=== PATIENT | male | born 1955 | race Caucasian/White ===

== ENCOUNTER 2016-09-12 09:00 | Day surgery (SDC) | payer MEDICARE, OTHER ==
[2016-09-07 15:26] VITALS: BMI 50.2
[2016-09-12] MEDS: SODIUM CHLORIDE 0.9% 1,000 ML IV SCH ×2 (09:35→17:06)
[2016-09-12 09:48] LABS: Basophils # (A) 0.1 k/uL (0-0.2); Basophils % (A) 0 %; CH 33.2; CHCM 34.6; Eosinophils # (A) 0.1 k/uL (0-0.7); Eosinophils % (A) 1 %; HDW 2.79; HGB 15.5 gm/dL (13.0-17.5); Luc # (Auto) 0.16; Luc % (Auto) 1; Lymphocytes # (A) 1.1 k/uL (1.0-4.8); Lymphocytes % (A) 9 %; MCH 33.3 pg (25.0-35.0); MCHC 34.5 g/dL (31.0-37.0); MCV 96.5 fL (80.0-100.0); Monocytes # (A) 0.6 k/uL (0-1.0); Monocytes % (A) 5 %; Neutrophils % (A) 84 %; RBC 4.66 m/uL (4.30-5.90); RDW 14.4 % (11.5-15.5); WBC (Perox) 11.89
[2016-09-12 09:59] LABS: Anion Gap 14 mmol/L; Calcium 9.5 mg/dL (8.4-10.2); Carbon Dioxide 26 mmol/L (22-30); Chloride 101 mmol/L (98-107); Glucose 165 mg/dL (74-99); Non-African American GFR(MDRD) >60 (>60 ml/min/1.73 sqM); Sodium 141 mmol/L (137-145)
[2016-09-12 10:02] LABS: INR 1.5 (<1.1); Prothrombin Time 14.9 sec (9.0-12.0)
[2016-09-12 10:03] LABS: Blood Urea Nitrogen 17 mg/dL (9-20); Potassium 4.7 mmol/L (3.5-5.1)
[2016-09-12] MEDS ORDERED: ceFAZolin 2 GM in SODIUM CHLORIDE 0.9% 100 ML IVPB STA (13:42)
[2016-09-12] MEDS ORDERED: MIDAZOLAM 2 MG/2 ML VIAL ONE (13:45)
[2016-09-12] MEDS ORDERED: fentaNYL (PF) 50 MCG/ML 2 ML AMP ONE (13:45)
[2016-09-12] MEDS ORDERED: ATROPINE SULFATE 0.1 MG/ML 10ML SYRINGE ONE (13:45)
[2016-09-12] MEDS ORDERED: PROPOFOL 10 MG/ML 20 ML VIAL IV ONE (13:45)
[2016-09-12] MEDS ORDERED: ALBUTEROL NEBULIZED 2.5 MG/3 ML INHALATION PRN (14:43)
[2016-09-12] MEDS ORDERED: ACETAMINOPHEN TAB 325 MG TAB PO PRN (14:43)
--- NOTE | 2016-09-12 14:49 | P.PCN ---
Preoperative Diagnosis: Procedure: AV node modification Indication for the procedure: A. fib with RVR despite digoxin and high dose metoprolol, history of cardio myopathy status post biventricular ICD implant Patient was brought to the EP lab in a fasting state. Written informed consent was obtained prior to the procedure. IV antibiotics were administered. Venous access was obtained in the right femoral vein and a long sheath was placed along with a 4 mm tip RF ablation catheter. Mapping of the His bundle was performed. The catheter was pulled back more proximally and inferiorly RF ablation 2 were delivered, 50 W for 60 seconds each. Junctional rhythm at a cycle length of about 1400 ms Following that a single extra RF lesion was delivered Patient tolerated the procedure well without any acute complications Preprocedure biventricular ICD interrogation and reprogramming Prior to the procedure the Bi V ICD was interrogated and reprogrammed to VVI 40 bpm Stable impedances Postprocedure biventricular ICD interrogation with reprogramming Stable impedances Rate reprogrammed to VVIR at 90 beats a minute for 1-2 weeks and then gradually reduced to 60 beats a minute Condition: stable Disposition: observation
[2016-09-12 16:57] LABS: Glucose,Whole Blood 177 mg/dL (75-99)
[2016-09-12] MEDS: LACTATED RINGERS 1,000 ML IV SCH (17:06)
[2016-09-12] MEDS: HYDROcodone/APAP 5-325MG 1 EACH TAB PO PRN ×2 (17:09→20:56)
[2016-09-12] MEDS ORDERED: FUROSEMIDE 20 MG TAB PO SCH (18:00)
[2016-09-12 20:34] LABS: Glucose,Whole Blood 177 mg/dL (75-99)
[2016-09-12] MEDS ORDERED: TEMAZEPAM 15 MG CAP PO PRN (20:57)
[2016-09-12] MEDS ORDERED: WARFARIN 7.5 MG TAB PO SCH (21:00)
[2016-09-12] MEDS ORDERED: ATORVASTATIN 20 MG TAB PO SCH (21:00)
[2016-09-12] MEDS: ALBUTEROL NEBULIZED 2.5 MG/3 ML INHALATION SCH (21:05)
[2016-09-13] MEDS: LACTATED RINGERS 1,000 ML IV SCH (06:14)
--- NOTE | 2016-09-13 07:49 | P.DS ---
Providers Attending physician: Rafa Collazo Primary care physician: James Waylon [facility] [place] Course: Patient is doing well. His groin is healed well. His ablating in the hallways. No chest discomfort no undue shortness of breath Vitals are stable Heart rate 91 beats a minute respirations normal afebrile blood pressure 137/64 mmHg Heart sounds are normal normal S1 normal S2 Breath sounds are normal no rhonchi no crackles Abdomen is soft nontender Extremities are warm no edema Impression Severe nonischemic cardio myopathy Heart failure Systolic heart failure, chronic Status post biventricular ICD Permanent atrial fibrillation with RVR, despite high-dose AV jemal blocking drugs In appropriate ICD shock from A. fib with RVR Status post AV junction modification Plan Pacemaker programmed to VVIR at 90 beats a minute for the next 2 weeks Stop digoxin Both these aspects were discussed with the patient and the nurse Discharge home after pacemaker interrogation today Follow up in 2 weeks in the device clinic and follow-up with me in about 4-5 months Patient Condition at Discharge: Stable Plan - Discharge Summary Discharge Medication List RX: Albuterol Sulfate [Proair Hfa] 2 puff INHALATION Q6HR PRN 02/18/14 [History] RX: Albuterol Nebulized [Ventolin Nebulized] 2.5 mg INHALATION BID 05/20/15 [ History] RX: Aspirin 81 mg PO QAM 05/20/15 [History] RX: Furosemide [Lasix] 20 mg PO 1800 09/11/15 [History] RX: Lisinopril [Zestril] 2.5 mg PO DAILY 09/11/15 [History] RX: Warfarin [Coumadin] 7.5 mg PO HS 09/11/15 [History] RX: diphenhydrAMINE [Benadryl] 25 mg PO QID PRN #30 capsule 09/11/15 [Rx] RX: Atorvastatin [Lipitor] 20 mg PO HS #90 tablet 10/13/15 [Rx] RX: Digoxin [Digitek] 125 mcg PO DAILY #90 tab 10/13/15 [Rx] Metoprolol Succinate [Toprol XL] 200 mg PO QAM 03/01/16 [History] RX: Metoprolol Succinate [Toprol XL] 100 mg PO W/SUPPER 03/01/16 [History]
[2016-09-13] MEDS: ALBUTEROL NEBULIZED 2.5 MG/3 ML INHALATION SCH (07:51)
[2016-09-13 07:55] VITALS: BP 141/75; RESP 18; TEMP 97.6
[2016-09-13 08:29] VITALS: PULSE 73
[2016-09-13] MEDS ORDERED: DIGOXIN 125 MCG TAB PO SCH (09:00)
[2016-09-13] MEDS ORDERED: ASPIRIN 81 MG CHEW PO SCH (09:00)
[2016-09-13] MEDS ORDERED: METOPROLOL SUCCINATE (ER) 100 MG TAB.ER.24H PO SCH (09:00)
== END 2016-09-13 09:56 | disposition home or self-care (01) ==
LOC: CATHEP 09:00 → 3OBS 14:42 → CATHEP 09-13 09:56
PROVIDERS: ATTEND Internal Medicine Clinical Cardiac Electrophysiology
DX: Z45.02 Encounter for adjustment and management of automatic implantable cardiac defibrillator (principal); I48.2 Chronic atrial fibrillation; I11.0 Hypertensive heart disease with heart failure; I50.22 Chronic systolic (congestive) heart failure; I42.8 Other cardiomyopathies; G47.33 Obstructive sleep apnea (adult) (pediatric); R00.1 Bradycardia, unspecified; Z79.01 Long term (current) use of anticoagulants; Z79.82 Long term (current) use of aspirin; Z79.899 Other long term (current) drug therapy
CPT/HCPCS: 94640 ×2; 93650; 93642; 80048; 85025; 85610; C1894; C1769 ×2; C1893; C1733; J2250; J0690; J0461; J3010; J2704; 93284

== ENCOUNTER → 2017-02-09 | Outpatient (CLI) | payer MEDICARE, OTHER ==
[2017-02-09 13:13] LABS: Basophils # (A) 0.1 k/uL (0-0.2); Basophils % (A) 1 %; CH 31.7; CHCM 33.4; Eosinophils # (A) 0.2 k/uL (0-0.7); Eosinophils % (A) 2 %; HCT 45.2 % (39.0-53.0); HGB 15.3 gm/dL (13.0-17.5); Luc # (Auto) 0.22; Luc % (Auto) 2; Lymphocytes # (A) 0.8 k/uL (1.0-4.8); Lymphocytes % (A) 8 %; MCH 32.3 pg (25.0-35.0); MCHC 33.9 g/dL (31.0-37.0); MCV 95.3 fL (80.0-100.0); Mean Platelet Volume 7.5; Monocytes # (A) 0.6 k/uL (0-1.0); Monocytes % (A) 7 %; Neutrophils # (A) 7.3 k/uL (1.3-7.7); Neutrophils % (A) 80 %; RBC 4.75 m/uL (4.30-5.90); RDW 15.2 % (11.5-15.5); WBC 9.1 k/uL (3.8-10.6); WBC (Perox) 9.51
[2017-02-09 13:30] LABS: ALT 30 U/L (21-72); AST 28 U/L (17-59); Alkaline Phosphatase 105 U/L (38-126); Anion Gap 9 mmol/L; Blood Urea Nitrogen 13 mg/dL (9-20); Calcium 8.9 mg/dL (8.4-10.2); Carbon Dioxide 27 mmol/L (22-30); Chloride 102 mmol/L (98-107); Cholesterol 136 mg/dL (<200); Glucose 128 mg/dL (74-99); HDL Cholesterol 43 mg/dL (40-60); Non-African American GFR(MDRD) >60 (>60 ml/min/1.73 sqM); Potassium 3.8 mmol/L (3.5-5.1); Sodium 138 mmol/L (137-145); Total Bilirubin 0.7 mg/dL (0.2-1.3); Total Protein 6.6 g/dL (6.3-8.2); Uric Acid 10.6 mg/dL (3.5-8.5)
== END | disposition home or self-care (01) ==
LOC: LABWHC1 12:21
PROVIDERS: ATTEND Physician Assistant Medical
DX: K92.1 Melena (principal); N18.9 Chronic kidney disease, unspecified; M10.00 Idiopathic gout, unspecified site
CPT/HCPCS: 36415; 80053; 80061; 84550; 85025

== ENCOUNTER 2017-02-26 11:20 | Day surgery (SDC) | payer MEDICARE, OTHER ==
[2017-02-22 16:00] VITALS: BMI 49.4
[~2017-02-26 11:20] MED LIST: LACTATED RINGERS 1,000 ML IV SCH; LIDOCAINE 1% 20 ML VIAL (10MG/ML) FOR IV START INTRADERMA PRN
[2017-02-26 12:20] VITALS: RESP 16
[2017-02-26 12:50] LABS: Glucose,Whole Blood 129 mg/dL (75-99)
[2017-02-26] MEDS ORDERED: LIDOCAINE 1% INJ 10MG/ML (20 ML MDV) ONE (12:57)
[2017-02-26] MEDS ORDERED: PROPOFOL 10 MG/ML 20 ML VIAL IV ONE (12:57)
[2017-02-26 13:39] VITALS: PULSE 60
--- NOTE | 2017-02-26 13:43 | P.PCN ---
Date of Procedure: 02/26/17 Preoperative Diagnosis: Postoperative Diagnosis: Procedure(s) Performed: Procedure: Colonoscopy and biopsy. Preoperative diagnosis: Positive occult blood in the stools. Postoperative diagnosis: 1. Sigmoid diverticulosis with nonspecific proctosigmoiditis with no spontaneous bleeding. 2. Multiple biopsies obtained. 3. No polyps or cancer. Operation: HalfLytely prep. Sedation: Was provided by anesthesia. Brief clinical history: The patient is a 61-year-old male who is scheduled for this evaluation because of occult positive stools. There is no significant abdominal symptoms at this time or overt bleeding. This would be his first colonoscopy. Procedure: With the patient on his left lateral decubitus position and after informed consent and adequate sedation, the perianal area was inspected and it did not show any fissures or fistulas. There were no masses felt on digital rectal examination. The Olympus CFQ 160L video colonoscope was then inserted in the rectum in the usual fashion and advanced to the cecum. There were multiple diverticular orifices seen scattered in the sigmoid. The distal 30 cm of the colon, which includes the distal sigmoid and rectum, showed nonspecific inflammation that was patchy in the distal sigmoid and more diffuse in the rectum with edema, erythema and granularity of the mucosa but no obvious ulcers or spontaneous bleeding. In the sigmoid there was areas of submucosal hemorrhage in the vicinity of diverticular orifices that could represent a prior bout of diverticulitis. I obtained multiple biopsies from the sigmoid and rectum then I retroflexed the endoscope in the rectum before the endoscope was withdrawn. The patient tolerated the procedure well. Plan: I summarized the findings to the patient. Will await biopsy results and make additional recommendations based on his course and biopsy results. I will keep you updated on his progress. Implants: Indications for Procedure: Operative Findings: Description of Procedure:
[2017-02-26 13:51] VITALS: BP 108/66
== END 2017-02-26 14:36 | disposition home or self-care (01) ==
LOC: ORWHC2ENDO 11:20
DX: K52.9 Noninfective gastroenteritis and colitis, unspecified (principal); K57.30 Diverticulosis of large intestine without perforation or abscess without bleeding; R19.5 Other fecal abnormalities; J44.9 Chronic obstructive pulmonary disease, unspecified; M19.90 Unspecified osteoarthritis, unspecified site; G47.33 Obstructive sleep apnea (adult) (pediatric); I48.92 Unspecified atrial flutter; M10.9 Gout, unspecified; E66.9 Obesity, unspecified; K21.9 Gastro-esophageal reflux disease without esophagitis; Z95.810 Presence of automatic (implantable) cardiac defibrillator; Z79.01 Long term (current) use of anticoagulants; Z79.82 Long term (current) use of aspirin; Z79.899 Other long term (current) drug therapy
CPT/HCPCS: 88305; 45380; J2001; J2704

== ENCOUNTER → 2017-06-26 | Outpatient (CLI) | payer MEDICARE, OTHER ==
[2017-06-26 16:05] LABS: ALT 50 U/L (21-72); AST 30 U/L (17-59); Alkaline Phosphatase 119 U/L (38-126); Anion Gap 9 mmol/L; Blood Urea Nitrogen 27 mg/dL (9-20); Calcium 9.5 mg/dL (8.4-10.2); Carbon Dioxide 30 mmol/L (22-30); Chloride 99 mmol/L (98-107); Glucose 125 mg/dL (74-99); Non-African American GFR(MDRD) >60 (>60 ml/min/1.73 sqM); Potassium 4.1 mmol/L (3.5-5.1); Sodium 138 mmol/L (137-145); Total Bilirubin 1.5 mg/dL (0.2-1.3); Total Protein 7.1 g/dL (6.3-8.2); Uric Acid 7.7 mg/dL (3.5-8.5)
[2017-06-26 16:11] LABS: Basophils % (A) 0 %; CH 31.6; CHCM 33.5; Eosinophils # (A) 0.1 k/uL (0-0.7); Eosinophils % (A) 1 %; HCT 53.9 % (39.0-53.0); HDW 2.43; HGB 17.7 gm/dL (13.0-17.5); Luc % (Auto) 2; Lymphocytes # (A) 1.1 k/uL (1.0-4.8); Lymphocytes % (A) 11 %; MCH 31.1 pg (25.0-35.0); MCHC 32.9 g/dL (31.0-37.0); MCV 94.6 fL (80.0-100.0); Mean Platelet Volume 6.9; Monocytes # (A) 0.9 k/uL (0-1.0); Monocytes % (A) 9 %; Neutrophils # (A) 8.2 k/uL (1.3-7.7); Neutrophils % (A) 78 %; RBC 5.69 m/uL (4.30-5.90); WBC 10.6 k/uL (3.8-10.6); WBC (Perox) 10.34
== END | disposition home or self-care (01) ==
LOC: LABWHC1 15:31
PROVIDERS: ATTEND Physician Assistant Medical
DX: J20.9 Acute bronchitis, unspecified (principal); M10.9 Gout, unspecified; N18.9 Chronic kidney disease, unspecified
CPT/HCPCS: 36415; 80053; 84550; 85025

== ENCOUNTER → 2017-07-10 | Outpatient (CLI) | payer MEDICARE, OTHER ==
[2017-07-10 12:22] LABS: Anion Gap 10 mmol/L; Blood Urea Nitrogen 21 mg/dL (9-20); Calcium 9.1 mg/dL (8.4-10.2); Carbon Dioxide 27 mmol/L (22-30); Chloride 99 mmol/L (98-107); Glucose 146 mg/dL (74-99); Potassium 4.1 mmol/L (3.5-5.1); Sodium 136 mmol/L (137-145)
== END | disposition home or self-care (01) ==
LOC: LABWHC1 11:34
PROVIDERS: ATTEND Nurse Practitioner Adult Health
DX: I42.8 Other cardiomyopathies (principal)
CPT/HCPCS: 36415; 80048

== ENCOUNTER → 2017-10-26 | Outpatient (CLI) | payer MEDICARE, OTHER ==
--- NOTE | 2017-10-26 11:50 | CT ---
EXAMINATION TYPE: CT soft tissue neck w con DATE OF EXAM: 10/26/2017 COMPARISON: NONE HISTORY: Patient complains of sore throat. CT DLP: 1043 mGycm CONTRAST: CT scan of the neck is performed with IV Contrast, patient injected with 100 mL of Isovue 300. Contrast enhanced CT of the neck was performed from the skull base through the lung apices. AIRWAY: There is mild prominence of the tonsillar pillars. The supraglottic, glottic, and subglotti c portions of the airway appear patent and free of mass. SALIVARY GLANDS: The submandibular and parotid glands are free of mass or inflammatory process. THYROID GLAND: No nodules or masses seen. LYMPH NODES: No adenopathy seen greater than 1cm. LUNG APICES: No nodule or mass is seen. OTHER: Vascular structures are patent. Mild degenerative change of the cervical spine. No abscess s een. IMPRESSION: There is mild prominence of the tonsillar pillars. Otherwise unremarkable study.
== END ==
LOC: RADCTMAIN 11:04
PROVIDERS: ATTEND Otolaryngology
DX: J02.9 Acute pharyngitis, unspecified (principal); H92.01 Otalgia, right ear
CPT/HCPCS: 70491; Q9967

== ENCOUNTER 2017-10-30 01:55 | Emergency (ER) | payer MEDICARE, OTHER ==
[2017-10-30] MEDS ORDERED: LIDOCAINE/EPINEPHR/TETRACAINE 5 ML BOTTLE TOPICAL ONE (02:24)
[2017-10-30] MEDS ORDERED: OXYMETAZOLINE 0.05% NASL SPRAY 1 SPRAY BOTTLE NASAL STA (02:24)
[2017-10-30] MEDS ORDERED: SILVER NITRATE APPLICATOR 1 EACH STICK..EA. TOPICAL STA (02:26)
[2017-10-30 02:46] LABS: INR 2.9 (<1.2); Partial Thromboplastin Time 33.7 sec (22.0-30.0); Prothrombin Time 25.7 sec (9.0-12.0)
[2017-10-30] MEDS ORDERED: ALBUTEROL NEBULIZED 2.5 MG/3 ML INHALATION STA (03:39)
--- NOTE | 2017-10-30 03:41 | ED ---
ENT HPI - General Chief complaint: ENT Stated complaint: nose bleed Time Seen by Provider: 10/30/17 02:16 Source: patient, RN notes reviewed, old records reviewed Mode of arrival: wheelchair Limitations: physical limitation - History of Present Illness Initial comments: This patient is a 62-year-old male chief complaint of a nosebleed since Sunday evening. He reports that he is on Coumadin. He reports that he followed up with an clinical research nurse and they were going to cauterize his nose next week. Patient has been getting more frequent nosebleeds. He denies any lightheadedness or dizziness. Denies any chest pain shortness of breath palpitations. - Related Data Home Medications Medication Instructions Recorded Confirmed Albuterol Sulfate [Proair Hfa] 2 puff INHALATION RT-Q6H PRN 02/18/14 07/01/17 Albuterol Nebulized [Ventolin 2.5 mg INHALATION RT-Q6H PRN 05/20/15 07/01/17 Nebulized] Aspirin 81 mg PO DAILY 05/20/15 07/01/17 Lisinopril [Zestril] 2.5 mg PO DAILY 09/11/15 07/01/17 Warfarin [Coumadin] 7.5 mg PO TUTH 09/11/15 07/01/17 Metoprolol Succinate [Toprol XL] 200 mg PO DAILY 03/01/16 07/01/17 Febuxostat [Uloric] 40 mg PO DAILY 02/22/17 07/01/17 Azithromycin [Zithromax Z-pack] See Taper PO DIRECTED 07/01/17 07/01/17 Furosemide [Lasix] 20 mg PO HS 07/01/17 07/01/17 Furosemide [Lasix] 40 mg PO DAILY 07/01/17 07/01/17 Ranitidine HCl [Zantac] 300 mg PO HS 07/01/17 07/01/17 Warfarin [Coumadin] 5 mg PO SUMOWEFRSA 07/01/17 07/01/17 traZODone HCL 50 mg PO HS PRN 07/01/17 07/01/17 Previous Rx's Medication Instructions Recorded Atorvastatin [Lipitor] 20 mg PO HS #90 tablet 10/13/15 Furosemide [Lasix] 20 mg PO HS #30 tab 07/03/17 Furosemide [Lasix] 40 mg PO DAILY #30 tab 07/03/17 Amoxic-Pot Clav 875-125Mg 1 tab PO Q12HR #20 tablet 10/30/17 [Augmentin 875-125] Allergies Allergy/AdvReac Type Severity Reaction Status Date / Time No Known Allergies Allergy Verified 10/30/17 02:04 Review of Systems ROS Statement: Those systems with pertinent positive or pertinent negative responses have been documented in the HPI. ROS Other: All systems not noted in ROS Statement are negative. Past Medical History Past Medical History: Atrial Flutter, COPD, GERD/Reflux, Osteoarthritis (OA), Pneumonia, Renal Disease, Skin Disorder, Sleep Apnea/CPAP/BIPAP Additional Past Medical History / Comment(s): BLOOD IN STOOL, cellulitis bilateral lower extremities-healing, gout, USES A CANE TO AMBULATE, History of Any Multi-Drug Resistant Organisms: None Reported Past Surgical History: AICD, Cardiac Ablation, Orthopedic Surgery Additional Past Surgical History / Comment(s): rectal fistula repair X2. RUEL KNEE ARTHROSCOPY, surgery to remove part of lower left lung for abestosis, Past Anesthesia/Blood Transfusion Reactions: No Reported Reaction Type of Cardiac Device: AICD Device Placement Date:: [facility] 10/13/15 Past Psychological History: No Psychological Hx Reported Smoking Status: Never smoker Past Alcohol Use History: Occasional Past Drug Use History: None Reported - Past Family History Father Family Medical History: Diabetes Mellitus Additional Family Medical History / Comment(s): Father is almost 90 yrs old. Mother Family Medical History: Cancer Additional Family Medical History / Comment(s): STOMACH CA. General Exam - General Exam Comments Initial Comments: This is a 62 year old male, no distress. Limitations: physical limitation General appearance: alert, in no apparent distress Head exam: Present: atraumatic, normocephalic, normal inspection Eye exam: Present: normal appearance, PERRL, EOMI. Absent: scleral icterus, conjunctival injection, periorbital swelling ENT exam: Present: normal exam, mucous membranes moist, other (Right sided anterior nose bleed. ) Neck exam: Present: normal inspection. Absent: tenderness, meningismus, lymphadenopathy Respiratory exam: Present: normal lung sounds bilaterally. Absent: respiratory distress, wheezes, rales, rhonchi, stridor Cardiovascular Exam: Present: regular rate, normal rhythm, normal heart sounds. Absent: systolic murmur, diastolic murmur, rubs, gallop, clicks GI/Abdominal exam: Present: soft, normal bowel sounds. Absent: distended, tenderness, guarding, rebound, rigid Extremities exam: Present: normal inspection, full ROM, normal capillary refill , other (Patient has dusky lower extremity, and ambulate in wheel chair. Appears to have chronic venous stasis. ). Absent: tenderness, pedal edema, joint swelling, calf tenderness Back exam: Present: normal inspection Neurological exam: Present: alert, oriented X3, CN II-XII intact Course Vital Signs 10/30/17 10/30/17 10/30/17 01:59 03:30 03:43 Temperature 98.6 F Pulse Rate 59 L 60 62 Respiratory 18 19 Rate Blood Pressure 155/80 148/76 O2 Sat by Pulse 97 97 Oximetry 10/30/17 10/30/17 03:50 04:41 Temperature 97.8 F Pulse Rate 62 83 Respiratory 17 Rate Blood Pressure 154/87 O2 Sat by Pulse 96 Oximetry Medical Decision Making - Medical Decision Making [id number] male presents with a right sided nosebleed. It appears to be an anterior bleed. I initially use Afrin and a topical lidocaine with epinephrine to the nostril. You continue to have some bleeding. I attempted to cauterize with silver nitrate Initially the nosebleed was stable. However if then we started to rebleed. Discuss with Dr. Mendiola. Patient had an anterior nasal packing with Merocell. Patient INR is within therapeutic range with Afib of 2.9. Patient will be started on augmentin with anterior packing. Discussed antibiotics can change his INR as well. Discussed he needs to follow up with ENT on Sunday fore removal, he already has an appt. Patient will have to have his INR rechecked as well. All question answered. REturn parameters discussed. - Lab Data Lab Results 10/30/17 Range/Units 02:16 PT 25.7 H (9.0-12.0) sec INR 2.9 H (<1.2) APTT 33.7 H (22.0-30.0) sec Disposition Clinical Impression: Nosebleed Disposition: HOME SELF-CARE Condition: Good Instructions: Nosebleed (ED) Additional Instructions: Patient advised to follow-up with primary care provider. Patient is a follow- up with clinical research nurse proximally 2 days. Patient is a keep the packing within the nose until ENT follow-up. Return to the emergency department if any alarming signs or symptoms occur. Prescriptions: Amoxic-Pot Clav 875-125Mg [Augmentin 875-125] 1 tab PO Q12HR #20 tablet Is patient prescribed a controlled substance at d/c from ED?: No If prescribed controlled substance>3 days was MAPS reviewed?: No When asked, does pt state using other controlled substances?: No Referrals: James Sam III, MD [Primary Care Provider] - 1-2 days Avel Scott MD [STAFF PHYSICIAN] - 1-2 days Time of Disposition: 04:29
[2017-10-30 04:43] VITALS: BP 154/87; PULSE 83; RESP 17; TEMP 97.8
== END 2017-10-30 05:07 | disposition home or self-care (01) ==
LOC: EC 01:55
DX: R04.0 Epistaxis (principal); I48.92 Unspecified atrial flutter; K21.9 Gastro-esophageal reflux disease without esophagitis; M19.90 Unspecified osteoarthritis, unspecified site; G47.30 Sleep apnea, unspecified; M10.9 Gout, unspecified; Z99.89 Dependence on other enabling machines and devices; Z95.810 Presence of automatic (implantable) cardiac defibrillator; Z98.890 Other specified postprocedural states; Z79.01 Long term (current) use of anticoagulants; Z79.82 Long term (current) use of aspirin; Z79.899 Other long term (current) drug therapy
CPT/HCPCS: 30901; 36415; 85610; 85730; 94640; 99284

== ENCOUNTER → 2017-11-02 | Outpatient (CLI) | payer OTHER ==
[2017-11-05 11:46] LABS: Alt. alternata IgE Class CLASS 0; Alternaria alternata IgE <0.35 kU/L (<0.35); Asperg. fumagatus IgE <0.35 kU/L (<0.35); Asperg. fumagatus IgE Class CLASS 0; Aureo. pullulans IgE <0.35 kU/L (<0.35); Birch(Com.Silvr) IgE 0.85 kU/L (<0.35); Birch(Com.Silvr) IgE Class CLASS II; Candida albicans IgE Class CLASS 0; Cat Epith & Dander IgE 2.92 kU/L (<0.35); Cat Epith & Dander IgE Class CLASS II; Clad herbarum IgE <0.35 kU/L (<0.35); Cockroach IgE 1.36 kU/L (<0.35); Com. Pigweed IgE 1.37 kU/L (<0.35); Com. Pigweed IgE Class CLASS II; Cottonwood IgE 1.24 kU/L (<0.35); Dermato. Pteronyssinus IgE <0.35 kU/L (<0.35); Dermato. farinae IgE <0.35 kU/L (<0.35); Dermato. farinae IgE Class CLASS 0; Dog Dander IgE 5.13 kU/L (<0.35); English Plantain IgE Class CLASS II; Epicoccum purpurascens Class CLASS 0; Epicoccum purpurascens IgE <0.35 kU/L (<0.35); Johnson Grass IgE Class CLASS III; Lamb's Quarter IgE 1.44 kU/L (<0.35); Lamb's Quarter IgE Class CLASS II; Maple (Box Elder) IgE 1.31 kU/L (<0.35); Maple (Box Elder) IgE Class CLASS II; Mucor racemosus IgE 0.44 kU/L (<0.35); Mucor racemosus IgE Class CLASS I; Oak IgE 1.38 kU/L (<0.35); Rhizopus nigricans IgE 0.44 kU/L (<0.35); S.rostrata/Helminth Class CLASS 0; S.rostrata/Helminth IgE <0.35 kU/L (<0.35); Sycamore(Mpl.Lf) IgE 1.58 kU/L (<0.35); Walnut Tree IgE 0.79 kU/L (<0.35); Walnut Tree IgE Class CLASS II; White Ash IgE Class CLASS II
== END | disposition home or self-care (01) ==
LOC: LABWHC1 10:49
PROVIDERS: ATTEND Otolaryngology
DX: J30.89 Other allergic rhinitis (principal)
CPT/HCPCS: 36415; 86003

== ENCOUNTER 2017-11-03 20:04 | Emergency (ER) | payer MEDICARE, OTHER ==
[2017-11-03 20:09] VITALS: RESP 18
[2017-11-03] MEDS ORDERED: COCAINE HCL 4 ML SOLUTION TOPICAL ONE (20:34)
--- NOTE | 2017-11-03 20:38 | ED ---
ENT HPI - General Chief complaint: ENT Stated complaint: Nose Bleed Time Seen by Provider: 11/03/17 20:19 Source: patient Mode of arrival: wheelchair Limitations: no limitations - History of Present Illness Initial comments: 62-year-old male presenting with nosebleed. Patient states that he was seen on 10/30 for similar issue. He was discharged with nasal packing and followed up with ENT. States the nasal packing was removed, and he had no issues until 7 PM tonight. Patient states he been off of his warfarin for the past 3 day and took 5 mg today at 5:30 PM. Patient states he tried pressure and tissues without any relief. Denies any trauma. - Related Data Home Medications Medication Instructions Recorded Confirmed Albuterol Sulfate [Proair Hfa] 2 puff INHALATION RT-Q6H PRN 02/18/14 11/03/17 Albuterol Nebulized [Ventolin 2.5 mg INHALATION RT-Q6H PRN 05/20/15 11/03/17 Nebulized] Aspirin 81 mg PO DAILY 05/20/15 11/03/17 Lisinopril [Zestril] 2.5 mg PO DAILY 09/11/15 11/03/17 Warfarin [Coumadin] 7.5 mg PO TUTH 09/11/15 11/03/17 Metoprolol Succinate [Toprol XL] 200 mg PO DAILY 03/01/16 11/03/17 Febuxostat [Uloric] 40 mg PO DAILY 02/22/17 11/03/17 Azithromycin [Zithromax Z-pack] See Taper PO DIRECTED 07/01/17 11/03/17 Furosemide [Lasix] 20 mg PO HS 07/01/17 11/03/17 Furosemide [Lasix] 40 mg PO DAILY 07/01/17 11/03/17 Ranitidine HCl [Zantac] 300 mg PO HS 07/01/17 11/03/17 Warfarin [Coumadin] 5 mg PO SUMOWEFRSA 07/01/17 11/03/17 traZODone HCL 50 mg PO HS PRN 07/01/17 11/03/17 Previous Rx's Medication Instructions Recorded Atorvastatin [Lipitor] 20 mg PO HS #90 tablet 10/13/15 Furosemide [Lasix] 20 mg PO HS #30 tab 07/03/17 Furosemide [Lasix] 40 mg PO DAILY #30 tab 07/03/17 Amoxic-Pot Clav 875-125Mg 1 tab PO Q12HR #20 tablet 10/30/17 [Augmentin 875-125] Allergies Allergy/AdvReac Type Severity Reaction Status Date / Time No Known Allergies Allergy Verified 11/03/17 20:09 Review of Systems ROS Statement: Those systems with pertinent positive or pertinent negative responses have been documented in the HPI. Review of Systems Constitutional: Denies fever, chills Eyes: Denies change in vision, Denies pain Ears, nose, mouth, throat: Denies headaches, Denies sore throat. Positive nose bleed Cardiovascular: Denies chest pain. Denies palpitations Respiratory: Denies shortness of breath, Denies cough Gastrointestinal: Denies abdominal pain. Denies nausea, vomiting, diarrhea. Genitourinary: Denies hematuria, Denies infections Musculoskeletal: Denies pain, Denies swelling Integumentary: Denies rash Neurological: Denies headache, focal weakness, focal numbness Psychiatric: Denies anxiety, Denies depression Hematologic/Lymphatic: Denies easy bleeding or bruising ROS Other: All systems not noted in ROS Statement are negative. Past Medical History Past Medical History: Atrial Flutter, COPD, GERD/Reflux, Osteoarthritis (OA), Pneumonia, Renal Disease, Skin Disorder, Sleep Apnea/CPAP/BIPAP Additional Past Medical History / Comment(s): BLOOD IN STOOL, cellulitis bilateral lower extremities-healing, gout, USES A CANE TO AMBULATE, History of Any Multi-Drug Resistant Organisms: None Reported Past Surgical History: AICD, Cardiac Ablation, Orthopedic Surgery Additional Past Surgical History / Comment(s): rectal fistula repair X2. RUEL KNEE ARTHROSCOPY, surgery to remove part of lower left lung for abestosis, Past Anesthesia/Blood Transfusion Reactions: No Reported Reaction Type of Cardiac Device: AICD Device Placement Date:: [facility] 10/13/15 Past Psychological History: No Psychological Hx Reported Smoking Status: Never smoker Past Alcohol Use History: Occasional Past Drug Use History: None Reported - Past Family History Father Family Medical History: Diabetes Mellitus Additional Family Medical History / Comment(s): Father is almost 90 yrs old. Mother Family Medical History: Cancer Additional Family Medical History / Comment(s): STOMACH CA. General Exam - General Exam Comments Initial Comments: General: Awake, alert, No acute Distress HENT: Normocephalic. Atraumatic. Bleeding from Kesselbach's plexus on right. No oropharyngeal bleeding Eyes: PERRL. EOMI. No scleral icterus. No injected conjunctiva Neck: Full ROM Chest/Lungs: Clear to auscultation bilaterally. No wheezing, rhonchi, or rales Cardiac: Regular rate, rhythm. No murmurs or rubs Abdomen/GI: [Soft, nontender, nondistended. No rebound, guarding, or rigidity. Musculoskeletal: Full ROM Skin: Warm, dry, intact Neurologic: A/Ox3, no weakness, no sensory deficit, no abdnormal gait, no coordination deficit Limitations: no limitations Course Vital Signs 11/03/17 20:07 Temperature 98 F Pulse Rate 60 Respiratory 18 Rate Blood Pressure 150/73 O2 Sat by Pulse 98 Oximetry Medical Decision Making - Medical Decision Making 62 year old male presenting with nosebleed. Initial exam the patient is awake, alert, no acute distress. VSS. Anterior nasal pressure was applied with tongue blades for 20 minutes. Patient's breathing improved a small amount was still coming from Kesselbach's plexus. Liquid cocaine was applied to the area. The bleeding was controlled. His coumadin level was supratherapeutic however patient just resumed his coumadin today. He was instructed to continue to follow up with ENT. He was given nasal precautions and [place] nasal wash. No further emergent workup is indicated. Stable for discharge home and is clear and return to ER instructions. - Lab Data Result diagrams: 11/03/17 20:50 Lab Results 11/03/17 11/03/17 Range/Units 20:50 20:50 WBC 10.2 (3.8-10.6) k/uL RBC 5.37 (4.30-5.90) m/uL Hgb 17.5 (13.0-17.5) gm/dL Hct 50.8 (39.0-53.0) % MCV 94.7 (80.0-100.0) fL MCH 32.7 (25.0-35.0) pg MCHC 34.5 (31.0-37.0) g/dL RDW 13.5 (11.5-15.5) % Plt Count 249 (150-450) k/uL PT 15.3 H (9.0-12.0) sec INR 1.7 H (<1.2) Disposition Clinical Impression: Bleeding from the nose Disposition: HOME SELF-CARE Condition: Good Instructions: Nosebleed (ED) Is patient prescribed a controlled substance at d/c from ED?: No If prescribed controlled substance>3 days was MAPS reviewed?: No Referrals: James Sam III, MD [Primary Care Provider] - 1-2 days
[2017-11-03 21:06] LABS: HCT 50.8 % (39.0-53.0); HGB 17.5 gm/dL (13.0-17.5); MCH 32.7 pg (25.0-35.0); MCHC 34.5 g/dL (31.0-37.0); MCV 94.7 fL (80.0-100.0); Mean Platelet Volume 7.2; Platelet Count 249 k/uL (150-450); RBC 5.37 m/uL (4.30-5.90); RDW 13.5 % (11.5-15.5); WBC 10.2 k/uL (3.8-10.6)
[2017-11-03 21:25] LABS: INR 1.7 (<1.2); Prothrombin Time 15.3 sec (9.0-12.0)
[2017-11-03] MEDS ORDERED: SODIUM CHLORIDE 0.65% NASAL SPRAY 44 ML BTL NASAL STA (22:56)
[2017-11-03 23:23] VITALS: BP 130/74; PULSE 78; TEMP 98.1
== END 2017-11-03 23:23 | disposition home or self-care (01) ==
LOC: EC 20:04
DX: R04.0 Epistaxis (principal); I48.92 Unspecified atrial flutter; J44.9 Chronic obstructive pulmonary disease, unspecified; K21.9 Gastro-esophageal reflux disease without esophagitis; M19.90 Unspecified osteoarthritis, unspecified site; G47.30 Sleep apnea, unspecified; Z99.89 Dependence on other enabling machines and devices; Z79.82 Long term (current) use of aspirin; Z79.01 Long term (current) use of anticoagulants; Z79.899 Other long term (current) drug therapy; Z95.810 Presence of automatic (implantable) cardiac defibrillator
CPT/HCPCS: 36415; 85027; 85610; 99283

== ENCOUNTER 2017-11-05 00:57 | Emergency (ER) | payer MEDICARE, OTHER ==
[2017-11-05 01:05] VITALS: BP 137/71; PULSE 62; RESP 18; TEMP 98.1
[2017-11-05] MEDS ORDERED: LIDOCAINE URO-JET JELLY 2% 5 ML KIT URETHRAL ONE (01:13)
--- NOTE | 2017-11-05 01:28 | ED ---
ENT HPI - General Chief complaint: ENT Stated complaint: nose bleed Time Seen by Provider: 11/05/17 01:10 Source: patient, RN notes reviewed Mode of arrival: ambulatory Limitations: no limitations - History of Present Illness Initial comments: This is a 8-year-old male who presents to the emergency department with chief complaint nosebleed. Patient states that he was seen here on October 30 and had nasal packing. He followed up with ENT on Sunday and had the packing removed. He developed a second nosebleed and presented here on November 03. Liquid cocaine was applied at that time. Patient states that tonight a little after midnight he developed a third nosebleed. Patient states that he is currently on Coumadin but has not taken his dose today. Denies any drainage of blood in the back of his throat. Denies fever, chills, chest pain, shortness of breath, abdominal pain, nausea or vomiting, constipation or diarrhea, dysuria or hematuria, numbness or tingling, headache or vision changes. - Related Data Home Medications Medication Instructions Recorded Confirmed Albuterol Sulfate [Proair Hfa] 2 puff INHALATION RT-Q6H PRN 02/18/14 11/05/17 Albuterol Nebulized [Ventolin 2.5 mg INHALATION RT-Q6H PRN 05/20/15 11/05/17 Nebulized] Aspirin 81 mg PO DAILY 05/20/15 11/05/17 Lisinopril [Zestril] 2.5 mg PO DAILY 09/11/15 11/05/17 Warfarin [Coumadin] 7.5 mg PO [facility] 09/11/15 11/05/17 Metoprolol Succinate [Toprol XL] 200 mg PO DAILY 03/01/16 11/05/17 Febuxostat [Uloric] 40 mg PO DAILY 02/22/17 11/05/17 Azithromycin [Zithromax Z-pack] See Taper PO DIRECTED 07/01/17 11/05/17 Furosemide [Lasix] 20 mg PO HS 07/01/17 11/05/17 Furosemide [Lasix] 40 mg PO DAILY 07/01/17 11/05/17 Ranitidine HCl [Zantac] 300 mg PO HS 07/01/17 11/05/17 Warfarin [Coumadin] 5 mg PO SUMOWEFRSA 07/01/17 11/05/17 traZODone HCL 50 mg PO HS PRN 07/01/17 11/05/17 Previous Rx's Medication Instructions Recorded Atorvastatin [Lipitor] 20 mg PO HS #90 tablet 10/13/15 Furosemide [Lasix] 20 mg PO HS #30 tab 07/03/17 Furosemide [Lasix] 40 mg PO DAILY #30 tab 07/03/17 Amoxic-Pot Clav 875-125Mg 1 tab PO Q12HR #20 tablet 10/30/17 [Augmentin 875-125] Allergies Allergy/AdvReac Type Severity Reaction Status Date / Time No Known Allergies Allergy Verified 11/05/17 01:05 Review of Systems ROS Statement: Those systems with pertinent positive or pertinent negative responses have been documented in the HPI. ROS Other: All systems not noted in ROS Statement are negative. Past Medical History Past Medical History: Atrial Flutter, COPD, GERD/Reflux, Osteoarthritis (OA), Pneumonia, Renal Disease, Skin Disorder, Sleep Apnea/CPAP/BIPAP Additional Past Medical History / Comment(s): BLOOD IN STOOL, cellulitis bilateral lower extremities-healing, gout, USES A CANE TO AMBULATE, History of Any Multi-Drug Resistant Organisms: None Reported Past Surgical History: AICD, Cardiac Ablation, Orthopedic Surgery Additional Past Surgical History / Comment(s): rectal fistula repair X2. RUEL KNEE ARTHROSCOPY, surgery to remove part of lower left lung for abestosis, Past Anesthesia/Blood Transfusion Reactions: No Reported Reaction Type of Cardiac Device: AICD Device Placement Date:: [facility] 10/13/15 Past Psychological History: No Psychological Hx Reported Smoking Status: Never smoker Past Alcohol Use History: Occasional Past Drug Use History: None Reported - Past Family History Father Family Medical History: Diabetes Mellitus Additional Family Medical History / Comment(s): Father is almost 90 yrs old. Mother Family Medical History: Cancer Additional Family Medical History / Comment(s): STOMACH CA. General Exam - General Exam Comments Initial Comments: General: Awake and alert, well-developed; in no apparent distress. Sitting comfortably in his wheelchair. HEENT: Head atraumatic, normocephalic. Pupils are equal, round and reactive to light. Extraocular movements intact. Oropharynx moist without erythema or exudate. Active epistaxis in the right nare. Appears to be anterior bleed. Neck: Supple. Normal ROM. Cardiovascular: Regular rate and rhythm. No murmurs, rubs or gallops. Chest symmetrical. Respiratory: Lungs clear to auscultation bilaterally. No wheezes, rales or rhonchi. Normal respiratory effort with no use of accessory muscles. Musculoskeletal: Normal ROM, no tenderness bilateral upper and lower extremities. Ambulating normally. Skin: [place], warm and dry. Chronic venous hyperpigmentation noted to bilateral lower extremities. Neurological: Alert and oriented x3. CN II-XII grossly intact. Speech is fluent and answers are appropriate. No focal neuro deficits. Psychiatric: Normal mood and affect. No overt signs of depression or anxiety noted. Limitations: no limitations Course Vital Signs 11/05/17 01:02 Temperature 98.1 F Pulse Rate 62 Respiratory 18 Rate Blood Pressure 137/71 O2 Sat by Pulse 97 Oximetry Medical Decision Making - Medical Decision Making This is a 62-year-old male who presented to the emergency department for evaluation of epistaxis. On physical examination there is active bleeding in the anterior right nare. No septal hematoma. No drainage of blood in oropharynx. Nasal packing was placed and patient tolerated well without complication. He will be discharged home with recommendation to follow-up with ENT tomorrow morning. Patient's vital signs are stable and he is in no acute distress. He is in agreement and voices understanding. All questions were answered. Disposition Clinical Impression: Epistaxis Disposition: HOME SELF-CARE Condition: Good Instructions: Nosebleed (ED) Additional Instructions: Please follow-up with Dr. Toure, ENT tomorrow morning. Please follow up with primary care provider within 1-2 days. Return to emergency department if symptoms should worsen or any concerns arise. Is patient prescribed a controlled substance at d/c from ED?: No Referrals: James Sam III, MD [Primary Care Provider] - 1-2 days Saad Toure DO [Doctor of Osteopathic Medicine] - 1-2 days Time of Disposition: 01:27
--- NOTE | 2017-11-07 01:46 | CDI ---
Documentation Clarification OP Dear Shena ROCA, PAC Please do addendum to ED report for missing procedure done related to lidocaine HCL administration Thank you, Leidy Prather Brim Pouncer If you have any questions, please contact [facility] at [phone] [facility]
== END 2017-11-05 01:43 | disposition home or self-care (01) ==
LOC: EC 00:57
DX: R04.0 Epistaxis (principal); I48.92 Unspecified atrial flutter; K21.9 Gastro-esophageal reflux disease without esophagitis; M10.9 Gout, unspecified; G47.30 Sleep apnea, unspecified; Z99.89 Dependence on other enabling machines and devices; Z95.810 Presence of automatic (implantable) cardiac defibrillator; Z79.82 Long term (current) use of aspirin; Z79.01 Long term (current) use of anticoagulants; Z79.899 Other long term (current) drug therapy; Z98.890 Other specified postprocedural states
CPT/HCPCS: 30901; 99283

== ENCOUNTER → 2017-11-09 | Outpatient (CLI) | payer MEDICARE, OTHER ==
--- NOTE | 2017-11-09 14:07 | CT ---
EXAMINATION TYPE: CT sinus wo con DATE OF EXAM: 11/09/2017 COMPARISON: NONE HISTORY: Sinusitis, frequent bloody noses CT DLP: 599.[address] of the paranasal sinuses was performed in the axial and coronal planes. Bone and soft tissue settings are submitted. The paranasal sinuses demonstrate normal aeration and development. Mucosal thickening right maxillary sinus and to a lesser extent left maxillary sinus. Minimal superio r ethmoid air cell thickening. Frontal sinuses and sphenoid sinus are well aerated. The osteal meatal units are patent bilaterally. The nasal septum is midline. No bony destructive changes are seen within the field of view. IMPRESSION: Mild chronic maxillary and ethmoidal sinusitis.
== END | disposition home or self-care (01) ==
LOC: RADCTMAIN 13:04
PROVIDERS: ATTEND Otolaryngology
DX: J32.2 Chronic ethmoidal sinusitis (principal); J32.0 Chronic maxillary sinusitis; R04.0 Epistaxis
CPT/HCPCS: 70486

== ENCOUNTER → 2018-05-10 | Outpatient (CLI) | payer MEDICARE ==
[2018-05-10 13:33] LABS: HCT 52.3 % (39.0-53.0); HGB 17.5 gm/dL (13.0-17.5); MCH 32.2 pg (25.0-35.0); MCHC 33.5 g/dL (31.0-37.0); MCV 96.1 fL (80.0-100.0); Mean Platelet Volume 7.8; Platelet Count 192 k/uL (150-450); RBC 5.44 m/uL (4.30-5.90); RDW 14.3 % (11.5-15.5); WBC 7.6 k/uL (3.8-10.6)
[2018-05-10 18:37] LABS: Albumin/Globulin Ratio 1.9 (1.20-2.10); Anion Gap 7.7 mmol/L (4.00-12.00); Calcium 8.8 mg/dL (8.7-10.3); Carbon Dioxide 29.3 mmol/L (21.6-31.8); Globulin 2.1 g/dL (2.1-3.7); Potassium 4.2 mmol/L (3.5-5.5); Total Bilirubin 0.5 mg/dL (0.2-1.2); Total Protein 6.1 g/dL (6.2-8.2)
== END ==
LOC: LABWHC1 12:18
PROVIDERS: ATTEND Nurse Practitioner Adult Health
DX: I42.0 Dilated cardiomyopathy (principal); R06.02 Shortness of breath
CPT/HCPCS: 36415; 80053; 85027

== ENCOUNTER → 2018-12-16 | Outpatient (CLI) | payer MEDICARE ==
[2018-12-16 19:50] LABS: African American GFR (CKD) 83.5 (60.0-200.0); Albumin 4.4 g/dL (3.80-4.90); Albumin/Globulin Ratio 1.83 (1.60-3.17); Anion Gap 11.1 mmol/L (4.00-12.00); BUN/Creat Ratio 20.91 Ratio (12.00-20.00); Calcium 9.2 mg/dL (8.7-10.3); Carbon Dioxide 30.9 mmol/L (21.6-31.8); Globulin 2.4 g/dL (1.6-3.3); Potassium 5.5 mmol/L (3.5-5.5); Total Bilirubin 0.7 mg/dL (0.2-1.2); Total Protein 6.8 g/dL (6.2-8.2)
== END | disposition home or self-care (01) ==
LOC: LABWHC1 13:06
PROVIDERS: ATTEND Internal Medicine Clinical Cardiac Electrophysiology
DX: I50.9 Heart failure, unspecified (principal)
CPT/HCPCS: 36415; 80053; 80061; 84443

== ENCOUNTER → 2019-05-22 | Outpatient (CLI) | payer MEDICARE | END | disposition home or self-care (01) | LOC: LABPAT 15:27 | PROVIDERS: ATTEND Family Medicine | DX: Z53.9 Procedure and treatment not carried out, unspecified reason (principal) ==

== ENCOUNTER → 2019-07-14 | Outpatient (CLI) | payer MEDICARE ==
--- NOTE | 2019-07-14 13:06 | XR ---
EXAMINATION TYPE: XR chest 2V DATE OF EXAM: 07/14/2019 COMPARISON: 07/01/2017 HISTORY: Cough TECHNIQUE: Frontal and lateral views of the chest are obtained. FINDINGS: There is a new right basilar consolidation and persistent trace right pleural effusion. Tr carmen left pleural effusion also blunts the costophrenic angle. Cardiomediastinal silhouette is again e nlarged. Chronic thickening of the right and left apical pleura. Multilead left-sided cardiac device is seen. No sizable pneumothorax. Pulmonary hyperinflation lateral view also suggests underlying COPD . Mild degenerative change of the spine. IMPRESSION: New right basilar consolidation that may represent confluent pulmonary edema or pneumoni a. Trace bilateral pleural effusions and cardiomegaly are also seen. Decompensated congestive heart f ailure should also be considered.
== END | disposition home or self-care (01) ==
LOC: LABWHC1 12:03
PROVIDERS: ATTEND Physician Assistant Medical
DX: R05 Cough (principal)
CPT/HCPCS: 36415; 71046; 83880

== ENCOUNTER 2019-07-28 15:37 | Inpatient (IN) | payer MEDICARE ==
[2019-07-28] MEDS ORDERED: IPRATROPIUM-ALBUTEROL 3 ML NEB INHALATION STA (17:06)
--- NOTE | 2019-07-28 17:33 | ED ---
SOB HPI - General Chief Complaint: Shortness of Breath Stated Complaint: fluid in tummy/sent over from office Time Seen by Provider: 07/28/19 16:40 Source: patient Mode of arrival: ambulatory Limitations: no limitations - History of Present Illness Initial Comments: The patient is a 64-year-old male with past medical history of a flutter, COPD and CHF who presents the emergency room with weight gain, shortness of breath and lower extremity edema which has been progressive over the past several weeks. He followed up with his primary care physician in office. We did complete a chest x-ray and laboratory studies. He states that this was done on the . He received a call this last Sunday stating that he should going to the emergency department for further care. He does take Lasix 40 mg twice daily. States he has been taking as directed however continues to accumulate fluid. He has been quite to the wound care center states of the fluid in his legs has improved however he does have scrotal edema and is short of breath. He doesn't wear oxygen at home. Also admits history of COPD. Has been using his inhalers as directed with only some improvement in his symptoms. He was told to proceed to the emergency department for IV diuretics and a cardio evaluation. The patient denies any fevers or chills. No cough or hemoptysis. There are no alleviating, precipitating or modifying factors - Related Data Home Medications Medication Instructions Recorded Confirmed Albuterol Nebulized [Ventolin 2.5 mg INHALATION RT-QID PRN 05/20/15 07/28/19 Nebulized] Lisinopril [Zestril] 2.5 mg PO DAILY 09/11/15 07/28/19 Metoprolol Succinate [Toprol XL] 200 mg PO DAILY 03/01/16 07/28/19 Furosemide [Lasix] 40 mg PO BID 07/01/17 07/28/19 Ranitidine HCl [Zantac] 300 mg PO HS 07/01/17 07/28/19 Warfarin [Coumadin] 7.5 mg PO SUMOWEFR 07/01/17 07/28/19 traZODone HCL 50 mg PO HS PRN 07/01/17 07/28/19 Albuterol Sulfate [Ventolin HFA] 2 puff INHALATION RT-QID PRN 07/28/19 07/28/19 Allopurinol [Zyloprim] 100 mg PO DAILY 07/28/19 07/28/19 Aspirin EC [Ecotrin Low Dose] 81 mg PO DAILY 07/28/19 07/28/19 Atorvastatin [Lipitor] 40 mg PO DAILY 07/28/19 07/28/19 Ergocalciferol (Vitamin D2) 50,000 units PO MO 07/28/19 07/28/19 [Drisdol] HYDROcodone/APAP 10-325MG [Kuna 1 tab PO Q6H PRN 07/28/19 07/28/19 10-325] Ipratropium Nebulized [Atrovent 0.5 mg INHALATION RT-QID PRN 07/28/19 07/28/19 Nebulized 0.2 MG/ML] Montelukast [Singulair] 10 mg PO HS 07/28/19 07/28/19 Omeprazole 40 mg PO DAILY 07/28/19 07/28/19 Warfarin [Coumadin] 10 mg PO TUTHSA 07/28/19 07/29/19 metFORMIN HCL ER [Glucophage Xr] 500 mg PO Q12H 07/28/19 07/28/19 Previous Rx's Medication Instructions Recorded Sacubitril/Valsartan [Entresto 24 1 each PO BID #60 tablet 07/29/19 mg-26 mg Tablet] Allergies Allergy/AdvReac Type Severity Reaction Status Date / Time No Known Allergies Allergy Verified 07/28/19 20:21 Review of Systems ROS Statement: Those systems with pertinent positive or pertinent negative responses have been documented in the HPI. ROS Other: All systems not noted in ROS Statement are negative. Past Medical History Past Medical History: Atrial Flutter, COPD, GERD/Reflux, Osteoarthritis (OA), Pn eumonia, Renal Disease, Skin Disorder, Sleep Apnea/CPAP/BIPAP Additional Past Medical History / Comment(s): BLOOD IN STOOL, cellulitis bilateral lower extremities-healing, gout, USES A CANE TO AMBULATE, History of Any Multi-Drug Resistant Organisms: None Reported Past Surgical History: AICD, Cardiac Ablation, Orthopedic Surgery Additional Past Surgical History / Comment(s): rectal fistula repair X2. RUEL KNEE ARTHROSCOPY, surgery to remove part of lower left lung for abestosis, Past Anesthesia/Blood Transfusion Reactions: No Reported Reaction Type of Cardiac Device: AICD Device Placement Date:: [facility] 10/13/15 Past Psychological History: No Psychological Hx Reported Smoking Status: Never smoker Past Alcohol Use History: Occasional Past Drug Use History: None Reported - Past Family History Father Family Medical History: Diabetes Mellitus Additional Family Medical History / Comment(s): Father is almost 90 yrs old. Mother Family Medical History: Cancer Additional Family Medical History / Comment(s): STOMACH CA. General Exam Limitations: no limitations General appearance: alert, in no apparent distress Head exam: Present: atraumatic, normocephalic, normal inspection Eye exam: Present: normal appearance, PERRL, EOMI. Absent: scleral icterus, conjunctival injection, periorbital swelling ENT exam: Present: normal exam, mucous membranes moist Neck exam: Present: normal inspection. Absent: tenderness, meningismus, lymphadenopathy Respiratory exam: Present: rales. Absent: respiratory distress, wheezes, rhonchi, stridor Cardiovascular Exam: Present: regular rate, normal rhythm, normal heart sounds. Absent: systolic murmur, diastolic murmur, rubs, gallop, clicks GI/Abdominal exam: Present: soft, distended, normal bowel sounds, other (edema of abdominal wall). Absent: tenderness, guarding, rebound, rigid Extremities exam: Present: normal inspection, full ROM, normal capillary refill, pedal edema. Absent: tenderness, joint swelling, calf tenderness Back exam: Present: normal inspection Neurological exam: Present: alert, oriented X3, CN II-XII intact Psychiatric exam: Present: normal affect, normal mood Skin exam: Present: warm, dry, intact, normal color. Absent: rash Course Vital Signs 07/28/19 07/28/19 07/28/19 16:38 17:16 17:27 Temperature 98.0 F Pulse Rate 60 60 60 Respiratory 22 Rate Blood Pressure 159/74 O2 Sat by Pulse 94 L Oximetry 07/28/19 07/28/19 07/28/19 18:42 19:05 20:59 Temperature Pulse Rate 61 60 60 Respiratory 18 20 18 Rate Blood Pressure 138/75 142/91 139/87 O2 Sat by Pulse 97 95 95 Oximetry Medical Decision Making - Medical Decision Making Upon arrival the patient is placed in room 5. A thorough history and physical exam is performed. Peripheral IV is established. I did recommend repeat laboratory studies and a chest x-ray. He receives demonstrate a BNP of 1180. Kidney function is normal. I did review the patient's chest x-ray does appear to have blunting of the costophrenic angles with basilar consolidation which may represent confluent pulmonary edema. The patient took his home dose of Lasix. I did provide him with additional 40 mg IV. The patient will be admitted for IV diuretics. He remained in stable condition awaiting a bed on the floor - Lab Data Result diagrams: 07/29/19 06:45 07/30/19 06:55 Lab Results 07/28/19 07/28/19 07/28/19 Range/Units 18:02 18:02 18:02 WBC (3.8-10.6) k/uL RBC (4.30-5.90) m/uL Hgb (13.0-17.5) gm/dL Hct (39.0-53.0) % MCV (80.0-100.0) fL MCH (25.0-35.0) pg MCHC (31.0-37.0) g/dL RDW (11.5-15.5) % Plt Count (150-450) k/uL Neutrophils % % Lymphocytes % % Monocytes % % Eosinophils % % Basophils % % Neutrophils # (1.3-7.7) k/uL Lymphocytes # (1.0-4.8) k/uL Monocytes # (0-1.0) k/uL Eosinophils # (0-0.7) k/uL Basophils # (0-0.2) k/uL Anisocytosis Macrocytosis PT (9.0-12.0) sec INR (<1.2) APTT (22.0-30.0) sec Sodium 136 L (137-145) mmol/L Potassium 3.8 (3.5-5.1) mmol/L Chloride 94 L (98-107) mmol/L Carbon Dioxide 34 H (22-30) mmol/L Anion Gap 8 mmol/L BUN 14 (9-20) mg/dL Creatinine 0.73 (0.66-1.25) mg/dL Est GFR (CKD-EPI)AfAm >90 (>60 ml/min/1.73 sqM) Est GFR (CKD-EPI)NonAf >90 (>60 ml/min/1.73 sqM) Glucose 116 H (74-99) mg/dL Calcium 8.6 (8.4-10.2) mg/dL Magnesium 1.5 L (1.6-2.3) mg/dL Total Bilirubin 2.4 H (0.2-1.3) mg/dL AST 33 (17-59) U/L ALT 13 (4-49) U/L Alkaline Phosphatase 151 H (38-126) U/L Troponin I <0.012 (0.000-0.034) ng/mL NT-Pro-B Natriuret Pep 1180 pg/mL Total Protein 6.9 (6.3-8.2) g/dL Albumin 3.5 (3.5-5.0) g/dL 07/28/19 07/28/19 07/29/19 Range/Units 18:15 20:22 06:45 WBC 8.1 8.5 (3.8-10.6) k/uL RBC 4.77 4.56 (4.30-5.90) m/uL Hgb 15.8 14.7 (13.0-17.5) gm/dL Hct 47.0 46.3 (39.0-53.0) % MCV 98.4 101.6 H (80.0-100.0) fL MCH 33.0 32.3 (25.0-35.0) pg MCHC 33.5 31.8 (31.0-37.0) g/dL RDW 16.2 H 16.2 H (11.5-15.5) % Plt Count 201 195 (150-450) k/uL Neutrophils % 75 77 % Lymphocytes % 14 10 % Monocytes % 8 9 % Eosinophils % 1 1 % Basophils % 1 1 % Neutrophils # 6.1 6.5 (1.3-7.7) k/uL Lymphocytes # 1.1 0.9 L (1.0-4.8) k/uL Monocytes # 0.6 0.8 (0-1.0) k/uL Eosinophils # 0.1 0.0 (0-0.7) k/uL Basophils # 0.1 0.1 (0-0.2) k/uL Anisocytosis Slight Slight Macrocytosis Slight Slight PT 20.4 H (9.0-12.0) sec INR 2.1 H (<1.2) APTT 27.3 (22.0-30.0) sec Sodium (137-145) mmol/L Potassium (3.5-5.1) mmol/L Chloride (98-107) mmol/L Carbon Dioxide (22-30) mmol/L Anion Gap mmol/L BUN (9-20) mg/dL Creatinine (0.66-1.25) mg/dL Est GFR (CKD-EPI)AfAm (>60 ml/min/1.73 sqM) Est GFR (CKD-EPI)NonAf (>60 ml/min/1.73 sqM) Glucose (74-99) mg/dL Calcium (8.4-10.2) mg/dL Magnesium (1.6-2.3) mg/dL Total Bilirubin (0.2-1.3) mg/dL AST (17-59) U/L ALT (4-49) U/L Alkaline Phosphatase (38-126) U/L Troponin I (0.000-0.034) ng/mL NT-Pro-B Natriuret Pep pg/mL Total Protein (6.3-8.2) g/dL Albumin (3.5-5.0) g/dL 07/29/19 07/29/19 07/29/19 Range/Units 06:45 06:45 06:45 WBC (3.8-10.6) k/uL RBC (4.30-5.90) m/uL Hgb (13.0-17.5) gm/dL Hct (39.0-53.0) % MCV (80.0-100.0) fL MCH (25.0-35.0) pg MCHC (31.0-37.0) g/dL RDW (11.5-15.5) % Plt Count (150-450) k/uL Neutrophils % % Lymphocytes % % Monocytes % % Eosinophils % % Basophils % % Neutrophils # (1.3-7.7) k/uL Lymphocytes # (1.0-4.8) k/uL Monocytes # (0-1.0) k/uL Eosinophils # (0-0.7) k/uL Basophils # (0-0.2) k/uL Anisocytosis Macrocytosis PT 20.5 H (9.0-12.0) sec INR 2.1 H (<1.2) APTT (22.0-30.0) sec Sodium 137 (137-145) mmol/L Potassium 3.8 (3.5-5.1) mmol/L Chloride 95 L (98-107) mmol/L Carbon Dioxide 35 H (22-30) mmol/L Anion Gap 7 mmol/L BUN 17 (9-20) mg/dL Creatinine 0.85 (0.66-1.25) mg/dL Est GFR (CKD-EPI)AfAm >90 (>60 ml/min/1.73 sqM) Est GFR (CKD-EPI)NonAf >90 (>60 ml/min/1.73 sqM) Glucose 140 H (74-99) mg/dL Calcium 8.3 L (8.4-10.2) mg/dL Magnesium 1.5 L (1.6-2.3) mg/dL Total Bilirubin (0.2-1.3) mg/dL AST (17-59) U/L ALT (4-49) U/L Alkaline Phosphatase (38-126) U/L Troponin I (0.000-0.034) ng/mL NT-Pro-B Natriuret Pep pg/mL Total Protein (6.3-8.2) g/dL Albumin (3.5-5.0) g/dL - EKG Data EKG Comments: EKG demonstrates a ventricularly paced rhythm with a rate of 62. QRS 150. QTC of 505. No acute ST segment elevations or depressions. Pacemaker captures properly. No Sgarbossa criteria Disposition Clinical Impression: Anasarca, Congestive heart failure (CHF), Respiratory failure Disposition: ADMITTED IP TO THIS HOSP Condition: Stable Is patient prescribed a controlled substance at d/c from ED?: No Decision to Admit Reason: Admit from EC Decision Date: 07/28/19 Decision Time: 19:49
--- NOTE | 2019-07-28 17:49 | XR ---
EXAMINATION TYPE: XR chest 2V DATE OF EXAM: 07/28/2019 COMPARISON: 07/14/2019 HISTORY: Cough TECHNIQUE: FINDINGS: Heart is enlarged. There is coarse interstitial density in the lungs. There is calcified pl eural plaque on the right chest wall. There is a left axillary pacemaker. There is mild blunting of t he right costophrenic angle. There is no obvious heart failure. IMPRESSION: Pulmonary fibrotic changes. Calcified pleural plaque. No obvious heart failure. No signif icant change compared to last exam. Pulmonary vascularity however increased compared to 07/01/2017.
[2019-07-28 18:24] LABS: ALT 13 U/L (4-49); AST 33 U/L (17-59); African American GFR (CKD) >90 (>60 ml/min/1.73 sqM); Albumin 3.5 g/dL (3.5-5.0); Alkaline Phosphatase 151 U/L (38-126); Anion Gap 8 mmol/L; Blood Urea Nitrogen 14 mg/dL (9-20); Calcium 8.6 mg/dL (8.4-10.2); Carbon Dioxide 34 mmol/L (22-30); Chloride 94 mmol/L (98-107); Glucose 116 mg/dL (74-99); Magnesium 1.5 mg/dL (1.6-2.3); Non-African American GFR(CKD) >90 (>60 ml/min/1.73 sqM); Potassium 3.8 mmol/L (3.5-5.1); Sodium 136 mmol/L (137-145); Total Bilirubin 2.4 mg/dL (0.2-1.3); Total Protein 6.9 g/dL (6.3-8.2)
[2019-07-28 18:54] LABS: INR 2.1 (<1.2); Partial Thromboplastin Time 27.3 sec (22.0-30.0); Prothrombin Time 20.4 sec (9.0-12.0)
[2019-07-28] MEDS ORDERED: FUROSEMIDE 10 MG/ML 4 ML VIAL IV STA (19:47)
[2019-07-28] MEDS ORDERED: NALOXONE 0.4 MG/ML 1 ML VIAL IV PRN (19:49)
[2019-07-28] MEDS ORDERED: MAGNESIUM SULFATE-D5W PMX 1 GM in DEXTROSE/WATER 1 100ML.BAG IVPB ONE (19:52)
[2019-07-28] MEDS ORDERED: HYDROcodone/APAP 10-325MG 1 EACH TAB PO PRN (20:33)
[2019-07-28] MEDS ORDERED: traZODone HCL 50 MG TAB PO PRN (20:33)
[2019-07-28 20:43] LABS: Anisocytosis Slight; Basophils # (A) 0.1 k/uL (0-0.2); Basophils % (A) 1 %; Eosinophils # (A) 0.1 k/uL (0-0.7); Eosinophils % (A) 1 %; HGB 15.8 gm/dL (13.0-17.5); Lymphocytes # (A) 1.1 k/uL (1.0-4.8); Lymphocytes % (A) 14 %; MCHC 33.5 g/dL (31.0-37.0); MCV 98.4 fL (80.0-100.0); Macrocytosis Slight; Mean Platelet Volume 7.9; Monocytes # (A) 0.6 k/uL (0-1.0); Monocytes % (A) 8 %; Neutrophils # (A) 6.1 k/uL (1.3-7.7); Neutrophils % (A) 75 %; Platelet Count 201 k/uL (150-450); RBC 4.77 m/uL (4.30-5.90); RDW 16.2 % (11.5-15.5); WBC 8.1 k/uL (3.8-10.6)
[2019-07-28] MEDS: FAMOTIDINE 20 MG TAB PO SCH (21:52)
[2019-07-28] MEDS: MONTELUKAST 10 MG TAB PO SCH (21:52)
[2019-07-28] MEDS: FUROSEMIDE 10 MG/ML 4 ML VIAL IV SCH (23:30)
--- NOTE | 2019-07-29 07:31 | P.HPIM ---
History of Present Illness This is a pleasant 64 years old male with past medical history of atrial fibrillation, COPD, GERD, osteo-arthritis, sleep apnea on CPAP BiPAP status post AICD, cardiac ablation procedure. Pulmonary asbestosis status post procedure by Dr. preston/Karuna as patient told me. His follow-up WITH Dr. Ram in the office. He is a patient of Dr. Sam. He went to see his PCP on 07/14/2023 shortness of breath with little cough, at that time he has been treated for COPD exacerbation with Taper steroids however he was noncompliant with it. On 07/14 his PCP get chest x-ray which shows pulmonary congestion, and also has been told he has fluid in his abdomen and he got a come to come to emergency room. Patient currently is mildly dyspneic with some cough and phlegm. He denies smoking, alcohol or illicit drug He follows up with Dr. Mayes in the wound center for chronic wounds in both legs. At baseline patient ambulates using a cane, also has a wheelchair at bedside. Vitals stable. Labs including CBC is unremarkable. Sodium 136, creatinine normal at 0.7. Magnesium 1.5, liver enzymes not elevated. Troponin is negative less than 0.012. EKG showing ventricular paced rhythm at 62. Chest x-ray showed pulmonary congestion with fibrotic chronic changes and calcified pleural Plake In the emergency room magnesium was replaced, given a bronchodilator and started on Lasix every 8 hours Patient states he takes warfarin prescribed to him by Dr. Ram. INR is therapeutic on admission at 2.1 Review of Systems CONSTITUTIONAL: No fever, no malaise, no fatigue. HEENT: No recent visual problems or hearing problems. Denied any sore throat. CARDIOVASCULAR: No orthopnea, PND, no palpitations, no syncope. PULMONARY: No shortness of breath, no cough, no hemoptysis. GASTROINTESTINAL: No diarrhea, no nausea, no vomiting, no abdominal pain. Normoactive bowel sounds. NEUROLOGICAL: No headaches, no weakness, no numbness. HEMATOLOGICAL: Denies any bleeding or petechiae. GENITOURINARY: Denies any burning micturition, frequency, or urgency. MUSCULOSKELETAL/RHEUMATOLOGICAL: Denies any joint pain, swelling, or any muscle pain. ENDOCRINE: Denies any polyuria or polydipsia. Past Medical History Past Medical History: Atrial Flutter, COPD, GERD/Reflux, Osteoarthritis (OA), Pneumonia, Renal Disease, Skin Disorder, Sleep Apnea/CPAP/BIPAP Additional Past Medical History / Comment(s): BLOOD IN STOOL, cellulitis bilater al lower extremities-healing, gout, USES A CANE TO AMBULATE, History of Any Multi-Drug Resistant Organisms: None Reported Past Surgical History: AICD, Cardiac Ablation, Orthopedic Surgery Additional Past Surgical History / Comment(s): rectal fistula repair X2. RUEL KNEE ARTHROSCOPY, surgery to remove part of lower left lung for abestosis, Past Anesthesia/Blood Transfusion Reactions: No Reported Reaction Type of Cardiac Device: AICD Device Placement Date:: [facility] 10/13/15 Past Psychological History: No Psychological Hx Reported Smoking Status: Never smoker Past Alcohol Use History: Occasional Past Drug Use History: None Reported - Past Family History Father Family Medical History: Diabetes Mellitus Additional Family Medical History / Comment(s): Father is almost 90 yrs old. Mother Family Medical History: Cancer Additional Family Medical History / Comment(s): STOMACH CA. Medications and Allergies Home Medications Medication Instructions Recorded Confirmed Type Albuterol Nebulized [Ventolin 2.5 mg INHALATION RT-QID PRN 05/20/15 07/28/19 History Nebulized] Lisinopril [Zestril] 2.5 mg PO DAILY 09/11/15 07/28/19 History Metoprolol Succinate [Toprol XL] 200 mg PO DAILY 03/01/16 07/28/19 History Furosemide [Lasix] 40 mg PO BID 07/01/17 07/28/19 History Ranitidine HCl [Zantac] 300 mg PO HS 07/01/17 07/28/19 History Warfarin [Coumadin] 7.5 mg PO SUMOWEFR 07/01/17 07/28/19 History traZODone HCL 50 mg PO HS PRN 07/01/17 07/28/19 History Albuterol Sulfate [Ventolin HFA] 2 puff INHALATION RT-QID PRN 07/28/19 07/28/19 History Allopurinol [Zyloprim] 100 mg PO DAILY 07/28/19 07/28/19 History Aspirin EC [Ecotrin Low Dose] 81 mg PO DAILY 07/28/19 07/28/19 History Atorvastatin [Lipitor] 40 mg PO DAILY 07/28/19 07/28/19 History Ergocalciferol (Vitamin D2) 50,000 units PO MO 07/28/19 07/28/19 History [Drisdol] HYDROcodone/APAP 10-325MG [[place] 1 tab PO Q6H PRN 07/28/19 07/28/19 History 10-325] Ipratropium Nebulized [Atrovent 0.5 mg INHALATION RT-QID PRN 07/28/19 07/28/19 History Nebulized 0.2 MG/ML] Montelukast [Singulair] 10 mg PO HS 07/28/19 07/28/19 History Omeprazole 40 mg PO DAILY 07/28/19 07/28/19 History Warfarin [Coumadin] 10 mg PO TUTHSA 07/28/19 07/29/19 History metFORMIN HCL ER [Glucophage Xr] 500 mg PO Q12H 07/28/19 07/28/19 History Allergies Allergy/AdvReac Type Severity Reaction Status Date / Time No Known Allergies Allergy Verified 07/28/19 20:21 Physical Exam Vitals: Vital Signs Temp Pulse Pulse Resp BP BP Pulse Ox 07/29/19 05:12 97.8 F 60 20 125/79 92 L 07/29/19 00:00 60 18 07/28/19 22:07 98 F 63 18 147/78 92 L 07/28/19 20:59 60 18 139/87 95 07/28/19 19:05 60 20 142/91 95 07/28/19 18:42 61 18 138/75 97 07/28/19 17:27 60 07/28/19 17:16 60 07/28/19 16:38 98.0 F 60 22 159/74 94 L Intake and Output 07/28/19 07/28/19 07/29/19 14:59 22:59 06:59 Intake Total 580 120 Balance 580 120 Intake: Intake, IV Titration 100 Amount Magnesium Sulfate-D5w Pmx 100 1 gm In Dextrose/Water 1 100ml.bag @ 100 mls/hr IVPB ONCE ONE Rx#: [id number] Oral 480 120 Other: # Voids 1 2 Weight 167.829 kg GENERAL: The patient is alert and oriented x3, not in any acute distress. Well developed, well nourished. HEENT: Pupils are round and equally reacting to light. EOMI. No scleral icterus. No conjunctival pallor. Normocephalic, atraumatic. No pharyngeal erythema. No thyromegaly. CARDIOVASCULAR: S1 and S2 present. No murmurs, rubs, or gallops. -PULMONARY: Chest is clear to auscultation, bilateral expiratory wheezing ABDOMEN: Soft, nontender, nondistended, normoactive bowel sounds. No palpable organomegaly. MUSCULOSKELETAL: No joint swelling or deformity. -EXTREMITIES: No cyanosis, clubbing, or pedal edema. He has dressing and bruits in both legs NEUROLOGICAL: Gross neurological examination did not reveal any focal deficits. SKIN: No rashes. No petechiae Results CBC & Chem 7: 07/28/19 20:22 07/28/19 18:02 Labs: Abnormal Lab Results - Last 24 Hours (Table) 07/28/19 07/28/19 07/28/19 Range/Units 18:02 18:15 20:22 RDW 16.2 H (11.5-15.5) % PT 20.4 H (9.0-12.0) sec INR 2.1 H (<1.2) Sodium 136 L (137-145) mmol/L Chloride 94 L (98-107) mmol/L Carbon Dioxide 34 H (22-30) mmol/L Glucose 116 H (74-99) mg/dL Magnesium 1.5 L (1.6-2.3) mg/dL Total Bilirubin 2.4 H (0.2-1.3) mg/dL Alkaline Phosphatase 151 H (38-126) U/L Thrombosis Risk Factor Assmnt - Choose All That Apply Any of the Below Risk Factors Present?: Yes Each Factor Represents 1 point: Obesity (BMI >25), Swollen legs (current) Other Risk Factors: Yes Each Risk Factor Represents 2 Points: Age 61-74 years Thrombosis Risk Factor Assessment Total Risk Factor Score: 4 Thrombosis Risk Factor Assessment Level: Moderate Risk Assessment and Plan Assessment: Acute on chronic systolic heart failure Chronic obstructive pulmonary disease, continue mild acute exacerbation Atrial fibrillation, rate is controlled Gastroesophageal reflux disease Osteoarthritis Shoulder gout Constipation Obesity Diabetes mellitus on metformin Sleep apnea on CPAP Status post AICD and cardiac ablation procedures Plan: This is a pleasant 64 years old male who presents with acute CHF. Continue with Lasix, replace electrolytes. I'll cardiology consult. Monitor weight. Start patient on Solu-Medrol, bronchodilator and oxygen as needed. Doxycycline. Labs and medication were reviewed.. Continue same treatment. Continue with symptomatic treatment. Resume home medication. Monitor lytes and vitals. DVT and GI prophylaxis. Further recommendations of the clinical course of the patient DVT prophylaxis On warfarin , and monitor INR GI Prophylaxis: Ppi Prognosis is guarded
[2019-07-29 07:45] LABS: Anisocytosis Slight; Basophils # (A) 0.1 k/uL (0-0.2); Basophils % (A) 1 %; Eosinophils % (A) 1 %; HCT 46.3 % (39.0-53.0); HGB 14.7 gm/dL (13.0-17.5); Lymphocytes # (A) 0.9 k/uL (1.0-4.8); Lymphocytes % (A) 10 %; MCH 32.3 pg (25.0-35.0); MCHC 31.8 g/dL (31.0-37.0); MCV 101.6 fL (80.0-100.0); Macrocytosis Slight; Mean Platelet Volume 7.7; Monocytes # (A) 0.8 k/uL (0-1.0); Monocytes % (A) 9 %; Neutrophils # (A) 6.5 k/uL (1.3-7.7); Neutrophils % (A) 77 %; Platelet Count 195 k/uL (150-450); RBC 4.56 m/uL (4.30-5.90); RDW 16.2 % (11.5-15.5); WBC 8.5 k/uL (3.8-10.6)
[2019-07-29 07:53] LABS: African American GFR (CKD) >90 (>60 ml/min/1.73 sqM); Anion Gap 7 mmol/L; Blood Urea Nitrogen 17 mg/dL (9-20); Calcium 8.3 mg/dL (8.4-10.2); Carbon Dioxide 35 mmol/L (22-30); Chloride 95 mmol/L (98-107); Glucose 140 mg/dL (74-99); Non-African American GFR(CKD) >90 (>60 ml/min/1.73 sqM); Sodium 137 mmol/L (137-145)
[2019-07-29 07:55] LABS: INR 2.1 (<1.2); Potassium 3.8 mmol/L (3.5-5.1); Prothrombin Time 20.5 sec (9.0-12.0)
[2019-07-29] MEDS: ALBUTEROL NEBULIZED 2.5 MG/3 ML INHALATION PRN ×3 (08:05→19:56)
[2019-07-29] MEDS ORDERED: LISINOPRIL 2.5 MG TAB PO SCH (09:00)
[2019-07-29] MEDS: DOXYCYCLINE 100 MG in SODIUM CHLORIDE 0.9% 100 ML IVPB SCH ×2 (09:17→21:36)
[2019-07-29] MEDS: ALLOPURINOL 100 MG TAB PO SCH (09:21)
[2019-07-29] MEDS: ASPIRIN 81 MG PO SCH (09:21)
[2019-07-29] MEDS: ATORVASTATIN 40 MG TAB PO SCH (09:21)
[2019-07-29] MEDS: PANTOPRAZOLE 40 MG TABLET PO SCH (09:21)
[2019-07-29] MEDS: METOPROLOL SUCCINATE (ER) 100 MG TAB.ER.24H PO SCH (09:21)
[2019-07-29] MEDS: methylPREDNISolone SOD SUCCI 40 MG/ML 1 ML VIAL IV SCH ×3 (09:21→23:10)
[2019-07-29] MEDS: FUROSEMIDE 10 MG/ML 4 ML VIAL IV SCH ×3 (09:22→23:10)
[2019-07-29] MEDS ORDERED: Magnesium Replacement Protocol 1 EACH MISC MISCELLANE PRN (11:39)
[2019-07-29] MEDS ORDERED: SPIRONOLACTONE 25 MG TAB PO SCH (11:45)
[2019-07-29 11:58] VITALS: BMI 53.1
--- NOTE | 2019-07-29 12:13 | ECHOF ---
Referral Reason:sob MEASUREMENTS -------- HEIGHT: 175.3 cm WEIGHT: 172.4 kg BP: RVIDd: 4.0 cm (< 3.3) IVSd: 1.4 cm (0.6 - 1.1) LVIDd: 5.3 cm (3.9 - 5.3) LVPWd: 1.6 cm (0.6 - 1.1) IVSs: 1.8 cm LVIDs: 3.3 cm LVPWs: 1.8 cm MV EXCURSION: 29.111 mm (> 18.000) MV EF SLOPE: 128 mm/s (70 - 150) EPSS: 0.6 cm RAP: 5.00 mmHg RVSP: 70.77 mmHg FINDINGS -------- Sinus rhythm. Morbid Obesity The left ventricular size is normal. Overall left ventricular systolic function is mild-moderately impaired with, an EF between 40 - 45 %. The right ventricle is severely enlarged. The left atrial size is normal. The right atrial size is normal. The aortic valve was not well visualized. Severe tricuspid regurgitation present. There is severe pulmonary hypertension. The right ventric ular systolic pressure, as measured by Doppler, is 70.77mmHg. The pulmonic valve was not well visualized. There is no pericardial effusion. CONCLUSIONS -------- 1. Sinus rhythm. 2. Morbid Obesity 3. The left ventricular size is normal. 4. Overall left ventricular systolic function is mild-moderately impaired with, an EF between 40 - 45 %. 5. The right ventricle is severely enlarged. 6. The left atrial size is normal. 7. The right atrial size is normal. 8. The aortic valve was not well visualized. 9. Severe tricuspid regurgitation present. 10. There is severe pulmonary hypertension. 11. The right ventricular systolic pressure, as measured by Doppler, is 70.77mmHg. 12. The pulmonic valve was not well visualized. 13. There is no pericardial effusion. MEDICAL STAFF SERVICES MANAGER: Opal Castellano RDCS
[2019-07-29] MEDS: SPIRONOLACTONE 25 MG TAB PO SCH ×2 (13:27→20:29)
[2019-07-29] MEDS: MAGNESIUM SULFATE-D5W PMX 1 GM in DEXTROSE/WATER 1 100ML.BAG IVPB SCH ×2 (13:43→16:02)
--- NOTE | 2019-07-29 14:04 | P.CRDCN ---
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 He follows in the office with Dr. Collazo. We have been asked to see in consultation for shortness of breath. He states for the previous one month he has been experiencing increased shortness of breath, orthopnea, weight gain and lower extremity edema. He denies any recent changes in his diet. He denies chest pain or palpitations. He recently underwent a dobutamine stress test in the office was a technically difficult study and difficult to interpret. He is therefore set up for cardiac catheterization in August with Dr. Ye. He has chronic venous stasis and lower extremity non- healing ulcers for which he follows with Dr. Davidson. DIAGNOSTICS EKG reveals underlying atrial fibrillation with ventricular pacing. Chest xray coarse interstitial densities noted with blunting of the costophrenic angle on the right and pulmonary fibrotic changes no obvious heart failure noted. Laboratory reviewed, WBC 8.5, hemoglobin 14.7, platelets 195, INR 2.1, sodium 137, potassium 3.8, creatinine 0.85, magnesium 1.5, cardiac enzymes negative 1, NT proBNP 1180. Current cardiac medications include aspirin 81 mg daily, atorvastatin 40 mg daily, Lasix 40 mg twice a day, lisinopril 2.5 mg daily, Toprol 200 mg daily and Coumadin. REVIEW OF SYSTEMS At the time of my exam: CONSTITUTIONAL: Denies fever or chills. CARDIOVASCULAR: Complains of shortness of breath and orthopnea. Denies chest pain, PND or palpitations. RESPIRATORY: Denies cough. GASTROINTESTINAL: Denies abdominal pain, diarrhea, constipation, nausea or vomiting. MUSCULOSKELETAL: Denies myalgias. NEUROLOGIC: Denies numbness, tingling or weakness. ENDOCRINE: Denies fatigue, weight change, polydipsia or polyurina. GENITOURINARY: Denies burning, hematuria or urgency with micturation. HEMATOLOGIC: Denies history of anemia or bleeding. PHYSICAL EXAMINATION Blood pressure 133/71 heart rate 66 afebrile and maintaining oxygen saturation on nasal cannula. CONSTITUTIONAL: No apparent distress. HEENT: Head is normocephalic. Pupils are equal, round. Sclerae anicteric. Mucous membranes of the mouth are moist. No JVD. No carotid bruit. CHEST EXAMINATION: Diminished bilaterally secondary to body habitus, faint expiratory wheezes noted. No rales or rhonchi. No chest wall tenderness is noted on palpation or with deep breathing. HEART EXAMINATION: Regular rate and rhythm. S1, S2 heard. No murmurs, gallops or rub. ABDOMEN: Soft, nontender. Positive bowel sounds. EXTREMITIES: 1+ peripheral pulses, significant lower extremity edema, carmen wraps in place and no calf tenderness. NEUROLOGIC EXAMINATION: Patient is awake, alert and oriented x3. ASSESSMENT Acute on chronic systolic heart failure Pulmonary hypertension Hypomagnesemia Chronic persistent atrial fibrillation on coumadin Non-ischemic cardiomyopathy s/p AICD placement Sick sinus syndrome Hypertension Dyslipidemia COPD Morbid obesity, BMI 53 Obstructive sleep apnea PLAN Continue IV diuresis. Add aldactone 25 mg BID. Hold lisinopril and check the cost of entresto. Will start this on 07/31 if covered. Document accurate intake and output along with daily weights. Obtain CT of the chest. Follow renal function and electrolytes in the morning. Further recommendations to follow based on clinical course. Thank you kindly for this consultation. Nurse Practitioner note has been reviewed, I agree with a documented findings and plan of care. Patient was seen and examined. Past Medical History Past Medical History: Atrial Flutter, COPD, GERD/Reflux, Osteoarthritis (OA), Pneumonia, Renal Disease, Skin Disorder, Sleep Apnea/CPAP/BIPAP Additional Past Medical History / Comment(s): BLOOD IN STOOL, cellulitis bilateral lower extremities-healing, gout, USES A CANE TO AMBULATE, History of Any Multi-Drug Resistant Organisms: None Reported Past Surgical History: AICD, Cardiac Ablation, Orthopedic Surgery Additional Past Surgical History / Comment(s): rectal fistula repair X2. RUEL KNEE ARTHROSCOPY, surgery to remove part of lower left lung for abestosis, Past Anesthesia/Blood Transfusion Reactions: No Reported Reaction Type of Cardiac Device: AICD Device Placement Date:: [facility] 10/13/15 Past Psychological History: No Psychological Hx Reported Smoking Status: Never smoker Past Alcohol Use History: Occasional Past Drug Use History: None Reported - Past Family History Father Family Medical History: Diabetes Mellitus Additional Family Medical History / Comment(s): Father is almost 90 yrs old. Mother Family Medical History: Cancer Additional Family Medical History / Comment(s): STOMACH CA. Medications and Allergies Home Medications Medication Instructions Recorded Confirmed Type Albuterol Nebulized [Ventolin 2.5 mg INHALATION RT-QID PRN 05/20/15 07/28/19 History Nebulized] Lisinopril [Zestril] 2.5 mg PO DAILY 09/11/15 07/28/19 History Metoprolol Succinate [Toprol XL] 200 mg PO DAILY 03/01/16 07/28/19 History Furosemide [Lasix] 40 mg PO BID 07/01/17 07/28/19 History Ranitidine HCl [Zantac] 300 mg PO HS 07/01/17 07/28/19 History Warfarin [Coumadin] 7.5 mg PO SUMOWEFR 07/01/17 07/28/19 History traZODone HCL 50 mg PO HS PRN 07/01/17 07/28/19 History Albuterol Sulfate [Ventolin HFA] 2 puff INHALATION RT-QID PRN 07/28/19 07/28/19 History Allopurinol [Zyloprim] 100 mg PO DAILY 07/28/19 07/28/19 History Aspirin EC [Ecotrin Low Dose] 81 mg PO DAILY 07/28/19 07/28/19 History Atorvastatin [Lipitor] 40 mg PO DAILY 07/28/19 07/28/19 History Ergocalciferol (Vitamin D2) 50,000 units PO MO 07/28/19 07/28/19 History [Drisdol] HYDROcodone/APAP 10-325MG [[place] 1 tab PO Q6H PRN 07/28/19 07/28/19 History 10-325] Ipratropium Nebulized [Atrovent 0.5 mg INHALATION RT-QID PRN 07/28/19 07/28/19 History Nebulized 0.2 MG/ML] Montelukast [Singulair] 10 mg PO HS 07/28/19 07/28/19 History Omeprazole 40 mg PO DAILY 07/28/19 07/28/19 History Warfarin [Coumadin] 10 mg PO TUTHSA 07/28/19 07/29/19 History metFORMIN HCL ER [Glucophage Xr] 500 mg PO Q12H 07/28/19 07/28/19 History Sacubitril/Valsartan [Entresto 24 1 each PO BID #60 tablet 07/29/19 Rx mg-26 mg Tablet] Allergies Allergy/AdvReac Type Severity Reaction Status Date / Time No Known Allergies Allergy Verified 07/28/19 20:21 Physical Exam Vitals: Vital Signs Temp Pulse Pulse Resp BP BP Pulse Ox 07/29/19 11:57 66 07/29/19 11:49 68 07/29/19 11:43 98.1 F 62 17 133/71 93 L 07/29/19 08:20 64 07/29/19 08:11 60 88 L 07/29/19 05:12 97.8 F 60 20 125/79 92 L 07/29/19 00:00 60 18 07/28/19 22:07 98 F 63 18 147/78 92 L 07/28/19 20:59 60 18 139/87 95 07/28/19 19:05 60 20 142/91 95 07/28/19 18:42 61 18 138/75 97 07/28/19 17:27 60 07/28/19 17:16 60 07/28/19 16:38 98.0 F 60 22 159/74 94 L Intake and Output 07/28/19 07/29/19 07/29/19 22:59 06:59 14:59 Intake Total 580 120 Balance 580 120 Intake: Intake, IV Titration 100 Amount Magnesium Sulfate-D5w Pmx 100 1 gm In Dextrose/Water 1 100ml.bag @ 100 mls/hr IVPB ONCE ONE Rx#: [id number] Oral 480 120 Other: # Voids 1 2 Weight 167.829 kg 163.435 kg 163.435 kg Results 07/29/19 06:45 07/29/19 06:45 Cardiac Enzymes 07/28/19 07/28/19 Range/Units 18:02 18:02 AST 33 (17-59) U/L Troponin I <0.012 (0.000-0.034) ng/mL Coagulation 07/28/19 07/29/19 Range/Units 18:15 06:45 PT 20.4 H 20.5 H (9.0-12.0) sec APTT 27.3 (22.0-30.0) sec CBC 07/28/19 07/29/19 Range/Units 20:22 06:45 WBC 8.1 8.5 (3.8-10.6) k/uL RBC 4.77 4.56 (4.30-5.90) m/uL Hgb 15.8 14.7 (13.0-17.5) gm/dL Hct 47.0 46.3 (39.0-53.0) % Plt Count 201 195 (150-450) k/uL Comprehensive Metabolic Panel 07/28/19 07/29/19 Range/Units 18:02 06:45 Sodium 136 L 137 (137-145) mmol/L Potassium 3.8 3.8 (3.5-5.1) mmol/L Chloride 94 L 95 L (98-107) mmol/L Carbon Dioxide 34 H 35 H (22-30) mmol/L BUN 14 17 (9-20) mg/dL Creatinine 0.73 0.85 (0.66-1.25) mg/dL Glucose 116 H 140 H (74-99) mg/dL Calcium 8.6 8.3 L (8.4-10.2) mg/dL AST 33 (17-59) U/L ALT 13 (4-49) U/L Alkaline Phosphatase 151 H (38-126) U/L Total Protein 6.9 (6.3-8.2) g/dL Albumin 3.5 (3.5-5.0) g/dL Current Medications Generic Name Dose Route Start Last Admin Trade Name Freq PRN Reason Stop Dose Admin Hydrocodone Bitart/Acetaminophen 1 each 07/28/19 20:33 [place] 10 PO Q6H PRN Moderate Pain Albuterol Sulfate 2.5 mg 07/28/19 20:33 07/29/19 11:46 Ventolin Nebulized INHALATION 2.5 mg RT-QID PRN Administration Shortness Of Breath Allopurinol 100 mg 07/29/19 09:00 07/29/19 09:21 Zyloprim PO 100 mg DAILY JG Administration Aspirin 81 mg 07/29/19 09:00 07/29/19 09:21 Aspirin PO 81 mg DAILY JG Administration Atorvastatin Calcium 40 mg 07/29/19 09:00 07/29/19 09:21 Lipitor PO 40 mg DAILY JG Administration Famotidine 40 mg 07/28/19 21:00 07/28/19 21:52 Pepcid PO Not Given HS JG Furosemide 40 mg 07/29/19 00:00 07/29/19 09:22 Lasix IV 40 mg Q8HR JG Administration Doxycycline Hyclate 100 mg/ 100 mls @ 100 mls/hr 07/29/19 09:00 07/29/19 09:17 Sodium Chloride IVPB 08/03/19 09:01 100 mls/hr Q12HR JG Administration Magnesium Sulfate/Dextrose 1 100 mls @ 100 mls/hr 07/29/19 12:00 gm/ IV Solution IVPB 07/29/19 13:59 Q1H JG Methylprednisolone Sodium Succinate 40 mg 07/29/19 08:00 07/29/19 09:21 Solu-Medrol IV 40 mg Q8HR JG Administration Metoprolol Succinate 200 mg 07/29/19 09:00 07/29/19 09:21 Toprol Xl PO 200 mg DAILY JG Administration Miscellaneous Information 0 each 07/29/19 09:15 Coumadin Per Pharmacy MISCELLANE DIRECTED PRN PHARMACY DOSING WARFARIN Miscellaneous Information 1 each 07/29/19 11:39 Magnesium Per Protocol MISCELLANE DAILY PRN Per Protocol Protocol Montelukast Sodium 10 mg 07/28/19 21:00 07/28/19 21:52 Singulair PO Not Given HS [facility] Naloxone HCl 0.2 mg 07/28/19 19:49 Narcan IV Q2M PRN Opioid Reversal Pantoprazole Sodium 40 mg 07/29/19 07:30 07/29/19 09:21 Protonix PO 40 mg [id number] [facility] Administration Sacubitril/Valsartan 1 each 07/31/19 09:00 Entresto 24 Mg-26 Mg Tablet PO BID [facility] Spironolactone 25 mg 07/29/19 12:15 07/29/19 13:27 Aldactone PO Not Given BID [facility] Trazodone HCl 50 mg 07/28/19 20:33 Desyrel PO HS PRN Insomnia Warfarin Sodium 7.5 mg 07/30/19 18:00 Coumadin PO SuMoWeFrSa@1800 [facility] Protocol Warfarin Sodium 10 mg 07/29/19 18:00 Coumadin PO TuTh@1800 [facility] Protocol Intake and Output 07/28/19 07/29/19 07/29/19 22:59 06:59 14:59 Intake Total 580 120 Balance 580 120 Intake: Intake, IV Titration 100 Amount Magnesium Sulfate-D5w Pmx 100 1 gm In Dextrose/Water 1 100ml.bag @ 100 mls/hr IVPB ONCE ONE Rx#: [id number] Oral 480 120 Other: # Voids 1 2 Weight 167.829 kg 163.435 kg 163.435 kg Patient Weight 07/30/19 06:59 Weight 163.435 kg 07/29/19 06:45 07/29/19 06:45
--- NOTE | 2019-07-29 15:19 | CT ---
EXAMINATION TYPE: CT chest wo con DATE OF EXAM: 07/29/2019 COMPARISON: 05/31/2015 HISTORY: SOB CT DLP: 884 mGycm. Automated Exposure Control for Dose Reduction was Utilized. TECHNIQUE: CT scan of the thorax is performed without IV contrast. FINDINGS: LUNGS: No consolidative pneumonia or pneumothorax. Subsegmental changes at both lung bases are noted suggestive of atelectasis. Pleural-based calcification suggest pleural plaques.. MEDIASTINUM: Lack of IV contrast is noted to limit evaluation for mediastinal and especially hilar ad enopathy. There are no definitive greater than 1 cm hilar or mediastinal lymph nodes the heart is enl arged and there are cardiac leads noted. Aorta of normal caliber. Coronary artery calcification noted . Trace of pericardial effusion. OTHER: Hypertrophic and degenerative change of the spine. Artifact results in nearly nondiagnostic as sessment of the upper abdomen. Particular limitation of the aorta. Diffuse areas of concern correlate with ultrasound or dedicated CT of the abdomen. IMPRESSION: 1. Cardiomegaly, trace of pericardial fluid and coronary artery atherosclerotic changes. The findings suggestive of pleural plaques. Correlate for asbestos related disease. 2. Subsegmental areas of consolidation most likely in the basis of atelectasis correlate clinically t o exclude early pneumonia.
[2019-07-29] MEDS ORDERED: WARFARIN 10 MG TAB PO SCH (18:00)
[2019-07-29] MEDS: FAMOTIDINE 20 MG TAB PO SCH (20:29)
[2019-07-29] MEDS: MONTELUKAST 10 MG TAB PO SCH (20:29)
[2019-07-30] MEDS: ALBUTEROL NEBULIZED 2.5 MG/3 ML INHALATION PRN ×5 (03:20→19:03)
--- NOTE | 2019-07-30 07:07 | P.PN ---
Subjective This is a pleasant 64 years old male with past medical history of atrial fibrillation, COPD, GERD, osteo-arthritis, sleep apnea on CPAP BiPAP status post AICD, cardiac ablation procedure. Pulmonary asbestosis status post procedure by Dr. preston/Karuna as patient told me. His follow-up WITH Dr. Ram in the office. He is a patient of Dr. Sam. He went to see his PCP on 07/14/2023 shortness of breath with little cough, at that time he has been treated for COPD exacerbation with Taper steroids however he was noncompliant with it. On 07/14 his PCP get chest x-ray which shows pulmonary congestion, and also has been told he has fluid in his abdomen and he got a come to come to emergency room. Patient currently is mildly dyspneic with some cough and phlegm. He denies smoking, alcohol or illicit drug He follows up with Dr. Mayes in the wound center for chronic wounds in both legs. At baseline patient ambulates using a cane, also has a wheelchair at bedside. Vitals stable. Labs including CBC is unremarkable. Sodium 136, creatinine normal at 0.7. Magnesium 1.5, liver enzymes not elevated. Troponin is negative less than 0.012. EKG showing ventricular paced rhythm at 62. Chest x-ray showed pulmonary congestion with fibrotic chronic changes and calcified pleural Plake In the emergency room magnesium was replaced, given a bronchodilator and started on Lasix every 8 hours Patient states he takes warfarin prescribed to him by Dr. Ram. INR is therapeutic on admission at 2.1 07/30/2019 Patient sitting in chair, breathing is getting better gradually. He had 1 complications today other than that he feels fine regarding this. No chest pain. Both legs are in a dressing. He feels constipated and he is not sure if his pain enough. We are going to give laxative, check bladder scan. He should today, he states the last time he saw Keena was about 6 months ago for his lung asbestosis. Also we'll order physical therapy evaluation today. His right shoulder gout attack feels better with steroids. Vitals stable. Labs pending. Continue with warfarin, Lasix 40 mg IV every 8 hours, doxycycline and Solu- Medrol. Review of systems CONSTITUTIONAL: No fever, no malaise, no fatigue. HEENT: No recent visual problems or hearing problems. Denied any sore throat. CARDIOVASCULAR: No orthopnea, PND, no palpitations, no syncope. PULMONARY: No shortness of breath, no cough, no hemoptysis. GASTROINTESTINAL: No diarrhea, no nausea, no vomiting, no abdominal pain. Normoactive bowel sounds. NEUROLOGICAL: No headaches, no weakness, no numbness. HEMATOLOGICAL: Denies any bleeding or petechiae. GENITOURINARY: Denies any burning micturition, frequency, or urgency. MUSCULOSKELETAL/RHEUMATOLOGICAL: Denies any joint pain, swelling, or any muscle pain. ENDOCRINE: Denies any polyuria or polydipsia. Objective - Vital Signs Vital signs: Vital Signs Temp 97.8 F 07/30/19 04:34 Pulse 60 07/30/19 04:34 Resp 20 07/30/19 04:34 BP 132/65 07/30/19 04:34 Pulse Ox 95 07/30/19 04:34 Intake & Output 07/29/19 07/30/19 07/30/19 18:59 06:59 18:59 Intake Total 1400 2110 Balance 1400 2110 Weight 163.435 kg Intake: Intake, IV Titration 200 100 Amount Doxycycline 100 mg In 100 Sodium Chloride 0.9% 100 ml @ 100 mls/hr IVPB Q12HR JG Rx#:[id number] Magnesium Sulfate-D5w Pmx 200 1 gm In Dextrose/Water 1 100ml.bag @ 100 mls/hr IVPB Q1H JG Rx#: [id number] Oral 1200 2010 Other: # Voids 4 1 - Exam GENERAL: The patient is alert and oriented x3, not in any acute distress. Well developed, well nourished. HEENT: Pupils are round and equally reacting to light. EOMI. No scleral icterus. No conjunctival pallor. Normocephalic, atraumatic. No pharyngeal erythema. No thyromegaly. CARDIOVASCULAR: S1 and S2 present. No murmurs, rubs, or gallops. -PULMONARY: Chest is clear to auscultation, bilateral expiratory wheezing ABDOMEN: Soft, nontender, nondistended, normoactive bowel sounds. No palpable organomegaly. MUSCULOSKELETAL: No joint swelling or deformity. -EXTREMITIES: No cyanosis, clubbing, or pedal edema. He has dressing and bruits in both legs NEUROLOGICAL: Gross neurological examination did not reveal any focal deficits. SKIN: No rashes. No petechiae - Labs CBC & Chem 7: 07/29/19 06:45 07/29/19 06:45 Labs: Abnormal Lab Results - Last 24 Hours (Table) 07/29/19 07/29/19 07/29/19 Range/Units 06:45 06:45 06:45 MCV 101.6 H (80.0-100.0) fL RDW 16.2 H (11.5-15.5) % Lymphocytes # 0.9 L (1.0-4.8) k/uL PT 20.5 H (9.0-12.0) sec INR 2.1 H (<1.2) Chloride 95 L (98-107) mmol/L Carbon Dioxide 35 H (22-30) mmol/L Glucose 140 H (74-99) mg/dL Calcium 8.3 L (8.4-10.2) mg/dL Magnesium (1.6-2.3) mg/dL 07/29/19 Range/Units 06:45 MCV (80.0-100.0) fL RDW (11.5-15.5) % Lymphocytes # (1.0-4.8) k/uL PT (9.0-12.0) sec INR (<1.2) Chloride (98-107) mmol/L Carbon Dioxide (22-30) mmol/L Glucose (74-99) mg/dL Calcium (8.4-10.2) mg/dL Magnesium 1.5 L (1.6-2.3) mg/dL Assessment and Plan Assessment: Acute on chronic systolic heart failure Chronic obstructive pulmonary disease, with mild acute exacerbation Pulmonary asbestosis Atrial fibrillation, rate is controlled Gastroesophageal reflux disease Osteoarthritis Shoulder gout Constipation Obesity Diabetes mellitus on metformin Sleep apnea on CPAP Status post AICD and cardiac ablation procedures Plan: This is a pleasant 64 years old male who presents with acute CHF. Continue with Lasix, replace electrolytes. Follow-up recommendation by pulmonary and cardiology consult. Monitor weight. Start patient on Solu-Medrol, bronchodilator and oxygen as needed. Doxycycline. Labs and medication were reviewed.. Continue same treatment. Continue with symptomatic treatment. Resume home medication. Monitor lytes and vitals. DVT and GI prophylaxis. Further recommendations of the clinical course of the patient DVT prophylaxis On warfarin , and monitor INR GI Prophylaxis: Ppi Prognosis is guarded
[2019-07-30 07:24] LABS: INR 2.7 (<1.2); Prothrombin Time 26.4 sec (9.0-12.0)
[2019-07-30 07:38] LABS: African American GFR (CKD) >90 (>60 ml/min/1.73 sqM); Anion Gap 9 mmol/L; Blood Urea Nitrogen 22 mg/dL (9-20); Calcium 8.6 mg/dL (8.4-10.2); Carbon Dioxide 35 mmol/L (22-30); Chloride 92 mmol/L (98-107); Glucose 232 mg/dL (74-99); Magnesium 1.8 mg/dL (1.6-2.3); Non-African American GFR(CKD) >90 (>60 ml/min/1.73 sqM); Potassium 3.9 mmol/L (3.5-5.1); Sodium 136 mmol/L (137-145)
[2019-07-30] MEDS: DOXYCYCLINE 100 MG in SODIUM CHLORIDE 0.9% 100 ML IVPB SCH ×2 (07:57→21:21)
[2019-07-30] MEDS: SENNOSIDES-DOCUSATE SODIUM 1 EACH TAB PO SCH ×2 (07:59→21:23)
[2019-07-30] MEDS: METOPROLOL SUCCINATE (ER) 100 MG TAB.ER.24H PO SCH (07:59)
[2019-07-30] MEDS: ASPIRIN 81 MG PO SCH (08:00)
[2019-07-30] MEDS: ALLOPURINOL 100 MG TAB PO SCH (08:00)
[2019-07-30] MEDS: PANTOPRAZOLE 40 MG TABLET PO SCH (08:00)
[2019-07-30] MEDS: FUROSEMIDE 10 MG/ML 4 ML VIAL IV SCH ×2 (08:01→15:16)
[2019-07-30] MEDS: ATORVASTATIN 40 MG TAB PO SCH (08:01)
[2019-07-30] MEDS: methylPREDNISolone SOD SUCCI 40 MG/ML 1 ML VIAL IV SCH ×2 (08:01→15:16)
[2019-07-30] MEDS: SPIRONOLACTONE 25 MG TAB PO SCH ×2 (08:04→21:23)
--- NOTE | 2019-07-30 14:00 | P.PN ---
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 He follows in the office with Dr. Collazo. He is seen and examined sitting up in the chair in no acute distress. He states his breathing is slowly starting to improve however he continues to feel "full" sensation in his chest and abdomen. He is also experiencing a discomfort in the left precordial region with inspiration. There is no radiation to arm, neck, back or jaw. He denies palpitations, dizziness, diaphoresis, nausea or vomiting. He states he is beginning to cough and clear some congestion. Blood pressure 107/60 heart rate 62 afebrile and maintaining oxygen saturation on nasal cannula. Laboratory data reviewed, INR 2.7. Sodium 136, potassium 3.9, creatinine 0.8. Magnesium 1.8. Currently maintained on aspirin 81 mg daily, atorvastatin 40 mg daily, Lasix 40 mg IV 3 times a day, Toprol 200 mg daily, Aldactone 25 mg twice a day and Coumadin. CT of the chest revealed cardiomegaly, a trace pericardial fluid and coronary artery calcifications. 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 PHYSICAL EXAMINATION CONSTITUTIONAL: No apparent distress. HEENT: Head is normocephalic. Pupils are equal, round. Sclerae anicteric. Mucous membranes of the mouth are moist. No JVD. No carotid bruit. CHEST EXAMINATION: Diminished bilaterally secondary to body habitus, no wheezes or rales, scattered rhonchi. No chest wall tenderness is noted on palpation or with deep breathing. HEART EXAMINATION: Regular rate and rhythm. S1, S2 heard. No murmurs, gallops or rub. EXTREMITIES: 1+ peripheral pulses, significant lower extremity edema, carmen wraps in place and no calf tenderness. ASSESSMENT Acute on chronic systolic heart failure Pulmonary hypertension Hypomagnesemia Chronic persistent atrial fibrillation on coumadin Non-ischemic cardiomyopathy s/p AICD placement Sick sinus syndrome Hypertension Dyslipidemia COPD Morbid obesity, BMI 53 Obstructive sleep apnea PLAN Continue diuresis. Recommend pulmonary evaluation given CT findings. Entresto to begin tomorrow morning. Follow renal function and electrolytes in the morning. Further recommendations to follow based on clinical course. Nurse Practitioner note has been reviewed, I agree with a documented findings and plan of care. Patient was seen and examined. Objective - Vital Signs Vital signs: Vital Signs Temp 97.9 F 07/30/19 11:38 Pulse 62 07/30/19 11:38 Resp 18 07/30/19 11:38 BP 107/60 07/30/19 11:38 Pulse Ox 96 07/30/19 11:38 Intake & Output 07/29/19 07/30/19 07/30/19 18:59 06:59 18:59 Intake Total 1400 2110 Balance 1400 2110 Weight 163.435 kg 165.5 kg Intake: Intake, IV Titration 200 100 Amount Doxycycline 100 mg In 100 Sodium Chloride 0.9% 100 ml @ 100 mls/hr IVPB Q12HR JG Rx#:[id number] Magnesium Sulfate-D5w Pmx 200 1 gm In Dextrose/Water 1 100ml.bag @ 100 mls/hr IVPB Q1H JG Rx#: [id number] Oral 1200 2010 Other: # Voids 4 1 - Labs CBC & Chem 7: 07/29/19 06:45 07/30/19 06:55 Labs: Abnormal Lab Results - Last 24 Hours (Table) 07/30/19 07/30/19 Range/Units 06:55 06:56 PT 26.4 H (9.0-12.0) sec INR 2.7 H (<1.2) Sodium 136 L (137-145) mmol/L Chloride 92 L (98-107) mmol/L Carbon Dioxide 35 H (22-30) mmol/L BUN 22 H (9-20) mg/dL Glucose 232 H (74-99) mg/dL
[2019-07-30] MEDS: MAGNESIUM HYDROXIDE 2,400 MG/10 ML CUP PO PRN (14:16)
[2019-07-30] MEDS ORDERED: WARFARIN 7.5 MG TAB PO SCH (18:00)
[2019-07-30] MEDS: FAMOTIDINE 20 MG TAB PO SCH (21:21)
[2019-07-30] MEDS: MONTELUKAST 10 MG TAB PO SCH (21:21)
[2019-07-31] MEDS: methylPREDNISolone SOD SUCCI 40 MG/ML 1 ML VIAL IV SCH ×2 (00:09→08:40)
[2019-07-31] MEDS: FUROSEMIDE 10 MG/ML 4 ML VIAL IV SCH ×2 (00:09→08:41)
[2019-07-31] MEDS: ALBUTEROL NEBULIZED 2.5 MG/3 ML INHALATION PRN ×6 (01:00→20:57)
[2019-07-31 07:56] LABS: African American GFR (CKD) >90 (>60 ml/min/1.73 sqM); Anion Gap 7 mmol/L; Blood Urea Nitrogen 29 mg/dL (9-20); Calcium 8.5 mg/dL (8.4-10.2); Carbon Dioxide 35 mmol/L (22-30); Chloride 91 mmol/L (98-107); Glucose 345 mg/dL (74-99); Magnesium 1.8 mg/dL (1.6-2.3); Non-African American GFR(CKD) >90 (>60 ml/min/1.73 sqM); Potassium 4.5 mmol/L (3.5-5.1); Sodium 133 mmol/L (137-145)
[2019-07-31 07:57] LABS: INR 3.5 (<1.2); Prothrombin Time 34.1 sec (9.0-12.0)
--- NOTE | 2019-07-31 08:09 | P.PN ---
Subjective This is a pleasant 64 years old male with past medical history of atrial fibrillation, COPD, GERD, osteo-arthritis, sleep apnea on CPAP BiPAP status post AICD, cardiac ablation procedure. Pulmonary asbestosis status post procedure by Dr. preston/Karuna as patient told me. His follow-up WITH Dr. Ram in the office. He is a patient of Dr. Sam. He went to see his PCP on 07/14/2023 shortness of breath with little cough, at that time he has been treated for COPD exacerbation with Taper steroids however he was noncompliant with it. On 07/14 his PCP get chest x-ray which shows pulmonary congestion, and also has been told he has fluid in his abdomen and he got a come to come to emergency room. Patient currently is mildly dyspneic with some cough and phlegm. He denies smoking, alcohol or illicit drug He follows up with Dr. Mayes in the wound center for chronic wounds in both legs. At baseline patient ambulates using a cane, also has a wheelchair at bedside. Vitals stable. Labs including CBC is unremarkable. Sodium 136, creatinine normal at 0.7. Magnesium 1.5, liver enzymes not elevated. Troponin is negative less than 0.012. EKG showing ventricular paced rhythm at 62. Chest x-ray showed pulmonary congestion with fibrotic chronic changes and calcified pleural Plake In the emergency room magnesium was replaced, given a bronchodilator and started on Lasix every 8 hours Patient states he takes warfarin prescribed to him by Dr. Ram. INR is therapeutic on admission at 2.1 07/30/2019 Patient sitting in chair, breathing is getting better gradually. He had 1 complications today other than that he feels fine regarding this. No chest pain. Both legs are in a dressing. He feels constipated and he is not sure if his pain enough. We are going to give laxative, check bladder scan. He should today, he states the last time he saw Keena was about 6 months ago for his lung asbestosis. Also we'll order physical therapy evaluation today. His right shoulder gout attack feels better with steroids. Vitals stable. Labs pending. Continue with warfarin, Lasix 40 mg IV every 8 hours, doxycycline and Solu- Medrol. 07/31/2019 Patient still dyspneic although he reports some improvement. His weight looks the same when he came in 165 similar to yesterday. Patient currently on Lasix 40 mg IV every 8 hours. We don't put him on fluid restriction to 1.5 L per day. He is hemodynamically stable. His INR is 3.5 today and he got 7 mg of Coumadin yesterday. Sodium is 133 trending down. ProBNP is 1590. Pulmonary team has been consulted for his abnormal CAT scan and history of asbestosis. Patient continue Lasix, Solu-Medrol 40 mg by doxycycline and warfarin as well as aspirin, he was started on entresto and spironolactone. Objective - Vital Signs Vital signs: Vital Signs Temp 97.9 F 07/31/19 04:53 Pulse 72 07/31/19 07:20 Resp 16 07/31/19 04:53 BP 129/76 07/31/19 04:53 Pulse Ox 92 L 07/31/19 04:53 Intake & Output 07/30/19 07/31/19 07/31/19 18:59 06:59 18:59 Intake Total 1920 Output Total 300 Balance 1920 -300 Weight 165.59 kg Intake: Oral 1920 Output: Urine 300 Other: # Voids 1 - Exam GENERAL: The patient is alert and oriented x3, not in any acute distress. Well developed, well nourished. HEENT: Pupils are round and equally reacting to light. EOMI. No scleral icterus. No conjunctival pallor. Normocephalic, atraumatic. No pharyngeal erythema. No thyromegaly. CARDIOVASCULAR: S1 and S2 present. No murmurs, rubs, or gallops. -PULMONARY: Chest is clear to auscultation, bilateral expiratory wheezing ABDOMEN: Soft, nontender, nondistended, normoactive bowel sounds. No palpable organomegaly. MUSCULOSKELETAL: No joint swelling or deformity. -EXTREMITIES: No cyanosis, clubbing, or pedal edema. He has dressing and bruits in both legs NEUROLOGICAL: Gross neurological examination did not reveal any focal deficits. SKIN: No rashes. No petechiae - Labs CBC & Chem 7: 07/29/19 06:45 07/31/19 07:08 Labs: Abnormal Lab Results - Last 24 Hours (Table) 07/31/19 07/31/19 Range/Units 07:08 07:08 PT 34.1 H (9.0-12.0) sec INR 3.5 H (<1.2) Sodium 133 L (137-145) mmol/L Chloride 91 L (98-107) mmol/L Carbon Dioxide 35 H (22-30) mmol/L BUN 29 H (9-20) mg/dL Glucose 345 H (74-99) mg/dL Assessment and Plan Assessment: Acute on chronic systolic heart failure Chronic obstructive pulmonary disease, with mild acute exacerbation Pulmonary asbestosis Atrial fibrillation, rate is controlled Gastroesophageal reflux disease Osteoarthritis Shoulder gout Constipation Obesity Diabetes mellitus on metformin Sleep apnea on CPAP Status post AICD and cardiac ablation procedures Plan: This is a pleasant 64 years old male who presents with acute CHF. Continue with Lasix, replace electrolytes. Follow-up recommendation by pulmonary and c ardiology consult. Monitor weight. Start patient on Solu-Medrol, bronchodilator and oxygen as needed. Doxycycline. Labs and medication were reviewed.. Continue same treatment. Continue with symptomatic treatment. Resume home medication. Monitor lytes and vitals. DVT and GI prophylaxis. Further recommendations of the clinical course of the patient DVT prophylaxis On warfarin , and monitor INR GI Prophylaxis: Ppi Prognosis is guarded
[2019-07-31] MEDS: METOPROLOL SUCCINATE (ER) 100 MG TAB.ER.24H PO SCH (08:39)
[2019-07-31] MEDS: DOXYCYCLINE 100 MG in SODIUM CHLORIDE 0.9% 100 ML IVPB SCH (08:39)
[2019-07-31] MEDS: MAGNESIUM HYDROXIDE 2,400 MG/10 ML CUP PO PRN (08:40)
[2019-07-31] MEDS: SENNOSIDES-DOCUSATE SODIUM 1 EACH TAB PO SCH ×2 (08:40→20:00)
[2019-07-31] MEDS: ASPIRIN 81 MG PO SCH (08:40)
[2019-07-31] MEDS: SPIRONOLACTONE 25 MG TAB PO SCH ×2 (08:41→20:00)
[2019-07-31] MEDS: ATORVASTATIN 40 MG TAB PO SCH (08:41)
[2019-07-31] MEDS: PANTOPRAZOLE 40 MG TABLET PO SCH (08:41)
[2019-07-31] MEDS: ALLOPURINOL 100 MG TAB PO SCH (08:41)
[2019-07-31] MEDS ORDERED: SACUBITRIL/VALSARTAN 24 MG-26 MG TABLET PO SCH (09:00)
--- NOTE | 2019-07-31 13:25 | P.PN ---
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 He follows in the office with Dr. Collazo. He is seen and examined sitting up in the chair in no acute distress. He states his breathing is slowly starting to improve however he continues to feel "full" sensation in his chest and abdomen. He is also experiencing a discomfort in the left precordial region with inspiration. There is no radiation to arm, neck, back or jaw. He denies palpitations, dizziness, diaphoresis, nausea or vomiting. He states he is beginning to cough and clear some congestion. Blood pressure 107/60 heart rate 62 afebrile and maintaining oxygen saturation on nasal cannula. Laboratory data reviewed, INR 2.7. Sodium 136, potassium 3.9, creatinine 0.8. Magnesium 1.8. Currently maintained on aspirin 81 mg daily, atorvastatin 40 mg daily, Lasix 40 mg IV 3 times a day, Toprol 200 mg daily, Aldactone 25 mg twice a day and Coumadin. CT of the chest revealed cardiomegaly, a trace pericardial fluid and coronary artery calcifications. 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 07/31/19 Pt seen and examined sitting up in the chair in no acute distress. Denies chest pain, worsening shortness of breath of palpitations. Blood pressure 139/84 heart rate 60 afebrile and maintaining oxygen saturation on nasal cannula. There is no change in his weight and no documentation of output as ordered. Laboratory data reviewed, sodium 133, potassium 4.5, creatinine 0.81, cardiac enzymes negative x2, repeat proBNP 1590. Discussed CT chest findings with Dr. Day and he states there is no fluid accumulation or heart failure appreciated on the study. PHYSICAL EXAMINATION CONSTITUTIONAL: No apparent distress. HEENT: Head is normocephalic. Pupils are equal, round. Sclerae anicteric. Mucous membranes of the mouth are moist. No JVD. No carotid bruit. CHEST EXAMINATION: Diminished bilaterally secondary to body habitus, no wheezes or rales, scattered rhonchi. No chest wall tenderness is noted on palpation or with deep breathing. HEART EXAMINATION: Regular rate and rhythm. S1, S2 heard. No murmurs, gallops or rub. EXTREMITIES: 1+ peripheral pulses, bilateral lower extremity edema, carmen wraps in place and no calf tenderness. ASSESSMENT Acute on chronic systolic heart failure Pulmonary hypertension Hypomagnesemia Chronic persistent atrial fibrillation on coumadin Non-ischemic cardiomyopathy s/p AICD placement Sick sinus syndrome Hypertension Dyslipidemia COPD Morbid obesity, BMI 53 Obstructive sleep apnea PLAN Discontinue entresto and resume lisinopril. CT of the chest reviewed with Dr. Day, no fluid or heart failure noted on st udy. Transition to oral diuretics. Nurse Practitioner note has been reviewed, I agree with a documented findings and plan of care. Patient was seen and examined. Objective - Vital Signs Vital signs: Vital Signs Temp 97.4 F L 07/31/19 11:15 Pulse 60 07/31/19 11:15 Resp 16 07/31/19 11:15 BP 139/84 07/31/19 11:15 Pulse Ox 94 L 07/31/19 11:15 Intake & Output 07/30/19 07/31/19 07/31/19 18:59 06:59 18:59 Intake Total 1920 Output Total 300 Balance 1920 -300 Weight 165.59 kg Intake: Oral 1920 Output: Urine 300 Other: # Voids 1 - Labs CBC & Chem 7: 07/29/19 06:45 07/31/19 07:08 Labs: Abnormal Lab Results - Last 24 Hours (Table) 07/31/19 07/31/19 Range/Units 07:08 07:08 PT 34.1 H (9.0-12.0) sec INR 3.5 H (<1.2) Sodium 133 L (137-145) mmol/L Chloride 91 L (98-107) mmol/L Carbon Dioxide 35 H (22-30) mmol/L BUN 29 H (9-20) mg/dL Glucose 345 H (74-99) mg/dL
--- NOTE | 2019-07-31 14:03 | CONS ---
CONSULTATION PULMONARY/CRITICAL CARE CONSULTATION: DATE OF SERVICE: 07/31/2019 REASON FOR CONSULTATION: Apparent asbestos associated lung disease. This is a 64-year-old male who presented to the emergency room on July 28. We were just consulted today on 07/31. He apparently has a history of multiple medical problems including atrial flutter, possible underlying COPD, and heart failure, apparently presented to the emergency room with complaints of shortness of breath and increasing abdominal girth. In addition, he states that he had lower extremity edema, which has been progressive over many days and weeks. He apparently was told to go the emergency room because his chest x-ray showed fluid overload. He does apparently take Lasix 40 mg twice a day. He does have not have oxygen at home. He states that he is a lifelong nonsmoker. The patient also admits to weight gain, and difficulty lying flat in bed. There is a vague history of COPD, even though he is a lifelong nonsmoker. He does take inhalers and puffers. He apparently was told to go to the emergency room to be evaluated by Cardiology and to receive IV diuretics. He denies any chest pain or pressure. He is not coughing. Not producing any phlegm. There is no fever or chills. There is no nausea, vomiting or diarrhea. No hemoptysis. No genitourinary complaints. He denies any muscle aches or joint aches. MEDICATIONS: Extensive and include Ventolin updrafts, lisinopril, Toprol, Lasix, Zantac, Coumadin, trazodone, albuterol inhaler, Zyloprim, aspirin, Lipitor, vitamin D2, [place], DuoNeb, Singulair, omeprazole, warfarin, Glucophage, and Entresto. ALLERGIES: Denied. PAST MEDICAL HISTORY: As best I could count his atrial flutter, vague history of COPD in an apparent nonsmoker, GERD, osteoarthritis, pneumonia, sleep apnea syndrome, lower extremity cellulitis, gout, hematochezia, and other medical issues. 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 SURGICAL HISTORY: Includes AICD placement, cardiac ablation, rectal fistula repair, bilateral knee arthroscopy, and some sort of surgery or removal of portion of the bottom of the left lung. He states that his lung was "." Dr. Baumann had something to do with it. SOCIAL HISTORY: Significant that he is a never smoker. He does drink occasionally. Denies any illicit drug use. FAMILY HISTORY: Positive for father with diabetes and mother with stomach cancer. REVIEW OF SYSTEMS: CONSTITUTIONAL: Negative. NEUROLOGIC: Negative. HEENT: Negative. CARDIOVASCULAR: Negative. PULMONARY: Shortness of breath. GI: Negative. : Negative. RHEUMATOLOGIC: Negative. IMMUNOLOGIC: Negative. ENDOCRINOLOGIC: Negative. DERMATOLOGIC: Negative. Other complaints include weight gain and lower extremity edema. He also feels like his abdominal girth has been increasing significantly and is retaining fluid in his abdomen. Again, he denies any fever, chills, cough, phlegm production, hemoptysis, or any other pulmonary complaints. Current vital signs are reviewed. Temperature 97.4, heart rate 60, respiratory rate 16, blood pressure 139/84 mean 102, 2 L saturation 94%. He appears relatively comfortable. He is quite obese. His abdominal girth is substantial. HEENT: Examination is grossly unremarkable. At the time that we saw him, he is not requiring any supplemental oxygen. NECK: Supple. Full range of motion. No adenopathy. Neck veins are flat. CARDIOVASCULAR: Examination reveals regular rhythm and rate. Heart rate 60 beats per minute. Heart sounds are regular. S1, S2 normal. Heart sounds are distant. No murmur. LUNGS: Reveal bibasilar crackles. No wheezes or rhonchi. Breath sounds equal bilaterally. ABDOMEN: Obese. Bowel sounds are heard. EXTREMITIES: Reveal some edema. SKIN: Without rash. NEUROLOGIC: Examination is brief but nonfocal. LABS: Reviewed. PT, INR were 34.1 and 3.5, respectively. From today, sodium 133, potassium 4.5, chloride is 91, CO2 is 35, anion gap is 7. BUN and creatinine were 29 and 0.81. His troponin were negative. His N-terminal proBNP was 1590. On admission of 1180. Troponins have been negative x2. The rest of his labs look okay. A chest x-ray from July 28 shows calcified pleural plaques. There is some interstitial changes which may relate to interstitial edema and/or pulmonary fibrotic changes. His pulmonary vascularity is increased. A chest CT done on 07/29 suggests cardiomegaly with a trace of pericardial fluid and atherosclerotic changes in his coronary arteries. There is also evidence of pleural plaques and possible underlying interstitial lung disease from asbestosis. There is also some basilar areas of atelectasis. Microbiologic studies are negative. Medications are reviewed. He is currently on warfarin, trazodone, Aldactone, statin, Protonix, Narcan, Singulair, metoprolol, Solu-Medrol, magnesium replacement, lisinopril, hydrocodone/APAP, Lasix, famotidine, doxycycline, Lipitor, aspirin, allopurinol, and albuterol updrafts as needed. The Solu-Medrol will be discontinued. ASSESSMENT: 1. Shortness of breath, which may be multifactorial in part related to underlying interstitial edema and/or interstitial lung disease secondary to asbestos exposure, mild congestive heart failure, and obesity. The patient appears not to have chronic obstructive pulmonary disease as he is a lifelong nonsmoker. 2. Significant obesity. 3. Previous asbestos exposure with calcified pleural plaques and possible interstitial lung disease/asbestosis. 4. History of atrial flutter. 5. History of gastroesophageal reflux disease. 6. History of osteoarthritis. 7. Prior history of pneumonia. 8. History of sleep apnea syndrome. 9. History of gastrointestinal bleed. 10.History of lower extremity cellulitis. 11.History of gout. 12.Status post AICD placement and cardiac ablation. 13.Multiple other medical problems and comorbidities. PLAN: Mr. Winkler needs to come see us in the office post discharge. He will need pulmonary function testing and likely a high-resolution CT scan to further evaluate his lung parenchyma. He does have evidence of pleural-based calcified plaques consistent with asbestos exposure and his interstitial changes may in fact relate to asbestosis. 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 There was multiple opportunities for exposure to asbestos. Additional recommendations and suggestions are forthcoming. Prognosis is guarded. MMODL / IJN: [id number] / [facility]
[2019-07-31] MEDS: FUROSEMIDE 40 MG TAB PO SCH (17:50)
[2019-07-31] MEDS ORDERED: WARFARIN 0.5 MG TAB PO ONE (18:00)
[2019-07-31] MEDS: MONTELUKAST 10 MG TAB PO SCH (20:00)
[2019-07-31] MEDS: FAMOTIDINE 20 MG TAB PO SCH (20:00)
[2019-08-01] MEDS: ALBUTEROL NEBULIZED 2.5 MG/3 ML INHALATION PRN ×4 (01:29→10:40)
[2019-08-01 05:05] VITALS: BP 131/79; RESP 18; TEMP 97.6
[2019-08-01] MEDS ORDERED: guaiFENesin-DM 100-10MG/5ML 10 ML CUP PO PRN (07:54)
[2019-08-01 07:57] LABS: INR 4.1 (<1.2); Prothrombin Time 40.6 sec (9.0-12.0)
[2019-08-01] MEDS ORDERED: LACTULOSE 20 GM/30 ML CUP PO ONE (08:00)
[2019-08-01 08:22] LABS: Potassium 4.2 mmol/L (3.5-5.1)
[2019-08-01] MEDS: SPIRONOLACTONE 25 MG TAB PO SCH (08:57)
[2019-08-01] MEDS: SENNOSIDES-DOCUSATE SODIUM 1 EACH TAB PO SCH (08:57)
[2019-08-01] MEDS: ALLOPURINOL 100 MG TAB PO SCH (08:57)
[2019-08-01] MEDS: FUROSEMIDE 40 MG TAB PO SCH (08:57)
[2019-08-01] MEDS: ATORVASTATIN 40 MG TAB PO SCH (08:57)
[2019-08-01] MEDS: ASPIRIN 81 MG PO SCH (08:57)
[2019-08-01] MEDS: PANTOPRAZOLE 40 MG TABLET PO SCH (08:57)
[2019-08-01] MEDS: METOPROLOL SUCCINATE (ER) 100 MG TAB.ER.24H PO SCH (08:58)
[2019-08-01] MEDS ORDERED: TRIAMCINOLONE 0.1% CREAM 80 GM TUBE TOPICAL SCH (09:00)
[2019-08-01] MEDS ORDERED: NYSTATIN 100,000UNIT/GM CREAM 30 GM TUBE TOPICAL SCH (09:00)
[2019-08-01 10:42] VITALS: PULSE 64
[2019-08-01] MEDS ORDERED: WARFARIN 0.5 MG TAB PO ONE (18:00)
--- NOTE | 2019-08-01 23:14 | P.DS ---
Providers Date of admission: 07/29/19 13:45 Attending physician: Kamila Montes De Oca Consults: 07/28/19 19:50 Consult Physician Urgent Consulting Provider: [facility] Consult Reason/Comments: AECHF Do you want consulting provider notified?: Yes 07/30/19 12:04 Consult Physician Routine Consulting Provider: Alexander Beckman Reason/Comments: Known to the service, asbestosis Do you want consulting provider notified?: Yes Primary care physician: James Sam Hospital Course: Diagnoses: Acute on chronic systolic heart failure Chronic obstructive pulmonary disease, with mild acute exacerbation Pulmonary asbestosis Atrial fibrillation, rate is controlled Gastroesophageal reflux disease Osteoarthritis Shoulder gout Constipation Obesity Diabetes mellitus on metformin Sleep apnea on CPAP Status post AICD and cardiac ablation procedures Hospital course: This is a pleasant 64 years old male with past medical history of atrial fibrillation, COPD, GERD, osteo-arthritis, sleep apnea on CPAP BiPAP status post AICD, cardiac ablation procedure. Pulmonary asbestosis status post procedure by Dr. preston/Karuna as patient told me. His follow-up WITH Dr. Ram in the office. He is a patient of Dr. Sam. He went to see his PCP on 07/14/2023 shortness of breath with little cough, at that time he has been treated for COPD exacerbation with Taper steroids however he was noncompliant with it. On 07/14 his PCP get chest x-ray which shows pulmonary congestion, and he referred him to emergency room. Patient has been treated with IV Lasix 40 mg 3 times a day by information technology coordinator for acute nonischemic cardiomyopathy. And CAT scan of the chest showed lung basal consolidation and pleural Plake suspicious for asbestosis as his been working in [employer] before patient also evaluated by Dr. Beckman. Patient breathing improved and the CAT scan didn't show any fluid collection afterwards been reviewed by information technology coordinator and radiologist and they switched his Lasix to oral pills. Patient eventually felt better with a breathing is easier. Cough is improving as well. No other abdominal pain or other symptoms. No nausea vomiting. Sometimes when he wipes he has blood and h e wants to see a production mechanic tin cans as an outpatient, he agrees to see Bertha Ferreira as outpatient. Also he follows with Dr. Mayes for his chronic leg wounds, he is going to see him this coming Fernando. Check bladder scan and was 16 post void, we checked his oxygen and he does not need any home oxygen. Steroids were stopped by recommendation of pulmonary service Patient was cleared for discharge by cardiology and pulmonary services. Problems and management plan were discussed with the patient and he verbalized understanding and acceptance Patient was found medically stable and can be discharged home however he needs follow-up as an outpatient. Patient was instructed to follow up with PCP within one week and patient agrees, pt is going to f/u with , bertha allred , and and agrees with appointments and timing ( see dc instructions) he wanted to f/u with dilia allred as outpt because sometimes when he wipes he finds blood on tissues Note: His Coumadin went up a little bit from 3.5 up to 4.1, mostly due to the effect of antibiotics which was discontinued. Patient was instructed to hold his Coumadin today on 08/01/19 and take half the dose on Sunday and Sunday (5 mg only) and go check his INR on Sunday which he told me he could do it here in the hospital, also he has C which can help him with checking INR, pt looks well oriented about his care and reliable Gen: patient is a AAOx3, no distress. Morbidly obese CVS: S1-S2, RRR, no murmur Lungs: B/L CTA, no wheezing Abdomen: soft, no distention, no tenderness, positive bowel sounds Extremity: no leg edema or induration. He has dressing on both for his both legs Time spent more than 35 minutes Patient Condition at Discharge: Stable Plan - Discharge Summary New Discharge Prescriptions: New Spironolactone [Aldactone] 25 mg PO BID #30 tab Polyethylene Glycol 3350 [Miralax] 17 gm PO DAILY PRN 5 Days #527 gm PRN Reason: Constipation Sennosides-Docusate Sodium [Senokot-S] 1 each PO BID PRN #12 tab PRN Reason: Constipation Lisinopril [Zestril] 5 mg PO DAILY #30 tab Nystatin/Triamcin Cream [Mycolog 100,000-0.1 Unit/gm-% Cream] 1 applic TOPICAL BID #1 applic guaiFENesin-DM 100-10MG/5ML [Robitussin DM] 10 ml PO Q8H PRN #100 ml PRN Reason: Cough Continue Albuterol Nebulized [Ventolin Nebulized] 2.5 mg INHALATION RT-QID PRN PRN Reason: Shortness Of Breath Metoprolol Succinate [Toprol XL] 200 mg PO DAILY Ranitidine HCl [Zantac] 300 mg PO HS traZODone HCL 50 mg PO HS PRN PRN Reason: Insomnia Warfarin [Coumadin] 7.5 mg PO SUMOWEFR metFORMIN HCL ER [Glucophage Xr] 500 mg PO Q12H Montelukast [Singulair] 10 mg PO HS Atorvastatin [Lipitor] 40 mg PO DAILY Aspirin EC [Ecotrin Low Dose] 81 mg PO DAILY Allopurinol [Zyloprim] 100 mg PO DAILY Warfarin [Coumadin] 10 mg PO TUTHSA Ergocalciferol (Vitamin D2) [Drisdol] 50,000 units PO MO HYDROcodone/APAP 10-325MG [[place] 10-325] 1 tab PO Q6H PRN PRN Reason: Pain Albuterol Sulfate [Ventolin HFA] 2 puff INHALATION RT-QID PRN PRN Reason: Shortness Of Breath Ipratropium Nebulized [Atrovent Nebulized 0.2 MG/ML] 0.5 mg INHALATION RT-QID PRN PRN Reason: Shortness Of Breath Omeprazole 40 mg PO DAILY Furosemide [Lasix] 40 mg PO BID #60 tab Discontinued Lisinopril [Zestril] 2.5 mg PO DAILY Discharge Medication List Albuterol Nebulized [Ventolin Nebulized] 2.5 mg INHALATION RT-QID PRN 05/20/15 [History] Metoprolol Succinate [Toprol XL] 200 mg PO DAILY 03/01/16 [History] Ranitidine HCl [Zantac] 300 mg PO HS 07/01/17 [History] Warfarin [Coumadin] 7.5 mg PO SUMOWEFR 07/01/17 [History] traZODone HCL 50 mg PO HS PRN 07/01/17 [History] Albuterol Sulfate [Ventolin HFA] 2 puff INHALATION RT-QID PRN 07/28/19 [History] Allopurinol [Zyloprim] 100 mg PO DAILY 07/28/19 [History] Aspirin EC [Ecotrin Low Dose] 81 mg PO DAILY 07/28/19 [History] Atorvastatin [Lipitor] 40 mg PO DAILY 07/28/19 [History] Ergocalciferol (Vitamin D2) [Drisdol] 50,000 units PO MO 07/28/19 [History] HYDROcodone/APAP 10-325MG [[place] 10-325] 1 tab PO Q6H PRN 07/28/19 [History] Ipratropium Nebulized [Atrovent Nebulized 0.2 MG/ML] 0.5 mg INHALATION RT-QID PRN 07/28/19 [History] Montelukast [Singulair] 10 mg PO HS 07/28/19 [History] Omeprazole 40 mg PO DAILY 07/28/19 [History] Warfarin [Coumadin] 10 mg PO TUTHSA 07/28/19 [History] metFORMIN HCL ER [Glucophage Xr] 500 mg PO Q12H 07/28/19 [History] Furosemide [Lasix] 40 mg PO BID #60 tab 08/01/19 [Rx] Lisinopril [Zestril] 5 mg PO DAILY #30 tab 08/01/19 [Rx] Nystatin/Triamcin Cream [Mycolog 100,000-0.1 Unit/gm-% Cream] 1 applic TOPICAL BID #1 applic 08/01/19 [Rx] Polyethylene Glycol 3350 [Miralax] 17 gm PO DAILY PRN 5 Days #527 gm 08/01/19 [Rx] Sennosides-Docusate Sodium [Senokot-S] 1 each PO BID PRN #12 tab 08/01/19 [Rx] Spironolactone [Aldactone] 25 mg PO BID #30 tab 08/01/19 [Rx] guaiFENesin-DM 100-10MG/5ML [Robitussin DM] 10 ml PO Q8H PRN #100 ml 08/01/19 [Rx] Follow up Appointment(s)/Referral(s): Rafa Collazo MD [STAFF PHYSICIAN] - 08/12/19 10:00 am James Sam III, MD [Primary Care Provider] - 1-2 days (Patient to alan Sam's office Sunday morning to schedule follow up appointment. The office is closed at time of discharge.) Bertha Mccray MD [STAFF PHYSICIAN] - 08/14/19 7:45 am () Alexander Beckman DO [Doctor of Osteopathic Medicine] - 08/15/19 3:15 pm [facility], [NON-STAFF] - 1 Week Patient Instructions/Handouts: Spironolactone (By mouth), Lisinopril (By mouth), Furosemide (By mouth), Guaifenesin (By mouth), Nystatin/Triamcinolone (On the skin), Laxative, Stool Softeners (By mouth), Polyethylene Glycol 3350 (By mouth), Heart Failure (DC), Low-Sodium Diet (DC), Edema (DC), Acute Respiratory Failure (ED) Activity/Diet/Wound Care/Special Instructions: Cardiac diet, low-salt Activity is limited till you see your doctor Follow-up with wound center with Dr. Davidson this coming Sunday Hold your Coumadin dose today on 08/01/2019, resume the Coumadin at half the regular dose on 08/02/2019 (take 5 mg instead of 10 mg) and on 08/03/2019 (25 mg instead of 7.5 mg), and check your INR on 08/04/2019 Please check your INR by Sunday or with the visiting nurse and adjust her Coumadin dose with your doctor, target INR is 2-3 Discharge Disposition: HOME SELF-CARE
[2019-08-02] MEDS ORDERED: LISINOPRIL 5 MG TAB PO SCH (09:00)
--- NOTE | 2019-08-06 15:03 | CDI ---
Documentation Clarification Form Date: 08/06/19 From: [place] [facility] Phone: If you have a question about this query, please contact Vandana Thompson, Chemical Dependency Counselor at [phone] between 8am and 5pm. Admit Date: 07/29/19 Discharge Date: 08/01/19 Patient Name: Servando Winkler Visit Number: [id number] ATTENTION: The Clinical Documentation Specialists (CDI) and [facility] Coding Staff appreciate your assistance in clarifying documentation. Please respond to the clarification below the line at the bottom and electronically sign. The CDI & [facility] Coding staff will review the response and follow-up if needed. Please note: Queries are made part of the Legal Health Record. If you have any questions, please contact the author of this message via ITS. Dear Dr. Simons, Respiratory failure is documented in the ED notes and discharge summary. History/Risk Factors: CHF, fibrosis, Hx of partial lung resection, morbid obesity, PHTN, HHD Clinical Indicators: Vital signs: RR 18, NH 63 Pulse oximetry: 92 on nasal cannula 2 lpm Treatment: Oxygen nasal cannula 2 lpm Breathing tx: Nebulizer In your professional opinion, can you please clarify if these findings signify one of the following conditions? Acute Respiratory Failure Acute on Chronic Respiratory Failure Chronic Respiratory Failure Acute Respiratory Distress Acute Respiratory Insufficiency Other Diagnosis, please specify Unable to determine Specificity: If known, further specify (if known): With hypercapnia? (pCO2 >50 and pH <7.35) With hypoxia? (pO2 <60 mm Hg or SpO2 <91% on room air) no documentation of hypoxia MTDD
== END 2019-08-01 13:00 | disposition home health service (06) | DRG 291 ==
LOC: EC 15:37 → 5NMEDONC 19:49 → OBSVTOIN 07-29 13:45
PROVIDERS: ADMIT Internal Medicine; ATTEND Internal Medicine
DX: I11.0 Hypertensive heart disease with heart failure (principal); J96.90 Respiratory failure, unspecified, unspecified whether with hypoxia or hypercapnia; J44.1 Chronic obstructive pulmonary disease with (acute) exacerbation; I48.19 Other persistent atrial fibrillation; Z68.43 Body mass index [BMI] 50.0-59.9, adult; I48.92 Unspecified atrial flutter; L97.929 Non-pressure chronic ulcer of unspecified part of left lower leg with unspecified severity; L97.919 Non-pressure chronic ulcer of unspecified part of right lower leg with unspecified severity; I50.23 Acute on chronic systolic (congestive) heart failure; I27.20 Pulmonary hypertension, unspecified; I49.5 Sick sinus syndrome; I83.009 Varicose veins of unspecified lower extremity with ulcer of unspecified site; I42.8 Other cardiomyopathies; J84.10 Pulmonary fibrosis, unspecified; K21.9 Gastro-esophageal reflux disease without esophagitis; M19.90 Unspecified osteoarthritis, unspecified site; M10.9 Gout, unspecified; K59.00 Constipation, unspecified; E66.01 Morbid (severe) obesity due to excess calories; E11.9 Type 2 diabetes mellitus without complications; J61 Pneumoconiosis due to asbestos and other mineral fibers; G47.33 Obstructive sleep apnea (adult) (pediatric); E83.42 Hypomagnesemia; E78.5 Hyperlipidemia, unspecified; G47.00 Insomnia, unspecified; Z71.3 Dietary counseling and surveillance; Z79.84 Long term (current) use of oral hypoglycemic drugs; Z79.899 Other long term (current) drug therapy; Z79.01 Long term (current) use of anticoagulants; Z79.82 Long term (current) use of aspirin; Z95.810 Presence of automatic (implantable) cardiac defibrillator; Z77.090 Contact with and (suspected) exposure to asbestos; Z91.19 Patient's noncompliance with other medical treatment and regimen; Z87.01 Personal history of pneumonia (recurrent); Z98.890 Other specified postprocedural states; Z90.2 Acquired absence of lung [part of]; Z80.0 Family history of malignant neoplasm of digestive organs; Z83.3 Family history of diabetes mellitus
CPT/HCPCS: 71046; 71250; 80048; 80051; 80053; 83735; 83880; 84484; 85025; 85610; 85730; 93005; 93306; 94640; 94760; 96374; 99285

== ENCOUNTER → 2019-09-10 | Outpatient (CLI) | payer MEDICARE, OTHER ==
[2019-09-10 12:12] LABS: African American GFR (CKD) >90 (>60 ml/min/1.73 sqM); Anion Gap 9 mmol/L; Blood Urea Nitrogen 32 mg/dL (9-20); Carbon Dioxide 29 mmol/L (22-30); Chloride 96 mmol/L (98-107); Non-African American GFR(CKD) >90 (>60 ml/min/1.73 sqM); Sodium 134 mmol/L (137-145)
[2019-09-10 12:13] LABS: Potassium 4.4 mmol/L (3.5-5.1)
[2019-09-10 12:16] LABS: Basophils # (A) 0.1 k/uL (0-0.2); Basophils % (A) 0 %; Eosinophils % (A) 0 %; HGB 17.1 gm/dL (13.0-17.5); Lymphocytes # (A) 1.2 k/uL (1.0-4.8); Lymphocytes % (A) 9 %; MCH 32.2 pg (25.0-35.0); MCHC 32.3 g/dL (31.0-37.0); MCV 99.7 fL (80.0-100.0); Macrocytosis Slight; Mean Platelet Volume 7.6; Monocytes # (A) 0.8 k/uL (0-1.0); Monocytes % (A) 6 %; Neutrophils # (A) 10.5 k/uL (1.3-7.7); Neutrophils % (A) 82 %; Platelet Count 205 k/uL (150-450); RBC 5.32 m/uL (4.30-5.90); RDW 15.7 % (11.5-15.5); WBC 12.8 k/uL (3.8-10.6)
== END | disposition home or self-care (01) ==
LOC: LABPAT 11:32
PROVIDERS: ATTEND Internal Medicine Interventional Cardiology
DX: Z01.812 Encounter for preprocedural laboratory examination (principal); I50.22 Chronic systolic (congestive) heart failure
CPT/HCPCS: 80051; 82565; 84520; 85025

== ENCOUNTER 2019-09-15 10:47 | Day surgery (SDC) | payer MEDICARE, OTHER ==
[2019-09-11 14:53] VITALS: BMI 53.1
[~2019-09-15 10:47] MED LIST changes: +ALPRAZolam 0.25 MG TAB PO PRN; +ALPRAZolam 0.5 MG TAB PO PRN; +ASPIRIN 325 MG TAB PO ONE; +ATORVASTATIN 80 MG TAB PO ONE; -LACTATED RINGERS 1,000 ML IV SCH; -LIDOCAINE 1% 20 ML VIAL (10MG/ML) FOR IV START INTRADERMA PRN; +NITROGLYCERIN SL TABS 0.4 MG TAB SUBLINGUAL PRN; +SODIUM CHLORIDE 0.9% 1,000 ML in EMPTY BAG 1 BAG IV ONE
[2019-09-15 11:25] LABS: Glucose,Whole Blood 173 mg/dL (75-99)
[2019-09-15 11:35] VITALS: TEMP 97.8
[2019-09-15] MEDS ORDERED: SODIUM CHLORIDE 0.9% 1,000 ML IV ONE (11:38)
[2019-09-15 11:58] LABS: INR 1.1 (<1.2); Prothrombin Time 11.7 sec (9.0-12.0)
[2019-09-15] MEDS ORDERED: HEPARIN SODIUM 1,000 UN/ML (10ML VL) ONE (12:06)
[2019-09-15] MEDS ORDERED: VERAPAMIL 2.5 MG/ML 2 ML AMP ONE (12:06)
[2019-09-15] MEDS ORDERED: MIDAZOLAM 2 MG/2 ML VIAL IV ONE ×2 (12:20→12:24)
[2019-09-15] MEDS ORDERED: LIDOCAINE 1% INJ 10MG/ML (20 ML MDV) SQ ONE (12:23)
[2019-09-15] MEDS ORDERED: VERAPAMIL SYRINGE (5 MG/10 ML) INTRAARTER ONE (12:24)
[2019-09-15] MEDS ORDERED: IOPAMIDOL-370 125ML BTL INJ ONE (12:43)
[2019-09-15] MEDS ORDERED: RX INFO: IV CONTRAST WAS GIVEN 1 EACH MISC MISCELLANE PRN (12:48)
[2019-09-15] MEDS ORDERED: SODIUM CHLORIDE 0.9% 1,000 ML IV SCH (13:00)
[2019-09-15 13:08] VITALS: RESP 16
--- NOTE | 2019-09-15 14:07 | CC ---
CARDIAC CATHETERIZATION REPORT DATE OF SERVICE: 09/15/2019 PERFORMING PHYSICIAN: Kevyn Reich MD. PROCEDURE PERFORMED: 1. Selective right and left coronary angiogram. 2. Left heart catheterization. INDICATION: This is a 64-year-old gentleman who sees Dr. Collazo as an outpatient with history of nonischemic cardiomyopathy and status post AICD, long-standing persistent atrial fibrillation, diabetes, hypertension, and dyslipidemia, was experiencing symptoms of shortness of breath with exertion. Because of that, he was scheduled to undergo a heart catheterization to rule out severe underlying coronary artery disease. APPROACH: Right radial artery. COMPLICATION: None. LEVEL OF SEDATION: Moderate with sedation length of 22 minutes. PROCEDURE: Description after obtaining an informed consent, the patient was brought to the cardiac label press operator. The right radial artery was cannulated using micropuncture technique, the micropuncture wire passed easily then I placed a 6-Samoan sheath 11 cm at the right radial artery. I gave the patient 2 mg of verapamil IA and 10,000 units of heparin IV. Selective right and left coronary angiogram performed using an AL1 for the right coronary artery and JL3.5 for the left coronary system. The procedure after that I did leave heart catheterization using 6-Samoan pigtail catheter. The procedure was completed without any complication. SELECTIVE CORONARY ANGIOGRAM: 1. The right coronary artery is a large caliber vessel and it is a dominant vessel. It is angiographically normal. It bifurcates into PDA and PLV branches both appeared to be angiographically normal. 2. The left main is angiographically normal it bifurcates into LCX, ramus intermedius, and left anterior descending artery. 3. Left circumflex is a large caliber vessel it is a nondominant vessel. The circumflex is angiographically normal. It gives rise into 2 obtuse marginal branches both appeared to be angiographically normal. 4. The ramus intermedius is a large caliber vessel, seems to be angiographically normal. 5. The LAD, the proximal LAD is normal. The mid LAD is normal and gives rise into it into a large diagonal branch which seems to be normal and the LAD distally appeared to be normal. HEMODYNAMICS: The LVEDP was 10 mmHg without significant gradient across aortic valve. CONCLUSION: 1. Normal coronary angiogram. 2. Normal left ventricular end-diastolic pressure. MMODL / IJN: [id number] /
[2019-09-15] MEDS ORDERED: IPRATROPIUM 0.5 MG/2.5 ML NEBU INHALATION PRN (14:08)
[2019-09-15 17:01] VITALS: BP 133/69; PULSE 80
== END 2019-09-15 17:34 | disposition home or self-care (01) ==
LOC: CATHCVL 10:47
PROVIDERS: ATTEND Internal Medicine Interventional Cardiology
DX: I20.0 Unstable angina (principal); I25.5 Ischemic cardiomyopathy; I10 Essential (primary) hypertension; Z95.810 Presence of automatic (implantable) cardiac defibrillator; E11.9 Type 2 diabetes mellitus without complications; E78.5 Hyperlipidemia, unspecified; I48.19 Other persistent atrial fibrillation; J61 Pneumoconiosis due to asbestos and other mineral fibers; E78.00 Pure hypercholesterolemia, unspecified
CPT/HCPCS: 94640; 93458; 85610; C1769; C1894; J2250; J2001; J1644; Q9967

== ENCOUNTER → 2019-10-23 | Outpatient (CLI) | payer MEDICARE, OTHER ==
[2019-10-23 16:14] LABS: African American GFR (CKD) 105.7 (60.0-200.0); Anion Gap 12.7 mmol/L (4.00-12.00); BUN/Creat Ratio 26.67 Ratio (12.00-20.00); Calcium 9.2 mg/dL (8.7-10.3); Carbon Dioxide 24.3 mmol/L (21.6-31.8); Non-African American GFR(CKD) 91.2 (60.0-200.0); Potassium 4.9 mmol/L (3.5-5.5)
== END | disposition home or self-care (01) ==
LOC: LABWHC1 11:06
PROVIDERS: ATTEND Physician Assistant
DX: I50.22 Chronic systolic (congestive) heart failure (principal)
CPT/HCPCS: 36415; 80048

== ENCOUNTER 2019-10-24 12:27 | Emergency (ER) | payer MEDICARE, OTHER ==
[2019-10-24 12:42] VITALS: RESP 18
[2019-10-24 13:26] LABS: Basophils % (A) 0 %; Eosinophils # (A) 0.1 k/uL (0-0.7); Eosinophils % (A) 1 %; HCT 54.2 % (39.0-53.0); HGB 18.4 gm/dL (13.0-17.5); Lymphocytes # (A) 0.7 k/uL (1.0-4.8); Lymphocytes % (A) 9 %; MCH 32.9 pg (25.0-35.0); MCV 96.8 fL (80.0-100.0); Mean Platelet Volume 8.5; Monocytes # (A) 0.7 k/uL (0-1.0); Monocytes % (A) 8 %; Neutrophils # (A) 6.3 k/uL (1.3-7.7); Neutrophils % (A) 79 %; Platelet Count 149 k/uL (150-450); RDW 14.1 % (11.5-15.5)
[2019-10-24 13:39] LABS: ALT 25 U/L (4-49); AST 38 U/L (17-59); African American GFR (CKD) >90 (>60 ml/min/1.73 sqM); Albumin 3.9 g/dL (3.5-5.0); Alkaline Phosphatase 143 U/L (38-126); Anion Gap 9 mmol/L; Blood Urea Nitrogen 25 mg/dL (9-20); Calcium 9.1 mg/dL (8.4-10.2); Carbon Dioxide 26 mmol/L (22-30); Chloride 98 mmol/L (98-107); Glucose 187 mg/dL (74-99); Non-African American GFR(CKD) >90 (>60 ml/min/1.73 sqM); Potassium 4.7 mmol/L (3.5-5.1); Sodium 133 mmol/L (137-145); Total Bilirubin 0.9 mg/dL (0.2-1.3); Total Protein 7.1 g/dL (6.3-8.2)
[2019-10-24 13:42] LABS: INR 2.2 (<1.2); Partial Thromboplastin Time 33.2 sec (22.0-30.0); Prothrombin Time 21.6 sec (9.0-12.0)
--- NOTE | 2019-10-24 14:06 | ED ---
ENT HPI - General Chief complaint: ENT Stated complaint: bloody nose Time Seen by Provider: 10/24/19 12:51 Source: patient Mode of arrival: wheelchair Limitations: no limitations - History of Present Illness Initial comments: 64-year-old male presenting today for chief complaint of nose bleed since 11AM. Patient states his nose has been bleeding on and off since 11AM patient attempted afrin and self packing per previous recommendation of Dr. Fausto bridges he has had nosebleeds years ago. Patient states he takes coumadin but recently began taking allergy medications and is not sure if they are interacting. He states 2 weeks ago his INR was 2.3. Patient states the bleeding is coming form the left nostril. He denies syncope lightheadedness and dizziness or any other complaints. Upon arrival patient appears well no signs acute distress. Patient has home packing in the nare b/l with no sign signs of bleeding through. - Related Data Home Medications Medication Instructions Recorded Confirmed Albuterol Nebulized [Ventolin 2.5 mg INHALATION RT-QID PRN 05/20/15 09/15/19 Nebulized] Metoprolol Succinate [Toprol XL] 200 mg PO DAILY 03/01/16 09/15/19 Ranitidine HCl [Zantac] 300 mg PO HS 07/01/17 09/15/19 traZODone HCL 50 mg PO HS PRN 07/01/17 09/11/19 Albuterol Sulfate [Ventolin HFA] 2 puff INHALATION RT-QID PRN 07/28/19 09/15/19 Allopurinol [Zyloprim] 100 mg PO DAILY 07/28/19 09/15/19 Aspirin EC [Ecotrin Low Dose] 81 mg PO DAILY 07/28/19 09/15/19 Atorvastatin [Lipitor] 40 mg PO DAILY 07/28/19 09/15/19 Ergocalciferol (Vitamin D2) 50,000 units PO MO 07/28/19 09/15/19 [Drisdol] HYDROcodone/APAP 10-325MG [[place] 1 tab PO Q6H PRN 07/28/19 09/15/19 10-325] Ipratropium Nebulized [Atrovent 0.5 mg INHALATION RT-QID PRN 07/28/19 09/15/19 Nebulized 0.2 MG/ML] Montelukast [Singulair] 10 mg PO HS 07/28/19 09/15/19 Omeprazole 40 mg PO DAILY 07/28/19 09/15/19 metFORMIN HCL ER [Glucophage Xr] 500 mg PO Q12H 07/28/19 09/15/19 Previous Rx's Medication Instructions Recorded Furosemide [Lasix] 40 mg PO BID #60 tab 08/01/19 Lisinopril [Zestril] 5 mg PO DAILY #30 tab 08/01/19 Nystatin/Triamcin Cream [Mycolog 1 applic TOPICAL BID #1 applic 08/01/19 100,000-0.1 Unit/gm-% Cream] Polyethylene Glycol 3350 [Miralax] 17 gm PO DAILY PRN 5 Days #527 gm 08/01/19 Sennosides-Docusate Sodium 1 each PO BID PRN #12 tab 08/01/19 [Senokot-S] Spironolactone [Aldactone] 25 mg PO BID #30 tab 08/01/19 guaiFENesin-DM 100-10MG/5ML 10 ml PO Q8H PRN #100 ml 08/01/19 [Robitussin DM] Amoxicillin/Potassium Clav 1 tab PO Q12HR 5 Days #10 tab 10/24/19 [Augmentin 875-125 Tablet] Allergies Allergy/AdvReac Type Severity Reaction Status Date / Time No Known Allergies Allergy Verified 10/24/19 12:42 Review of Systems ROS Statement: Those systems with pertinent positive or pertinent negative responses have been documented in the HPI. ROS Other: All systems not noted in ROS Statement are negative. Past Medical History Past Medical History: Atrial Flutter, COPD, GERD/Reflux, Osteoarthritis (OA), Pneumonia, Renal Disease, Skin Disorder, Sleep Apnea/CPAP/BIPAP Additional Past Medical History / Comment(s): BLOOD IN STOOL, cellulitis bilateral lower extremities-healing, gout, USES A CANE TO AMBULATE, History of Any Multi-Drug Resistant Organisms: None Reported Past Surgical History: AICD, Cardiac Ablation, Orthopedic Surgery Additional Past Surgical History / Comment(s): rectal fistula repair X2. RUEL KNEE ARTHROSCOPY, surgery to remove part of lower left lung for abestosis, Past Anesthesia/Blood Transfusion Reactions: No Reported Reaction Type of Cardiac Device: AICD Device Placement Date:: [facility] 10/13/15 Past Psychological History: No Psychological Hx Reported Smoking Status: Never smoker Past Alcohol Use History: None Reported Past Drug Use History: None Reported - Past Family History Father Family Medical History: Diabetes Mellitus Additional Family Medical History / Comment(s): Father is almost 90 yrs old. Mother Family Medical History: Cancer Additional Family Medical History / Comment(s): STOMACH CA. General Exam - General Exam Comments Initial Comments: General: The patient is awake and alert, in no distress Eye: +3 mm pupils are equal, round and reactive to light, extra-ocular movements are intact. No nystagmus. There is normal conjunctiva bilaterally. No signs of icterus. Ears, nose, mouth and throat: There are moist mucous membranes and no oral lesions. Mild bleeding once packing and clot removed from left nare, no right nare bleeding. Patient has no identifiable specific anterior lesion. No bleeding in posterior oropharynx. Neck: The neck is supple, there is no tenderness or JVD. Cardiovascular: There is a regular rate and rhythm. No murmur, rub or gallop is appreciated. Respiratory: Lungs are clear to auscultation, respirations are non-labored, breath sounds are equal. No wheezes, stridor, rales, or rhonchi. Musculoskeletal: Normal ROM, no tenderness. Strength 5/5. Sensation intact. Radial pulses equal bilaterally 2+. Neurological: A&O x 3. CN II-XII intact grossly, There are no obvious motor or sensory deficits. Coordination appears grossly intact. Speech is normal. Skin: Skin is warm and dry and no rashes or lesions are noted. Psychiatric: Cooperative, appropriate mood & affect, normal judgment. Limitations: no limitations Course Vital Signs 10/24/19 10/24/19 12:40 14:51 Temperature 98.3 F 97.4 F L Pulse Rate 59 L 62 Respiratory 18 18 Rate Blood Pressure 122/76 122/62 O2 Sat by Pulse 96 100 Oximetry - Reevaluation(s) Reevaluation #1: after packing patient reevaluated, there is no bleeding in oropharynx--the packing is still white, appears bleeding has slowed/stopped no bleeding from the right nare. INR therapeutic. 10/24/19 14:15 Medical Decision Making - Medical Decision Making 64-year-old male presenting today for chief complaint of left nares nosebleed. Patient packed himself at home. After packing clot was removed the nose was evaluated there is very mild bleeding however is not able to identify source. There is no bleeding present in the posterior oropharynx. Patient's hemoglobin vital signs stable he appears well he had anterior packing placed as I feel this is most likely the cause of bleeding. Patient bleeding controlled after packing. Packing remains white with no bleeding down oropharynx. Patient case discussed [facility] Dr. Toure as patient called physician when I was out of the room in attempt to schedule f/u. Dr. Beck is agreeable to care plan of holding coumadin for 1 dose, taking augmentin and seeing patient on Sunday for removal of packing. Return parameters including the return of bleeding. lightheadedness, fevers, dizziness. Discussed the importance avoidance of spicy foods, hot foods. Patient is agreeable to this care plan as well as discharge discussed case attending provider Dr. Sharif who is agreeable to care plan. - Lab Data Result diagrams: 10/24/19 13:13 10/24/19 13:13 Lab Results 10/24/19 10/24/19 10/24/19 Range/Units 13:13 13:13 13:13 WBC 8.0 (3.8-10.6) k/uL RBC 5.60 (4.30-5.90) m/uL Hgb 18.4 H (13.0-17.5) gm/dL Hct 54.2 H (39.0-53.0) % MCV 96.8 (80.0-100.0) fL MCH 32.9 (25.0-35.0) pg MCHC 34.0 (31.0-37.0) g/dL RDW 14.1 (11.5-15.5) % Plt Count 149 L (150-450) k/uL Neutrophils % 79 % Lymphocytes % 9 % Monocytes % 8 % Eosinophils % 1 % Basophils % 0 % Neutrophils # 6.3 (1.3-7.7) k/uL Lymphocytes # 0.7 L (1.0-4.8) k/uL Monocytes # 0.7 (0-1.0) k/uL Eosinophils # 0.1 (0-0.7) k/uL Basophils # 0.0 (0-0.2) k/uL PT 21.6 H (9.0-12.0) sec INR 2.2 H (<1.2) APTT 33.2 H (22.0-30.0) sec Sodium 133 L (137-145) mmol/L Potassium 4.7 (3.5-5.1) mmol/L Chloride 98 (98-107) mmol/L Carbon Dioxide 26 (22-30) mmol/L Anion Gap 9 mmol/L BUN 25 H (9-20) mg/dL Creatinine 0.78 (0.66-1.25) mg/dL Est GFR (CKD-EPI)AfAm >90 (>60 ml/min/1.73 sqM) Est GFR (CKD-EPI)NonAf >90 (>60 ml/min/1.73 sqM) Glucose 187 H (74-99) mg/dL Calcium 9.1 (8.4-10.2) mg/dL Total Bilirubin 0.9 (0.2-1.3) mg/dL AST 38 (17-59) U/L ALT 25 (4-49) U/L Alkaline Phosphatase 143 H (38-126) U/L Total Protein 7.1 (6.3-8.2) g/dL Albumin 3.9 (3.5-5.0) g/dL Disposition Clinical Impression: Epistaxis Disposition: HOME SELF-CARE Condition: Good Instructions (If sedation given, give patient instructions): Nosebleed (ED) Additional Instructions: Please use medication as discussed. Please follow-up with family doctor or ENT for packing removal in the next 2 days, hold one dose of coumadin--and take antibiotics as instructed. Please return to emergency room if the symptoms increase or worsen or for any other concerns. Prescriptions: Amoxicillin/Potassium Clav [Augmentin 875-125 Tablet] 1 tab PO Q12HR 5 Days #10 tab Is patient prescribed a controlled substance at d/c from ED?: No Referrals: Melisa Owens MD [Primary Care Provider] - 1-2 days Saad Toure DO [Doctor of Osteopathic Medicine] - 1-2 days Time of Disposition: 14:28
[2019-10-24 14:52] VITALS: BP 122/62; PULSE 62; TEMP 97.4
== END 2019-10-24 14:52 | disposition home or self-care (01) ==
LOC: EC 12:27
DX: R04.0 Epistaxis (principal); I48.92 Unspecified atrial flutter; J44.9 Chronic obstructive pulmonary disease, unspecified; K21.9 Gastro-esophageal reflux disease without esophagitis; M19.90 Unspecified osteoarthritis, unspecified site; G47.30 Sleep apnea, unspecified; M10.9 Gout, unspecified; Z99.89 Dependence on other enabling machines and devices; Z79.51 Long term (current) use of inhaled steroids; Z79.899 Other long term (current) drug therapy; Z79.82 Long term (current) use of aspirin; Z79.01 Long term (current) use of anticoagulants; Z95.810 Presence of automatic (implantable) cardiac defibrillator
CPT/HCPCS: 30901; 36415; 80053; 85025; 85610; 85730; 99283

== ENCOUNTER 2020-01-14 17:56 | Emergency (ER) | payer MEDICARE ==
[2020-01-14] MEDS ORDERED: OXYMETAZOLINE 0.05% NASL SPRAY 1 SPRAY BOTTLE NASAL STA (19:10)
[2020-01-14 20:18] LABS: Basophils % (A) 0 %; Eosinophils # (A) 0.1 k/uL (0-0.7); Eosinophils % (A) 1 %; HGB 18.2 gm/dL (13.0-17.5); Lymphocytes # (A) 1.3 k/uL (1.0-4.8); Lymphocytes % (A) 10 %; MCH 32.1 pg (25.0-35.0); MCHC 32.7 g/dL (31.0-37.0); MCV 98.1 fL (80.0-100.0); Mean Platelet Volume 8.2; Monocytes % (A) 7 %; Neutrophils # (A) 11.5 k/uL (1.3-7.7); Neutrophils % (A) 81 %; Platelet Count 212 k/uL (150-450); RBC 5.67 m/uL (4.30-5.90); RDW 14.4 % (11.5-15.5); WBC 14.1 k/uL (3.8-10.6)
[2020-01-14 20:20] LABS: HCT 55.6 % (39.0-53.0)
--- NOTE | 2020-01-14 20:21 | ED ---
ENT HPI - General Chief complaint: ENT Stated complaint: nose bleed Time Seen by Provider: 01/14/20 18:53 Source: patient Mode of arrival: wheelchair Limitations: no limitations - History of Present Illness Initial comments: 64-year-old male with history of atrial fibrillation on Coumadin presenting to the ER for nosebleed. Patient states Sunday he had a nosebleed he presented today to his ENT physician were they looked in his nose and attempted cautery of an area that they looked suspicious for. He states this caused a nosebleed he states upon arrival in the office it was not bleeding. He states that the nose was packed and he was sent home with f/u. Patient states that it started to bleed around 4PM through the nasal tampon. At time of history taking he states he does not believe it is currently bleeding. Denies sensation of blood dripping down throat, lightheaded or dizziness. Denies additional complaints. Patient appears well, no distress. - Related Data Home Medications Medication Instructions Recorded Confirmed Albuterol Nebulized [Ventolin 2.5 mg INHALATION RT-QID PRN 05/20/15 09/15/19 Nebulized] Metoprolol Succinate [Toprol XL] 200 mg PO DAILY 03/01/16 09/15/19 Ranitidine HCl [Zantac] 300 mg PO HS 07/01/17 09/15/19 traZODone HCL 50 mg PO HS PRN 07/01/17 09/11/19 Albuterol Sulfate [Ventolin HFA] 2 puff INHALATION RT-QID PRN 07/28/19 09/15/19 Allopurinol [Zyloprim] 100 mg PO DAILY 07/28/19 09/15/19 Aspirin EC [Ecotrin Low Dose] 81 mg PO DAILY 07/28/19 09/15/19 Atorvastatin [Lipitor] 40 mg PO DAILY 07/28/19 09/15/19 Ergocalciferol (Vitamin D2) 50,000 units PO MO 07/28/19 09/15/19 [Drisdol] HYDROcodone/APAP 10-325MG [[place] 1 tab PO Q6H PRN 07/28/19 09/15/19 10-325] Ipratropium Nebulized [Atrovent 0.5 mg INHALATION RT-QID PRN 01/20/20 03/09/20 Nebulized 0.2 MG/ML] Montelukast [Singulair] 10 mg PO HS 07/28/19 09/15/19 Omeprazole 40 mg PO DAILY 07/28/19 09/15/19 metFORMIN HCL ER [Glucophage Xr] 500 mg PO Q12H 07/28/19 09/15/19 Previous Rx's Medication Instructions Recorded Furosemide [Lasix] 40 mg PO BID #60 tab 08/01/19 Lisinopril [Zestril] 5 mg PO DAILY #30 tab 08/01/19 Nystatin/Triamcin Cream [Mycolog 1 applic TOPICAL BID #1 applic 08/01/19 100,000-0.1 Unit/gm-% Cream] Polyethylene Glycol 3350 [Miralax] 17 gm PO DAILY PRN 5 Days #527 gm 08/01/19 Sennosides-Docusate Sodium 1 each PO BID PRN #12 tab 08/01/19 [Senokot-S] Spironolactone [Aldactone] 25 mg PO BID #30 tab 08/01/19 guaiFENesin-DM 100-10MG/5ML 10 ml PO Q8H PRN #100 ml 08/01/19 [Robitussin DM] Amoxicillin/Potassium Clav 1 tab PO Q12HR 5 Days #10 tab 10/24/19 [Augmentin 875-125 Tablet] Allergies Allergy/AdvReac Type Severity Reaction Status Date / Time No Known Allergies Allergy Verified 01/14/20 18:01 Review of Systems ROS Statement: Those systems with pertinent positive or pertinent negative responses have been documented in the HPI. ROS Other: All systems not noted in ROS Statement are negative. Past Medical History Past Medical History: Atrial Flutter, COPD, GERD/Reflux, Osteoarthritis (OA), Pneumonia, Renal Disease, Skin Disorder, Sleep Apnea/CPAP/BIPAP Additional Past Medical History / Comment(s): BLOOD IN STOOL, cellulitis bilateral lower extremities-healing, gout, USES A CANE TO AMBULATE, History of Any Multi-Drug Resistant Organisms: None Reported Past Surgical History: AICD, Cardiac Ablation, Orthopedic Surgery Additional Past Surgical History / Comment(s): rectal fistula repair X2. RUEL KNEE ARTHROSCOPY, surgery to remove part of lower left lung for abestosis, Past Anesthesia/Blood Transfusion Reactions: No Reported Reaction Type of Cardiac Device: AICD Device Placement Date:: [facility] 10/13/15 Past Psychological History: No Psychological Hx Reported Smoking Status: Never smoker Past Alcohol Use History: None Reported Past Drug Use History: None Reported - Past Family History Father Family Medical History: Diabetes Mellitus Additional Family Medical History / Comment(s): Father is almost 90 yrs old. Mother Family Medical History: Cancer Additional Family Medical History / Comment(s): STOMACH CA. General Exam - General Exam Comments Initial Comments: General: The patient is awake and alert, in no distress Eye: +3 mm pupils are equal, round and reactive to light, extra-ocular movements are intact. No nystagmus. There is normal conjunctiva bilaterally. No signs of icterus. Ears, nose, mouth and throat: There are moist mucous membranes and no oral lesions. Nasal tampon left nostril, no bleeding through. No bleeding noted in posterior oropharynx. Neck: The neck is supple, there is no tenderness or JVD. Cardiovascular: There is a regular rate and rhythm. No murmur, rub or gallop is appreciated. Respiratory: Lungs are clear to auscultation, respirations are non-labored, breath sounds are equal. No wheezes, stridor, rales, or rhonchi. Gastrointestinal: Soft, non-distended, non-tender abdomen without masses or organomegaly noted. There is no rebound or guarding present. Musculoskeletal: Normal ROM, no tenderness. Strength 5/5. Sensation intact. Radial pulses equal bilaterally 2+. Neurological: A&O x 3. CN II-XII intact grossly, There are no obvious motor or sensory deficits. Coordination appears grossly intact. Speech is normal. Skin: Skin is warm and dry and no rashes or lesions are noted. Psychiatric: Cooperative, appropriate mood & affect, normal judgment. Limitations: no limitations Course Vital Signs 01/14/20 01/14/20 01/14/20 17:57 19:40 22:18 Temperature 98 F 98.2 F Pulse Rate 60 60 Respiratory 18 18 17 Rate Blood Pressure 121/70 137/85 106/72 O2 Sat by Pulse 93 L 92 L Oximetry Medical Decision Making - Medical Decision Making No active bleeding appreciated on exam. Oropharynx exam WNL. HgB stable. BP elevated, no hypotension. Mildly subtherapeutic INR discussed this with patient, recommend PCP f/u for further recommendation. Patient has f/u in 2 days with ENT For packing removal. Patient has no additional complaints. Appears well. Will be discharged with PCP and ENT f/u. return parameters discussed and patient was discharged appearing well. Discussed case wtih Dr. Solis prior to the discharge of patient discussing laboratory studies, PE and history. - Lab Data Result diagrams: 01/14/20 19:41 01/14/20 21:34 Lab Results 01/14/20 01/14/20 01/14/20 Range/Units 19:40 19:41 21:34 WBC 14.1 H (3.8-10.6) k/uL RBC 5.67 (4.30-5.90) m/uL Hgb 18.2 H (13.0-17.5) gm/dL Hct 55.6 H (39.0-53.0) % MCV 98.1 (80.0-100.0) fL MCH 32.1 (25.0-35.0) pg MCHC 32.7 (31.0-37.0) g/dL RDW 14.4 (11.5-15.5) % Plt Count 212 (150-450) k/uL Neutrophils % 81 % Lymphocytes % 10 % Monocytes % 7 % Eosinophils % 1 % Basophils % 0 % Neutrophils # 11.5 H (1.3-7.7) k/uL Lymphocytes # 1.3 (1.0-4.8) k/uL Monocytes # 1.0 (0-1.0) k/uL Eosinophils # 0.1 (0-0.7) k/uL Basophils # 0.0 (0-0.2) k/uL PT 17.2 H (9.0-12.0) sec INR 1.8 H (<1.2) APTT 30.8 H (22.0-30.0) sec Sodium 132 L (137-145) mmol/L Potassium 4.7 (3.5-5.1) mmol/L Chloride 98 (98-107) mmol/L Carbon Dioxide 27 (22-30) mmol/L Anion Gap 7 mmol/L BUN 34 H (9-20) mg/dL Creatinine 1.06 (0.66-1.25) mg/dL Est GFR (CKD-EPI)AfAm 87 (>60 ml/min/1.73 sqM) Est GFR (CKD-EPI)NonAf 75 (>60 ml/min/1.73 sqM) Glucose 151 H (74-99) mg/dL Calcium 9.3 (8.4-10.2) mg/dL Total Bilirubin 1.3 (0.2-1.3) mg/dL AST 27 (17-59) U/L ALT 17 (4-49) U/L Alkaline Phosphatase 141 H (38-126) U/L Total Protein 7.4 (6.3-8.2) g/dL Albumin 4.3 (3.5-5.0) g/dL Disposition Clinical Impression: Epistaxis Disposition: HOME SELF-CARE Condition: Good Instructions (If sedation given, give patient instructions): Nosebleed (ED) Additional Instructions: Please use medication as discussed. Please follow-up with family doctor in the next 2 days, follow-up with ENT as scheduled. Please return to emergency room if the symptoms increase or worsen or for any other concerns. Is patient prescribed a controlled substance at d/c from ED?: No Referrals: Melisa Owens MD [Primary Care Provider] - 1-2 days Time of Disposition: 22:13
[2020-01-14 20:47] LABS: INR 1.8 (<1.2); Partial Thromboplastin Time 30.8 sec (22.0-30.0); Prothrombin Time 17.2 sec (9.0-12.0)
[2020-01-14 21:50] LABS: Albumin 4.3 g/dL (3.5-5.0); Calcium 9.3 mg/dL (8.4-10.2); Potassium 4.7 mmol/L (3.5-5.1); Total Bilirubin 1.3 mg/dL (0.2-1.3); Total Protein 7.4 g/dL (6.3-8.2)
[2020-01-16 09:38] VITALS: BP 106/72; PULSE 60; RESP 17; TEMP 98.2
== END 2020-01-14 23:46 | disposition home or self-care (01) ==
LOC: EC 17:56
DX: I48.91 Unspecified atrial fibrillation (principal); J44.9 Chronic obstructive pulmonary disease, unspecified; K21.9 Gastro-esophageal reflux disease without esophagitis; M19.90 Unspecified osteoarthritis, unspecified site; M10.9 Gout, unspecified; G47.30 Sleep apnea, unspecified; Z79.01 Long term (current) use of anticoagulants; Z99.89 Dependence on other enabling machines and devices; Z95.810 Presence of automatic (implantable) cardiac defibrillator; Z79.899 Other long term (current) drug therapy; Z79.82 Long term (current) use of aspirin
CPT/HCPCS: 36415; 80053; 85025; 85610; 85730; 99283

== ENCOUNTER 2020-01-28 16:22 | Emergency (ER) | payer MEDICARE ==
[2020-01-28 16:30] VITALS: RESP 18; TEMP 97.9
[2020-01-28 17:17] LABS: Basophils # (A) 0.1 k/uL (0-0.2); Basophils % (A) 0 %; Eosinophils # (A) 0.1 k/uL (0-0.7); Eosinophils % (A) 1 %; HCT 51.8 % (39.0-53.0); HGB 16.7 gm/dL (13.0-17.5); Lymphocytes # (A) 0.9 k/uL (1.0-4.8); Lymphocytes % (A) 8 %; MCH 32.1 pg (25.0-35.0); MCHC 32.2 g/dL (31.0-37.0); MCV 99.7 fL (80.0-100.0); Macrocytosis Slight; Mean Platelet Volume 7.9; Monocytes # (A) 0.8 k/uL (0-1.0); Monocytes % (A) 6 %; Neutrophils # (A) 9.9 k/uL (1.3-7.7); Neutrophils % (A) 83 %; Platelet Count 191 k/uL (150-450); RDW 14.5 % (11.5-15.5); WBC 11.9 k/uL (3.8-10.6)
[2020-01-28 17:20] LABS: ALT 17 U/L (4-49); AST 23 U/L (17-59); African American GFR (CKD) >90 (>60 ml/min/1.73 sqM); Albumin 3.9 g/dL (3.5-5.0); Alkaline Phosphatase 124 U/L (38-126); Anion Gap 8 mmol/L; Blood Urea Nitrogen 25 mg/dL (9-20); Calcium 9.1 mg/dL (8.4-10.2); Carbon Dioxide 29 mmol/L (22-30); Chloride 99 mmol/L (98-107); Glucose 194 mg/dL (74-99); Non-African American GFR(CKD) >90 (>60 ml/min/1.73 sqM); Potassium 4.3 mmol/L (3.5-5.1); Sodium 136 mmol/L (137-145); Total Protein 6.6 g/dL (6.3-8.2)
[2020-01-28 17:24] LABS: INR 1.1 (<1.2); Partial Thromboplastin Time 24.2 sec (22.0-30.0); Prothrombin Time 10.9 sec (9.0-12.0)
--- NOTE | 2020-01-28 17:54 | ED ---
General Adult HPI - General Chief complaint: ENT Stated complaint: Nosebleed Time Seen by Provider: 01/28/20 16:48 Source: patient, EMS, RN notes reviewed, old records reviewed Mode of arrival: EMS Limitations: no limitations - History of Present Illness Initial comments: 64-year-old male patient with the chief complaint of left anterior nosebleed. For that started about an hour ago. Reports he is on Coumadin. Denies any other complaints. Systemic: Pt denies fatigue, fever/chills, rash. Pt denies weakness, night sweats, weight loss. Neuro: Pt denies headache, visual disturbances, syncope or pre-syncope. HEENT: Pt denies ocular discharge or irritation, otalgia, rhinorrhea, pharyngitis or notable lymphadenopathy. Cardiopulmonary: Pt denies chest pain, SOB, heart palpitations, dyspnea on exertion. Abdominal/GI: Pt denies abdominal pain, n/v/d. : Pt denies dysuria, burning w/ urination, frequency/urgency. Denies new onset urinary or bowel incontinence. MSK: Pt denies myalgia, loss of strength or function in extremities. Neuro: Pt denies new onset weakness, paresthesias. - Related Data Home Medications Medication Instructions Recorded Confirmed Albuterol Nebulized [Ventolin 2.5 mg INHALATION RT-QID PRN 05/20/15 09/15/19 Nebulized] Metoprolol Succinate [Toprol XL] 200 mg PO DAILY 03/01/16 09/15/19 Ranitidine HCl [Zantac] 300 mg PO HS 07/01/17 09/15/19 traZODone HCL 50 mg PO HS PRN 07/01/17 09/11/19 Albuterol Sulfate [Ventolin HFA] 2 puff INHALATION RT-QID PRN 07/28/19 09/15/19 Aspirin EC [Ecotrin Low Dose] 81 mg PO DAILY 07/28/19 09/15/19 Atorvastatin [Lipitor] 40 mg PO DAILY 07/28/19 09/15/19 Ergocalciferol (Vitamin D2) 50,000 units PO MO 07/28/19 09/15/19 [Drisdol] HYDROcodone/APAP 10-325MG [[place] 1 tab PO Q6H PRN 07/28/19 09/15/19 10-325] Ipratropium Nebulized [Atrovent 0.5 mg INHALATION RT-QID PRN 07/28/19 09/15/19 Nebulized 0.2 MG/ML] Montelukast [Singulair] 10 mg PO HS 07/28/19 09/15/19 Omeprazole 40 mg PO DAILY 07/28/19 09/15/19 allopurinoL [Zyloprim] 100 mg PO DAILY 07/28/19 09/15/19 metFORMIN HCL ER [Glucophage Xr] 500 mg PO Q12H 07/28/19 09/15/19 Previous Rx's Medication Instructions Recorded Furosemide [Lasix] 40 mg PO BID #60 tab 08/01/19 Nystatin/Triamcin Cream [Mycolog 1 applic TOPICAL BID #1 applic 08/01/19 100,000-0.1 Unit/gm-% Cream] Polyethylene Glycol 3350 [Miralax] 17 gm PO DAILY PRN 5 Days #527 gm 08/01/19 Sennosides-Docusate Sodium 1 each PO BID PRN #12 tab 08/01/19 [Senokot-S] Spironolactone [Aldactone] 25 mg PO BID #30 tab 08/01/19 guaiFENesin-DM 100-10MG/5ML 10 ml PO Q8H PRN #100 ml 08/01/19 [Robitussin DM] lisinopriL [Zestril] 5 mg PO DAILY #30 tab 08/01/19 Amoxicillin/Potassium Clav 1 tab PO Q12HR 5 Days #10 tab 10/24/19 [Augmentin 875-125 Tablet] Allergies Allergy/AdvReac Type Severity Reaction Status Date / Time No Known Allergies Allergy Verified 01/28/20 16:31 Review of Systems ROS Statement: Those systems with pertinent positive or pertinent negative responses have been documented in the HPI. ROS Other: All systems not noted in ROS Statement are negative. Past Medical History Past Medical History: Atrial Flutter, COPD, GERD/Reflux, Osteoarthritis (OA), Pneumonia, Renal Disease, Skin Disorder, Sleep Apnea/CPAP/BIPAP Additional Past Medical History / Comment(s): BLOOD IN STOOL, cellulitis bilateral lower extremities-healing, gout, USES A CANE TO AMBULATE, History of Any Multi-Drug Resistant Organisms: None Reported Past Surgical History: AICD, Cardiac Ablation, Orthopedic Surgery Additional Past Surgical History / Comment(s): rectal fistula repair X2. RUEL KNEE ARTHROSCOPY, surgery to remove part of lower left lung for abestosis, Past Anesthesia/Blood Transfusion Reactions: No Reported Reaction Type of Cardiac Device: AICD Device Placement Date:: [facility] 10/13/15 Past Psychological History: No Psychological Hx Reported Past Alcohol Use History: None Reported Past Drug Use History: None Reported - Past Family History Father Family Medical History: Diabetes Mellitus Additional Family Medical History / Comment(s): Father is almost 90 yrs old. Mother Family Medical History: Cancer Additional Family Medical History / Comment(s): STOMACH CA. General Exam - General Exam Comments Initial Comments: Constitutional: NAD, AOX3, Pt has pleasant affect. HEENT: NC/AT, trachea midline, neck supple, no lymphadenopathy. External ears appear normal, without discharge. Mucous membranes moist. Some dried blood noted left knee are no active bleeding noted. Right nare unremarkable. No septal hematoma EOM intact. There is no scleral icterus. No pallor noted. Cardiopulmonary: RRR, no murmurs, rubs or gallops, no JVD noted. Lungs CTAB in anterior and posterior mary. Abdominal exam: Abdomen soft and non-distended. Abdomen non-tender to palpation in all 4 quadrants. Neuro: CN II-XII grossly intact. No nuchal rigidity. No raccon eyes, no johnson sign. MSK: Full active ROM in upper and lower extremities, 5/5 stregnth. Limitations: no limitations Course Vital Signs 01/28/20 01/28/20 16:26 17:34 Temperature 97.9 F Pulse Rate 68 68 Respiratory 18 18 Rate Blood Pressure 146/99 123/71 O2 Sat by Pulse 99 98 Oximetry Medical Decision Making - Medical Decision Making 64-year-old male patient with the chief complaint left anterior epistaxis. Investigations were obtained. Mild hyperglycemia mildly elevated BUN. Explained to patient. INR is subtherapeutic. Patient is on Coumadin. Epistaxis resolved with direct pressure with patient will be discharged to follow up with primary care provider and ENT and return to ER if condition worsens. Case discussed with Dr. Sheehan. - Lab Data Result diagrams: 01/28/20 17:01 01/28/20 17:01 Lab Results 01/28/20 01/28/20 01/28/20 Range/Units 17:01 17:01 17:01 WBC 11.9 H (3.8-10.6) k/uL RBC 5.20 (4.30-5.90) m/uL Hgb 16.7 (13.0-17.5) gm/dL Hct 51.8 (39.0-53.0) % MCV 99.7 (80.0-100.0) fL MCH 32.1 (25.0-35.0) pg MCHC 32.2 (31.0-37.0) g/dL RDW 14.5 (11.5-15.5) % Plt Count 191 (150-450) k/uL Neutrophils % 83 % Lymphocytes % 8 % Monocytes % 6 % Eosinophils % 1 % Basophils % 0 % Neutrophils # 9.9 H (1.3-7.7) k/uL Lymphocytes # 0.9 L (1.0-4.8) k/uL Monocytes # 0.8 (0-1.0) k/uL Eosinophils # 0.1 (0-0.7) k/uL Basophils # 0.1 (0-0.2) k/uL Macrocytosis Slight PT 10.9 (9.0-12.0) sec INR 1.1 (<1.2) APTT 24.2 (22.0-30.0) sec Sodium 136 L (137-145) mmol/L Potassium 4.3 (3.5-5.1) mmol/L Chloride 99 (98-107) mmol/L Carbon Dioxide 29 (22-30) mmol/L Anion Gap 8 mmol/L BUN 25 H (9-20) mg/dL Creatinine 0.90 (0.66-1.25) mg/dL Est GFR (CKD-EPI)AfAm >90 (>60 ml/min/1.73 sqM) Est GFR (CKD-EPI)NonAf >90 (>60 ml/min/1.73 sqM) Glucose 194 H (74-99) mg/dL Calcium 9.1 (8.4-10.2) mg/dL Total Bilirubin 1.0 (0.2-1.3) mg/dL AST 23 (17-59) U/L ALT 17 (4-49) U/L Alkaline Phosphatase 124 (38-126) U/L Total Protein 6.6 (6.3-8.2) g/dL Albumin 3.9 (3.5-5.0) g/dL Disposition Clinical Impression: Epistaxis Disposition: HOME SELF-CARE Condition: Stable Instructions (If sedation given, give patient instructions): Nosebleed (ED) Additional Instructions: Follow-up with primary care provider tomorrow. Return to ER if condition worsens. Is patient prescribed a controlled substance at d/c from ED?: No Referrals: Melisa Owens MD [Primary Care Provider] - 1-2 days
[2020-01-28 18:12] VITALS: BP 133/78; PULSE 82
== END 2020-01-28 18:12 | disposition home or self-care (01) ==
LOC: EC 16:22
DX: R04.0 Epistaxis (principal); R73.9 Hyperglycemia, unspecified; I48.92 Unspecified atrial flutter; J44.9 Chronic obstructive pulmonary disease, unspecified; K21.9 Gastro-esophageal reflux disease without esophagitis; M19.90 Unspecified osteoarthritis, unspecified site; M10.9 Gout, unspecified; G47.30 Sleep apnea, unspecified; Z99.89 Dependence on other enabling machines and devices; Z95.810 Presence of automatic (implantable) cardiac defibrillator; Z98.890 Other specified postprocedural states; Z79.891 Long term (current) use of opiate analgesic; Z79.82 Long term (current) use of aspirin; Z79.84 Long term (current) use of oral hypoglycemic drugs; Z79.899 Other long term (current) drug therapy
CPT/HCPCS: 36415; 80053; 85025; 85610; 85730; 99284

== ENCOUNTER 2020-01-30 08:30 | Emergency (ER) | payer MEDICARE ==
[2020-01-30 08:35] VITALS: RESP 18; TEMP 97.9
[2020-01-30] MEDS ORDERED: TRANEXAMIC ACID 1,000 MG/10 ML VIAL IRRIGATION ONE (08:44)
--- NOTE | 2020-01-30 09:17 | ED ---
ENT HPI - General Chief complaint: ENT Stated complaint: recheck-epistaxis Time Seen by Provider: 01/30/20 08:30 Source: patient Mode of arrival: wheelchair Limitations: no limitations - History of Present Illness Initial comments: Patient is 64-year-old male passed most of A. fib on Coumadin who presents emergency room with reported epistaxis. Patient was seen 2 days ago for similar complaint. States that bleeding was stopped at that ER visit. Patient did not require packing. Then restarted again this morning at 7:30 AM. He attempted to pack it with some Kleenex. States he is having difficulty stopping it and therefore came into the emergency room for evaluation. Patient did take his Coumadin this morning, 5 mg. Laboratory studies were obtained 2 days ago patient's INR was subtherapeutic. Denies trauma. No dizziness or lightheadedness. Denies hemoptysis, hematemesis, melanic stools or hematochezia. No fevers or chills. No other alleviating, precipitating or or modifying factors - Related Data Home Medications Medication Instructions Recorded Confirmed Albuterol Nebulized [Ventolin 2.5 mg INHALATION RT-QID PRN 05/20/15 01/30/20 Nebulized] Metoprolol Succinate [Toprol XL] 200 mg PO DAILY 03/01/16 01/30/20 Albuterol Sulfate [Ventolin HFA] 2 puff INHALATION RT-QID PRN 07/28/19 01/30/20 Aspirin EC [Ecotrin Low Dose] 81 mg PO DAILY 07/28/19 01/30/20 Atorvastatin [Lipitor] 40 mg PO DAILY 07/28/19 01/30/20 Ergocalciferol (Vitamin D2) 50,000 units PO MO 07/28/19 01/30/20 [Drisdol] HYDROcodone/APAP 10-325MG [[place] 1 tab PO TID 07/28/19 01/30/20 10-325] Ipratropium Nebulized [Atrovent 0.5 mg INHALATION RT-QID PRN 07/28/19 01/30/20 Nebulized 0.2 MG/ML] Montelukast [Singulair] 10 mg PO HS 07/28/19 01/30/20 Omeprazole 40 mg PO DAILY 07/28/19 01/30/20 allopurinoL [Zyloprim] 200 mg PO DAILY 07/28/19 01/30/20 metFORMIN HCL ER [Glucophage Xr] 500 mg PO Q12H 07/28/19 01/30/20 Diclofenac Sodium [Voltaren Gel] 2 gram TOPICAL QID PRN 01/30/20 01/30/20 Sacubitril/Valsartan [Entresto 24 1 tab PO BID 01/30/20 01/30/20 mg-26 mg Tablet] Sennosides-Docusate Sodium 1 tab PO BID PRN 01/30/20 01/30/20 [Senokot-S] Spironolactone [Aldactone] 25 mg PO DAILY 01/30/20 01/30/20 Warfarin [Coumadin] 5 mg PO SUMOWEFR 01/30/20 01/30/20 Warfarin [Coumadin] 7.5 mg PO TUTHSA 01/30/20 01/30/20 Previous Rx's Medication Instructions Recorded Furosemide [Lasix] 40 mg PO BID #60 tab 08/01/19 Polyethylene Glycol 3350 [Miralax] 17 gm PO DAILY PRN 5 Days #527 gm 08/01/19 guaiFENesin-DM 100-10MG/5ML 10 ml PO Q8H PRN #100 ml 08/01/19 [Robitussin DM] Cephalexin [Keflex] 500 mg PO Q6HR 3 Days #12 cap 01/30/20 Allergies Allergy/AdvReac Type Severity Reaction Status Date / Time No Known Allergies Allergy Verified 01/30/20 10:33 Review of Systems ROS Statement: Those systems with pertinent positive or pertinent negative responses have been documented in the HPI. ROS Other: All systems not noted in ROS Statement are negative. Past Medical History Past Medical History: Atrial Flutter, COPD, GERD/Reflux, Osteoarthritis (OA), Pneumonia, Renal Disease, Skin Disorder, Sleep Apnea/CPAP/BIPAP Additional Past Medical History / Comment(s): BLOOD IN STOOL, cellulitis bilateral lower extremities-healing, gout, USES A CANE TO AMBULATE, History of Any Multi-Drug Resistant Organisms: None Reported Past Surgical History: AICD, Cardiac Ablation, Orthopedic Surgery Additional Past Surgical History / Comment(s): rectal fistula repair X2. RUEL KNEE ARTHROSCOPY, surgery to remove part of lower left lung for abestosis, Past Anesthesia/Blood Transfusion Reactions: No Reported Reaction Type of Cardiac Device: AICD Device Placement Date:: [facility] 10/13/15 Past Psychological History: No Psychological Hx Reported Smoking Status: Never smoker Past Alcohol Use History: None Reported Past Drug Use History: None Reported - Past Family History Father Family Medical History: Diabetes Mellitus Additional Family Medical History / Comment(s): Father is almost 90 yrs old. Mother Family Medical History: Cancer Additional Family Medical History / Comment(s): STOMACH CA. General Exam Limitations: no limitations General appearance: alert, in no apparent distress Head exam: Present: atraumatic, normocephalic, normal inspection Eye exam: Present: normal appearance, PERRL, EOMI. Absent: scleral icterus, conjunctival injection, periorbital swelling ENT exam: Present: mucous membranes moist, other (Dried blood covering the inside of the left nare. Some dried blood around the opening of the right ear. Patient does have packing from home placed in the left nostril which was saturated. No active bright red blood. No blood visualized in the posterior pharynx) Neck exam: Present: normal inspection. Absent: tenderness, meningismus, lymphadenopathy Respiratory exam: Present: normal lung sounds bilaterally. Absent: respiratory distress, wheezes, rales, rhonchi, stridor Cardiovascular Exam: Present: regular rate, normal rhythm, normal heart sounds. Absent: systolic murmur, diastolic murmur, rubs, gallop, clicks Course Vital Signs 01/30/20 01/30/20 01/30/20 08:33 08:35 09:35 Temperature 97.9 F Pulse Rate 60 61 Respiratory 18 18 Rate Blood Pressure 126/80 O2 Sat by Pulse 92 L Oximetry 01/30/20 01/30/20 01/30/20 10:35 10:38 10:47 Temperature Pulse Rate 65 60 61 Respiratory 18 Rate Blood Pressure 130/81 O2 Sat by Pulse 95 Oximetry 01/30/20 11:00 Temperature Pulse Rate 65 Respiratory 18 Rate Blood Pressure 130/81 O2 Sat by Pulse 95 Oximetry Medical Decision Making - Medical Decision Making Upon arrival the patient is placed into room 21. A thorough history and physical exam was performed. Patient does have nasal clip in place. There is no active bleeding. I did put cotton pledgets with TXA in the left nare. Cotton balls were removed after 10 minutes and the patient has no additional bleeding. The right nasal mucosa appears abraded. I did not visualize any prominent vessel to be cauterized. He is apprehensive to go home at this time due to recurrent epistaxis. Because of this patient's nose is packed. He will continue his Coumadin as directed. He is to follow up with Dr. An at 1245 on Sunday for removal of his packing. He'll be placed on Keflex. Patient was given Zofran for some nausea that he sustained with the packing. Patient is also requesting a breathing treatment therefore he is given a DuoNeb breathing treatment. Patient was in agreement with the treatment plan. He was discharged home in stable condition. He is to return for any new or worsening symptoms Disposition Clinical Impression: Anterior epistaxis, Bleeding on Coumadin Disposition: HOME SELF-CARE Condition: Stable Instructions (If sedation given, give patient instructions): Nosebleed (ED) Additional Instructions: Please follow-up at your scheduled appointment at 12:[address] Toure. Return to the emergency room for any new or worsening symptoms Prescriptions: Cephalexin [Keflex] 500 mg PO Q6HR 3 Days #12 cap Is patient prescribed a controlled substance at d/c from ED?: No Referrals: Melisa Owens MD [Primary Care Provider] - 1-2 days Saad Toure DO [Doctor of Osteopathic Medicine] - 1-2 days Time of Disposition: 10:27
[2020-01-30] MEDS ORDERED: IPRATROPIUM-ALBUTEROL 3 ML NEB INHALATION STA (10:14)
[2020-01-30] MEDS ORDERED: ONDANSETRON ODT 4 MG TAB PO STA (10:16)
[2020-01-30 10:58] VITALS: BP 130/81
[2020-01-30 11:01] VITALS: PULSE 65
== END 2020-01-30 11:05 | disposition home or self-care (01) ==
LOC: EC 08:30
DX: R04.0 Epistaxis (principal); G47.30 Sleep apnea, unspecified; R11.0 Nausea; J44.9 Chronic obstructive pulmonary disease, unspecified; K21.9 Gastro-esophageal reflux disease without esophagitis; M19.90 Unspecified osteoarthritis, unspecified site; M10.9 Gout, unspecified; I48.92 Unspecified atrial flutter; Z79.899 Other long term (current) drug therapy; Z79.01 Long term (current) use of anticoagulants; Z79.82 Long term (current) use of aspirin; Z79.84 Long term (current) use of oral hypoglycemic drugs; Z99.89 Dependence on other enabling machines and devices
CPT/HCPCS: 94640; 99283

== ENCOUNTER 2020-02-01 18:57 | Emergency (ER) | payer MEDICARE ==
[2020-02-01 19:05] VITALS: TEMP 98.9
[2020-02-01] MEDS ORDERED: OXYMETAZOLINE 0.05% NASL SPRAY 1 SPRAY BOTTLE NASAL STA (19:26)
--- NOTE | 2020-02-01 19:28 | ED ---
ENT HPI - General Chief complaint: ENT Stated complaint: nose bleed Time Seen by Provider: 02/01/20 19:09 Source: EMS Mode of arrival: EMS Limitations: no limitations - History of Present Illness Initial comments: Patient is 64-year-old male presenting to emergency Department with chief complaint of epistaxis. Patient states this is the third time in the past 4 days the patient is coming to the emergency department for the same chief complaint. Patient states on Sunday he was switched from Coumadin to a look was for his A. fib. Patient reports a Sunday he had a nasal packing in the left nostril which worked well until today. Patient states he felt blood going down the back of his throat. States he was spitting up some blood as well. States is currently antibiotics for nasal packing. States he has an appointment tomorrow to see Dr. An. - Related Data Home Medications Medication Instructions Recorded Confirmed Albuterol Nebulized [Ventolin 2.5 mg INHALATION RT-QID PRN 05/20/15 01/30/20 Nebulized] Metoprolol Succinate [Toprol XL] 200 mg PO DAILY 03/01/16 01/30/20 Albuterol Sulfate [Ventolin HFA] 2 puff INHALATION RT-QID PRN 07/28/19 01/30/20 Aspirin EC [Ecotrin Low Dose] 81 mg PO DAILY 07/28/19 01/30/20 Atorvastatin [Lipitor] 40 mg PO DAILY 07/28/19 01/30/20 Ergocalciferol (Vitamin D2) 50,000 units PO MO 07/28/19 01/30/20 [Drisdol] HYDROcodone/APAP 10-325MG [[place] 1 tab PO TID 07/28/19 01/30/20 10-325] Ipratropium Nebulized [Atrovent 0.5 mg INHALATION RT-QID PRN 07/28/19 01/30/20 Nebulized 0.2 MG/ML] Montelukast [Singulair] 10 mg PO HS 07/28/19 01/30/20 Omeprazole 40 mg PO DAILY 07/28/19 01/30/20 allopurinoL [Zyloprim] 200 mg PO DAILY 07/28/19 01/30/20 metFORMIN HCL ER [Glucophage Xr] 500 mg PO Q12H 07/28/19 01/30/20 Diclofenac Sodium [Voltaren Gel] 2 gram TOPICAL QID PRN 01/30/20 01/30/20 Sacubitril/Valsartan [Entresto 24 1 tab PO BID 01/30/20 01/30/20 mg-26 mg Tablet] Sennosides-Docusate Sodium 1 tab PO BID PRN 01/30/20 01/30/20 [Senokot-S] Spironolactone [Aldactone] 25 mg PO DAILY 01/30/20 01/30/20 Warfarin [Coumadin] 5 mg PO SUMOWEFR 01/30/20 01/30/20 Warfarin [Coumadin] 7.5 mg PO TUTHSA 01/30/20 01/30/20 Previous Rx's Medication Instructions Recorded Furosemide [Lasix] 40 mg PO BID #60 tab 08/01/19 Polyethylene Glycol 3350 [Miralax] 17 gm PO DAILY PRN 5 Days #527 gm 08/01/19 guaiFENesin-DM 100-10MG/5ML 10 ml PO Q8H PRN #100 ml 08/01/19 [Robitussin DM] Cephalexin [Keflex] 500 mg PO Q6HR 3 Days #12 cap 01/30/20 Allergies Allergy/AdvReac Type Severity Reaction Status Date / Time No Known Allergies Allergy Verified 01/30/20 10:33 Review of Systems ROS Statement: Those systems with pertinent positive or pertinent negative responses have been documented in the HPI. ROS Other: All systems not noted in ROS Statement are negative. Past Medical History Past Medical History: Atrial Flutter, COPD, GERD/Reflux, Osteoarthritis (OA), Pneumonia, Renal Disease, Skin Disorder, Sleep Apnea/CPAP/BIPAP Additional Past Medical History / Comment(s): BLOOD IN STOOL, cellulitis bilateral lower extremities-healing, gout, USES A CANE TO AMBULATE, History of Any Multi-Drug Resistant Organisms: None Reported Past Surgical History: AICD, Cardiac Ablation, Orthopedic Surgery Additional Past Surgical History / Comment(s): rectal fistula repair X2. RUEL KNEE ARTHROSCOPY, surgery to remove part of lower left lung for abestosis, Past Anesthesia/Blood Transfusion Reactions: No Reported Reaction Type of Cardiac Device: AICD Device Placement Date:: [facility] 10/13/15 Past Psychological History: No Psychological Hx Reported Smoking Status: Never smoker Past Alcohol Use History: None Reported Past Drug Use History: None Reported - Past Family History Father Family Medical History: Diabetes Mellitus Additional Family Medical History / Comment(s): Father is almost 90 yrs old. Mother Family Medical History: Cancer Additional Family Medical History / Comment(s): STOMACH CA. General Exam Limitations: no limitations Course Vital Signs 02/01/20 19:02 Temperature 98.9 F Pulse Rate 63 Respiratory 22 Rate Blood Pressure 124/91 O2 Sat by Pulse 92 L Oximetry Procedures - Procedures Initial comment: Left nostril, posterior epistaxis, nasal packing, successful, patient tolerated procedure well. Medical Decision Making - Medical Decision Making Patient is a 64-year-old male presenting to emergency Department with chief complaint of a nosebleed. Patient had nasal packing in the left nostril placed on Sunday but he states there is some bleeding around the packing as well as he is spitting up some blood. No active bleeding at this time. Patient had a nasal clip on initial evaluation. The old nasal packing was removed but no bleed was detected for cautery. Repeat nasal packing was applied to the left nausea. Patient tolerated procedure well. Patient is said to follow-up with Dr. An tomorrow. Patient is taking a eliquis. Return parameters were thoroughly discussed with patient is worsening agreeable. Case discussed physician. Disposition Clinical Impression: Epistaxis not due to trauma Disposition: HOME SELF-CARE Condition: Good Instructions (If sedation given, give patient instructions): Nosebleed (ED) Additional Instructions: Follow-up with Dr. An. Return to emergency department if symptoms worsen. Continue taking the antibiotics. Is patient prescribed a controlled substance at d/c from ED?: No Referrals: Melisa Owens MD [Primary Care Provider] - 1-2 days Time of Disposition: 20:30
[2020-02-01 20:55] VITALS: BP 144/91; PULSE 61; RESP 20
== END 2020-02-01 20:58 | disposition home or self-care (01) ==
LOC: EC 18:57
DX: R03.0 Elevated blood-pressure reading, without diagnosis of hypertension (principal); I48.91 Unspecified atrial fibrillation; I48.92 Unspecified atrial flutter; J44.9 Chronic obstructive pulmonary disease, unspecified; K21.9 Gastro-esophageal reflux disease without esophagitis; G47.30 Sleep apnea, unspecified; Z79.01 Long term (current) use of anticoagulants; Z79.82 Long term (current) use of aspirin; Z79.899 Other long term (current) drug therapy; Z79.51 Long term (current) use of inhaled steroids; Z95.810 Presence of automatic (implantable) cardiac defibrillator; Z99.89 Dependence on other enabling machines and devices
CPT/HCPCS: 30905; 99283

== ENCOUNTER → 2020-02-06 | Outpatient (CLI) | payer MEDICARE | END | disposition home or self-care (01) | LOC: LABWHC1 11:20 | PROVIDERS: ATTEND Otolaryngology | DX: Z01.818 Encounter for other preprocedural examination (principal); Z11.59 Encounter for screening for other viral diseases | CPT/HCPCS: U0003; C9803 ==

== ENCOUNTER → 2020-09-24 | Outpatient (CLI) | payer MEDICARE ==
[2020-09-24 14:35] LABS: Basophils # (A) 0.04 X 10*3/uL (0.00-0.10); Basophils % (A) 0.5 %; Eosinophils # (A) 0.04 X 10*3/uL (0.04-0.35); Eosinophils % (A) 0.5 %; HCT 49.3 % (39.6-50.0); HGB 16.4 g/dL (13.0-17.0); Lymphocytes # (A) 1.54 X 10*3/uL (0.90-5.00); Lymphocytes % (A) 17.7 %; MCH 32.5 pg (27.0-32.0); MCHC 33.3 g/dL (32.0-37.0); MCV 97.8 fL (80.0-97.0); Mean Platelet Volume 11.3 fL (9.5-12.2); Monocytes # (A) 0.86 X 10*3/uL (0.20-1.00); Monocytes % (A) 9.9 %; Neutrophils # (A) 6.21 X 10*3/uL (1.80-7.70); Neutrophils % (A) 71.1 %; Platelet Count 188 X 10*3/uL (140-440); RBC 5.04 X 10*6/uL (4.40-5.60); RDW 13.2 % (11.5-14.5); WBC 8.72 X 10*3/uL (4.50-10.00)
[2020-09-24 16:39] LABS: Albumin 3.8 g/dL (3.80-4.90); Albumin/Globulin Ratio 1.52 (1.60-3.17); Anion Gap 11.9 mmol/L (4.00-12.00); BUN/Creat Ratio 21.11 Ratio (12.00-20.00); Calcium 8.8 mg/dL (8.7-10.3); Carbon Dioxide 29.1 mmol/L (21.6-31.8); Globulin 2.5 g/dL (1.6-3.3); Non-African American GFR(CKD) 90.6 (60.0-200.0); Potassium 3.8 mmol/L (3.5-5.5); Total Bilirubin 0.4 mg/dL (0.2-1.2); Total Protein 6.3 g/dL (6.2-8.2); Uric Acid 7.8 mg/dL (3.7-8.7)
[2020-09-24 16:57] LABS: Hemoglobin A1C 7.7 % (4.0-6.0)
== END | disposition home or self-care (01) ==
LOC: LABWHC1 10:14
PROVIDERS: ATTEND Physician Assistant Medical
DX: E11.22 Type 2 diabetes mellitus with diabetic chronic kidney disease (principal); N18.9 Chronic kidney disease, unspecified; E78.5 Hyperlipidemia, unspecified; E66.9 Obesity, unspecified; I42.9 Cardiomyopathy, unspecified; I48.20 Chronic atrial fibrillation, unspecified; M10.9 Gout, unspecified; J44.1 Chronic obstructive pulmonary disease with (acute) exacerbation
CPT/HCPCS: 36415; 80053; 83036; 83880; 84443; 84550; 85025

== ENCOUNTER → 2020-10-01 | Outpatient (CLI) | payer MEDICARE ==
[2020-10-01 18:10] LABS: Chol/HDL Ratio 3.2; LDL Cholesterol,Calculated 79.8 mg/dL (0.0-131.0); VLDL Calculation 17.2 mg/dL (5.00-40.00)
== END | disposition home or self-care (01) ==
LOC: LABWHC1 10:55
PROVIDERS: ATTEND Internal Medicine Clinical Cardiac Electrophysiology
DX: E11.9 Type 2 diabetes mellitus without complications (principal); E78.5 Hyperlipidemia, unspecified
CPT/HCPCS: 36415; 80061

== ENCOUNTER → 2021-01-19 | Outpatient (CLI) | payer MEDICARE ==
[2021-01-19 12:27] LABS: African American GFR (CKD) >90 (>60 ml/min/1.73 sqM); Blood Urea Nitrogen 19 mg/dL (9-20); Non-African American GFR(CKD) >90 (>60 ml/min/1.73 sqM)
--- NOTE | 2021-01-19 13:03 | CT ---
EXAMINATION TYPE: CT chest w con DATE OF EXAM: 01/19/2021 COMPARISON: 07/29/2019 HISTORY: Shortness of breath and LUQ pain. CT DLP: 1384.7 mGycm Automated exposure control for dose reduction was used. CONTRAST: CT scan of the chest is performed with IV Contrast, patient injected with 100 mL of Isovue 300. FINDINGS: LUNGS: Calcified pleural plaques noted bilaterally. MEDIASTINUM: There are no greater than 1 cm hilar or mediastinal lymph nodes. No pericardial effusi on is seen. Thoracic aorta is of normal caliber. The heart is enlarged. UPPER ABDOMEN: No significant abnormality appreciated. OTHER: No additional significant abnormality is seen. IMPRESSION: Calcified pleural plaques. Cardiomegaly.
== END | disposition home or self-care (01) ==
LOC: RADCTMAIN 11:27
PROVIDERS: ATTEND Internal Medicine Critical Care Medicine
DX: I51.7 Cardiomegaly (principal); J94.8 Other specified pleural conditions; J92.9 Pleural plaque without asbestos; R06.09 Other forms of dyspnea
CPT/HCPCS: 82565; 84520; 71260; 36415; Q9967

== ENCOUNTER 2021-03-31 15:03 | Emergency (ER) | payer MEDICARE, OTHER ==
[2021-03-31 15:25] VITALS: RESP 18
--- NOTE | 2021-03-31 15:49 | ED ---
General Adult HPI - General Chief complaint: GI Bleed Stated complaint: Anal Bleeding Time Seen by Provider: 03/31/21 15:28 Source: patient, RN notes reviewed Mode of arrival: wheelchair Limitations: no limitations - History of Present Illness Initial comments: 66-year-old male with a past medical history of atrial fibrillation anticoagulated on eliquis, COPD, GERD, renal disease presents to the emergency room for a chief complaint of blood in stool. Patient reports that the past 2 days he has had bright red blood in his stool. He is otherwise feeling fine. Denies lightheadedness. Denies chest pain or shortness of breath. Patient denies any new abdominal pain, just states he has chronic side pain. No fevers. No hematemesis. Patient has no other complaints at this time including shortness of breath, chest pain, abdominal pain, nausea or vomiting, headache, or visual changes. - Related Data Home Medications Medication Instructions Recorded Confirmed Albuterol Nebulized [Ventolin 2.5 mg INHALATION RT-QID 05/20/15 03/31/21 Nebulized] Metoprolol Succinate [Toprol XL] 200 mg PO DAILY 03/01/16 03/31/21 Albuterol Sulfate [Ventolin HFA] 2 puff INHALATION RT-QID PRN 07/28/19 03/31/21 Atorvastatin [Lipitor] 40 mg PO DAILY 07/28/19 03/31/21 HYDROcodone/APAP 10-325MG [[place] 1 tab PO TID PRN 07/28/19 03/31/21 10-325] Ipratropium Nebulized [Atrovent 0.5 mg INHALATION RT-QID 07/28/19 03/31/21 Nebulized 0.2 MG/ML] Montelukast [Singulair] 10 mg PO HS 07/28/19 03/31/21 Omeprazole 40 mg PO DAILY 07/28/19 03/31/21 allopurinoL [Zyloprim] 200 mg PO DAILY 07/28/19 03/31/21 metFORMIN HCL ER [Glucophage XR] 500 mg PO Q12H 07/28/19 03/31/21 Sacubitril/Valsartan [Entresto 24 1 tab PO BID 01/30/20 03/31/21 mg-26 mg Tablet] Spironolactone [Aldactone] 25 mg PO DAILY 01/30/20 03/31/21 Apixaban [Eliquis] 5 mg PO BID 03/31/21 03/31/21 Budesonide/Formoterol Fumarate 2 puff INHALATION RT-BID 03/31/21 03/31/21 [Symbicort 160-4.5 Mcg Inhaler] EPINEPHrine (Auto Inject) [Epipen] 0.3 mg IM ONCE PRN 03/31/21 03/31/21 Ergocalciferol [Vitamin D2 (1250 1,250 mcg PO FR 03/31/21 03/31/21 Mcg = 62413 Iu)] Ibuprofen [Motrin] 400 mg PO DAILY PRN 03/31/21 03/31/21 Previous Rx's Medication Instructions Recorded Furosemide [Lasix] 40 mg PO BID #60 tab 08/01/19 Allergies Allergy/AdvReac Type Severity Reaction Status Date / Time No Known Allergies Allergy Verified 03/31/21 16:43 Review of Systems ROS Statement: Those systems with pertinent positive or pertinent negative responses have been documented in the HPI. ROS Other: All systems not noted in ROS Statement are negative. Past Medical History Past Medical History: Atrial Flutter, COPD, GERD/Reflux, Osteoarthritis (OA), Pneumonia, Renal Disease, Skin Disorder, Sleep Apnea/CPAP/BIPAP Additional Past Medical History / Comment(s): BLOOD IN STOOL, cellulitis bilateral lower extremities-healing, gout, USES A CANE TO AMBULATE, History of Any Multi-Drug Resistant Organisms: None Reported Past Surgical History: AICD, Cardiac Ablation, Orthopedic Surgery Additional Past Surgical History / Comment(s): rectal fistula repair X2. RUEL KNEE ARTHROSCOPY, surgery to remove part of lower left lung for abestosis, Past Anesthesia/Blood Transfusion Reactions: No Reported Reaction Type of Cardiac Device: AICD Device Placement Date:: [facility] 10/13/15 Past Psychological History: No Psychological Hx Reported Smoking Status: Never smoker Past Alcohol Use History: None Reported Past Drug Use History: None Reported - Past Family History Father Family Medical History: Diabetes Mellitus Additional Family Medical History / Comment(s): Father is almost 90 yrs old. Mother Family Medical History: Cancer Additional Family Medical History / Comment(s): STOMACH CA. General Exam Limitations: no limitations General appearance: alert, in no apparent distress Head exam: Present: atraumatic Eye exam: Present: normal appearance, PERRL, EOMI. Absent: scleral icterus, conjunctival injection ENT exam: Present: normal exam, mucous membranes moist Neck exam: Present: normal inspection, full ROM. Absent: tenderness Respiratory exam: Present: normal lung sounds bilaterally. Absent: respiratory distress, wheezes Cardiovascular Exam: Present: regular rate, normal rhythm, normal heart sounds GI/Abdominal exam: Present: soft, normal bowel sounds. Absent: distended, tenderness Rectal exam: Present: normal inspection. Absent: bloody stool Course Vital Signs 03/31/21 03/31/21 15:21 17:17 Temperature 98.8 F 97.6 F Pulse Rate 63 70 Respiratory 18 18 Rate Blood Pressure 143/80 124/76 O2 Sat by Pulse 92 L 98 Oximetry Medical Decision Making - Medical Decision Making Vitals are stable. Patient is well-appearing. CBC unremarkable. CMP does show mild hyperglycemia however patient does have a history of this. On physical exam there is no gross blood. Occult blood is positive. Given patient is stable at this time with hemoglobin of 17 and no obvious episodes of bleeding today we recommend patient be discharged home and monitor himself. If he has any worsening symptoms or increased bleeding he will return to the emergency room. - Lab Data Result diagrams: 03/31/21 15:56 03/31/21 15:56 Lab Results 03/31/21 03/31/21 03/31/21 Range/Units 15:56 15:56 15:56 WBC 11.7 H (3.8-10.6) k/uL RBC 5.42 (4.30-5.90) m/uL Hgb 17.2 (13.0-17.5) gm/dL Hct 51.9 (39.0-53.0) % MCV 95.7 (80.0-100.0) fL MCH 31.8 (25.0-35.0) pg MCHC 33.2 (31.0-37.0) g/dL RDW 13.2 (11.5-15.5) % Plt Count 208 (150-450) k/uL MPV 8.1 Neutrophils % 83 % Lymphocytes % 9 % Monocytes % 6 % Eosinophils % 1 % Basophils % 0 % Neutrophils # 9.6 H (1.3-7.7) k/uL Lymphocytes # 1.0 (1.0-4.8) k/uL Monocytes # 0.7 (0-1.0) k/uL Eosinophils # 0.1 (0-0.7) k/uL Basophils # 0.1 (0-0.2) k/uL PT 11.1 (9.0-12.0) sec INR 1.1 (<1.2) APTT 27.1 (22.0-30.0) sec Sodium 132 L (137-145) mmol/L Potassium 4.1 (3.5-5.1) mmol/L Chloride 94 L (98-107) mmol/L Carbon Dioxide 29 (22-30) mmol/L Anion Gap 9 mmol/L BUN 16 (9-20) mg/dL Creatinine 0.66 (0.66-1.25) mg/dL Est GFR (CKD-EPI)AfAm >90 (>60 ml/min/1.73 sqM) Est GFR (CKD-EPI)NonAf >90 (>60 ml/min/1.73 sqM) Glucose 322 H (74-99) mg/dL Calcium 8.9 (8.4-10.2) mg/dL Total Bilirubin 1.2 (0.2-1.3) mg/dL AST 20 (17-59) U/L ALT 13 (4-49) U/L Alkaline Phosphatase 168 H (38-126) U/L Troponin I (0.000-0.034) ng/mL Total Protein 7.0 (6.3-8.2) g/dL Albumin 3.7 (3.5-5.0) g/dL Stool Occult Blood (Negative) Blood Type Blood Type Recheck Bld Type Recheck Status Antibody Screen Spec Expiration Date 03/31/21 03/31/21 03/31/21 Range/Units 15:56 15:56 15:56 WBC (3.8-10.6) k/uL RBC (4.30-5.90) m/uL Hgb (13.0-17.5) gm/dL Hct (39.0-53.0) % MCV (80.0-100.0) fL MCH (25.0-35.0) pg MCHC (31.0-37.0) g/dL RDW (11.5-15.5) % Plt Count (150-450) k/uL MPV Neutrophils % % Lymphocytes % % Monocytes % % Eosinophils % % Basophils % % Neutrophils # (1.3-7.7) k/uL Lymphocytes # (1.0-4.8) k/uL Monocytes # (0-1.0) k/uL Eosinophils # (0-0.7) k/uL Basophils # (0-0.2) k/uL PT (9.0-12.0) sec INR (<1.2) APTT (22.0-30.0) sec Sodium (137-145) mmol/L Potassium (3.5-5.1) mmol/L Chloride (98-107) mmol/L Carbon Dioxide (22-30) mmol/L Anion Gap mmol/L BUN (9-20) mg/dL Creatinine (0.66-1.25) mg/dL Est GFR (CKD-EPI)AfAm (>60 ml/min/1.73 sqM) Est GFR (CKD-EPI)NonAf (>60 ml/min/1.73 sqM) Glucose (74-99) mg/dL Calcium (8.4-10.2) mg/dL Total Bilirubin (0.2-1.3) mg/dL AST (17-59) U/L ALT (4-49) U/L Alkaline Phosphatase (38-126) U/L Troponin I <0.012 (0.000-0.034) ng/mL Total Protein (6.3-8.2) g/dL Albumin (3.5-5.0) g/dL Stool Occult Blood Positive (Negative) Blood Type O Positive Blood Type Recheck O Pos Bld Type Recheck Status No Antibody Screen NEGATIVE Spec Expiration Date 04/03/20212355 Disposition Clinical Impression: Hematochezia Disposition: HOME SELF-CARE Condition: Good Instructions (If sedation given, give patient instructions): Gastrointestinal Bleeding (ED) Additional Instructions: Please follow up with primary care and gi or surgery. Return to the ER for any worsening symptoms. Is patient prescribed a controlled substance at d/c from ED?: No Referrals: Melisa Owens MD [Primary Care Provider] - 1-2 days Ant Perdue MD [STAFF PHYSICIAN] - 1-2 days Bertha Mccray MD [STAFF PHYSICIAN] - 1-2 days Time of Disposition: 17:18
[2021-03-31 16:09] LABS: Basophils # (A) 0.1 k/uL (0-0.2); Basophils % (A) 0 %; Eosinophils # (A) 0.1 k/uL (0-0.7); Eosinophils % (A) 1 %; HCT 51.9 % (39.0-53.0); HGB 17.2 gm/dL (13.0-17.5); Lymphocytes % (A) 9 %; MCH 31.8 pg (25.0-35.0); MCHC 33.2 g/dL (31.0-37.0); MCV 95.7 fL (80.0-100.0); Mean Platelet Volume 8.1; Monocytes # (A) 0.7 k/uL (0-1.0); Monocytes % (A) 6 %; Neutrophils # (A) 9.6 k/uL (1.3-7.7); Neutrophils % (A) 83 %; Platelet Count 208 k/uL (150-450); RBC 5.42 m/uL (4.30-5.90); RDW 13.2 % (11.5-15.5); WBC 11.7 k/uL (3.8-10.6)
[2021-03-31 16:18] LABS: ALT 13 U/L (4-49); AST 20 U/L (17-59); African American GFR (CKD) >90 (>60 ml/min/1.73 sqM); Albumin 3.7 g/dL (3.5-5.0); Alkaline Phosphatase 168 U/L (38-126); Anion Gap 9 mmol/L; Blood Urea Nitrogen 16 mg/dL (9-20); Calcium 8.9 mg/dL (8.4-10.2); Carbon Dioxide 29 mmol/L (22-30); Chloride 94 mmol/L (98-107); Glucose 322 mg/dL (74-99); Non-African American GFR(CKD) >90 (>60 ml/min/1.73 sqM); Potassium 4.1 mmol/L (3.5-5.1); Sodium 132 mmol/L (137-145); Total Bilirubin 1.2 mg/dL (0.2-1.3)
[2021-03-31 16:19] LABS: INR 1.1 (<1.2); Partial Thromboplastin Time 27.1 sec (22.0-30.0); Prothrombin Time 11.1 sec (9.0-12.0)
[2021-03-31 17:18] VITALS: BP 124/76; PULSE 70; TEMP 97.6
== END 2021-03-31 17:30 | disposition home or self-care (01) ==
LOC: EC 15:03
DX: K92.1 Melena (principal); J44.9 Chronic obstructive pulmonary disease, unspecified; M19.90 Unspecified osteoarthritis, unspecified site; K21.9 Gastro-esophageal reflux disease without esophagitis; I48.91 Unspecified atrial fibrillation; Z79.51 Long term (current) use of inhaled steroids; Z79.899 Other long term (current) drug therapy; Z79.01 Long term (current) use of anticoagulants
CPT/HCPCS: 36415; 80053; 82272; 84484; 85025; 85610; 85730; 86850; 86900; 86901; 99284

== ENCOUNTER 2021-04-01 14:46 | Inpatient (IN) | payer MEDICARE, OTHER ==
[2021-04-01 15:50] LABS: Basophils # (A) 0.1 k/uL (0-0.2); Basophils % (A) 0 %; Eosinophils # (A) 0.1 k/uL (0-0.7); Eosinophils % (A) 1 %; HCT 50.9 % (39.0-53.0); HGB 17.3 gm/dL (13.0-17.5); Lymphocytes # (A) 1.1 k/uL (1.0-4.8); Lymphocytes % (A) 9 %; MCH 32.8 pg (25.0-35.0); MCV 96.4 fL (80.0-100.0); Mean Platelet Volume 8.2; Monocytes # (A) 0.8 k/uL (0-1.0); Monocytes % (A) 6 %; Neutrophils # (A) 9.5 k/uL (1.3-7.7); Neutrophils % (A) 82 %; Platelet Count 202 k/uL (150-450); RBC 5.28 m/uL (4.30-5.90); RDW 13.4 % (11.5-15.5); WBC 11.6 k/uL (3.8-10.6)
[2021-04-01 15:58] LABS: Partial Thromboplastin Time 26.4 sec (22.0-30.0)
[2021-04-01 16:00] LABS: ALT 13 U/L (4-49); AST 21 U/L (17-59); African American GFR (CKD) >90 (>60 ml/min/1.73 sqM); Albumin 3.6 g/dL (3.5-5.0); Alkaline Phosphatase 152 U/L (38-126); Anion Gap 10 mmol/L; Blood Urea Nitrogen 18 mg/dL (9-20); Calcium 8.5 mg/dL (8.4-10.2); Carbon Dioxide 30 mmol/L (22-30); Chloride 93 mmol/L (98-107); Glucose 305 mg/dL (74-99); Non-African American GFR(CKD) >90 (>60 ml/min/1.73 sqM); Potassium 3.9 mmol/L (3.5-5.1); Sodium 133 mmol/L (137-145); Total Bilirubin 1.2 mg/dL (0.2-1.3); Total Protein 6.8 g/dL (6.3-8.2)
--- NOTE | 2021-04-01 17:53 | CT ---
EXAMINATION TYPE: CT abdomen pelvis wo/w con DATE OF EXAM: 04/01/2021 COMPARISON: CT chest 01/19/2021 HISTORY: LUQ pain, rectal bleeding CT DLP: 7752.4 mGycm Automated exposure control for dose reduction was used. TECHNIQUE: Helical acquisition of images was performed from the lung bases through the pelvis. CONTRAST: Performed without Oral Contrast and with IV Contrast, patient injected with 100 mL of Isovue 370. FINDINGS: LUNG BASES: No significant abnormality is appreciated. LIVER/GB: No significant abnormality is appreciated. PANCREAS: No significant abnormality is seen. SPLEEN: No significant abnormality is seen. ADRENALS: No significant abnormality is seen. KIDNEYS: No significant abnormality is seen. FREE AIR: No free air is visualized. RETROPERITONEAL ADENOPATHY: None visualized REPRODUCTIVE ORGANS: No significant abnormality is seen URINARY BLADDER: No significant abnormality is seen. PELVIC ADENOPATHY: None visualized. OSSEOUS STRUCTURES: Degenerative changes of the spine and bilateral hips.. BOWEL: No significant abnormality is seen. OTHER: Calcified pleural plaques similar to prior. Atherosclerotic disease of the abdominal aorta. Th e visualized cardiac generator leads. IMPRESSION: NO ACUTE PROCESS IN THE ABDOMEN OR PELVIS.
[2021-04-01] MEDS ORDERED: NALOXONE 0.4 MG/ML 1 ML VIAL IV PRN (18:29)
[2021-04-01] MEDS ORDERED: PANTOPRAZOLE 40 MG TABLET PO STA (18:32)
[2021-04-01] MEDS ORDERED: NON FORMULARY DRUG (Metformin Hcl Er 500 MG Tab.Er.24h) PO SCH (18:45)
[2021-04-01] MEDS ORDERED: ALBUTEROL NEBULIZED 2.5 MG/3 ML INHALATION SCH (20:00)
[2021-04-01] MEDS ORDERED: FUROSEMIDE 40 MG TAB PO SCH (21:00)
[2021-04-01] MEDS ORDERED: ERGOCALCIFEROL 1,250 MCG (50,000 IU) CAPSULE PO SCH (21:00)
[2021-04-01] MEDS ORDERED: SACUBITRIL/VALSARTAN 24 MG-26 MG TABLET PO SCH (21:00)
[2021-04-01] MEDS: SYMBICORT 160-4.5 MCG INHALER INHALATION SCH (22:00)
[2021-04-01] MEDS: IPRATROPIUM 0.5 MG/2.5 ML NEBU INHALATION SCH (22:00)
[2021-04-01 22:04] LABS: Glucose,Whole Blood 211 mg/dL (75-99)
[2021-04-01] MEDS: MONTELUKAST 10 MG TAB PO SCH (22:17)
[2021-04-01] MEDS: INSULIN ASPART (NovoLOG) 100 UNIT/ML VIAL SQ SCH (22:24)
--- NOTE | 2021-04-01 22:36 | HP ---
HISTORY AND PHYSICAL DATE OF SERVICE: 04/01/2021 CHIEF COMPLAINT: GI bleed. HISTORY OF PRESENT ILLNESS: This 66-year-old gentleman with a past medical history of multiple medical problems, including atrial fibrillation, COPD, CHF, diabetes mellitus, type 2, history of sleep apnea, history of AICD, cardiac ablation, orthopedic surgery, being followed by Dr. Melisa Owens in the outpatient setting, was complaining of GI bleed. The patient reports bright red blood per rectum. Patient apparently came to the ER yesterday and the patient was sent home, but today, because of recurrent symptoms, the patient came back and was admitted for further evaluation and treatment. There is no history of any fever, rigors or chills. No history of headache, loss of consciousness, seizures. The patient apparently had a colonoscopy several years ago. The details are not available at this time. The hemoglobin is 17.3 at this time. There is no history of any fever, rigors, chills at this time. PAST MEDICAL HISTORY: History of atrial fibrillation, history of COPD, GERD, DJD, history of pneumonia, history of sleep apnea, history of blood in the stool, history of AICD, cardiac ablation. MEDICATIONS: Home medications are Eliquis, Singulair, Colace, Ventolin, Motrin, EpiPen, Glucophage, zyloprim, Aldactone, Entresto, Toprol XL, Atrovent, [place], vitamin D2, Symbicort, Lipitor, Ventolin. Doses are reviewed. ALLERGIES: NONE. FAMILY HISTORY: History of diabetes mellitus in the family. SOCIAL HISTORY: No history of smoking. No history of alcohol intake. REVIEW OF SYSTEMS: ENT: Diminished hearing. Diminished vision. CARDIOVASCULAR SYSTEM: No angina, palpitations. RESPIRATORY SYSTEM: No cough, hemoptysis. GI: As mentioned earlier. : No dysuria. NERVOUS SYSTEM: No numbness, weakness. ALLERGY/IMMUNOLOGY: No asthma or hay fever. MUSCULOSKELETAL: As mentioned earlier. HEMATOLOGY/ONCOLOGY: No history of anemia. ENDOCRINE: As mentioned earlier. CONSTITUTIONAL: As mentioned earlier. DERMATOLOGY: As mentioned earlier. RHEUMATOLOGY: Negative. PSYCHIATRY: As mentioned earlier. PHYSICAL EXAMINATION: Patient alert and oriented x3. Pulse 61, blood pressure 120/64, respirations 20, temperature 98.3, pulse ox 99% on room air. HEENT: Conjunctivae normal. Oral mucosa moist. NECK: No jugular venous distention. No carotid bruit. No lymph node enlargement. CARDIOVASCULAR: S1, S2 muffled. RESPIRATION: Breath sounds diminished at the bases. No rhonchi. No crackles. ABDOMEN: Soft, obese, non-tender. No mass palpable. LEGS: No edema. No swelling. NERVOUS SYSTEM: Higher functions as mentioned earlier. Moves all 4 limbs. No focal motor or sensory deficit. LYMPHATICS: No lymph node palpable in neck, axillae or groin. SKIN: No ulcer, rash, bleeding. JOINTS: No active deforming arthropathy. LAB STUDIES: WBC 11.3, hemoglobin 17.3, sodium 133, glucose 305. ASSESSMENT: 1. Lower gastrointestinal bleeding for evaluation. Rule out diverticulosis. 2. Elevated white count, possibly reactive. 3. Hyponatremia. 4. History of chronic diastolic congestive heart failure. 5. Diabetes mellitus, type 2, uncontrolled with hyperglycemia. 6. Atrial flutter. 7. Chronic obstructive pulmonary disease. 8. Gastroesophageal reflux disease. 9. Degenerative joint disease. 10. pneumonia. 11.Sleep apnea. 12.AICD. 13.Cardiac ablation. 14.Orthopedic surgery. 15.History of rectal fistula repair x2. 16.History of AICD. RECOMMENDATIONS AND DISCUSSION: I recommend to continue current medications, continue symptomatic treatment. Otherwise, monitor hemoglobin closely. Will continue to monitor. Recommend GI and cardiology consultations. Continue to monitor. Guarded prognosis. Further recommendations to follow. Monitor hemoglobin A1c and monitor Accu-Cheks also. A copy of this dictation is being forwarded to Dr. Melisa Owens, who is the primary physician. MMSTACYL / ERINN: [id number] / CHAVO
--- NOTE | 2021-04-02 00:42 | ED ---
General Adult HPI - General Chief complaint: GI Bleed Stated complaint: Anal Bleeding Time Seen by Provider: 04/01/21 15:37 Source: patient, RN notes reviewed, old records reviewed Mode of arrival: ambulatory Limitations: no limitations - History of Present Illness Initial comments: Patient is a 66-year-old male with past medical history remarkable for atrial flutter on L Ajit, debility, obesity, renal disease, sleep apnea, COPD, diabetes who presents emergency Department for the second day in a row complaining of blood in stool. Patient first noticed it yesterday and noticed multiple episodes of bloody bowel movements with bright red blood. He does have a history of hemorrhoids but states that he does not believe his hemorrhoid is currently causing it as it is currently not causing any pain. He was seen yesterday by mid-level provider working in her myself, and basic workup including CBC was obtained. CBC showed normal hemoglobin level. He was discharged home with follow-up with GI. Patient has a GI follow-up on Sunday, however today he had 4 more episodes of small to moderate sized bloody bowel movements. He is endorsing bright red blood on paper. He had a bowel movement here which showed some bright red blood mixed with brown stool. Denies any new abdominal pain that is chronic left-sided abdominal pain. Denies any nausea or vomiting. Denies any chest pain or shortness breath. His no other acute complaints this time. Patient is concerned as he has no power at home and is on a blood thinner over his continued bloody stools. He has follow up, however it isn't until next week. He returns today complaining of similar complaints but no new symptoms. Denies any lightheadedness, weakness. - Related Data Home Medications Medication Instructions Recorded Confirmed Albuterol Nebulized [Ventolin 2.5 mg INHALATION RT-QID 05/20/15 04/01/21 Nebulized] Metoprolol Succinate [Toprol XL] 200 mg PO DAILY 03/01/16 04/01/21 Albuterol Sulfate [Ventolin HFA] 2 puff INHALATION RT-QID PRN 07/28/19 04/01/21 Atorvastatin [Lipitor] 40 mg PO DAILY 07/28/19 04/01/21 HYDROcodone/APAP 10-325MG [[place] 1 tab PO TID PRN 07/28/19 04/01/21 10-325] Ipratropium Nebulized [Atrovent 0.5 mg INHALATION RT-QID 07/28/19 04/01/21 Nebulized 0.2 MG/ML] Montelukast [Singulair] 10 mg PO HS 07/28/19 04/01/21 Omeprazole 40 mg PO DAILY 07/28/19 04/01/21 allopurinoL [Zyloprim] 200 mg PO DAILY 07/28/19 04/01/21 metFORMIN HCL ER [Glucophage XR] 500 mg PO Q12H 07/28/19 04/01/21 Sacubitril/Valsartan [Entresto 24 1 tab PO BID 01/30/20 04/01/21 mg-26 mg Tablet] Spironolactone [Aldactone] 25 mg PO DAILY 01/30/20 04/01/21 Apixaban [Eliquis] 5 mg PO DIRECTED 03/31/21 04/01/21 Budesonide/Formoterol Fumarate 2 puff INHALATION RT-BID 03/31/21 04/01/21 [Symbicort 160-4.5 Mcg Inhaler] EPINEPHrine (Auto Inject) [Epipen] 0.3 mg IM ONCE PRN 03/31/21 04/01/21 Ergocalciferol [Vitamin D2 (1250 1,250 mcg PO FR 03/31/21 04/01/21 Mcg = 69788 Iu)] Ibuprofen [Motrin] 400 mg PO DAILY PRN 03/31/21 04/01/21 Docusate [Colace] 100 mg PO DAILY PRN 04/01/21 04/01/21 Previous Rx's Medication Instructions Recorded Furosemide [Lasix] 40 mg PO BID #60 tab 08/01/19 Allergies Allergy/AdvReac Type Severity Reaction Status Date / Time No Known Allergies Allergy Verified 04/01/21 18:45 Review of Systems ROS Statement: Those systems with pertinent positive or pertinent negative responses have been documented in the HPI. Review of Systems: CONST: Denies fever EYES: Denies blurry vision ENT: Denies nasal congestion C/V: Denies Chest pain RESP: Denies shortness of breath GI: Endorses chronic left-sided abdominal pain : Denies dysuria SKIN: Denies rash. MSK: Denies joint pain. NEURO: Denies headache ROS Other: All systems not noted in ROS Statement are negative. Past Medical History Past Medical History: Atrial Flutter, COPD, Diabetes Mellitus, GERD/Reflux, Ost eoarthritis (OA), Pneumonia, Renal Disease, Skin Disorder, Sleep Apnea/CPAP/BIPAP Additional Past Medical History / Comment(s): BLOOD IN STOOL, cellulitis bilateral lower extremities-healing, gout, USES A CANE TO AMBULATE, History of Any Multi-Drug Resistant Organisms: None Reported Past Surgical History: AICD, Cardiac Ablation, Orthopedic Surgery Additional Past Surgical History / Comment(s): rectal fistula repair X2. RUEL KNEE ARTHROSCOPY, surgery to remove part of lower left lung for abestosis Past Anesthesia/Blood Transfusion Reactions: No Reported Reaction Type of Cardiac Device: AICD Device Placement Date:: [facility] 10/13/15 Past Psychological History: No Psychological Hx Reported Smoking Status: Never smoker Past Alcohol Use History: Daily, Heavy Additional Past Alcohol Use History / Comment(s): Pt states he stopped drinking before he was 52. Past Drug Use History: Marijuana - Past Family History Father Family Medical History: Diabetes Mellitus Additional Family Medical History / Comment(s): Father is almost 90 yrs old. Mother Family Medical History: Cancer Additional Family Medical History / Comment(s): STOMACH CA. General Exam - General Exam Comments Initial Comments: General: Appears in no acute distress. HEAD: Normal with no signs of head trauma. EYES: PERRLA, EOMI, conjunctiva normal, no discharge. ENT: Hearing grossly intact, normal oropharynx. RESPIRATORY: Clear breath sounds bilaterally. No wheezes, rales, or rhonchi. C/V: Regular rate and rhythm. S1 and S2 auscultated, no edema, peripheral pulses 2+ and intact throughout ABD: Abd is soft, nontender, nondistended. Patient is obese. There is no rebound tenderness, no guarding, no peritoneal signs. EXT: Normal range of motion, no obvious deformity SKIN: No rashes or lesions observed on exposed skin. NEURO: Alert and oriented 4. No focal sensory strength deficits. Patient chronically ambulates with a walker. RECTAL: Exam performed by myself in the presence of a male staff member. Patient has an uncomplicated hemorrhoid located at the 3 o'clock position. It is minimally bleeding, and does not appear to be the source of his bleeding. It is not thrombosed. I will PT was not obtained as it was positive yesterday and there is gross blood in stool. Limitations: no limitations Course Vital Signs 04/01/21 04/01/21 14:52 20:52 Temperature 98.3 F Pulse Rate 60 61 Respiratory 20 20 Rate Blood Pressure 106/69 121/64 O2 Sat by Pulse 99 95 Oximetry Medical Decision Making - Medical Decision Making Based on the patient's presentation and physical exam, this patient has a history of atrial fibrillation on a blood thinner having continued bloody bowel movements. Secondary aerobic presenting. He has no new symptoms other than continued bloody bowel movements that are small in size. He is living at home without any power at this time as well and he seems anxious regarding his current symptoms. We will obtain repeat laboratory studies including CBC, abdominal laboratory studies. I did offer the patient a CT scan to evaluate for any signs of GI bleed in he was in agreement this plan. I do not believe that he requires any further medications at this time. Patient's laboratory studies are remarkable for a mild leukocytosis of 11.6. Hemoglobin is similar to yesterday at 17.3. Patient is a mild hyponatremia of 133 and hypochloremia 93. Covid is negative. Remainder of his labs are unremarkable. Patient's CT imaging revealed no acute intra-abdominal process. No source for his bleeding. I spoke with the patient regarding his findings and explained that I did stand his anxiety as he is on a blood thinner continued bleeding. He is requesting to remain in the hospital at least for observation to ensure that nothing happens Rae symptoms do not get worse. I believe this is reasonable as he was alone without any power currently. I spoke with the admitting team NICK Osorio, who was in agreement this plan. Patient will be admitted under Dr. Urbina. Patient was admitted in stable condition. Patient already has follow-up with GI next Sunday. I will hold his next dose of Elliquis here in the hospital to see if there is improvement in his symptoms. - Lab Data Result diagrams: 04/01/21 15:42 04/01/21 15:42 Lab Results 04/01/21 04/01/21 04/01/21 Range/Units 15:42 15:42 15:42 WBC 11.6 H (3.8-10.6) k/uL RBC 5.28 (4.30-5.90) m/uL Hgb 17.3 (13.0-17.5) gm/dL Hct 50.9 (39.0-53.0) % MCV 96.4 (80.0-100.0) fL MCH 32.8 (25.0-35.0) pg MCHC 34.0 (31.0-37.0) g/dL RDW 13.4 (11.5-15.5) % Plt Count 202 (150-450) k/uL MPV 8.2 Neutrophils % 82 % Lymphocytes % 9 % Monocytes % 6 % Eosinophils % 1 % Basophils % 0 % Neutrophils # 9.5 H (1.3-7.7) k/uL Lymphocytes # 1.1 (1.0-4.8) k/uL Monocytes # 0.8 (0-1.0) k/uL Eosinophils # 0.1 (0-0.7) k/uL Basophils # 0.1 (0-0.2) k/uL PT 11.0 (9.0-12.0) sec INR 1.0 (<1.2) APTT 26.4 (22.0-30.0) sec Sodium 133 L (137-145) mmol/L Potassium 3.9 (3.5-5.1) mmol/L Chloride 93 L (98-107) mmol/L Carbon Dioxide 30 (22-30) mmol/L Anion Gap 10 mmol/L BUN 18 (9-20) mg/dL Creatinine 0.75 (0.66-1.25) mg/dL Est GFR (CKD-EPI)AfAm >90 (>60 ml/min/1.73 sqM) Est GFR (CKD-EPI)NonAf >90 (>60 ml/min/1.73 sqM) Glucose 305 H (74-99) mg/dL Calcium 8.5 (8.4-10.2) mg/dL Total Bilirubin 1.2 (0.2-1.3) mg/dL AST 21 (17-59) U/L ALT 13 (4-49) U/L Alkaline Phosphatase 152 H (38-126) U/L Total Protein 6.8 (6.3-8.2) g/dL Albumin 3.6 (3.5-5.0) g/dL Disposition Clinical Impression: Hemorrhoids, GI bleed, On anticoagulant therapy, Hyponatremia, Chronic abdominal pain, History of atrial flutter Disposition: ADMITTED IP TO THIS HOSP Condition: Stable
[2021-04-02] MEDS: IPRATROPIUM 0.5 MG/2.5 ML NEBU INHALATION SCH (00:58)
[2021-04-02 07:43] LABS: Glucose,Whole Blood 189 mg/dL (75-99)
[2021-04-02] MEDS: IPRATROPIUM-ALBUTEROL 3 ML NEB INHALATION SCH ×4 (08:01→20:01)
[2021-04-02] MEDS: SYMBICORT 160-4.5 MCG INHALER INHALATION SCH ×2 (08:02→20:01)
[2021-04-02] MEDS: INSULIN ASPART (NovoLOG) 100 UNIT/ML VIAL SQ SCH ×4 (08:28→21:17)
[2021-04-02] MEDS: metFORMIN 500 MG TAB PO SCH ×2 (08:29→21:17)
[2021-04-02] MEDS: allopurinoL 100 MG TAB PO SCH (08:29)
[2021-04-02] MEDS: SPIRONOLACTONE 25 MG TAB PO SCH (08:29)
[2021-04-02] MEDS: PANTOPRAZOLE 40 MG TABLET PO SCH (08:29)
[2021-04-02] MEDS: SACUBITRIL/VALSARTAN 24 MG-26 MG TABLET PO SCH ×2 (08:29→21:18)
[2021-04-02] MEDS: FUROSEMIDE 40 MG TAB PO SCH ×2 (08:29→15:55)
[2021-04-02] MEDS: ATORVASTATIN 40 MG TAB PO SCH (08:29)
[2021-04-02] MEDS: METOPROLOL SUCCINATE (ER) 100 MG TAB.ER.24H PO SCH (08:30)
--- NOTE | 2021-04-02 09:08 | P.CRDCN ---
History of Present Illness Consult date: 04/02/21 History of present illness: This is a 66-year-old gentleman with history of atrial flutter on anticoagulation, who was admitted to the hospital with the complaints of rectal bleeding for 2-3 days. His hemoglobin is stable. He does complaining some nausea and some dizziness. He had a history of chest pains and had a cardiac catheterization in September. He was not found to have an obstructive coronary disease. His main symptoms now seem to be nausea, rectal bleeding. Doesn't have any cardiac symptoms. No further cardiac workup at this time. I will hold Novalux for now. Surgical/GI evaluation for possible bleeding from hemorrhoids. Lungs are clear. Heart is regular. No JVD or peripheral edema. Continue rest of the cardiac medications. We'll follow Review of Systems As per the chart Past Medical History Past Medical History: Atrial Flutter, COPD, Diabetes Mellitus, GERD/Reflux, Oste oarthritis (OA), Pneumonia, Renal Disease, Skin Disorder, Sleep Apnea/CPAP/BIPAP Additional Past Medical History / Comment(s): BLOOD IN STOOL, cellulitis bilateral lower extremities-healing, gout, USES A CANE TO AMBULATE, History of Any Multi-Drug Resistant Organisms: None Reported Past Surgical History: AICD, Cardiac Ablation, Orthopedic Surgery Additional Past Surgical History / Comment(s): rectal fistula repair X2. RUEL KNEE ARTHROSCOPY, surgery to remove part of lower left lung for abestosis Past Anesthesia/Blood Transfusion Reactions: No Reported Reaction Type of Cardiac Device: AICD Device Placement Date:: [facility] 10/13/15 Past Psychological History: No Psychological Hx Reported Smoking Status: Never smoker Past Alcohol Use History: Daily, Heavy Additional Past Alcohol Use History / Comment(s): Pt states he stopped drinking before he was 52. Past Drug Use History: Marijuana - Past Family History Father Family Medical History: Diabetes Mellitus Additional Family Medical History / Comment(s): Father is almost 90 yrs old. Mother Family Medical History: Cancer Additional Family Medical History / Comment(s): STOMACH CA. Medications and Allergies Home Medications Medication Instructions Recorded Confirmed Type Albuterol Nebulized [Ventolin 2.5 mg INHALATION RT-QID 05/20/15 04/01/21 History Nebulized] Metoprolol Succinate [Toprol XL] 200 mg PO DAILY 03/01/16 04/01/21 History Albuterol Sulfate [Ventolin HFA] 2 puff INHALATION RT-QID PRN 07/28/19 04/01/21 History Atorvastatin [Lipitor] 40 mg PO DAILY 07/28/19 04/01/21 History HYDROcodone/APAP 10-325MG [[place] 1 tab PO TID PRN 07/28/19 04/01/21 History 10-325] Ipratropium Nebulized [Atrovent 0.5 mg INHALATION RT-QID 07/28/19 04/01/21 History Nebulized 0.2 MG/ML] Montelukast [Singulair] 10 mg PO HS 07/28/19 04/01/21 History Omeprazole 40 mg PO DAILY 07/28/19 04/01/21 History allopurinoL [Zyloprim] 200 mg PO DAILY 07/28/19 04/01/21 History metFORMIN HCL ER [Glucophage XR] 500 mg PO Q12H 07/28/19 04/01/21 History Furosemide [Lasix] 40 mg PO BID #60 tab 08/01/19 04/01/21 Rx Sacubitril/Valsartan [Entresto 24 1 tab PO BID 01/30/20 04/01/21 History mg-26 mg Tablet] Spironolactone [Aldactone] 25 mg PO DAILY 01/30/20 04/01/21 History Apixaban [Eliquis] 5 mg PO DIRECTED 03/31/21 04/01/21 History Budesonide/Formoterol Fumarate 2 puff INHALATION RT-BID 03/31/21 04/01/21 History [Symbicort 160-4.5 Mcg Inhaler] EPINEPHrine (Auto Inject) [Epipen] 0.3 mg IM ONCE PRN 03/31/21 04/01/21 History Ergocalciferol [Vitamin D2 (1250 1,250 mcg PO FR 03/31/21 04/01/21 History Mcg = 96598 Iu)] Ibuprofen [Motrin] 400 mg PO DAILY PRN 03/31/21 04/01/21 History Docusate [Colace] 100 mg PO DAILY PRN 04/01/21 04/01/21 History Allergies Allergy/AdvReac Type Severity Reaction Status Date / Time No Known Allergies Allergy Verified 04/01/21 18:45 Physical Exam Vitals: Vital Signs Temp Pulse Pulse Resp BP BP Pulse Ox 04/02/21 08:18 64 04/02/21 08:00 64 04/02/21 07:00 98.0 F 60 16 113/65 92 L 04/02/21 02:00 60 16 04/02/21 01:44 98.1 F 60 100/63 92 L 04/02/21 01:12 64 04/02/21 00:58 64 04/01/21 22:14 64 04/01/21 22:01 64 04/01/21 22:00 60 16 04/01/21 21:54 97.7 F 60 16 103/66 95 04/01/21 20:52 61 20 121/64 95 04/01/21 14:52 98.3 F 60 20 106/69 99 Intake and Output 04/01/21 04/02/21 04/02/21 22:59 06:59 14:59 Other: Voiding Method Toilet # Voids 1 1 # Bowel Movements 1 Weight 158.757 kg GENERAL EXAM: Patient is alert and oriented and doesn't appear to be in any acute distress HEENT: Normocephalic. Normal reaction of pupils, equal size, normal range of extraocular motion. No erythema or exudates in the throat. NECK: No masses, no nuchal rigidity. CHEST: No chest wall deformity. LUNGS: Equal air entry with no crackles or wheeze. HEART: S1 and S2 normal with no audible mumurs or gallops. Regular rhythm, femorals equal on both sides.. ABDOMEN: No hepatosplenomegaly, normal bowel sounds, no guarding or rigidity. SKIN: No rashes CENTRAL NERVOUS SYSTEM: No focal deficits. EXTREMITIES: No cyanosis, clubbing or edema. Results 04/01/21 15:42 04/01/21 15:42 Cardiac Enzymes 04/01/21 Range/Units 15:42 AST 21 (17-59) U/L Coagulation 04/01/21 Range/Units 15:42 PT 11.0 (9.0-12.0) sec APTT 26.4 (22.0-30.0) sec CBC 04/01/21 Range/Units 15:42 WBC 11.6 H (3.8-10.6) k/uL RBC 5.28 (4.30-5.90) m/uL Hgb 17.3 (13.0-17.5) gm/dL Hct 50.9 (39.0-53.0) % Plt Count 202 (150-450) k/uL Comprehensive Metabolic Panel 04/01/21 Range/Units 15:42 Sodium 133 L (137-145) mmol/L Potassium 3.9 (3.5-5.1) mmol/L Chloride 93 L (98-107) mmol/L Carbon Dioxide 30 (22-30) mmol/L BUN 18 (9-20) mg/dL Creatinine 0.75 (0.66-1.25) mg/dL Glucose 305 H (74-99) mg/dL Calcium 8.5 (8.4-10.2) mg/dL AST 21 (17-59) U/L ALT 13 (4-49) U/L Alkaline Phosphatase 152 H (38-126) U/L Total Protein 6.8 (6.3-8.2) g/dL Albumin 3.6 (3.5-5.0) g/dL Current Medications Generic Name Dose Route Start Last Admin Trade Name Freq PRN Reason Stop Dose Admin Acetaminophen 650 mg 04/01/21 18:29 Acetaminophen Tab 325 Mg Tab PO Q6HR PRN Mild Pain or Fever > 100.5 Hydrocodone Bitart/Acetaminophen 1 each 04/01/21 18:33 Hydrocodone/Apap 10-325mg 1 Each Tab PO TID PRN Pain Albuterol Sulfate 2.5 mg 04/01/21 18:33 Albuterol Nebulized 2.5 Mg/3 Ml INHALATION RT-QID PRN Shortness Of Breath Albuterol/Ipratropium 3 ml 04/02/21 08:00 04/02/21 08:01 Ipratropium-Albuterol 3 Ml Neb INHALATION 3 ml RT-QID JG Administration Allopurinol 200 mg 04/02/21 09:00 04/02/21 08:29 Allopurinol 100 Mg Tab PO 200 mg DAILY JG Administration Atorvastatin Calcium 40 mg 04/02/21 09:00 04/02/21 08:29 Atorvastatin 40 Mg Tab PO 40 mg DAILY JG Administration Budesonide/Formoterol Fumarate 2 puff 04/01/21 20:00 04/02/21 08:02 Symbicort 160-4.5 Mcg Inhaler INHALATION 2 puff RT-BID JG Administration Ergocalciferol 1,250 mcg 04/01/21 21:00 04/01/21 22:17 Ergocalciferol 1,250 Mcg (50,000 Iu) Capsule PO Not Given FR JG Furosemide 40 mg 04/01/21 21:00 04/02/21 08:29 Furosemide 40 Mg Tab PO 40 mg BID@0900,1600 JG Administration Insulin Aspart 0 unit 04/01/21 21:00 04/02/21 08:28 Insulin Aspart (Novolog) 100 Unit/Ml Vial SQ 5 unit ACHS JG Administration Protocol Metformin HCl 500 mg 04/02/21 09:00 04/02/21 08:29 Metformin 500 Mg Tab PO 500 mg Q12HR JG Administration Metoprolol Succinate 200 mg 04/02/21 09:00 04/02/21 08:30 Metoprolol Succinate (Er) 100 Mg Tab.Er.24h PO 200 mg DAILY JG Administration Montelukast Sodium 10 mg 04/01/21 21:00 04/01/21 22:17 Montelukast 10 Mg Tab PO Not Given HS JG Naloxone HCl 0.2 mg 04/01/21 18:29 Naloxone 0.4 Mg/Ml 1 Ml Vial IV Q2M PRN Opioid Reversal Pantoprazole Sodium 40 mg 04/02/21 09:00 04/02/21 08:29 Pantoprazole 40 Mg Tablet PO 40 mg DAILY JG Administration Sacubitril/Valsartan 1 each 04/02/21 09:00 04/02/21 08:29 Sacubitril/Valsartan 24 Mg-26 Mg Tablet PO 1 each BID JG Administration Spironolactone 25 mg 04/02/21 09:00 04/02/21 08:29 Spironolactone 25 Mg Tab PO 25 mg DAILY JG Administration Intake and Output 04/01/21 04/02/21 04/02/21 22:59 06:59 14:59 Other: Voiding Method Toilet # Voids 1 1 # Bowel Movements 1 Weight 158.757 kg 04/01/21 15:42 04/01/21 15:42 EKG Interpretations (text) Not available Assessment and Plan (1) GI bleed Current Visit: Yes Status: Acute Code(s): K92.2 - GASTROINTESTINAL HEMORRHAGE, UNSPECIFIED SNOMED Code(s): 32758870 (2) Hemorrhoids Current Visit: Yes Status: Acute Code(s): K64.9 - UNSPECIFIED HEMORRHOIDS SNOMED Code(s): 28830396 (3) History of atrial flutter Current Visit: Yes Status: Acute Code(s): Z86.79 - PERSONAL HISTORY OF OTHER DISEASES OF THE CIRCULATORY SYSTEM SNOMED Code(s): 570041146 (4) Cardiomyopathy Current Visit: No Status: Acute Code(s): I42.9 - CARDIOMYOPATHY, UNSPECIFIED SNOMED Code(s): 25733323 Plan: Patient is stable from cardiac standpoint. Hold anticoagulation at this time. Surgical/GI evaluation. Resume anti-cognition and cleared by his surgery or GI
[2021-04-02 09:28] LABS: Basophils # (A) 0.06 X 10*3/uL (0.00-0.10); Basophils % (A) 0.5 %; Eosinophils # (A) 0.07 X 10*3/uL (0.04-0.35); Eosinophils % (A) 0.5 %; HCT 49.2 % (39.6-50.0); HGB 16.6 g/dL (13.0-17.0); Lymphocytes # (A) 1.55 X 10*3/uL (0.90-5.00); Lymphocytes % (A) 11.7 %; MCH 31.4 pg (27.0-32.0); MCHC 33.7 g/dL (32.0-37.0); Mean Platelet Volume 11.4 fL (9.5-12.2); Monocytes # (A) 1.26 X 10*3/uL (0.20-1.00); Monocytes % (A) 9.5 %; Neutrophils # (A) 10.18 X 10*3/uL (1.80-7.70); Neutrophils % (A) 77.2 %; Platelet Count 235 X 10*3/uL (140-440); RBC 5.29 X 10*6/uL (4.40-5.60); RDW 13.2 % (11.5-14.5)
[2021-04-02 11:13] LABS: African American GFR (CKD) 81.8 (60.0-200.0); BUN/Creat Ratio 16.36 Ratio (12.00-20.00); Calcium 8.7 mg/dL (8.7-10.3); Non-African American GFR(CKD) 70.6 (60.0-200.0); Potassium 3.5 mmol/L (3.5-5.5)
[2021-04-02 12:21] LABS: Appearance,Urine Clear (Clear); Bilirubin,Urine Negative (Negative); Blood,Urine Negative (Negative); Color,Urine Yellow; Glucose,Urine (UA) Negative (Negative); Ketones,Urine Negative (Negative); Leukocyte Esterase,Urine Negative (Negative); Nitrite,Urine Negative (Negative); Protein,Urine Trace (Negative); Specific Gravity,Urine 1.028 (1.001-1.035); Urobilinogen,Urine <2.0 mg/dL (<2.0)
[2021-04-02 12:56] LABS: Glucose,Whole Blood 209 mg/dL (75-99)
--- NOTE | 2021-04-02 13:03 | P.GSCN ---
History of Present Illness Consult date: 04/02/21 Reason for Consult: Rectal bleeding History of present illness: Patient's a 66-year-old man who presented with some rectal bleeding with bowel m ovement. He was seen in the ER and returned on the bleeding persisted. He's had no change in bowel habits. He is on blood thinners due to A. fib. The patient has a history of ulcerative colitis. Last colonoscopy was in 2017. He has followed up with the GI clinic in the past. He's been unable to be seen recently however. Past Medical History Past Medical History: Atrial Flutter, COPD, Diabetes Mellitus, GERD/Reflux, Osteoarthritis (OA), Pneumonia, Renal Disease, Skin Disorder, Sleep Apnea/CPAP/BIPAP Additional Past Medical History / Comment(s): BLOOD IN STOOL, cellulitis bilateral lower extremities-healing, gout, USES A CANE TO AMBULATE, History of Any Multi-Drug Resistant Organisms: None Reported Past Surgical History: AICD, Cardiac Ablation, Orthopedic Surgery Additional Past Surgical History / Comment(s): rectal fistula repair X2. RUEL KNEE ARTHROSCOPY, surgery to remove part of lower left lung for abestosis Past Anesthesia/Blood Transfusion Reactions: No Reported Reaction Type of Cardiac Device: AICD Device Placement Date:: [facility] 10/13/15 Past Psychological History: No Psychological Hx Reported Smoking Status: Never smoker Past Alcohol Use History: Daily, Heavy Additional Past Alcohol Use History / Comment(s): Pt states he stopped drinking before he was 52. Past Drug Use History: Marijuana - Past Family History Father Family Medical History: Diabetes Mellitus Additional Family Medical History / Comment(s): Father is almost 90 yrs old. Mother Family Medical History: Cancer Additional Family Medical History / Comment(s): STOMACH CA. Medications and Allergies Home Medications Medication Instructions Recorded Confirmed Type Albuterol Nebulized [Ventolin 2.5 mg INHALATION RT-QID 05/20/15 04/01/21 History Nebulized] Metoprolol Succinate [Toprol XL] 200 mg PO DAILY 03/01/16 04/01/21 History Albuterol Sulfate [Ventolin HFA] 2 puff INHALATION RT-QID PRN 07/28/19 04/01/21 History Atorvastatin [Lipitor] 40 mg PO DAILY 07/28/19 04/01/21 History HYDROcodone/APAP 10-325MG [[place] 1 tab PO TID PRN 07/28/19 04/01/21 History 10-325] Ipratropium Nebulized [Atrovent 0.5 mg INHALATION RT-QID 07/28/19 04/01/21 Histo ry Nebulized 0.2 MG/ML] Montelukast [Singulair] 10 mg PO HS 07/28/19 04/01/21 History Omeprazole 40 mg PO DAILY 07/28/19 04/01/21 History allopurinoL [Zyloprim] 200 mg PO DAILY 07/28/19 04/01/21 History metFORMIN HCL ER [Glucophage XR] 500 mg PO Q12H 07/28/19 04/01/21 History Furosemide [Lasix] 40 mg PO BID #60 tab 08/01/19 04/01/21 Rx Sacubitril/Valsartan [Entresto 24 1 tab PO BID 01/30/20 04/01/21 History mg-26 mg Tablet] Spironolactone [Aldactone] 25 mg PO DAILY 01/30/20 04/01/21 History Budesonide/Formoterol Fumarate 2 puff INHALATION RT-BID 03/31/21 04/01/21 Hist ory [Symbicort 160-4.5 Mcg Inhaler] EPINEPHrine (Auto Inject) [Epipen] 0.3 mg IM ONCE PRN 03/31/21 04/01/21 History Ergocalciferol [Vitamin D2 (1250 1,250 mcg PO FR 03/31/21 04/01/21 History Mcg = 03270 Iu)] Ibuprofen [Motrin] 400 mg PO DAILY PRN 03/31/21 04/01/21 History Docusate [Colace] 100 mg PO DAILY PRN 04/01/21 04/01/21 History Apixaban [Eliquis] 5 mg PO DIRECTED #0 04/02/21 04/01/21 Rx Allergies Allergy/AdvReac Type Severity Reaction Status Date / Time No Known Allergies Allergy Verified 04/01/21 18:45 Surgical - Exam Osteopathic Statement: *. No significant issues noted on an osteopathic structural exam other than those noted in the History and Physical/Consult. Vital Signs Temp Pulse Resp BP Pulse Ox 98.3 F 60 20 106/69 99 04/01/21 14:52 04/01/21 14:52 04/01/21 14:52 04/01/21 14:52 04/01/21 14:52 - General no distress - Rectum Patient is in the restroom at time of my visit. Exam in the ER showed a small hemorrhoid with some minimal oozing Results - Labs 04/02/21 06:33 04/02/21 06:33 Abnormal Lab Results - Last 24 Hours (Table) 04/01/21 04/01/21 04/01/21 Range/Units 15:42 15:42 22:03 WBC 11.6 H (3.8-10.6) k/uL Immature Gran # (0.00-0.04) X 10*3/uL Neutrophils # 9.5 H (1.3-7.7) k/uL Monocytes # (0.20-1.00) X 10*3/uL Sodium 133 L (137-145) mmol/L Chloride 93 L (98-107) mmol/L Carbon Dioxide (21.6-31.8) mmol/L Glucose 305 H (74-99) mg/dL POC Glucose (mg/dL) 211 H (75-99) mg/dL Hemoglobin A1c (4.0-6.0) % Alkaline Phosphatase 152 H (38-126) U/L Urine Protein (Negative) 04/02/21 04/02/21 04/02/21 Range/Units 06:33 06:33 06:33 WBC 13.20 H (3.8-10.6) k/uL Immature Gran # 0.08 H (0.00-0.04) X 10*3/uL Neutrophils # 10.18 H (1.3-7.7) k/uL Monocytes # 1.26 H (0.20-1.00) X 10*3/uL Sodium (137-145) mmol/L Chloride 95 L (98-107) mmol/L Carbon Dioxide 33.0 H (21.6-31.8) mmol/L Glucose 149 H (74-99) mg/dL POC Glucose (mg/dL) (75-99) mg/dL Hemoglobin A1c 11.3 H (4.0-6.0) % Alkaline Phosphatase (38-126) U/L Urine Protein (Negative) 04/02/21 04/02/21 04/02/21 Range/Units 07:24 11:52 12:54 WBC (3.8-10.6) k/uL Immature Gran # (0.00-0.04) X 10*3/uL Neutrophils # (1.3-7.7) k/uL Monocytes # (0.20-1.00) X 10*3/uL Sodium (137-145) mmol/L Chloride (98-107) mmol/L Carbon Dioxide (21.6-31.8) mmol/L Glucose (74-99) mg/dL POC Glucose (mg/dL) 189 H 209 H (75-99) mg/dL Hemoglobin A1c (4.0-6.0) % Alkaline Phosphatase (38-126) U/L Urine Protein Trace H (Negative) Diabetes panel 04/01/21 04/02/21 04/02/21 Range/Units 15:42 06:33 06:33 Sodium 133 L 138 (137-145) mmol/L Potassium 3.9 3.5 (3.5-5.1) mmol/L Chloride 93 L 95 L (98-107) mmol/L Carbon Dioxide 30 33.0 H (22-30) mmol/L BUN 18 18.0 (9-20) mg/dL Creatinine 0.75 1.1 (0.66-1.25) mg/dL Glucose 305 H 149 H (74-99) mg/dL Hemoglobin A1c 11.3 H (4.0-6.0) % Calcium 8.5 8.7 (8.4-10.2) mg/dL AST 21 (17-59) U/L ALT 13 (4-49) U/L Alkaline Phosphatase 152 H (38-126) U/L Total Protein 6.8 (6.3-8.2) g/dL Albumin 3.6 (3.5-5.0) g/dL Calcium panel 04/01/21 04/02/21 Range/Units 15:42 06:33 Calcium 8.5 8.7 (8.4-10.2) mg/dL Albumin 3.6 (3.5-5.0) g/dL Pituitary panel 04/01/21 04/02/21 Range/Units 15:42 06:33 Sodium 133 L 138 (137-145) mmol/L Potassium 3.9 3.5 (3.5-5.1) mmol/L Chloride 93 L 95 L (98-107) mmol/L Carbon Dioxide 30 33.0 H (22-30) mmol/L BUN 18 18.0 (9-20) mg/dL Creatinine 0.75 1.1 (0.66-1.25) mg/dL Glucose 305 H 149 H (74-99) mg/dL Calcium 8.5 8.7 (8.4-10.2) mg/dL Adrenal panel 04/01/21 04/02/21 Range/Units 15:42 06:33 Sodium 133 L 138 (137-145) mmol/L Potassium 3.9 3.5 (3.5-5.1) mmol/L Chloride 93 L 95 L (98-107) mmol/L Carbon Dioxide 30 33.0 H (22-30) mmol/L BUN 18 18.0 (9-20) mg/dL Creatinine 0.75 1.1 (0.66-1.25) mg/dL Glucose 305 H 149 H (74-99) mg/dL Calcium 8.5 8.7 (8.4-10.2) mg/dL Total Bilirubin 1.2 (0.2-1.3) mg/dL AST 21 (17-59) U/L ALT 13 (4-49) U/L Alkaline Phosphatase 152 H (38-126) U/L Total Protein 6.8 (6.3-8.2) g/dL Albumin 3.6 (3.5-5.0) g/dL - Imaging CT scan - abdomen: report reviewed (From 03/31) Assessment and Plan (1) GI bleed Current Visit: Yes Status: Acute Code(s): K92.2 - GASTROINTESTINAL HEMORRHAGE, UNSPECIFIED SNOMED Code(s): 92163177 (2) Hemorrhoids Current Visit: Yes Status: Acute Code(s): K64.9 - UNSPECIFIED HEMORRHOIDS SNOMED Code(s): 89655503 (3) History of atrial flutter Current Visit: Yes Status: Acute Code(s): Z86.79 - PERSONAL HISTORY OF OTHER DISEASES OF THE CIRCULATORY SYSTEM SNOMED Code(s): 964609448 Plan: The patient has had GI bleeding for several days. This been no drop in his hemoglobin. I recommend stopping the eliquis for 5-7 days. Outpatient colonoscopy can then be scheduled for later in the week
[2021-04-02 17:30] LABS: Glucose,Whole Blood 144 mg/dL (75-99)
--- NOTE | 2021-04-02 18:34 | PN ---
PROGRESS NOTE DATE OF SERVICE: 04/02/2021 This 66-year-old gentleman who was admitted with GI bleed, is being closely monitored. The patient had come back to the ER twice yesterday before getting admitted. No chest pain. No palpitations. No fever. The patient is also seen by Cardiology and Dr. Bryan. The last colonoscopy was 2016. Dr. Bryan has recommended outpatient colonoscopy after stopping the Eliquis for 5-7 days. No fever, no cough. PHYSICAL EXAMINATION: Alert and oriented x3. Pulse is 60, blood pressure 101/65, respirations 16, temperature 98.2, pulse ox 94% on room air. HEENT: Conjunctivae normal. Oral mucosa moist. NECK: No jugular venous distention. No lymph node enlargement. CARDIOVASCULAR: S1, S2, muffled. No S3, no S4, RESPIRATORY: Diminished breath sounds at the bases. No rhonchi, no crackles. ABDOMEN: Soft, obese, nontender. LEGS: No edema, no swelling. NERVOUS SYSTEM: No focal deficits. LABS: Hemoglobin is 16.6. ASSESSMENT: 1. Acute lower gastrointestinal bleeding of undetermined etiology possibly diverticulosis. 2. Elevated WBC, possibly reactive. 3. Hyponatremia. 4. History of chronic diastolic congestive heart failure. 5. Diabetes mellitus type 2 uncontrolled with hyperglycemia. 6. Atrial flutter. 7. Chronic obstructive pulmonary disease. 8. Gastroesophageal reflux disease. 9. Degenerative joint disease. 10.History of pneumonia. 11.History of sleep apnea. 12.History of AICD. 13.History of cardiac ablation. 14.History of orthopedic surgery. 15.History of rectal fistula surgery x2. RECOMMENDATIONS AND DISCUSSION: I recommend to continue current medications, continue to monitor, continue symptomatic treatment. Otherwise, we will repeat labs tomorrow. Closely follow with Surgery and Cardiology. Guarded prognosis. Further recommendations to follow. MMODL / IJN: [id number] /
[2021-04-02 20:11] LABS: Glucose,Whole Blood 173 mg/dL (75-99)
[2021-04-02] MEDS: MONTELUKAST 10 MG TAB PO SCH (21:17)
[2021-04-03 07:46] LABS: Glucose,Whole Blood 194 mg/dL (75-99)
[2021-04-03] MEDS: allopurinoL 100 MG TAB PO SCH (08:38)
[2021-04-03] MEDS: PANTOPRAZOLE 40 MG TABLET PO SCH (08:38)
[2021-04-03] MEDS: METOPROLOL SUCCINATE (ER) 100 MG TAB.ER.24H PO SCH (08:38)
[2021-04-03] MEDS: metFORMIN 500 MG TAB PO SCH ×2 (08:38→21:11)
[2021-04-03] MEDS: FUROSEMIDE 40 MG TAB PO SCH ×2 (08:38→18:00)
[2021-04-03] MEDS: ATORVASTATIN 40 MG TAB PO SCH (08:38)
[2021-04-03] MEDS: SPIRONOLACTONE 25 MG TAB PO SCH (08:38)
[2021-04-03] MEDS: SACUBITRIL/VALSARTAN 24 MG-26 MG TABLET PO SCH ×2 (08:39→21:10)
[2021-04-03] MEDS: INSULIN ASPART (NovoLOG) 100 UNIT/ML VIAL SQ SCH ×4 (08:39→23:13)
[2021-04-03] MEDS: SYMBICORT 160-4.5 MCG INHALER INHALATION SCH ×2 (08:40→20:27)
[2021-04-03] MEDS: IPRATROPIUM-ALBUTEROL 3 ML NEB INHALATION SCH ×4 (08:40→20:27)
[2021-04-03 09:04] LABS: HCT 46.5 % (39.6-50.0); HGB 15.5 g/dL (13.0-17.0); MCH 31.3 pg (27.0-32.0); MCHC 33.3 g/dL (32.0-37.0); MCV 93.8 fL (80.0-97.0); Mean Platelet Volume 11.6 fL (9.5-12.2); Platelet Count 216 X 10*3/uL (140-440); RBC 4.96 X 10*6/uL (4.40-5.60); RDW 13.2 % (11.5-14.5); WBC 15.29 X 10*3/uL (4.50-10.00)
[2021-04-03 09:17] LABS: African American GFR (CKD) 81.8 (60.0-200.0); Anion Gap 9.9 mmol/L (4.00-12.00); Calcium 8.3 mg/dL (8.7-10.3); Carbon Dioxide 31.1 mmol/L (21.6-31.8); Non-African American GFR(CKD) 70.6 (60.0-200.0); Potassium 3.6 mmol/L (3.5-5.5)
[2021-04-03 09:27] LABS: Basophils # (A) 0.05 X 10*3/uL (0.00-0.10); Basophils % (A) 0.3 %; Eosinophils # (A) 0.03 X 10*3/uL (0.04-0.35); Eosinophils % (A) 0.2 %; Lymphocytes # (A) 0.87 X 10*3/uL (0.90-5.00); Lymphocytes % (A) 5.7 %; Monocytes # (A) 1.65 X 10*3/uL (0.20-1.00); Monocytes % (A) 10.8 %; Neutrophils # (A) 12.59 X 10*3/uL (1.80-7.70); Neutrophils % (A) 82.3 %
[2021-04-03 12:13] LABS: Glucose,Whole Blood 213 mg/dL (75-99)
[2021-04-03] MEDS: ONDANSETRON 4 MG/2 ML VIAL IVP PRN (14:17)
--- NOTE | 2021-04-03 14:29 | P.PN ---
Subjective Progress Note Date: 04/03/21 History of present illness: This is a 66-year-old gentleman with history of atrial flutter on anticoagulat ion, who was admitted to the hospital with the complaints of rectal bleeding for 2-3 days. His hemoglobin is stable. He does complaining some nausea and some dizziness. He had a history of chest pains and had a cardiac catheterization in September. He was not found to have an obstructive coronary disease. His main symptoms now seem to be nausea, rectal bleeding. Doesn't have any cardiac symptoms. No further cardiac workup at this time. I will hold Eliquis for now. Surgical/GI evaluation for possible bleeding from hemorrhoids. Lungs are clear. Heart is regular. No JVD or peripheral edema. Continue rest of the cardiac medications. We'll follow 04/03/2021 The patient states that he has not had bowel movement this morning. He states last evening he had some left-sided chest pain that has resolved on its own. Repeat hemoglobin is 15.5. Patient has been hemodynamically stable. Other blood work revealed WBC of 15.2, creatinine 1.1. Physical examination: VS: Afebrile, heart rate in the 60s, blood pressure 128/72, pulse ox 94% on room air GENERAL EXAM: Patient is alert and oriented and doesn't appear to be in any acute distress HEENT: Normocephalic. Normal reaction of pupils, equal size, normal range of extraocular motion. No erythema or exudates in the throat. NECK: No masses, no nuchal rigidity. CHEST: No chest wall deformity. LUNGS: Equal air entry with no crackles or wheeze. HEART: S1 and S2 normal with no audible mumurs or gallops. Regular rhythm, femorals equal on both sides. ABDOMEN: No hepatosplenomegaly, normal bowel sounds, no guarding or rigidity. SKIN: No rashes CENTRAL NERVOUS SYSTEM: No focal deficits. EXTREMITIES: No cyanosis, clubbing or edema. Assessment: GI bleed Chronic persistent atrial fibrillation on long-term anticoagulation Nonischemic cardiomyopathy status post ICD Sick sinus syndrome Hypertension COPD Obstructive sleep apnea Plan: Continue to hold anticoagulation Resume eliquis once cleared by general surgery Continue Lipitor 40 mg daily, Lasix 40 mg twice daily, Toprol-XL 200 mg daily, Aldactone 25 mg daily Further recommendations to follow based upon clinical course Thank you kindly for this consultation. Nurse practitioner note has been reviewed, I agree with documented findings and plan of care. Patient was seen and examined. Objective - Vital Signs Vital signs: Vital Signs Temp 98.2 F 04/03/21 07:00 Pulse 60 04/03/21 11:43 Resp 16 04/03/21 07:00 BP 128/72 04/03/21 07:00 Pulse Ox 94 L 04/03/21 07:00 Intake & Output 04/02/21 04/03/21 04/03/21 18:59 06:59 18:59 Intake Total 50 Output Total 800 Balance 50 -800 Intake: Oral 50 Output: Urine 800 Other: Voiding Method Toilet Toilet Toilet Urinal Urinal # Voids 2 - Labs CBC & Chem 7: 04/03/21 06:09 04/03/21 06:09 Labs: Abnormal Lab Results - Last 24 Hours (Table) 04/02/21 04/02/21 04/03/21 Range/Units 17:29 20:10 06:09 WBC 15.29 H (4.50-10.00) X 10*3/uL Immature Gran # 0.10 H (0.00-0.04) X 10*3/uL Neutrophils # 12.59 H (1.80-7.70) X 10*3/uL Lymphocytes # 0.87 L (0.90-5.00) X 10*3/uL Monocytes # 1.65 H (0.20-1.00) X 10*3/uL Eosinophils # 0.03 L (0.04-0.35) X 10*3/uL Chloride (96-109) mmol/L Glucose (70-110) mg/dL POC Glucose (mg/dL) 144 H 173 H (75-99) mg/dL Calcium (8.7-10.3) mg/dL 04/03/21 04/03/21 04/03/21 Range/Units 06:09 07:27 12:09 WBC (4.50-10.00) X 10*3/uL Immature Gran # (0.00-0.04) X 10*3/uL Neutrophils # (1.80-7.70) X 10*3/uL Lymphocytes # (0.90-5.00) X 10*3/uL Monocytes # (0.20-1.00) X 10*3/uL Eosinophils # (0.04-0.35) X 10*3/uL Chloride 94 L (96-109) mmol/L Glucose 192 H (70-110) mg/dL POC Glucose (mg/dL) 194 H 213 H (75-99) mg/dL Calcium 8.3 L (8.7-10.3) mg/dL
[2021-04-03 17:55] LABS: Glucose,Whole Blood 247 mg/dL (75-99)
--- NOTE | 2021-04-03 18:09 | XR ---
EXAMINATION TYPE: XR chest 1V portable DATE OF EXAM: 04/03/2021 COMPARISON: 11/01/2020 HISTORY: GI bleeding. Obesity. TECHNIQUE: Single view FINDINGS: Heart is enlarged. There is mild pulmonary vascular congestion. There is some blunting of t he costophrenic angles and atelectasis at the lung bases. There is some pleural thickening on the rig ht lateral chest wall. IMPRESSION: Cardiomegaly. Mild congestion but no overt heart failure. Pleural and pulmonary scarring at the lung bases. No change compared to old exam.
--- NOTE | 2021-04-03 20:07 | PN ---
PROGRESS NOTE DATE OF SERVICE: 04/03/2021 INTERVAL HISTORY: This 66-year-old gentleman who was admitted with acute lower GI bleeding, is being closely monitored at this time. Hemoglobin is 15.5 today. White count is elevated to 15.29. No chest pain. No palpitations. No fever. PHYSICAL EXAMINATION: Alert and oriented x3. Pulse is 60, blood pressure 108/50, respiration 16, temperature 98.2, pulse ox pulse ox 87% on room air. HEENT: Conjunctivae normal. Oral mucosa moist. NECK: No jugular venous distention. No lymph node enlargement. CARDIOVASCULAR: S1, S2, muffled. No S3, no S4, RESPIRATORY: Diminished breath sounds at the bases. A few scattered rhonchi. No crackles. ABDOMEN: Soft, nontender. LEGS: No edema, no swelling. NERVOUS SYSTEM: No focal deficits. LABS: WBC 15. Other labs are noted. ASSESSMENT: 1. Acute lower gastrointestinal bleeding of undetermined etiology, possibly diverticulosis. 2. Elevated WBC, possibly reactive. 3. Hypoxia. 4. Hyponatremia. 5. History of chronic diastolic CHF. 6. Diabetes mellitus type 2, uncontrolled with hyperglycemia. 7. Atrial flutter history. 8. History of chronic obstructive pulmonary disease. 9. Gastroesophageal reflux disease. 10.Degenerative joint disease. 11.History of pneumonia. 12.History of sleep apnea. 13.History AICD. 14.History of cardiac ablation. 15.History of orthopedic surgery. 16.History of rectal fistula surgery x2. RECOMMENDATION: Continue current management, continue symptomatic treatment. I will repeat a chest x- ray. Otherwise, continue rest of medications. Repeat labs. Monitor closely and continue the bronchodilators and spirometry. Guarded prognosis because of multiple complex medical issues. Will closely follow with Surgery as well as Cardiology. Further recommendations to follow. MMODL / IJN: [id number] /
[2021-04-03] MEDS: MONTELUKAST 10 MG TAB PO SCH (21:10)
[2021-04-03 21:19] LABS: Glucose,Whole Blood 164 mg/dL (75-99)
[2021-04-04] MEDS: ALBUTEROL NEBULIZED 2.5 MG/3 ML INHALATION PRN (00:24)
[2021-04-04 07:34] LABS: Glucose,Whole Blood 233 mg/dL (75-99)
[2021-04-04] MEDS: allopurinoL 100 MG TAB PO SCH (07:35)
[2021-04-04] MEDS: ATORVASTATIN 40 MG TAB PO SCH (07:35)
[2021-04-04] MEDS: PANTOPRAZOLE 40 MG TABLET PO SCH (07:35)
[2021-04-04] MEDS: FUROSEMIDE 40 MG TAB PO SCH (07:35)
[2021-04-04] MEDS: metFORMIN 500 MG TAB PO SCH (07:35)
[2021-04-04] MEDS: SPIRONOLACTONE 25 MG TAB PO SCH (07:35)
[2021-04-04] MEDS: SYMBICORT 160-4.5 MCG INHALER INHALATION SCH ×2 (07:53→19:16)
[2021-04-04] MEDS: IPRATROPIUM-ALBUTEROL 3 ML NEB INHALATION SCH ×4 (07:53→19:16)
[2021-04-04] MEDS: SACUBITRIL/VALSARTAN 24 MG-26 MG TABLET PO SCH (08:26)
[2021-04-04] MEDS: INSULIN ASPART (NovoLOG) 100 UNIT/ML VIAL SQ SCH ×4 (08:26→20:35)
[2021-04-04] MEDS: METOPROLOL SUCCINATE (ER) 100 MG TAB.ER.24H PO SCH (08:26)
[2021-04-04 09:16] LABS: Basophils # (A) 0.05 X 10*3/uL (0.00-0.10); Basophils % (A) 0.3 %; Eosinophils # (A) 0.03 X 10*3/uL (0.04-0.35); Eosinophils % (A) 0.2 %; HCT 48.3 % (39.6-50.0); Lymphocytes # (A) 1.19 X 10*3/uL (0.90-5.00); MCH 31.9 pg (27.0-32.0); MCHC 33.1 g/dL (32.0-37.0); MCV 96.2 fL (80.0-97.0); Mean Platelet Volume 11.6 fL (9.5-12.2); Neutrophils % (A) 81.6 %; Platelet Count 248 X 10*3/uL (140-440); RBC 5.02 X 10*6/uL (4.40-5.60); RDW 13.2 % (11.5-14.5); WBC 17.02 X 10*3/uL (4.50-10.00)
[2021-04-04 10:14] LABS: African American GFR (CKD) 31.8 (60.0-200.0); Anion Gap 21.4 mmol/L (4.00-12.00); Calcium 8.2 mg/dL (8.7-10.3); Carbon Dioxide 19.6 mmol/L (21.6-31.8); Non-African American GFR(CKD) 27.5 (60.0-200.0); Potassium 4.2 mmol/L (3.5-5.5)
[2021-04-04 12:17] LABS: Glucose,Whole Blood 198 mg/dL (75-99)
[2021-04-04 13:10] VITALS: BMI 51.7
[2021-04-04] MEDS: SODIUM CHLORIDE 0.9% 1,000 ML IV SCH (15:08)
[2021-04-04 17:15] LABS: Glucose,Whole Blood 209 mg/dL (75-99)
[2021-04-04 20:27] LABS: Glucose,Whole Blood 216 mg/dL (75-99)
[2021-04-04] MEDS: MONTELUKAST 10 MG TAB PO SCH (20:35)
--- NOTE | 2021-04-05 00:21 | P.PN ---
Subjective Progress Note Date: 04/04/21 This is a 66-year-old male who was recently admitted with rectal bleeding with a possible acute lower GI bleeding being closely monitored. Hemoglobin is stable and no active signs of bleeding noted. Patient was seen and evaluated by general surgery recommending to continue holding Eliquis for 5-7 days and close monitoring of any further bleeding with outpatient colonoscopy when stable. Patient also having extreme weakness and feelings of dizziness with cardiology following. Patient was maintained on Lasix and Aldactone which will be on hold as patient's kidney functions have worsened today. Review of systems: Constitutional: reports of fatigue, no reports of fever, or chills Cardiovascular: No reports of chest pain or palpitations Respiratory: reports of shortness of breath GI: No reports of nausea, vomiting, or diarrhea : No reports of dysuria or retention Neurovascular: reports of weakness and extreme dizziness All medications have been reviewed Active Medications Acetaminophen (Acetaminophen Tab 325 Mg Tab) 650 mg PO Q6HR PRN PRN Reason: Mild Pain or Fever > 100.5 Hydrocodone Bitart/Acetaminophen (Hydrocodone/Apap 10-325mg 1 Each Tab) 1 each PO TID PRN PRN Reason: Pain Albuterol Sulfate (Albuterol Nebulized 2.5 Mg/3 Ml) 2.5 mg INHALATION RT-QID PRN PRN Reason: Shortness Of Breath Last Admin: 04/04/21 00:24 Dose: 2.5 mg Documented by: Albuterol/Ipratropium (Ipratropium-Albuterol 3 Ml Neb) 3 ml INHALATION RT-QID [facility] Last Admin: 04/04/21 15:35 Dose: 3 ml Documented by: Allopurinol (Allopurinol 100 Mg Tab) 200 mg PO DAILY [facility] Last Admin: 04/04/21 07:35 Dose: 200 mg Documented by: Atorvastatin Calcium (Atorvastatin 40 Mg Tab) 40 mg PO DAILY [facility] Last Admin: 04/04/21 07:35 Dose: 40 mg Documented by: Budesonide/Formoterol Fumarate (Symbicort 160-4.5 Mcg Inhaler) 2 puff INHALATION RT-BID [facility] Last Admin: 04/04/21 07:53 Dose: 2 puff Documented by: Ergocalciferol (Ergocalciferol 1,250 Mcg (50,000 Iu) Capsule) 1,250 mcg PO FR [facility] Last Admin: 04/01/21 22:17 Dose: Not Given Documented by: Sodium Chloride (Saline 0.9%) 1,000 mls @ 75 mls/hr IV .[id number] [facility] Last Admin: 04/04/21 15:08 Dose: 75 mls/hr Documented by: Insulin Aspart (Insulin Aspart (Novolog) 100 Unit/Ml Vial) 0 unit SQ ACHS [facility]; Protocol Last Admin: 04/04/21 12:27 Dose: 5 unit Documented by: Metoprolol Succinate (Metoprolol Succinate (Er) 100 Mg Tab.Er.24h) 200 mg PO DAILY [facility] Last Admin: 04/04/21 08:26 Dose: 200 mg Documented by: Montelukast Sodium (Montelukast 10 Mg Tab) 10 mg PO HS [facility] Last Admin: 04/03/21 21:10 Dose: 10 mg Documented by: Naloxone HCl (Naloxone 0.4 Mg/Ml 1 Ml Vial) 0.2 mg IV Q2M PRN PRN Reason: Opioid Reversal Ondansetron HCl (Ondansetron 4 Mg/2 Ml Vial) 4 mg IVP Q6HR PRN PRN Reason: Nausea And Vomiting Last Admin: 04/03/21 14:17 Dose: 4 mg Documented by: Pantoprazole Sodium (Pantoprazole 40 Mg Tablet) 40 mg PO DAILY [facility] Last Admin: 04/04/21 07:35 Dose: 40 mg Documented by: Physical exam: Gen: This is a 66-year-old male awake, alert and oriented 3, well-developed, well-nourished, morbidly obese. Currently sitting up in the wheelchair HEENT: Head is atraumatic, normocephalic. Pupils equal, round. Sclerae is anicteric. NECK: Supple. No JVD. No lymphadenopathy. No thyromegaly. LUNGS: Diminished breath sounds bilaterally with no wheezing or rhonchi noted. No intercostal retractions. HEART: S1, S2 are muffled ABDOMEN: Soft. Obese. Bowel sounds are present. No masses. tenderness noted all 4 quadrants and palpation. EXTREMITIES: No pedal edema. No calf tenderness. Mild lower extremity edema noted bilaterally NEUROLOGICAL: Patient is awake, alert and oriented x3. No focal deficits noted. Diffusely weak Assessment: Acute lower GI bleeding of undetermined etiology, possibly diverticulosis Acute kidney injury most likely prerenal acute tubular necrosis Elevated white blood count, possibly reactive Hypoxia Hyponatremia History of chronic obstructive pulmonary disease History of chronic diastolic CHF History of atrial flutter Diabetes mellitus type 2 uncontrolled with hyperglycemia Gastroesophageal reflux disease Degenerative joint disease History of sleep apnea History of AICD history of cardiac ablation GI prophylaxis DVT prophylaxis Full code Plan: Recommend to discontinue Lasix and Aldactone for now and patient has been started on gentle IV hydration of normal saline as kidney functions have worsened overnight and creatinine today is 2.4 and will consult nephrology. Patient continues to be extremely weak and having episodes of dizziness and will have PT/OT therapy evaluate the patient. No Further episodes of bleeding noted and hemoglobin is stable. Patient has been evaluated by general surgery recommending holding Eliquis for 5-7 days and outpatient colonoscopy to assess further and rectal bleeding. We will continue with gentle IV hydration and repeat labs in the morning and await nephrology consult. Given patient's severity of symptoms and worsening kidney functions along with continued dizziness patient will require inpatient hospitalization and more than 2 nights stay. Due to multiple complex medical issues, prognosis is guarded. Objective - Vital Signs Vital signs: Vital Signs Temp 98.2 F 04/04/21 07:00 Pulse 62 04/04/21 08:06 Resp 18 04/04/21 07:00 BP 100/68 04/04/21 07:00 Pulse Ox 97 04/04/21 07:54 Intake & Output 04/03/21 04/04/21 04/04/21 18:59 06:59 18:59 Other: Voiding Method Toilet Toilet Toilet Urinal Urinal Urinal # Voids 2 3 - Labs CBC & Chem 7: 04/04/21 05:29 04/04/21 05:29 Labs: Abnormal Lab Results - Last 24 Hours (Table) 04/03/21 04/03/21 04/03/21 Range/Units 12:09 17:54 21:17 WBC (4.50-10.00) X 10*3/uL Immature Gran # (0.00-0.04) X 10*3/uL Neutrophils # (1.80-7.70) X 10*3/uL Monocytes # (0.20-1.00) X 10*3/uL Eosinophils # (0.04-0.35) X 10*3/uL POC Glucose (mg/dL) 213 H 247 H 164 H (75-99) mg/dL 04/04/21 04/04/21 Range/Units 05:29 07:21 WBC 17.02 H (4.50-10.00) X 10*3/uL Immature Gran # 0.15 H (0.00-0.04) X 10*3/uL Neutrophils # 13.90 H (1.80-7.70) X 10*3/uL Monocytes # 1.70 H (0.20-1.00) X 10*3/uL Eosinophils # 0.03 L (0.04-0.35) X 10*3/uL POC Glucose (mg/dL) 233 H (75-99) mg/dL
[2021-04-05] MEDS: ONDANSETRON 4 MG/2 ML VIAL IVP PRN (04:53)
[2021-04-05] MEDS: SODIUM CHLORIDE 0.9% 1,000 ML IV SCH ×2 (04:57→16:54)
[2021-04-05 07:20] LABS: African American GFR (CKD) 40 (>60 ml/min/1.73 sqM); Anion Gap 14 mmol/L; Blood Urea Nitrogen 51 mg/dL (9-20); Calcium 8.4 mg/dL (8.4-10.2); Carbon Dioxide 24 mmol/L (22-30); Chloride 90 mmol/L (98-107); Glucose 203 mg/dL (74-99); Magnesium 1.2 mg/dL (1.6-2.3); Non-African American GFR(CKD) 35 (>60 ml/min/1.73 sqM); Potassium 4.3 mmol/L (3.5-5.1); Sodium 128 mmol/L (137-145)
[2021-04-05 07:22] LABS: Glucose,Whole Blood 205 mg/dL (75-99)
[2021-04-05] MEDS: INSULIN ASPART (NovoLOG) 100 UNIT/ML VIAL SQ SCH ×4 (08:25→22:25)
[2021-04-05] MEDS: ATORVASTATIN 40 MG TAB PO SCH (08:26)
[2021-04-05] MEDS: PANTOPRAZOLE 40 MG TABLET PO SCH (08:26)
[2021-04-05] MEDS: allopurinoL 100 MG TAB PO SCH (08:26)
[2021-04-05] MEDS: IPRATROPIUM-ALBUTEROL 3 ML NEB INHALATION SCH ×4 (08:42→19:45)
[2021-04-05] MEDS: SYMBICORT 160-4.5 MCG INHALER INHALATION SCH ×2 (08:44→19:45)
[2021-04-05] MEDS ORDERED: Magnesium Replacement Protocol 1 EACH MISC MISCELLANE PRN (08:54)
--- NOTE | 2021-04-05 09:14 | P.PN ---
Progress Note - Text Progress Note Date: 04/05/21 The patient had no further rectal bleeding and his hemoglobin is stable. He is developing medical issues with some renal insufficiency and generalized weakness. Recommend holding anticoagulation till Sunday. We will hold off on colonoscopy this week until he is more medically stable.
--- NOTE | 2021-04-05 09:23 | P.NPCON ---
History of Present Illness - Reason for Consult acute renal failure - History of Present Illness Reason for consultation: Acute kidney injury History of present illness: A stent patient is a 66-year-old male seen in renal consultation for acute kidney injury. His baseline creatinine is near 1 and peaked at 2.4 on 04/04/2021. Vision was receiving Lasix as well as entresto which were put discontinued yesterday. Creatinine today is down to 1.98. Sodium level is also low at 128 and his blood sugar is slightly above 200. Hemodynamically stable. Patient presented to the hospital with rectal bleeding which is now resolved. Hemoglobin has been stable this admission. He has been evaluated by surgery. Denies hematuria or dysuria. Does admit to loose bowel movements. Coughing up phlegm. Patient does have history of diabetes. He has systolic CHF with ejection fraction of 40-45% with severe tricuspid regurgitation and pulmonary hypertension. He did receive IV contrast for CT of the abdomen and pelvis on April 01. Chest x-ray from yesterday revealed no evidence of gross heart failure. UA is fairly benign. Vital signs are stable. General: The patient appeared well nourished and normally developed. HEENT: Head exam is unremarkable. LUNGS: Breath sounds decreased. HEART: Rate and Rhythm are regular. ABDOMEN: Soft, obese. EXTREMITITES: Chronic changes noted. Trace edema. Past Medical History Past Medical History: Atrial Flutter, COPD, Diabetes Mellitus, GERD/Reflux, Osteoarthritis (OA), Pneumonia, Renal Disease, Skin Disorder, Sleep A pnea/CPAP/BIPAP Additional Past Medical History / Comment(s): BLOOD IN STOOL, cellulitis bilateral lower extremities-healing, gout, USES A CANE TO AMBULATE, History of Any Multi-Drug Resistant Organisms: None Reported Past Surgical History: AICD, Cardiac Ablation, Orthopedic Surgery Additional Past Surgical History / Comment(s): rectal fistula repair X2. RUEL KNEE ARTHROSCOPY, surgery to remove part of lower left lung for abestosis Past Anesthesia/Blood Transfusion Reactions: No Reported Reaction Type of Cardiac Device: AICD Device Placement Date:: [facility] 10/13/15 Past Psychological History: No Psychological Hx Reported Smoking Status: Never smoker Past Alcohol Use History: Daily, Heavy Additional Past Alcohol Use History / Comment(s): Pt states he stopped drinking before he was 52. Past Drug Use History: Marijuana - Past Family History Father Family Medical History: Diabetes Mellitus Additional Family Medical History / Comment(s): Father is almost 90 yrs old. Mother Family Medical History: Cancer Additional Family Medical History / Comment(s): STOMACH CA. Medications and Allergies Home Medications Medication Instructions Recorded Confirmed Type Albuterol Nebulized [Ventolin 2.5 mg INHALATION RT-QID 05/20/15 04/01/21 History Nebulized] Metoprolol Succinate [Toprol XL] 200 mg PO DAILY 03/01/16 04/01/21 History Albuterol Sulfate [Ventolin HFA] 2 puff INHALATION RT-QID PRN 07/28/19 04/01/21 History Atorvastatin [Lipitor] 40 mg PO DAILY 07/28/19 04/01/21 History HYDROcodone/APAP 10-325MG [[place] 1 tab PO TID PRN 07/28/19 04/01/21 History 10-325] Ipratropium Nebulized [Atrovent 0.5 mg INHALATION RT-QID 07/28/19 04/01/21 History Nebulized 0.2 MG/ML] Montelukast [Singulair] 10 mg PO HS 07/28/19 04/01/21 History Omeprazole 40 mg PO DAILY 07/28/19 04/01/21 History allopurinoL [Zyloprim] 200 mg PO DAILY 07/28/19 04/01/21 History metFORMIN HCL ER [Glucophage XR] 500 mg PO Q12H 07/28/19 04/01/21 History Furosemide [Lasix] 40 mg PO BID #60 tab 08/01/19 04/01/21 Rx Sacubitril/Valsartan [Entresto 24 1 tab PO BID 01/30/20 04/01/21 History mg-26 mg Tablet] Spironolactone [Aldactone] 25 mg PO DAILY 01/30/20 04/01/21 History Budesonide/Formoterol Fumarate 2 puff INHALATION RT-BID 03/31/21 04/01/21 History [Symbicort 160-4.5 Mcg Inhaler] EPINEPHrine (Auto Inject) [Epipen] 0.3 mg IM ONCE PRN 03/31/21 04/01/21 History Ergocalciferol [Vitamin D2 (1250 1,250 mcg PO FR 03/31/21 04/01/21 History Mcg = 70130 Iu)] Ibuprofen [Motrin] 400 mg PO DAILY PRN 03/31/21 04/01/21 History Docusate [Colace] 100 mg PO DAILY PRN 04/01/21 04/01/21 History Apixaban [Eliquis] 5 mg PO DIRECTED #0 04/02/21 04/01/21 Rx Allergies Allergy/AdvReac Type Severity Reaction Status Date / Time No Known Allergies Allergy Verified 04/01/21 18:45 Physical Exam Vitals: Vital Signs Temp Pulse Pulse Resp BP Pulse Ox 04/05/21 08:57 62 18 04/05/21 08:44 68 18 89 L 04/05/21 07:00 98.0 F 64 18 100/61 93 L 04/05/21 01:43 98.2 F 61 19 102/66 88 L 04/04/21 20:00 97.9 F 61 17 108/74 91 L 04/04/21 19:17 60 04/04/21 15:45 60 04/04/21 15:35 60 04/04/21 15:00 97.7 F 60 18 98/63 95 04/04/21 11:31 64 04/04/21 11:22 65 Intake and Output 04/04/21 04/05/21 04/05/21 22:59 06:59 14:59 Output Total 200 Balance -200 Output: Urine 200 Other: Voiding Method Toilet Toilet Urinal Urinal # Voids 2 3 Results - Lab Results Most recent lab results Calcium 8.4 mg/dL (8.4-10.2) 04/05/21 06:40 Magnesium 1.2 mg/dL (1.6-2.3) L 04/05/21 06:40 04/04/21 05:29 04/05/21 06:40 Assessment and Plan Plan: Assessment: 1. Acute kidney injury secondary to ATN secondary to contrast-induced acute kidney injury as well as diuresis. Patient received IV contrast on April 01. Creatinine peaked at 2.4 this admission and is 1.98 today. UA is fairly benign. Baseline creatinine near 1. 2. Acute on chronic systolic CHF with ejection fraction of 40-45% with severe tricuspid regurgitation and pulmonary hypertension. 3. Hyponatremia secondary to acute kidney injury and hyperglycemia. 4. Hypomagnesemia from diuresis and GI losses. 5. Diabetes mellitus. Plan: Decrease normal saline to 50 mL an hour. Continue to hold diuretics. Tight blood sugar control. 1200 mL fluid restriction. Check bladder scan to rule out urinary retention. Magnesium being replaced. Continue to monitor renal function and urine output. Check urine studies. Thank you for the consultation. I will continue to follow the patient with you during his hospital stay.
[2021-04-05] MEDS: MAGNESIUM SULFATE-D5W PMX 1 GM in DEXTROSE/WATER 1 100ML.BAG IVPB SCH ×3 (10:20→14:08)
[2021-04-05] MEDS ORDERED: FAMOTIDINE 20 MG/2 ML VIAL IV SCH (11:15)
[2021-04-05] MEDS: METOPROLOL SUCCINATE (ER) 100 MG TAB.ER.24H PO SCH (11:47)
[2021-04-05 12:10] LABS: Glucose,Whole Blood 217 mg/dL (75-99)
--- NOTE | 2021-04-05 14:34 | P.PN ---
Subjective Progress Note Date: 04/05/21 This is a 66-year-old male who was recently admitted with rectal bleeding with a possible acute lower GI bleeding being closely monitored. Hemoglobin is stable and no active signs of bleeding noted. Patient was seen and evaluated by general surgery recommending to continue holding Eliquis for 5-7 days and close monitoring of any further bleeding with outpatient colonoscopy when stable. Patient also having extreme weakness and feelings of dizziness with cardiology following. Patient was maintained on Lasix and Aldactone which will be on hold as patient's kidney functions have worsened today. 04/05/2021 Patient seen and evaluated in follow-up this morning continues to be extremely weak and states he has been having multiple episodes of dry heaving and inability to tolerate oral intake. Patient was started on gentle IV hydration and Lasix and Aldactone discontinued and nephrology consulted. Patient being placed on fluid restrictions and will continue gentle IV hydration with repeat labs in the morning. Patient continues to be weak and dizzy and have consulted PT/OT therapy with a possible social work consult as he states he is unable to even stand and may benefit from subacute rehab. Apparently patient refused working with physical therapy today. Sodium today is 128, potassium 4.3, BUN 51, creatinine slightly improved at 1.98. Magnesium extremely low at 1.2 and will replace. Osmolality also ordered and pending. Patient is afebrile. Patient continues to have low oxygen saturation rates and instructed the patient to use oxygen as needed and is refusing. Patient is 89% on room air. Patient to continue with breathing inhalational treatments. Review of systems: Constitutional: reports of fatigue, no reports of fever, or chills Cardiovascular: No reports of chest pain or palpitations Respiratory: reports of shortness of breath GI: reports of nausea and dry heaving and unable to tolerate diet : No reports of dysuria or retention Neurovascular: reports of weakness and extreme dizziness All medications have been reviewed Active Medications Acetaminophen (Acetaminophen Tab 325 Mg Tab) 650 mg PO Q6HR PRN PRN Reason: Mild Pain or Fever > 100.5 Hydrocodone Bitart/Acetaminophen (Hydrocodone/Apap 10-325mg 1 Each Tab) 1 each PO TID PRN PRN Reason: Pain Albuterol Sulfate (Albuterol Nebulized 2.5 Mg/3 Ml) 2.5 mg INHALATION RT-QID PRN PRN Reason: Shortness Of Breath Last Admin: 04/04/21 00:24 Dose: 2.5 mg Documented by: Albuterol/Ipratropium (Ipratropium-Albuterol 3 Ml Neb) 3 ml INHALATION RT-QID [facility] Last Admin: 04/05/21 11:46 Dose: 3 ml Documented by: Allopurinol (Allopurinol 100 Mg Tab) 200 mg PO DAILY [facility] Last Admin: 04/05/21 08:26 Dose: 200 mg Documented by: Atorvastatin Calcium (Atorvastatin 40 Mg Tab) 40 mg PO DAILY [facility] Last Admin: 04/05/21 08:26 Dose: 40 mg Documented by: Budesonide/Formoterol Fumarate (Symbicort 160-4.5 Mcg Inhaler) 2 puff INHALATION RT-BID [facility] Last Admin: 04/05/21 08:44 Dose: 2 puff Documented by: Ergocalciferol (Ergocalciferol 1,250 Mcg (50,000 Iu) Capsule) 1,250 mcg PO FR [facility] Last Admin: 04/01/21 22:17 Dose: Not Given Documented by: Famotidine (Famotidine 20 Mg/2 Ml Vial) 20 mg IV Q24HR [facility] Sodium Chloride (Saline 0.9%) 1,000 mls @ 50 mls/hr IV .Q20H [facility] Last Admin: 04/05/21 04:57 Dose: 75 mls/hr Documented by: Insulin Aspart (Insulin Aspart (Novolog) 100 Unit/Ml Vial) 0 unit SQ ACHS [facility]; Protocol Last Admin: 04/05/21 14:08 Dose: 7 unit Documented by: Metoprolol Succinate (Metoprolol Succinate (Er) 100 Mg Tab.Er.24h) 200 mg PO DAILY [facility] Last Admin: 04/05/21 11:47 Dose: Not Given Documented by: Miscellaneous Information (Magnesium Replacement Protocol 1 Each Misc) 1 each MISCELLANE DAILY PRN; Protocol PRN Reason: Per Protocol Montelukast Sodium (Montelukast 10 Mg Tab) 10 mg PO HS [facility] Last Admin: 04/04/21 20:35 Dose: 10 mg Documented by: Naloxone HCl (Naloxone 0.4 Mg/Ml 1 Ml Vial) 0.2 mg IV Q2M PRN PRN Reason: Opioid Reversal Ondansetron HCl (Ondansetron 4 Mg/2 Ml Vial) 4 mg IVP Q6HR PRN PRN Reason: Nausea And Vomiting Last Admin: 04/05/21 04:53 Dose: 4 mg Documented by: Pantoprazole Sodium (Pantoprazole 40 Mg Tablet) 40 mg PO DAILY [facility] Last Admin: 04/05/21 08:26 Dose: 40 mg Documented by: Physical exam: Gen: This is a 66-year-old male awake, alert and oriented 3, well-developed, well-nourished, morbidly obese. Currently sitting up in the wheelchair HEENT: Head is atraumatic, normocephalic. Pupils equal, round. Sclerae is anicteric. NECK: Supple. No JVD. No lymphadenopathy. No thyromegaly. LUNGS: Diminished breath sounds bilaterally with no wheezing or rhonchi noted. No intercostal retractions. HEART: S1, S2 are muffled ABDOMEN: Soft. Obese. Bowel sounds are present. No masses. tenderness noted all 4 quadrants and palpation. EXTREMITIES: No pedal edema. No calf tenderness. Mild lower extremity edema noted bilaterally, extensive chronic discoloration noted to bilateral lower e xtremities NEUROLOGICAL: Patient is awake, alert and oriented x3. No focal deficits noted. Diffusely weak Assessment: Acute lower GI bleeding of undetermined etiology, possibly diverticulosis Acute kidney injury most likely prerenal acute tubular necrosis Elevated white blood count, possibly reactive Hypoxia Hyponatremia History of chronic obstructive pulmonary disease History of chronic diastolic CHF History of atrial flutter Diabetes mellitus type 2 uncontrolled with hyperglycemia Gastroesophageal reflux disease Degenerative joint disease History of sleep apnea History of AICD history of cardiac ablation GI prophylaxis DVT prophylaxis Full code Plan: Recommend to continue on gentle IV hydration of normal saline as kidney functions had worsened. nephrology following and creatinine today is slightly improved at 1.98. Patient continues to be extremely weak and having episodes of dizziness and will have PT/OT therapy evaluate the patient. PT to evaluate the patient today and patient refused. social work consulted to discuss possible ecf placement and options. No Further episodes of bleeding noted and hemoglobin is stable. Patient has been evaluated by general surgery recommending holding Eliquis until sunday and outpatient colonoscopy to assess further and rectal bleeding. We will continue with gentle IV hydration and repeat labs in the morning. Encouraged increase oral intake and increase activity as tolerated. Due to multiple complex medical issues, prognosis is guarded. Objective - Vital Signs Vital signs: Vital Signs Temp 98.0 F 04/05/21 07:00 Pulse 68 04/05/21 08:44 Resp 18 04/05/21 08:44 BP 100/61 04/05/21 07:00 Pulse Ox 89 L 04/05/21 08:44 Intake & Output 04/04/21 04/05/21 04/05/21 18:59 06:59 18:59 Output Total 200 Balance -200 Weight 158.757 kg Output: Urine 200 Other: Voiding Method Toilet Toilet Urinal Urinal # Voids 1 3 - Labs CBC & Chem 7: 04/04/21 05:29 04/05/21 06:40 Labs: Abnormal Lab Results - Last 24 Hours (Table) 04/04/21 04/04/21 04/04/21 Range/Units 05:29 05:29 12:15 WBC 17.02 H (4.50-10.00) X 10*3/uL Immature Gran # 0.15 H (0.00-0.04) X 10*3/uL Neutrophils # 13.90 H (1.80-7.70) X 10*3/uL Monocytes # 1.70 H (0.20-1.00) X 10*3/uL Eosinophils # 0.03 L (0.04-0.35) X 10*3/uL Sodium 132 L (135-145) mmol/L Chloride 91 L (96-109) mmol/L Carbon Dioxide 19.6 L (21.6-31.8) mmol/L Anion Gap 21.40 H (4.00-12.00) mmol/L BUN 36.0 H (9.0-27.0) mg/dL Creatinine 2.4 H (0.6-1.5) mg/dL Est GFR (CKD-EPI)AfAm 31.8 L (60.0-200.0) Est GFR (CKD-EPI)NonAf 27.5 L (60.0-200.0) Glucose 169 H (70-110) mg/dL POC Glucose (mg/dL) 198 H (75-99) mg/dL Calcium 8.2 L (8.7-10.3) mg/dL Magnesium (1.6-2.3) mg/dL 04/04/21 04/04/21 04/05/21 Range/Units 17:13 20:25 06:40 WBC (4.50-10.00) X 10*3/uL Immature Gran # (0.00-0.04) X 10*3/uL Neutrophils # (1.80-7.70) X 10*3/uL Monocytes # (0.20-1.00) X 10*3/uL Eosinophils # (0.04-0.35) X 10*3/uL Sodium 128 L (135-145) mmol/L Chloride 90 L (96-109) mmol/L Carbon Dioxide (21.6-31.8) mmol/L Anion Gap (4.00-12.00) mmol/L BUN 51 H (9.0-27.0) mg/dL Creatinine 1.98 H (0.6-1.5) mg/dL Est GFR (CKD-EPI)AfAm (60.0-200.0) Est GFR (CKD-EPI)NonAf (60.0-200.0) Glucose 203 H (70-110) mg/dL POC Glucose (mg/dL) 209 H 216 H (75-99) mg/dL Calcium (8.7-10.3) mg/dL Magnesium 1.2 L (1.6-2.3) mg/dL 04/05/21 Range/Units 07:11 WBC (4.50-10.00) X 10*3/uL Immature Gran # (0.00-0.04) X 10*3/uL Neutrophils # (1.80-7.70) X 10*3/uL Monocytes # (0.20-1.00) X 10*3/uL Eosinophils # (0.04-0.35) X 10*3/uL Sodium (135-145) mmol/L Chloride (96-109) mmol/L Carbon Dioxide (21.6-31.8) mmol/L Anion Gap (4.00-12.00) mmol/L BUN (9.0-27.0) mg/dL Creatinine (0.6-1.5) mg/dL Est GFR (CKD-EPI)AfAm (60.0-200.0) Est GFR (CKD-EPI)NonAf (60.0-200.0) Glucose (70-110) mg/dL POC Glucose (mg/dL) 205 H (75-99) mg/dL Calcium (8.7-10.3) mg/dL Magnesium (1.6-2.3) mg/dL
[2021-04-05 17:42] LABS: Glucose,Whole Blood 238 mg/dL (75-99)
[2021-04-05 20:28] LABS: Glucose,Whole Blood 153 mg/dL (75-99)
[2021-04-05] MEDS: MONTELUKAST 10 MG TAB PO SCH (22:25)
[2021-04-05] MEDS: HYDROcodone/APAP 10-325MG 1 EACH TAB PO PRN (22:25)
[2021-04-06] MEDS: ALBUTEROL NEBULIZED 2.5 MG/3 ML INHALATION PRN ×3 (00:01→11:29)
[2021-04-06] MEDS: HYDROcodone/APAP 10-325MG 1 EACH TAB PO PRN (05:52)
[2021-04-06 06:08] LABS: African American GFR (CKD) 63 (>60 ml/min/1.73 sqM); Anion Gap 13 mmol/L; Blood Urea Nitrogen 52 mg/dL (9-20); Calcium 8.2 mg/dL (8.4-10.2); Carbon Dioxide 24 mmol/L (22-30); Chloride 90 mmol/L (98-107); Glucose 165 mg/dL (74-99); Non-African American GFR(CKD) 54 (>60 ml/min/1.73 sqM); Sodium 127 mmol/L (137-145)
[2021-04-06 06:21] LABS: Magnesium 2.1 mg/dL (1.6-2.3); Potassium 4.1 mmol/L (3.5-5.1)
[2021-04-06 07:40] LABS: Glucose,Whole Blood 180 mg/dL (75-99)
[2021-04-06] MEDS: SYMBICORT 160-4.5 MCG INHALER INHALATION SCH ×2 (07:48→20:37)
[2021-04-06] MEDS: IPRATROPIUM-ALBUTEROL 3 ML NEB INHALATION SCH ×4 (07:48→20:37)
[2021-04-06] MEDS: ATORVASTATIN 40 MG TAB PO SCH (09:54)
[2021-04-06] MEDS: PANTOPRAZOLE 40 MG TABLET PO SCH (09:54)
[2021-04-06] MEDS: ACETAMINOPHEN TAB 325 MG TAB PO PRN ×2 (09:55→18:19)
[2021-04-06] MEDS: allopurinoL 100 MG TAB PO SCH (09:55)
[2021-04-06] MEDS: METOPROLOL SUCCINATE (ER) 100 MG TAB.ER.24H PO SCH (09:57)
[2021-04-06] MEDS: FAMOTIDINE 20 MG/2 ML VIAL IV SCH (09:59)
[2021-04-06] MEDS: INSULIN ASPART (NovoLOG) 100 UNIT/ML VIAL SQ SCH ×4 (10:11→21:00)
--- NOTE | 2021-04-06 11:48 | P.PN ---
Subjective Patient is seen in follow-up for acute kidney injury. Renal function is improving. Sodium level CXXVII. Oral intake fair. States he's been inter mittently vomiting. Has been voiding. Hemodynamically stable. Vital signs are stable. General: The patient appeared well nourished and normally developed. HEENT: Head exam is unremarkable. LUNGS: Breath sounds decreased. HEART: Rate and Rhythm are regular. ABDOMEN: Soft, obese. EXTREMITITES: Chronic changes noted. Objective - Vital Signs Vital signs: Vital Signs Temp 97.9 F 04/06/21 07:00 Pulse 60 04/06/21 11:42 Resp 15 04/06/21 08:00 BP 118/65 04/06/21 07:00 Pulse Ox 88 L 04/06/21 07:00 Intake & Output 04/05/21 04/06/21 04/06/21 18:59 06:59 18:59 Intake Total 450 240 Output Total 600 650 300 Balance -150 -650 -60 Intake: Oral 450 240 Output: Urine 600 650 300 Other: Voiding Method Toilet Toilet Toilet Urinal Urinal Urinal # Voids 3 2 2 - Labs CBC & Chem 7: 04/04/21 05:29 04/06/21 05:04 Labs: Abnormal Lab Results - Last 24 Hours (Table) 04/05/21 04/05/21 04/05/21 Range/Units 12:01 17:34 20:27 Sodium (137-145) mmol/L Chloride (98-107) mmol/L BUN (9-20) mg/dL Creatinine (0.66-1.25) mg/dL Glucose (74-99) mg/dL POC Glucose (mg/dL) 217 H 238 H 153 H (75-99) mg/dL Calcium (8.4-10.2) mg/dL 04/06/21 04/06/21 Range/Units 05:04 07:37 Sodium 127 L (137-145) mmol/L Chloride 90 L (98-107) mmol/L BUN 52 H (9-20) mg/dL Creatinine 1.37 H (0.66-1.25) mg/dL Glucose 165 H (74-99) mg/dL POC Glucose (mg/dL) 180 H (75-99) mg/dL Calcium 8.2 L (8.4-10.2) mg/dL Assessment and Plan Plan: Assessment: 1. Acute kidney injury secondary to ATN secondary to contrast-induced acute kidney injury as well as diuresis. Patient received IV contrast on April 01. Creatinine peaked at 2.4 this admission and is 1.37 today. UA is fairly benign. No hydronephrosis noted on CAT scan. Baseline creatinine near 1. 2. Acute on chronic systolic CHF with ejection fraction of 40-45% with severe tricuspid regurgitation and pulmonary hypertension. 3. Hyponatremia secondary to acute kidney injury and hyperglycemia. Urine osmolality 380. 4. Hypomagnesemia from diuresis and GI losses. Replace. Better. 5. Diabetes mellitus. Plan: Hep-Lock IV fluids. Resume Lasix 40 mg orally once daily. Tight blood sugar control. 1200 mL fluid restriction. Continue to monitor renal function and urine output. Follow-up urine sodium. Check TSH.
[2021-04-06] MEDS: SODIUM CHLORIDE 0.9% 1,000 ML IV SCH (12:33)
[2021-04-06 12:51] LABS: Glucose,Whole Blood 206 mg/dL (75-99)
[2021-04-06] MEDS: FUROSEMIDE 40 MG TAB PO SCH (13:36)
[2021-04-06 17:51] LABS: Glucose,Whole Blood 180 mg/dL (75-99)
[2021-04-06 20:22] LABS: Glucose,Whole Blood 250 mg/dL (75-99)
[2021-04-06 20:54] VITALS: RESP 18
[2021-04-06] MEDS: MONTELUKAST 10 MG TAB PO SCH (21:00)
[2021-04-07] MEDS: ALBUTEROL NEBULIZED 2.5 MG/3 ML INHALATION PRN ×2 (01:16→04:40)
--- NOTE | 2021-04-07 05:44 | P.PN ---
Subjective Progress Note Date: 04/06/21 This is a 66-year-old male who was recently admitted with rectal bleeding with a possible acute lower GI bleeding being closely monitored. Hemoglobin is stable and no active signs of bleeding noted. Patient was seen and evaluated by general surgery recommending to continue holding Eliquis for 5-7 days and close monitoring of any further bleeding with outpatient colonoscopy when stable. Patient also having extreme weakness and feelings of dizziness with cardiology following. Patient was maintained on Lasix and Aldactone which will be on hold as patient's kidney functions have worsened today. 04/05/2021 Patient seen and evaluated in follow-up this morning continues to be extremely weak and states he has been having multiple episodes of dry heaving and inability to tolerate oral intake. Patient was started on gentle IV hydration and Lasix and Aldactone discontinued and nephrology consulted. Patient being placed on fluid restrictions and will continue gentle IV hydration with repeat labs in the morning. Patient continues to be weak and dizzy and have consulted PT/OT therapy with a possible social work consult as he states he is unable to even stand and may benefit from subacute rehab. Apparently patient refused working with physical therapy today. Sodium today is 128, potassium 4.3, BUN 51, creatinine slightly improved at 1.98. Magnesium extremely low at 1.2 and will replace. Osmolality also ordered and pending. Patient is afebrile. Patient continues to have low oxygen saturation rates and instructed the patient to use oxygen as needed and is refusing. Patient is 89% on room air. Patient to continue with breathing inhalational treatments. 04/06/2021 Patient is seen in follow up this morning and attempting to work with physical therapy this morning but states he feels extremely weak and unable to move much. Patient states he is having difficulty standing and even lifting small objects. Patient also discussing with social work about possible rehab although patient is refusing at this time stating he had a bad experience at an psychiatric hospital before and they did not help him. Patient sodium islow at 127 and nephrology following. Patient being started on lasix po 40mg daily and will repeat am labs. Magnesium improved today after replacement and is 2.1. Review of systems: Constitutional: reports of fatigue, no reports of fever, or chills Cardiovascular: No reports of chest pain or palpitations Respiratory: reports of shortness of breath GI: reports of nausea and dry heaving and unable to tolerate diet : No reports of dysuria or retention Neurovascular: reports of weakness and extreme dizziness All medications have been reviewed Active Medications Acetaminophen (Acetaminophen Tab 325 Mg Tab) 650 mg PO Q6HR PRN PRN Reason: Mild Pain or Fever > 100.5 Last Admin: 04/06/21 18:19 Dose: 650 mg Documented by: Hydrocodone Bitart/Acetaminophen (Hydrocodone/Apap 10-325mg 1 Each Tab) 1 each PO TID PRN PRN Reason: Pain Last Admin: 04/06/21 05:52 Dose: 1 each Documented by: Albuterol Sulfate (Albuterol Nebulized 2.5 Mg/3 Ml) 2.5 mg INHALATION RT-QID PRN PRN Reason: Shortness Of Breath Last Admin: 04/07/21 04:40 Dose: 2.5 mg Documented by: Albuterol/Ipratropium (Ipratropium-Albuterol 3 Ml Neb) 3 ml INHALATION RT-QID [facility] Last Admin: 04/06/21 20:37 Dose: 3 ml Documented by: Allopurinol (Allopurinol 100 Mg Tab) 200 mg PO DAILY [facility] Last Admin: 04/06/21 09:55 Dose: 200 mg Documented by: Atorvastatin Calcium (Atorvastatin 40 Mg Tab) 40 mg PO DAILY [facility] Last Admin: 04/06/21 09:54 Dose: 40 mg Documented by: Budesonide/Formoterol Fumarate (Symbicort 160-4.5 Mcg Inhaler) 2 puff INHALATION RT-BID [facility] Last Admin: 04/06/21 20:37 Dose: 2 puff Documented by: Ergocalciferol (Ergocalciferol 1,250 Mcg (50,000 Iu) Capsule) 1,250 mcg PO FR [facility] Last Admin: 04/01/21 22:17 Dose: Not Given Documented by: Famotidine (Famotidine 20 Mg/2 Ml Vial) 20 mg IV Q24HR [facility] Last Admin: 04/06/21 09:59 Dose: 20 mg Documented by: Furosemide (Furosemide 40 Mg Tab) 40 mg PO DAILY [facility] Last Admin: 04/06/21 13:36 Dose: 40 mg Documented by: Insulin Aspart (Insulin Aspart (Novolog) 100 Unit/Ml Vial) 0 unit SQ [facility]; Protocol Last Admin: 04/06/21 21:00 Dose: 8 unit Documented by: Metoprolol Succinate (Metoprolol Succinate (Er) 100 Mg Tab.Er.24h) 200 mg PO DAILY [facility] Last Admin: 04/06/21 09:57 Dose: 200 mg Documented by: Miscellaneous Information (Magnesium Replacement Protocol 1 Each Misc) 1 each MISCELLANE DAILY PRN; Protocol PRN Reason: Per Protocol Montelukast Sodium (Montelukast 10 Mg Tab) 10 mg PO HS [facility] Last Admin: 04/06/21 21:00 Dose: 10 mg Documented by: Naloxone HCl (Naloxone 0.4 Mg/Ml 1 Ml Vial) 0.2 mg IV Q2M PRN PRN Reason: Opioid Reversal Ondansetron HCl (Ondansetron 4 Mg/2 Ml Vial) 4 mg IVP Q6HR PRN PRN Reason: Nausea And Vomiting Last Admin: 04/05/21 04:53 Dose: 4 mg Documented by: Pantoprazole Sodium (Pantoprazole 40 Mg Tablet) 40 mg PO DAILY [facility] Last Admin: 04/06/21 09:54 Dose: 40 mg Documented by: Physical exam: Gen: This is a 66-year-old male awake, alert and oriented 3, well-developed, well-nourished, morbidly obese. HEENT: Head is atraumatic, normocephalic. Pupils equal, round. Sclerae is anicteric. NECK: Supple. No JVD. No lymphadenopathy. No thyromegaly. LUNGS: Diminished breath sounds bilaterally with no wheezing or rhonchi noted. No intercostal retractions. HEART: S1, S2 are muffled ABDOMEN: Soft. Obese. Bowel sounds are present. No masses. non-tender. EXTREMITIES: No pedal edema. No calf tenderness. Mild lower extremity edema noted bilaterally, extensive chronic discoloration noted to bilateral lower extremities NEUROLOGICAL: Patient is awake, alert and oriented x3. No focal deficits noted. Diffusely weak Assessment: Acute lower GI bleeding of undetermined etiology, possibly diverticulosis Acute kidney injury most likely prerenal acute tubular necrosis Elevated white blood count, possibly reactive Hypoxia Hyponatremia History of chronic obstructive pulmonary disease History of chronic diastolic CHF History of atrial flutter Diabetes mellitus type 2 uncontrolled with hyperglycemia Gastroesophageal reflux disease Degenerative joint disease History of sleep apnea History of AICD history of cardiac ablation GI prophylaxis DVT prophylaxis Full code Plan: Recommend to continue on oral lasix. nephrology following and creatinine today is trending down. Patient continues to be extremely weak and having episodes of dizziness and have had PT/OT therapy evaluate the patient recommending MIREYA at discharge. patient is refusing rehab. social work following. No Further episodes of bleeding noted and hemoglobin is stable. Patient has been evaluated by general surgery recommending holding Eliquis until sunday and outpatient colonoscopy to assess further and rectal bleeding. repeat labs in the morning. Encouraged increase oral intake and increase activity as tolerated. Due to multiple complex medical issues, prognosis is guarded. Possible discharge in 24 hours. Objective - Vital Signs Vital signs: Vital Signs Temp 97.9 F 04/06/21 07:00 Pulse 60 04/06/21 11:42 Resp 15 04/06/21 08:00 BP 118/65 04/06/21 07:00 Pulse Ox 88 L 04/06/21 07:00 Intake & Output 04/05/21 04/06/21 04/06/21 18:59 06:59 18:59 Intake Total 450 240 Output Total 600 650 300 Balance -150 -650 -60 Intake: Oral 450 240 Output: Urine 600 650 300 Other: Voiding Method Toilet Toilet Toilet Urinal Urinal Urinal # Voids 3 2 2 - Labs CBC & Chem 7: 04/04/21 05:29 04/06/21 05:04 Labs: Abnormal Lab Results - Last 24 Hours (Table) 04/05/21 04/05/21 04/06/21 Range/Units 17:34 20:27 05:04 Sodium 127 L (137-145) mmol/L Chloride 90 L (98-107) mmol/L BUN 52 H (9-20) mg/dL Creatinine 1.37 H (0.66-1.25) mg/dL Glucose 165 H (74-99) mg/dL POC Glucose (mg/dL) 238 H 153 H (75-99) mg/dL Calcium 8.2 L (8.4-10.2) mg/dL 04/06/21 04/06/21 Range/Units 07:37 12:49 Sodium (137-145) mmol/L Chloride (98-107) mmol/L BUN (9-20) mg/dL Creatinine (0.66-1.25) mg/dL Glucose (74-99) mg/dL POC Glucose (mg/dL) 180 H 206 H (75-99) mg/dL Calcium (8.4-10.2) mg/dL
[2021-04-07] MEDS: HYDROcodone/APAP 10-325MG 1 EACH TAB PO PRN (05:46)
[2021-04-07 06:30] LABS: African American GFR (CKD) >90 (>60 ml/min/1.73 sqM); Anion Gap 9 mmol/L; Blood Urea Nitrogen 45 mg/dL (9-20); Calcium 8.2 mg/dL (8.4-10.2); Carbon Dioxide 28 mmol/L (22-30); Chloride 92 mmol/L (98-107); Glucose 120 mg/dL (74-99); Magnesium 2.2 mg/dL (1.6-2.3); Non-African American GFR(CKD) 78 (>60 ml/min/1.73 sqM); Potassium 3.9 mmol/L (3.5-5.1); Sodium 129 mmol/L (137-145)
[2021-04-07 07:30] LABS: Glucose,Whole Blood 161 mg/dL (75-99)
[2021-04-07] MEDS: ACETAMINOPHEN TAB 325 MG TAB PO PRN (07:44)
[2021-04-07] MEDS: FUROSEMIDE 40 MG TAB PO SCH (07:45)
[2021-04-07] MEDS: allopurinoL 100 MG TAB PO SCH (07:45)
[2021-04-07] MEDS: INSULIN ASPART (NovoLOG) 100 UNIT/ML VIAL SQ SCH ×2 (07:46→12:17)
[2021-04-07] MEDS: ATORVASTATIN 40 MG TAB PO SCH (07:46)
[2021-04-07] MEDS: METOPROLOL SUCCINATE (ER) 100 MG TAB.ER.24H PO SCH (07:47)
[2021-04-07 08:09] VITALS: BP 120/75; TEMP 98.3
[2021-04-07] MEDS: SYMBICORT 160-4.5 MCG INHALER INHALATION SCH (08:12)
[2021-04-07] MEDS: IPRATROPIUM-ALBUTEROL 3 ML NEB INHALATION SCH ×2 (08:12→11:48)
[2021-04-07] MEDS: PANTOPRAZOLE 40 MG TABLET PO SCH (08:15)
[2021-04-07] MEDS: FAMOTIDINE 20 MG/2 ML VIAL IV SCH (08:15)
--- NOTE | 2021-04-07 10:23 | P.PN ---
Subjective Patient is seen in follow-up for acute kidney injury. Renal function is improving. Sodium level 129. Oral intake fair. No further vomiting. Has been voiding. Hemodynamically stable. Vital signs are stable. General: The patient appeared well nourished and normally developed. HEENT: Head exam is unremarkable. LUNGS: Breath sounds decreased. HEART: Rate and Rhythm are regular. ABDOMEN: Soft, obese. EXTREMITITES: Chronic changes noted. Objective - Vital Signs Vital signs: Vital Signs Temp 98.3 F 04/07/21 07:00 Pulse 72 04/07/21 08:29 Resp 18 04/07/21 07:00 BP 120/75 04/07/21 07:00 Pulse Ox 95 04/07/21 07:00 Intake & Output 04/06/21 04/07/21 04/07/21 18:59 06:59 18:59 Intake Total 540 600 Output Total 600 900 Balance -60 -300 Intake: Oral 540 600 Output: Urine 600 900 Other: Voiding Method Toilet Toilet Urinal Urinal # Voids 1 1 - Labs CBC & Chem 7: 04/04/21 05:29 04/07/21 04:39 Labs: Abnormal Lab Results - Last 24 Hours (Table) 04/05/21 04/06/21 04/06/21 Range/Units 13:29 12:49 17:49 Sodium (137-145) mmol/L Chloride (98-107) mmol/L BUN (9-20) mg/dL Glucose (74-99) mg/dL POC Glucose (mg/dL) 206 H 180 H (75-99) mg/dL Calcium (8.4-10.2) mg/dL Ur Random Sodium <20 L (40-220) mmol/L 04/06/21 04/07/21 04/07/21 Range/Units 20:21 04:39 07:28 Sodium 129 L (137-145) mmol/L Chloride 92 L (98-107) mmol/L BUN 45 H (9-20) mg/dL Glucose 120 H (74-99) mg/dL POC Glucose (mg/dL) 250 H 161 H (75-99) mg/dL Calcium 8.2 L (8.4-10.2) mg/dL Ur Random Sodium (40-220) mmol/L Assessment and Plan Plan: Assessment: 1. Acute kidney injury secondary to ATN secondary to contrast-induced acute kidney injury as well as diuresis. Patient received IV contrast on April 01. Creatinine peaked at 2.4 this admission and is 1.01 today. UA is fairly benign. No hydronephrosis noted on CAT scan. Baseline creatinine near 1. 2. Acute on chronic systolic CHF with ejection fraction of 40-45% with severe tricuspid regurgitation and pulmonary hypertension. 3. Hyponatremia secondary to acute kidney injury and hyperglycemia. Urine osmolality 380. Urine sodium less than 20. TSH normal. 4. Hypomagnesemia from diuresis and GI losses. Replaced. Better. 5. Diabetes mellitus. Plan: Maintain lasix 40 mg orally once daily. Tight blood sugar control. 1200 mL fluid restriction. Continue to monitor renal function and urine output. Anticipate discharge soon. Repeat BMP and magnesium level 2-3 days postdischarge. Follow up outpatient in 1 week. Advised the patient to maintain low salt diet and a 40 ounce fluid restriction per day. He is also been advised to monitor his weight closely at home and to call if gains more than 3 pounds in 1 week duration.
[2021-04-07 11:52] LABS: Glucose,Whole Blood 231 mg/dL (75-99)
[2021-04-07 12:03] VITALS: PULSE 68
--- NOTE | 2021-04-07 17:00 | P.DS ---
Providers Date of admission: 04/04/21 12:16 Expected date of discharge: 04/07/21 Attending physician: Gabo Urbina Consults: 04/01/21 20:58 Consult Physician Routine Consulting Provider: Daniel Montiel Consult Reason/Comments: afib Do you want consulting provider notified?: Yes 04/02/21 10:13 Consult Physician Routine Consulting Provider: Nina Bryan Consult Reason/Comments: rectal bleeding Do you want consulting provider notified?: Yes 04/04/21 13:49 Consult Physician Urgent Consulting Provider: Kj Tapia Consult Reason/Comments: KUN Do you want consulting provider notified?: Yes Primary care physician: Melisa Owens Hospital Course: Final diagnosis Acute lower GI bleeding of undetermined etiology, possibly diverticulosis Acute kidney injury most likely prerenal acute tubular necrosis Elevated white blood count, possibly reactive Hypoxia Hyponatremia History of chronic obstructive pulmonary disease History of chronic diastolic CHF History of atrial flutter Diabetes mellitus type 2 uncontrolled with hyperglycemia Gastroesophageal reflux disease Degenerative joint disease History of sleep apnea History of AICD history of cardiac ablation GI prophylaxis DVT prophylaxis Full code Discharge disposition Patient is being discharged in a stable condition with guarded prognosis to home. Patient will follow-up with Dr. Owens in the outpatient setting upon discharge. Patient is to continue with lasix 40mg daily and close outpatient follow up with nephrology and surgery. Prescriptions for repeat labs provided on discharge. Total time taken is greater than 35 minutes. Hospital course This is a 66-year-old male who was recently admitted with rectal bleeding with a possible acute lower GI bleeding being closely monitored. Hemoglobin is stable and no active signs of bleeding noted. Patient was seen and evaluated by general surgery recommending to continue holding Eliquis for 5-7 days and close monitoring of any further bleeding with outpatient colonoscopy when stable. Patient also having extreme weakness and feelings of dizziness with cardiology following. Patient was maintained on Lasix and Aldactone which will be on hold as patient's kidney functions have worsened today. 04/05/2021 Patient seen and evaluated in follow-up this morning continues to be extremely weak and states he has been having multiple episodes of dry heaving and inability to tolerate oral intake. Patient was started on gentle IV hydration and Lasix and Aldactone discontinued and nephrology consulted. Patient being placed on fluid restrictions and will continue gentle IV hydration with repeat labs in the morning. Patient continues to be weak and dizzy and have consulted PT/OT therapy with a possible social work consult as he states he is unable to even stand and may benefit from subacute rehab. Apparently patient refused working with physical therapy today. Sodium today is 128, potassium 4.3, BUN 51, creatinine slightly improved at 1.98. Magnesium extremely low at 1.2 and will replace. Osmolality also ordered and pending. Patient is afebrile. Patient continues to have low oxygen saturation rates and instructed the patient to use oxygen as needed and is refusing. Patient is 89% on room air. Patient to continue with breathing inhalational treatments. 04/06/2021 Patient is seen in follow up this morning and attempting to work with physical therapy this morning but states he feels extremely weak and unable to move much. Patient states he is having difficulty standing and even lifting small objects. Patient also discussing with social work about possible rehab although patient is refusing at this time stating he had a bad experience at an [facility] before and they did not help him. Patient sodium islow at 127 and nephrology following. Patient being started on lasix po 40mg daily and will repeat am labs. Magnesium improved today after replacement and is 2.1. 04/07/2021 Patient was seen and evaluated this morning and patient was agreeable to rehab at [facility] and plans were for discharge today is sodium has improved and creatinine is trending down and patient stated he was not able to go to rehab until tomorrow and then refused rehab and wanted to go home. Patient will be continued on oral Lasix 40 mg daily and recommending close outpatient follow- up with nephrology and repeat labs of BMP and magnesium along with CBC in 2 days and prescriptions were provided. Patient continued to have extreme weakness stating he was unable to move his upper extremities although was found multiple times having no difficulty with moving around in the room of upper extremities. Patient also refusing Homecare as social work worked with him and he continued to refuse. Discussed with the patient about following up with neurology in the outpatient setting for further studies in regards to nerve conduction imaging. Patient also to follow-up outpatient with surgery for colonoscopy as discussed with Dr. Bryan. Currently no reports of chest pain, shortness of breath, or palpitations. Patient is afebrile. No reports of nausea or vomiting and patient is tolerating diet. Patient will be discharged home today. Guarded prognosis. Gen: This is a 66-year-old male awake, alert and oriented 3, well-developed, well-nourished, morbidly obese. HEENT: Head is atraumatic, normocephalic. Pupils equal, round. Sclerae is anicteric. NECK: Supple. No JVD. No lymphadenopathy. No thyromegaly. LUNGS: Diminished breath sounds bilaterally with no wheezing or rhonchi noted. No intercostal retractions. HEART: S1, S2 are muffled ABDOMEN: Soft. Obese. Bowel sounds are present. No masses. non-tender. EXTREMITIES: No pedal edema. No calf tenderness. Mild lower extremity edema noted bilaterally, extensive chronic discoloration noted to bilateral lower extremities NEUROLOGICAL: Patient is awake, alert and oriented x3. No focal deficits noted. Diffusely weak Please refer to medication reconciliation sheet for a list of medications. Patient Condition at Discharge: Fair Plan - Discharge Summary New Discharge Prescriptions: New Furosemide [Lasix] 40 mg PO DAILY tab Pantoprazole [Protonix] 40 mg PO DAILY tab Ondansetron Odt [Zofran Odt] 4 mg PO Q8HR PRN #20 tab PRN Reason: Nausea Continue Albuterol Nebulized [Ventolin Nebulized] 2.5 mg INHALATION RT-QID Metoprolol Succinate [Toprol XL] 200 mg PO DAILY metFORMIN HCL ER [Glucophage XR] 500 mg PO Q12H Montelukast [Singulair] 10 mg PO HS Atorvastatin [Lipitor] 40 mg PO DAILY allopurinoL [Zyloprim] 200 mg PO DAILY Albuterol Sulfate [Ventolin HFA] 2 puff INHALATION RT-QID PRN PRN Reason: Shortness Of Breath Ipratropium Nebulized [Atrovent Nebulized 0.2 MG/ML] 0.5 mg INHALATION RT-QID Ibuprofen [Motrin] 400 mg PO DAILY PRN PRN Reason: Pain Docusate [Colace] 100 mg PO DAILY PRN PRN Reason: Constipation Budesonide/Formoterol Fumarate [Symbicort 160-4.5 Mcg Inhaler] 2 puff INHALATION RT-BID Ergocalciferol [Vitamin D2 (1250 Mcg = 63814 Iu)] 1,250 mcg PO FR EPINEPHrine (Auto Inject) [Epipen] 0.3 mg IM ONCE PRN PRN Reason: Anaphylaxis Apixaban [Eliquis] 5 mg PO DIRECTED #0 HYDROcodone/APAP 10-325MG [[place] 10-325] 1 tab PO TID PRN #10 tab PRN Reason: Pain Discontinued Omeprazole 40 mg PO DAILY Furosemide [Lasix] 40 mg PO BID #60 tab Sacubitril/Valsartan [Entresto 24 mg-26 mg Tablet] 1 tab PO BID Spironolactone [Aldactone] 25 mg PO DAILY Discharge Medication List Albuterol Nebulized [Ventolin Nebulized] 2.5 mg INHALATION RT-QID 05/20/15 [History] Metoprolol Succinate [Toprol XL] 200 mg PO DAILY 03/01/16 [History] Albuterol Sulfate [Ventolin HFA] 2 puff INHALATION RT-QID PRN 07/28/19 [History] Atorvastatin [Lipitor] 40 mg PO DAILY 07/28/19 [History] Ipratropium Nebulized [Atrovent Nebulized 0.2 MG/ML] 0.5 mg INHALATION RT-QID 07/28/19 [History] Montelukast [Singulair] 10 mg PO HS 07/28/19 [History] allopurinoL [Zyloprim] 200 mg PO DAILY 07/28/19 [History] metFORMIN HCL ER [Glucophage XR] 500 mg PO Q12H 07/28/19 [History] Budesonide/Formoterol Fumarate [Symbicort 160-4.5 Mcg Inhaler] 2 puff INHALATION RT-BID 03/31/21 [History] EPINEPHrine (Auto Inject) [Epipen] 0.3 mg IM ONCE PRN 03/31/21 [History] Ergocalciferol [Vitamin D2 (1250 Mcg = 91637 Iu)] 1,250 mcg PO FR 03/31/21 [History] Ibuprofen [Motrin] 400 mg PO DAILY PRN 03/31/21 [History] Docusate [Colace] 100 mg PO DAILY PRN 04/01/21 [History] Apixaban [Eliquis] 5 mg PO DIRECTED #0 04/07/21 [Rx] Furosemide [Lasix] 40 mg PO DAILY tab 04/07/21 [Rx] HYDROcodone/APAP 10-325MG [[place] 10-325] 1 tab PO TID PRN #10 tab 04/07/21 [Rx] Ondansetron Odt [Zofran Odt] 4 mg PO Q8HR PRN #20 tab 04/07/21 [Rx] Pantoprazole [Protonix] 40 mg PO DAILY tab 04/07/21 [Rx] Follow up Appointment(s)/Referral(s): Rafa Collazo MD [STAFF PHYSICIAN] - 1 Week Melisa Owens MD [Primary Care Provider] - 1 Week Ambulatory/Diagnostic Orders: Basic Metabolic Panel [LAB.AMB] Time Frame: 3 Days, Location: None Selected Complete Blood Count w/diff [LAB.AMB] Location: None Selected Patient Instructions/Handouts: Rectal Bleeding (ED) Activity/Diet/Wound Care/Special [facility]ructions[facility] as tolerated Continue heart healthy consistent carb diet Recommend to continue monitoring blood sugars before meals and at bedtime and keep a diary for primary care follow-up Continue 1200 mL fluid restriction and low-salt diet Repeat BMP and magnesium and CBC in 2-3 days Outpatient follow-up with nephrology in one week Follow-up with neurology outpatient for further studies Follow-up outpatient with GI or surgery for colonoscopy Discharge Disposition: TRANSFER TO SNF/ECF
== END 2021-04-07 14:37 | DRG 682 ==
LOC: EC 14:46 → 6NMEDSUR 18:30 → OBSVTOIN 04-04 12:16 → 6NMEDSUR 04-05 17:11
PROVIDERS: ADMIT Hospitalist; ATTEND Hospitalist
DX: N17.0 Acute kidney failure with tubular necrosis (principal); I50.43 Acute on chronic combined systolic (congestive) and diastolic (congestive) heart failure; K57.31 Diverticulosis of large intestine without perforation or abscess with bleeding; E87.1 Hypo-osmolality and hyponatremia; I42.8 Other cardiomyopathies; I48.19 Other persistent atrial fibrillation; I48.92 Unspecified atrial flutter; K51.911 Ulcerative colitis, unspecified with rectal bleeding; Z68.43 Body mass index [BMI] 50.0-59.9, adult; J44.0 Chronic obstructive pulmonary disease with (acute) lower respiratory infection; I11.0 Hypertensive heart disease with heart failure; Z20.822 Contact with and (suspected) exposure to COVID-19; E11.65 Type 2 diabetes mellitus with hyperglycemia; E66.01 Morbid (severe) obesity due to excess calories; E83.42 Hypomagnesemia; T50.8X5A Adverse effect of diagnostic agents, initial encounter; R09.02 Hypoxemia; I49.5 Sick sinus syndrome; E87.8 Other disorders of electrolyte and fluid balance, not elsewhere classified; F41.9 Anxiety disorder, unspecified; G47.33 Obstructive sleep apnea (adult) (pediatric); G89.29 Other chronic pain; I07.1 Rheumatic tricuspid insufficiency; I27.20 Pulmonary hypertension, unspecified; K21.9 Gastro-esophageal reflux disease without esophagitis; K64.9 Unspecified hemorrhoids; M19.90 Unspecified osteoarthritis, unspecified site; Z95.810 Presence of automatic (implantable) cardiac defibrillator; Z79.01 Long term (current) use of anticoagulants; Z79.51 Long term (current) use of inhaled steroids; Z79.84 Long term (current) use of oral hypoglycemic drugs; Z79.899 Other long term (current) drug therapy; Z87.01 Personal history of pneumonia (recurrent)
CPT/HCPCS: 36415; 71045; 74178; 80048; 80053; 81003; 83036; 83735; 83930; 83935; 84300; 84443; 84550; 85025; 85610; 85730; 87635; 94640; 94760; 99285

== ENCOUNTER → 2021-04-12 | Outpatient (CLI) | payer MEDICARE, OTHER ==
[2021-04-12 19:08] LABS: Basophils # (A) 0.05 X 10*3/uL (0.00-0.10); Basophils % (A) 0.5 %; Eosinophils # (A) 0.06 X 10*3/uL (0.04-0.35); Eosinophils % (A) 0.6 %; HCT 45.8 % (39.6-50.0); HGB 15.4 g/dL (13.0-17.0); Lymphocytes # (A) 1.02 X 10*3/uL (0.90-5.00); MCH 31.8 pg (27.0-32.0); MCHC 33.6 g/dL (32.0-37.0); MCV 94.4 fL (80.0-97.0); Mean Platelet Volume 10.8 fL (9.5-12.2); Monocytes # (A) 0.77 X 10*3/uL (0.20-1.00); Monocytes % (A) 8.3 %; Neutrophils # (A) 7.25 X 10*3/uL (1.80-7.70); Neutrophils % (A) 78.6 %; Platelet Count 316 X 10*3/uL (140-440); RBC 4.85 X 10*6/uL (4.40-5.60); RDW 12.8 % (11.5-14.5); WBC 9.24 X 10*3/uL (4.50-10.00)
[2021-04-13 04:47] LABS: African American GFR (CKD) 123.1 (60.0-200.0); Anion Gap 16.6 mmol/L (4.00-12.00); BUN/Creat Ratio 30.67 Ratio (12.00-20.00); Blood Urea Nitrogen 18.4 mg/dL (9.0-27.0); Calcium 8.7 mg/dL (8.7-10.3); Carbon Dioxide 25.4 mmol/L (21.6-31.8); Non-African American GFR(CKD) 106.3 (60.0-200.0); Potassium 4.3 mmol/L (3.5-5.5)
== END | disposition home or self-care (01) ==
LOC: LABWHC1 12:18
PROVIDERS: ATTEND Hospitalist
DX: D64.9 Anemia, unspecified (principal)
CPT/HCPCS: 36415; 80048; 85025

== ENCOUNTER → 2021-05-04 | Outpatient (CLI) | payer MEDICARE, OTHER ==
[2021-05-04 12:12] LABS: Appearance,Urine Clear (Clear); Bilirubin,Urine Negative (Negative); Blood,Urine Negative (Negative); Color,Urine Yellow; Glucose,Urine (UA) 4+ (Negative); Hyaline Casts,Urine 5 /lpf (0-2); Ketones,Urine Negative (Negative); Leukocyte Esterase,Urine Negative (Negative); Mucus,Urine Rare /hpf; Nitrite,Urine Negative (Negative); PH, Urine 5.5 (5.0-8.0); Protein,Urine 1+ (Negative); RBC,Urine 1 /hpf (0-5); Specific Gravity,Urine 1.016 (1.001-1.035); Urobilinogen,Urine <2.0 mg/dL (<2.0); WBC,Urine 1 /hpf (0-5)
[2021-05-04 20:22] LABS: Basophils # (A) 0.05 X 10*3/uL (0.00-0.10); Basophils % (A) 0.5 %; Eosinophils # (A) 0.03 X 10*3/uL (0.04-0.35); Eosinophils % (A) 0.3 %; HCT 46.5 % (39.6-50.0); HGB 15.3 g/dL (13.0-17.0); Lymphocytes # (A) 0.96 X 10*3/uL (0.90-5.00); Lymphocytes % (A) 8.7 %; MCH 31.5 pg (27.0-32.0); MCHC 32.9 g/dL (32.0-37.0); MCV 95.7 fL (80.0-97.0); Mean Platelet Volume 11.7 fL (9.5-12.2); Monocytes # (A) 0.99 X 10*3/uL (0.20-1.00); Neutrophils # (A) 8.89 X 10*3/uL (1.80-7.70); Neutrophils % (A) 80.8 %; Platelet Count 188 X 10*3/uL (140-440); RBC 4.86 X 10*6/uL (4.40-5.60); RDW 13.6 % (11.5-14.5)
[2021-05-05 00:50] LABS: Magnesium 1.5 mg/dL (1.5-2.4); Phosphorus 2.8 mg/dL (2.4-5.1); Uric Acid 6.1 mg/dL (3.7-8.7)
[2021-05-05 01:01] LABS: % Iron Saturation 17.78 (15.00-50.00); African American GFR (CKD) 107.9 (60.0-200.0); Anion Gap 9.4 mmol/L (4.00-12.00); BUN/Creat Ratio 19.44 Ratio (12.00-20.00); Blood Urea Nitrogen 16.1 mg/dL (9.0-27.0); Calcium 8.7 mg/dL (8.7-10.3); Carbon Dioxide 28.7 mmol/L (21.6-31.8); Non-African American GFR(CKD) 93.1 (60.0-200.0); Potassium 4.6 mmol/L (3.5-5.5)
== END | disposition home or self-care (01) ==
LOC: LABWHC1 11:24
PROVIDERS: ATTEND Internal Medicine Nephrology
DX: N17.9 Acute kidney failure, unspecified (principal); D64.9 Anemia, unspecified; M10.9 Gout, unspecified; N39.0 Urinary tract infection, site not specified; N25.89 Other disorders resulting from impaired renal tubular function
CPT/HCPCS: 36415; 80048; 81001; 82306; 82728; 83540; 83550; 83735; 83970; 84100; 84550; 85025

== ENCOUNTER → 2021-06-20 | Outpatient (CLI) | payer MEDICARE, OTHER ==
--- NOTE | 2021-06-20 12:55 | US ---
EXAMINATION TYPE: US kidneys/renal and bladder DATE OF EXAM: 06/20/2021 COMPARISON: 03/12/2021 CLINICAL HISTORY: N17.9 KUN. EXAM MEASUREMENTS: Right Kidney: 9.3 x 5.9 x 5.8 cm Left Kidney: 12.1 x 5.9 x 5.5 cm Right Kidney: No hydronephrosis or masses seen Left Kidney: No hydronephrosis or masses seen Bladder: unable to image as patient could not lay on his back. IMPRESSION: 1. Normal renal ultrasound
== END | disposition home or self-care (01) ==
LOC: RADUSWWP 11:32
PROVIDERS: ATTEND Internal Medicine Nephrology
DX: N17.9 Acute kidney failure, unspecified (principal)
CPT/HCPCS: 76770

== ENCOUNTER 2023-10-16 19:34 | Inpatient (IN) | payer MEDICARE, OTHER ==
--- NOTE | 2023-10-16 20:18 | ED ---
Weakness HPI - General Chief complaint: Weakness Stated complaint: Difficulty breathing, SOB Time Seen by Provider: 10/16/23 19:45 Source: EMS, RN notes reviewed, old records reviewed Mode of arrival: EMS Limitations: no limitations - History of Present Illness Initial comments: This is a 62-year-old male to ER for evaluation of severe weakness and gene ralized weakness. Not feeling well patient is sent in by his primary care for failure to thrive patient has multiple nonspecific complaints MD Complaint: generalized weakness Location: generalized Severity: mild Consistency: constant Improves with: none Worsens with: none Context: recent illness, history of similar - Related Data Home Medications Medication Instructions Recorded Confirmed Metoprolol Succinate [Toprol XL] 200 mg PO DAILY 03/01/16 10/17/23 Albuterol Sulfate [Ventolin HFA] 2 puff INHALATION RT-QID PRN 07/28/19 10/17/23 Atorvastatin [Lipitor] 40 mg PO DAILY 07/28/19 10/17/23 Montelukast [Singulair] 10 mg PO HS 07/28/19 10/17/23 allopurinoL [Zyloprim] 200 mg PO DAILY 07/28/19 10/17/23 Budesonide/Formoterol Fumarate 2 puff INHALATION RT-BID 03/31/21 10/17/23 [Symbicort 160-4.5 Mcg Inhaler] EPINEPHrine (Auto Inject) [Epipen] 0.3 mg IM ONCE PRN 03/31/21 10/17/23 Ibuprofen [Motrin] 800 mg PO BID PRN 03/31/21 10/17/23 Apixaban [Eliquis] 5 mg PO BID 10/17/23 10/17/23 Balsalazide Disodium 750 mg PO TID 10/17/23 10/17/23 Dapagliflozin Propanediol [Farxiga] 10 mg PO DAILY 10/17/23 10/17/23 Furosemide [Lasix] 40 mg PO BID 10/17/23 10/17/23 Insulin Glargine,Hum.rec.anlog 10 units SQ HS 10/17/23 10/17/23 [Lantus Solostar Pen] Ipratropium-Albuterol Nebulize 3 ml INHALATION RT-QID 10/17/23 10/17/23 [Duoneb 0.5 mg-3 mg/3 ml Soln] Lactulose 10 gm PO BID PRN 10/17/23 10/17/23 Omeprazole [PriLOSEC] 40 mg PO DAILY 10/17/23 10/17/23 Sacubitril/Valsartan [Entresto 24 1 tab PO BID 10/17/23 10/17/23 mg-26 mg Tablet] Spironolactone [Aldactone] 25 mg PO DAILY 10/17/23 10/17/23 Previous Rx's Medication Instructions Recorded HYDROcodone/APAP 10-325MG [Clarence 1 tab PO TID PRN #10 tab 04/07/21 10-325] Allergies Allergy/AdvReac Type Severity Reaction Status Date / Time No Known Allergies Allergy Verified 10/17/23 07:08 Review of Systems ROS Statement: Those systems with pertinent positive or pertinent negative responses have been documented in the HPI. ROS Other: All systems not noted in ROS Statement are negative. Past Medical History Past Medical History: Atrial Flutter, COPD, Diabetes Mellitus, GERD/Reflux, Osteoarthritis (OA), Pneumonia, Renal Disease, Skin Disorder, Sleep Apnea/CPAP/BIPAP Additional Past Medical History / Comment(s): BLOOD IN STOOL, cellulitis bilateral lower extremities-healing, gout, USES A CANE TO AMBULATE, History of Any Multi-Drug Resistant Organisms: None Reported Past Surgical History: AICD, Cardiac Ablation, Orthopedic Surgery Additional Past Surgical History / Comment(s): rectal fistula repair X2. RUEL KNEE ARTHROSCOPY, surgery to remove part of lower left lung for abestosis Past Anesthesia/Blood Transfusion Reactions: No Reported Reaction Type of Cardiac Device: AICD Device Placement Date:: [facility] 10/13/15 Past Psychological History: No Psychological Hx Reported Smoking Status: Never smoker Past Alcohol Use History: Daily, Heavy Past Drug Use History: Marijuana - Past Family History Father Family Medical History: Diabetes Mellitus Additional Family Medical History / Comment(s): Father is almost 90 yrs old. Mother Family Medical History: Cancer Additional Family Medical History / Comment(s): STOMACH CA. General Exam General appearance: alert, in no apparent distress Head exam: Present: atraumatic, normocephalic, normal inspection Eye exam: Present: normal appearance, PERRL, EOMI. Absent: scleral icterus, conjunctival injection, periorbital swelling ENT exam: Present: normal exam, mucous membranes moist Neck exam: Present: normal inspection. Absent: tenderness, meningismus, lymphadenopathy Respiratory exam: Present: normal lung sounds bilaterally. Absent: respiratory distress, wheezes, rales, rhonchi, stridor Cardiovascular Exam: Present: regular rate, normal rhythm, normal heart sounds. Absent: systolic murmur, diastolic murmur, rubs, gallop, clicks GI/Abdominal exam: Present: soft, normal bowel sounds. Absent: distended, tenderness, guarding, rebound, rigid Extremities exam: Present: normal inspection, full ROM, normal capillary refill. Absent: tenderness, pedal edema, joint swelling, calf tenderness Back exam: Present: normal inspection Neurological exam: Present: alert, oriented X3, CN II-XII intact Psychiatric exam: Present: normal affect, normal mood Skin exam: Present: warm, dry, intact, normal color. Absent: rash Course Vital Signs 10/16/23 10/16/23 10/17/23 19:41 21:21 01:16 Temperature 97.9 F Pulse Rate 63 62 60 Respiratory 18 18 18 Rate Blood Pressure 110/61 119/63 111/69 O2 Sat by Pulse 93 L 95 92 L Oximetry 10/17/23 10/17/23 10/17/23 02:58 04:14 05:43 Temperature Pulse Rate 60 60 60 Respiratory 18 16 16 Rate Blood Pressure 102/64 106/61 106/51 O2 Sat by Pulse 95 97 Oximetry 10/17/23 06:26 Temperature Pulse Rate 60 Respiratory 16 Rate Blood Pressure 96/60 O2 Sat by Pulse 96 Oximetry - Reevaluation(s) Reevaluation #1: 10/16/23 23:32 Medical records reviewed Reevaluation #2: 10/16/23 23:32 Patient symptoms are unchanged Reevaluation #3: 10/16/23 23:32 Patient informed of results and questions answered Reevaluation #4: Was pt. sent in by a medical professional or institution (, PA, TABLEAU ANALYST, urgent care, hospital, or detention...) When possible be specific @ -no Did you speak to anyone other than the patient for history (EMS, parent, family, police, friend...)? What history was obtained from this source @ -no Did you review nursing and triage notes (agree or disagree)? Why? @ -agree Are old charts reviewed (outside hosp., previous admission, EMS record, old EKG, old radiological studies, urgent care reports/EKG's, detention records)? Report findings @ -yes Differential Diagnosis (chest pain, altered mental status, abdominal pain women, abdominal pain men, vaginal bleeding, weakness, fever, dyspnea, syncope, headache, dizziness, GI bleed, back pain, seizure, CVA, palpatations, mental health, musculoskeletal)? @ -prior EKG interpreted by me (3pts min.). @ -yes X-rays interpreted by me (1pt min.). @ -yes negative for acute disease CT interpreted by me (1pt min.). @ -no U/S interpreted by me (1pt. min.). @ -no What testing was considered but not performed or refused? (CT, X-rays, U/S, labs)? Why? @ -none What meds were considered but not given or refused? Why? @ -none Did you discuss the management of the patient with other professionals (professionals i.e. , PA, TABLEAU ANALYST, lab, RT, psych nurse, social welfare administrator, ged teacher, teacher, parking enforcement officer, rehabilitation case coordinator)? Give summary @ -no Was smoking cessation discussed for >3mins.? @ -no Was critical care preformed (if so, how long)? @ -no Were there social determinants of health that impacted care today? How? (Homelessness, low income, unemployed, alcoholism, drug addiction, transportation, low edu. Level, literacy, decrease access to med. care, halfway, rehab)? @ -none Was there de-escalation of care discussed even if they declined (Discuss DNR or withdrawal of care, Hospice)? DNR status @ -no What co-morbidities impacted this encounter? (DM, HTN, Smoking, COPD, CAD, Cancer, CVA, ARF, Chemo, Hep., AIDS, mental health diagnosis, sleep apnea, morbid obesity)? @ -none Was patient admitted / discharged? Hospital course, mention meds given and route, prescriptions, significant lab abnormalities, going to OR and other pertinent info. @ - 68 male to ER for deplorable living conditions. Patient is physically on capable of taking care of himself Discharge Undiagnosed new problem with uncertain prognosis? @ -no Drug Therapy requiring intensive monitoring for toxicity (Heparin, Nitro, Insulin, Cardizem)? @ -no Were any procedures done? @ -no Diagnosis/symptom? @ -Debility Acute, or Chronic, or Acute on Chronic? @ -Acute Uncomplicated (without systemic symptoms) or Complicated (systemic symptoms)? @ -Complicated Side effects of treatment? @ -no Exacerbation, Progression, or Severe Exacerbation? @ -exacerbation Poses a threat to life or bodily function? How? (Chest pain, USA, MD, pneumonia, PE, COPD, DKA, ARF, appy, cholecystitis, CVA, Diverticulitis, Homicidal, Suicidal, threat to staff... and all critical care pts) @ -yes with significant severe debility Reevaluation #5: Differential Weakness: Hypoglycemia, shock, sepsis, hyponatremia, anemia, infection, MD, ETOH, adverse medicine reaction, overdose, stroke, this is not meant to be an all-inclusive list. - Consultations Consultation #1: Poke with Dr. Vidales agrees to admit this patient EKG Findings - EKG Comments: EKG Findings:: EKG is paced 60 QRS 195 QTc 539 - EKG Results: EKG: interpreted by [facility] Medical Decision Making - Medical Decision Making 68 male to ER for deplorable living conditions. Patient is physically on capa ble of taking care of himself - Lab Data Result diagrams: 10/17/23 07:28 10/17/23 07:28 Lab Results 10/16/23 10/16/23 10/16/23 Range/Units 19:52 19:52 19:52 WBC 12.1 H (3.8-10.6) k/uL RBC 5.04 (4.30-5.90) m/uL Hgb 15.2 (13.0-17.5) gm/dL Hct 45.4 (39.0-53.0) % MCV 90.0 (80.0-100.0) fL MCH 30.2 (25.0-35.0) pg MCHC 33.6 (31.0-37.0) g/dL RDW 16.0 H (11.5-15.5) % Plt Count 337 (150-450) k/uL MPV 9.3 Neutrophils % 78 % Lymphocytes % 9 % Monocytes % 11 % Eosinophils % 0 % Basophils % 0 % Neutrophils # 9.4 H (1.3-7.7) k/uL Lymphocytes # 1.1 (1.0-4.8) k/uL Monocytes # 1.3 H (0-1.0) k/uL Eosinophils # 0.0 (0-0.7) k/uL Basophils # 0.1 (0-0.2) k/uL Hypochromasia PT 12.0 (10.0-12.5) sec INR 1.1 (<1.2) APTT 29.7 (22.0-30.0) sec Sodium 136 L (137-145) mmol/L Potassium 3.3 L (3.5-5.1) mmol/L Chloride 98 (98-107) mmol/L Carbon Dioxide 28 (22-30) mmol/L Anion Gap 10 mmol/L BUN 22 H (9-20) mg/dL Creatinine 0.98 (0.66-1.25) mg/dL Est GFR (CKD-EPI)AfAm >90 (>60 ml/min/1.73 sqM) Est GFR (CKD-EPI)NonAf 81 (>60 ml/min/1.73 sqM) Glucose 153 H (74-99) mg/dL POC Glucose (mg/dL) (70-110) mg/dL POC Glu Communications And Signals Supervisor ID Lactic Ac Sepsis Rflx Plasma Lactic Acid Seven (0.7-2.0) mmol/L Calcium 8.6 (8.4-10.2) mg/dL Phosphorus 3.5 (2.5-4.5) mg/dL Magnesium 1.5 L (1.6-2.3) mg/dL Total Bilirubin 0.8 (0.2-1.3) mg/dL AST 21 (17-59) U/L ALT 11 (4-49) U/L Alkaline Phosphatase 125 (38-126) U/L Troponin I (0.000-0.034) ng/mL NT-Pro-B Natriuret Pep 885 pg/mL Total Protein 6.8 (6.3-8.2) g/dL Albumin 3.2 L (3.5-5.0) g/dL Lipase 58 (23-300) U/L TSH 2.550 (0.465-4.680) mIU/L Urine Color Urine Appearance (Clear) Urine pH (5.0-8.0) Ur Specific Mason (1.001-1.035) Urine Protein (Negative) Urine Glucose (UA) (Negative) Urine Ketones (Negative) Urine Blood (Negative) Urine Nitrite (Negative) Urine Bilirubin (Negative) Urine Urobilinogen (<2.0) mg/dL Ur Leukocyte Esterase (Negative) Urine RBC (0-5) /hpf Urine WBC (0-5) /hpf Ur Squamous Epith Cells (0-4) /hpf Hyaline Casts (0-2) /lpf Urine Mucus (None) /hpf Serum Alcohol <10 mg/dL 10/16/23 10/16/23 10/16/23 Range/Units 19:52 19:52 21:33 WBC (3.8-10.6) k/uL RBC (4.30-5.90) m/uL Hgb (13.0-17.5) gm/dL Hct (39.0-53.0) % MCV (80.0-100.0) fL MCH (25.0-35.0) pg MCHC (31.0-37.0) g/dL RDW (11.5-15.5) % Plt Count (150-450) k/uL MPV Neutrophils % % Lymphocytes % % Monocytes % % Eosinophils % % Basophils % % Neutrophils # (1.3-7.7) k/uL Lymphocytes # (1.0-4.8) k/uL Monocytes # (0-1.0) k/uL Eosinophils # (0-0.7) k/uL Basophils # (0-0.2) k/uL Hypochromasia PT (10.0-12.5) sec INR (<1.2) APTT (22.0-30.0) sec Sodium (137-145) mmol/L Potassium (3.5-5.1) mmol/L Chloride (98-107) mmol/L Carbon Dioxide (22-30) mmol/L Anion Gap mmol/L BUN (9-20) mg/dL Creatinine (0.66-1.25) mg/dL Est GFR (CKD-EPI)AfAm (>60 ml/min/1.73 sqM) Est GFR (CKD-EPI)NonAf (>60 ml/min/1.73 sqM) Glucose (74-99) mg/dL POC Glucose (mg/dL) (70-110) mg/dL POC Glu Communications And Signals Supervisor ID Lactic Ac Sepsis Rflx Y Plasma Lactic Acid Seven 2.8 H* (0.7-2.0) mmol/L Calcium (8.4-10.2) mg/dL Phosphorus (2.5-4.5) mg/dL Magnesium (1.6-2.3) mg/dL Total Bilirubin (0.2-1.3) mg/dL AST (17-59) U/L ALT (4-49) U/L Alkaline Phosphatase (38-126) U/L Troponin I <0.012 (0.000-0.034) ng/mL NT-Pro-B Natriuret Pep pg/mL Total Protein (6.3-8.2) g/dL Albumin (3.5-5.0) g/dL Lipase (23-300) U/L TSH (0.465-4.680) mIU/L Urine Color Urine Appearance (Clear) Urine pH (5.0-8.0) Ur Specific Mason (1.001-1.035) Urine Protein (Negative) Urine Glucose (UA) (Negative) Urine Ketones (Negative) Urine Blood (Negative) Urine Nitrite (Negative) Urine Bilirubin (Negative) Urine Urobilinogen (<2.0) mg/dL Ur Leukocyte Esterase (Negative) Urine RBC (0-5) /hpf Urine WBC (0-5) /hpf Ur Squamous Epith Cells (0-4) /hpf Hyaline Casts (0-2) /lpf Urine Mucus (None) /hpf Serum Alcohol mg/dL 10/16/23 10/17/23 10/17/23 Range/Units 23:03 00:10 07:28 WBC 11.5 H (3.8-10.6) k/uL RBC 5.08 (4.30-5.90) m/uL Hgb 14.6 (13.0-17.5) gm/dL Hct 47.3 (39.0-53.0) % MCV 93.0 (80.0-100.0) fL MCH 28.7 (25.0-35.0) pg MCHC 30.8 L (31.0-37.0) g/dL RDW 15.7 H (11.5-15.5) % Plt Count 293 (150-450) k/uL MPV 8.2 Neutrophils % 80 % Lymphocytes % 8 % Monocytes % 9 % Eosinophils % 1 % Basophils % 1 % Neutrophils # 9.2 H (1.3-7.7) k/uL Lymphocytes # 0.9 L (1.0-4.8) k/uL Monocytes # 1.1 H (0-1.0) k/uL Eosinophils # 0.1 (0-0.7) k/uL Basophils # 0.1 (0-0.2) k/uL Hypochromasia Slight PT (10.0-12.5) sec INR (<1.2) APTT (22.0-30.0) sec Sodium (137-145) mmol/L Potassium (3.5-5.1) mmol/L Chloride (98-107) mmol/L Carbon Dioxide (22-30) mmol/L Anion Gap mmol/L BUN (9-20) mg/dL Creatinine (0.66-1.25) mg/dL Est GFR (CKD-EPI)AfAm (>60 ml/min/1.73 sqM) Est GFR (CKD-EPI)NonAf (>60 ml/min/1.73 sqM) Glucose (74-99) mg/dL POC Glucose (mg/dL) (70-110) mg/dL POC Glu Communications And Signals Supervisor ID Lactic Ac Sepsis Rflx Plasma Lactic Acid Seven 1.2 (0.7-2.0) mmol/L Calcium (8.4-10.2) mg/dL Phosphorus (2.5-4.5) mg/dL Magnesium (1.6-2.3) mg/dL Total Bilirubin (0.2-1.3) mg/dL AST (17-59) U/L ALT (4-49) U/L Alkaline Phosphatase (38-126) U/L Troponin I (0.000-0.034) ng/mL NT-Pro-B Natriuret Pep pg/mL Total Protein (6.3-8.2) g/dL Albumin (3.5-5.0) g/dL Lipase (23-300) U/L TSH (0.465-4.680) mIU/L Urine Color Colorless Urine Appearance Clear (Clear) Urine pH 5.0 (5.0-8.0) Ur Specific Mason 1.012 (1.001-1.035) Urine Protein Trace H (Negative) Urine Glucose (UA) 4+ H (Negative) Urine Ketones Negative (Negative) Urine Blood Trace H (Negative) Urine Nitrite Negative (Negative) Urine Bilirubin Negative (Negative) Urine Urobilinogen <2.0 (<2.0) mg/dL Ur Leukocyte Esterase Negative (Negative) Urine RBC 2 (0-5) /hpf Urine WBC 3 (0-5) /hpf Ur Squamous Epith Cells <1 (0-4) /hpf Hyaline Casts 1 (0-2) /lpf Urine Mucus Rare H (None) /hpf Serum Alcohol mg/dL 10/17/23 10/17/23 10/17/23 Range/Units 07:28 08:56 11:45 WBC (3.8-10.6) k/uL RBC (4.30-5.90) m/uL Hgb (13.0-17.5) gm/dL Hct (39.0-53.0) % MCV (80.0-100.0) fL MCH (25.0-35.0) pg MCHC (31.0-37.0) g/dL RDW (11.5-15.5) % Plt Count (150-450) k/uL MPV Neutrophils % % Lymphocytes % % Monocytes % % Eosinophils % % Basophils % % Neutrophils # (1.3-7.7) k/uL Lymphocytes # (1.0-4.8) k/uL Monocytes # (0-1.0) k/uL Eosinophils # (0-0.7) k/uL Basophils # (0-0.2) k/uL Hypochromasia PT (10.0-12.5) sec INR (<1.2) APTT (22.0-30.0) sec Sodium 137 (137-145) mmol/L Potassium 3.3 L (3.5-5.1) mmol/L Chloride 99 (98-107) mmol/L Carbon Dioxide 30 (22-30) mmol/L Anion Gap 8 mmol/L BUN 21 H (9-20) mg/dL Creatinine 1.05 (0.66-1.25) mg/dL Est GFR (CKD-EPI)AfAm 86 (>60 ml/min/1.73 sqM) Est GFR (CKD-EPI)NonAf 74 (>60 ml/min/1.73 sqM) Glucose 110 H (74-99) mg/dL POC Glucose (mg/dL) 134 H (70-110) mg/dL POC Glu Communications And Signals Supervisor ID Shannon Ortiz Lactic Ac Sepsis Rflx Plasma Lactic Acid Seven (0.7-2.0) mmol/L Calcium 8.4 (8.4-10.2) mg/dL Phosphorus 4.7 H (2.5-4.5) mg/dL Magnesium 1.5 L (1.6-2.3) mg/dL Total Bilirubin 0.8 (0.2-1.3) mg/dL AST 17 (17-59) U/L ALT 9 (4-49) U/L Alkaline Phosphatase 109 (38-126) U/L Troponin I (0.000-0.034) ng/mL NT-Pro-B Natriuret Pep 764 H pg/mL Total Protein 6.3 (6.3-8.2) g/dL Albumin 2.9 L (3.5-5.0) g/dL Lipase 29 (23-300) U/L TSH (0.465-4.680) mIU/L Urine Color Urine Appearance (Clear) Urine pH (5.0-8.0) Ur Specific Mason (1.001-1.035) Urine Protein (Negative) Urine Glucose (UA) (Negative) Urine Ketones (Negative) Urine Blood (Negative) Urine Nitrite (Negative) Urine Bilirubin (Negative) Urine Urobilinogen (<2.0) mg/dL Ur Leukocyte Esterase (Negative) Urine RBC (0-5) /hpf Urine WBC (0-5) /hpf Ur Squamous Epith Cells (0-4) /hpf Hyaline Casts (0-2) /lpf Urine Mucus (None) /hpf Serum Alcohol mg/dL 10/17/23 10/17/23 10/17/23 Range/Units 13:21 17:23 20:13 WBC (3.8-10.6) k/uL RBC (4.30-5.90) m/uL Hgb (13.0-17.5) gm/dL Hct (39.0-53.0) % MCV (80.0-100.0) fL MCH (25.0-35.0) pg MCHC (31.0-37.0) g/dL RDW (11.5-15.5) % Plt Count (150-450) k/uL MPV Neutrophils % % Lymphocytes % % Monocytes % % Eosinophils % % Basophils % % Neutrophils # (1.3-7.7) k/uL Lymphocytes # (1.0-4.8) k/uL Monocytes # (0-1.0) k/uL Eosinophils # (0-0.7) k/uL Basophils # (0-0.2) k/uL Hypochromasia PT (10.0-12.5) sec INR (<1.2) APTT (22.0-30.0) sec Sodium (137-145) mmol/L Potassium (3.5-5.1) mmol/L Chloride (98-107) mmol/L Carbon Dioxide (22-30) mmol/L Anion Gap mmol/L BUN (9-20) mg/dL Creatinine (0.66-1.25) mg/dL Est GFR (CKD-EPI)AfAm (>60 ml/min/1.73 sqM) Est GFR (CKD-EPI)NonAf (>60 ml/min/1.73 sqM) Glucose (74-99) mg/dL POC Glucose (mg/dL) 123 H 133 H 139 H (70-110) mg/dL POC Glu Communications And Signals Supervisor ROBINA Ortiz, Shannon Angel, Karine Osullivan Lactic Ac Sepsis Rflx Plasma Lactic Acid Seven (0.7-2.0) mmol/L Calcium (8.4-10.2) mg/dL Phosphorus (2.5-4.5) mg/dL Magnesium (1.6-2.3) mg/dL Total Bilirubin (0.2-1.3) mg/dL AST (17-59) U/L ALT (4-49) U/L Alkaline Phosphatase (38-126) U/L Troponin I (0.000-0.034) ng/mL NT-Pro-B Natriuret Pep pg/mL Total Protein (6.3-8.2) g/dL Albumin (3.5-5.0) g/dL Lipase (23-300) U/L TSH (0.465-4.680) mIU/L Urine Color Urine Appearance (Clear) Urine pH (5.0-8.0) Ur Specific Mason (1.001-1.035) Urine Protein (Negative) Urine Glucose (UA) (Negative) Urine Ketones (Negative) Urine Blood (Negative) Urine Nitrite (Negative) Urine Bilirubin (Negative) Urine Urobilinogen (<2.0) mg/dL Ur Leukocyte Esterase (Negative) Urine RBC (0-5) /hpf Urine WBC (0-5) /hpf Ur Squamous Epith Cells (0-4) /hpf Hyaline Casts (0-2) /lpf Urine Mucus (None) /hpf Serum Alcohol mg/dL 10/18/23 10/18/23 Range/Units 06:31 12:40 WBC (3.8-10.6) k/uL RBC (4.30-5.90) m/uL Hgb (13.0-17.5) gm/dL Hct (39.0-53.0) % MCV (80.0-100.0) fL MCH (25.0-35.0) pg MCHC (31.0-37.0) g/dL RDW (11.5-15.5) % Plt Count (150-450) k/uL MPV Neutrophils % % Lymphocytes % % Monocytes % % Eosinophils % % Basophils % % Neutrophils # (1.3-7.7) k/uL Lymphocytes # (1.0-4.8) k/uL Monocytes # (0-1.0) k/uL Eosinophils # (0-0.7) k/uL Basophils # (0-0.2) k/uL Hypochromasia PT (10.0-12.5) sec INR (<1.2) APTT (22.0-30.0) sec Sodium (137-145) mmol/L Potassium (3.5-5.1) mmol/L Chloride (98-107) mmol/L Carbon Dioxide (22-30) mmol/L Anion Gap mmol/L BUN (9-20) mg/dL Creatinine (0.66-1.25) mg/dL Est GFR (CKD-EPI)AfAm (>60 ml/min/1.73 sqM) Est GFR (CKD-EPI)NonAf (>60 ml/min/1.73 sqM) Glucose (74-99) mg/dL POC Glucose (mg/dL) 101 97 (70-110) mg/dL POC Glu Communications And Signals Supervisor ID Noe Robb Samantha Lactic Ac Sepsis Rflx Plasma Lactic Acid Seven (0.7-2.0) mmol/L Calcium (8.4-10.2) mg/dL Phosphorus (2.5-4.5) mg/dL Magnesium (1.6-2.3) mg/dL Total Bilirubin (0.2-1.3) mg/dL AST (17-59) U/L ALT (4-49) U/L Alkaline Phosphatase (38-126) U/L Troponin I (0.000-0.034) ng/mL NT-Pro-B Natriuret Pep pg/mL Total Protein (6.3-8.2) g/dL Albumin (3.5-5.0) g/dL Lipase (23-300) U/L TSH (0.465-4.680) mIU/L Urine Color Urine Appearance (Clear) Urine pH (5.0-8.0) Ur Specific Mason (1.001-1.035) Urine Protein (Negative) Urine Glucose (UA) (Negative) Urine Ketones (Negative) Urine Blood (Negative) Urine Nitrite (Negative) Urine Bilirubin (Negative) Urine Urobilinogen (<2.0) mg/dL Ur Leukocyte Esterase (Negative) Urine RBC (0-5) /hpf Urine WBC (0-5) /hpf Ur Squamous Epith Cells (0-4) /hpf Hyaline Casts (0-2) /lpf Urine Mucus (None) /hpf Serum Alcohol mg/dL - EKG Data -: EKG Interpreted by Me - Radiology Data Radiology results: report reviewed (Chest x-ray KUB negative for acute disease), image reviewed Disposition Clinical Impression: Generalized weakness, Anemia, Congestive heart failure (CHF) Disposition: ADMITTED IP TO THIS HOSP Is patient prescribed a controlled substance at d/c from ED?: No Time of Disposition: 23:50
[2023-10-16 21:04] LABS: ALT 11 U/L (4-49); AST 21 U/L (17-59); African American GFR (CKD) >90 (>60 ml/min/1.73 sqM); Albumin 3.2 g/dL (3.5-5.0); Alcohol <10 mg/dL; Alkaline Phosphatase 125 U/L (38-126); Anion Gap 10 mmol/L; Blood Urea Nitrogen 22 mg/dL (9-20); Calcium 8.6 mg/dL (8.4-10.2); Carbon Dioxide 28 mmol/L (22-30); Chloride 98 mmol/L (98-107); Glucose 153 mg/dL (74-99); Lipase 58 U/L (23-300); Magnesium 1.5 mg/dL (1.6-2.3); Non-African American GFR(CKD) 81 (>60 ml/min/1.73 sqM); Phosphorus 3.5 mg/dL (2.5-4.5); Potassium 3.3 mmol/L (3.5-5.1); Sodium 136 mmol/L (137-145); Total Bilirubin 0.8 mg/dL (0.2-1.3); Total Protein 6.8 g/dL (6.3-8.2)
[2023-10-16 21:11] LABS: INR 1.1 (<1.2); Partial Thromboplastin Time 29.7 sec (22.0-30.0)
[2023-10-16 21:13] LABS: NT-Pro-B-Type Natriuretic Pept 885 pg/mL
[2023-10-16] MEDS: ONDANSETRON 4 MG/2 ML VIAL IVP STA (21:17)
[2023-10-16] MEDS: SODIUM CHLORIDE 0.9% 1,000 ML IV STA (21:17)
[2023-10-16] MEDS: MORPHINE SULFATE 4 MG/ML SYRINGE IV STA (21:18)
[2023-10-16 21:20] LABS: Basophils # (A) 0.1 k/uL (0-0.2); Basophils % (A) 0 %; Eosinophils % (A) 0 %; HCT 45.4 % (39.0-53.0); HGB 15.2 gm/dL (13.0-17.5); Lymphocytes # (A) 1.1 k/uL (1.0-4.8); Lymphocytes % (A) 9 %; MCH 30.2 pg (25.0-35.0); MCHC 33.6 g/dL (31.0-37.0); Mean Platelet Volume 9.3; Monocytes # (A) 1.3 k/uL (0-1.0); Monocytes % (A) 11 %; Neutrophils # (A) 9.4 k/uL (1.3-7.7); Neutrophils % (A) 78 %; Platelet Count 337 k/uL (150-450); RBC 5.04 m/uL (4.30-5.90); WBC 12.1 k/uL (3.8-10.6)
[2023-10-16] MEDS ORDERED: MORPHINE SULFATE 4 MG/ML SYRINGE IV PRN (23:27)
[2023-10-16] MEDS ORDERED: ONDANSETRON 4 MG/2 ML VIAL IVP PRN (23:27)
[2023-10-16] MEDS ORDERED: NALOXONE 0.4 MG/ML 1 ML VIAL IV PRN (23:27)
[2023-10-16] MEDS ORDERED: LORazepam 1 MG TAB PO PRN ×3 (23:28)
[2023-10-16] MEDS ORDERED: LORazepam 0.5 MG TAB PO PRN (23:28)
[2023-10-16] MEDS ORDERED: LORazepam 2 MG/ML INJ IV PRN ×3 (23:28)
[2023-10-16 23:35] LABS: Appearance,Urine Clear (Clear); Bilirubin,Urine Negative (Negative); Blood,Urine Trace (Negative); Color,Urine Colorless; Glucose,Urine (UA) 4+ (Negative); Hyaline Casts,Urine 1 /lpf (0-2); Ketones,Urine Negative (Negative); Leukocyte Esterase,Urine Negative (Negative); Mucus,Urine Rare /hpf; Nitrite,Urine Negative (Negative); Protein,Urine Trace (Negative); RBC,Urine 2 /hpf (0-5); Specific Gravity,Urine 1.012 (1.001-1.035); Squamous Epithelial Cell,Urine <1 /hpf (0-4); Urobilinogen,Urine <2.0 mg/dL (<2.0); WBC,Urine 3 /hpf (0-5)
[2023-10-17] MEDS: SODIUM CHLORIDE 0.9% 1,000 ML IV SCH (03:08)
[2023-10-17 08:09] LABS: Basophils # (A) 0.1 k/uL (0-0.2); Basophils % (A) 1 %; Eosinophils # (A) 0.1 k/uL (0-0.7); Eosinophils % (A) 1 %; HCT 47.3 % (39.0-53.0); HGB 14.6 gm/dL (13.0-17.5); Hypochromasia Slight; Lymphocytes # (A) 0.9 k/uL (1.0-4.8); Lymphocytes % (A) 8 %; MCH 28.7 pg (25.0-35.0); MCHC 30.8 g/dL (31.0-37.0); Mean Platelet Volume 8.2; Monocytes # (A) 1.1 k/uL (0-1.0); Monocytes % (A) 9 %; Neutrophils # (A) 9.2 k/uL (1.3-7.7); Neutrophils % (A) 80 %; Platelet Count 293 k/uL (150-450); RBC 5.08 m/uL (4.30-5.90); RDW 15.7 % (11.5-15.5); WBC 11.5 k/uL (3.8-10.6)
[2023-10-17 08:22] LABS: ALT 9 U/L (4-49); AST 17 U/L (17-59); African American GFR (CKD) 86 (>60 ml/min/1.73 sqM); Albumin 2.9 g/dL (3.5-5.0); Alkaline Phosphatase 109 U/L (38-126); Anion Gap 8 mmol/L; Blood Urea Nitrogen 21 mg/dL (9-20); Calcium 8.4 mg/dL (8.4-10.2); Carbon Dioxide 30 mmol/L (22-30); Chloride 99 mmol/L (98-107); Glucose 110 mg/dL (74-99); Lipase 29 U/L (23-300); Magnesium 1.5 mg/dL (1.6-2.3); Non-African American GFR(CKD) 74 (>60 ml/min/1.73 sqM); Phosphorus 4.7 mg/dL (2.5-4.5); Potassium 3.3 mmol/L (3.5-5.1); Sodium 137 mmol/L (137-145); Total Bilirubin 0.8 mg/dL (0.2-1.3); Total Protein 6.3 g/dL (6.3-8.2)
[2023-10-17 09:00] LABS: Glucose,Whole Blood 134 mg/dL (70-110)
[2023-10-17] MEDS ORDERED: HYDROcodone/APAP 10-325MG 1 EACH TAB PO PRN (09:30)
[2023-10-17] MEDS: IPRATROPIUM-ALBUTEROL 3 ML NEB INHALATION SCH (09:43)
[2023-10-17] MEDS: PANTOPRAZOLE 40 MG/10 ML VIAL IV SCH (09:49)
[2023-10-17] MEDS: FOLIC ACID 1 MG TAB PO SCH (09:50)
[2023-10-17] MEDS: MULTIVITAMINS, THERA 1 EACH TAB PO SCH (09:50)
[2023-10-17] MEDS: allopurinoL 100 MG TAB PO SCH (09:51)
[2023-10-17] MEDS: ATORVASTATIN 40 MG TAB PO SCH (09:51)
[2023-10-17] MEDS: DAPAGLIFLOZIN PROPANEDIOL 10 MG TABLET PO SCH (09:54)
[2023-10-17] MEDS: NON FORMULARY DRUG (Omeprazole 40 MG Capsule.Dr) PO SCH (10:37)
[2023-10-17] MEDS: SYMBICORT 160-4.5 MCG INHALER INHALATION SCH (11:26)
--- NOTE | 2023-10-17 13:24 | XR ---
EXAMINATION TYPE: XR abdomen 2V DATE OF EXAM: 10/17/2023 COMPARISON: 09/14/2015 HISTORY: Pain TECHNIQUE: Single supine KUB image of the abdomen is obtained FINDINGS: Small bowel demonstrates no evidence for dilatation or air fluid levels. Gas and fecal material is seen in non-distended colon. No convincing evidence for pneumoperitoneum. No unusual calcifications. The lung bases are clear. The osseous structures are intact. IMPRESSION: 1. Overall nonobstructive bowel gas pattern.
[2023-10-17 13:33] LABS: Glucose,Whole Blood 123 mg/dL (70-110)
--- NOTE | 2023-10-17 13:39 | XR ---
EXAMINATION TYPE: XR chest 2V DATE OF EXAM: 10/17/2023 COMPARISON: 04/03/2021 HISTORY: Shortness of breath TECHNIQUE: Frontal and lateral views of the chest are obtained. FINDINGS: Scattered senescent parenchymal changes noted. Hyperinflation compatible with COPD. No evidence for infiltrate. No evidence for atelectasis. Cardiopulmonary pulmonary venous congestion and small effusions suggested. Correlate for volume overl oad or pulmonary venous decompensation. Mediastinal structures are stable and grossly unremarkable. No evidence for hilar prominence. Degenerative changes dorsal spine. IMPRESSION: 1. Cardiopulmonary pulmonary venous congestion and small effusions suggested. Correlate for volume ov erload or pulmonary venous decompensation.
[2023-10-17] MEDS: LACTULOSE 20 GM/30 ML CUP PO ONE (14:04)
[2023-10-17] MEDS: MAGNESIUM OXIDE 400 MG TAB PO SCH (14:04)
[2023-10-17] MEDS: BALSALAZIDE DISODIUM 750 MG CAPSULE PO SCH (14:05)
[2023-10-17] MEDS: POTASSIUM CHLORIDE ER 20 MEQ TAB.ER PO STA (14:05)
[2023-10-17 17:24] LABS: Glucose,Whole Blood 133 mg/dL (70-110)
[2023-10-17] MEDS: FUROSEMIDE 40 MG TAB PO SCH (18:31)
--- NOTE | 2023-10-17 19:30 | P.HPIM ---
History of Present Illness H&P Date: 10/17/23 Chief Complaint: Multiple complaints This is a 68-year-old patient who for the [facility] visiting physician Dr. Esquivel. Has multiple symptoms. He does complain of occasional nausea. Normally has a bowel movement 2-3 times a day. Last couple of days not had a bowel movement. No abdominal pain. Patient does have obstructive sleep apnea does not use his machine. Has AICD. Has a large abdominal pannus. He is asking if he has bowel obstruction. It is soft. Patient also wears a brace for the left knee. Does have both of a cane and a walker at home. Till about 10 years ago patient was drinking increased alcohol. Anywhere from 6-12 beers a day. He also wants to see the cobol developer Dr. Barillas for his AICD. Chronic lower extremity swelling with some venous insufficiency. Not keen for breakfast this morning. Patient complains of generalized weakness. Unable to get up and walk. Review of systems: GEN.: Tired EYES: None HEENT: None NECK: None RESPIRATORY: Some shortness of breath e CARDIOVASCULAR: None GASTROINTESTINAL: None GENITOURINARY: None MUSCULOSKELETAL: Joint pains e LYMPHATICS: None HEMATOLOGICAL: None PSYCHIATRY: None NEUROLOGICAL: None Social history: Lives alone. Does use a cane and a walker. No smoking. Till about 10 years ago patient is drinking anywhere from 6-12 beers a day. For some time. Physical examination: VITAL SIGNS: 98.3, 60, 18, 90/56, 91% room air GENERAL: BMI 47.3, sitting at edge of the bed, awake a bit tired. EYES: Pupils equal. Conjunctiva zara l. HEENT: External appearance of nose and ears normal, oral cavity grossly normal. NECK: JVD unable to assess; masses not palpable. HEART: Heart sounds are distant, some edema present. LUNGS: Respiratory rate increased; clear to auscultation. ABDOMEN: Soft, nontender, liver spleen not palpable, no masses palpable. Large abdominal pannus. PSYCH: Alert and oriented x3; mood and affect zara l. MUSCULOSKELETAL:No Clubbing/cyanosis;muscles-grossly intact. OA EXTREMITIES: Evidence of venous sufficiency with discoloration bilateral lower extremity NEUROLOGICAL: Cranial nerves grossly intact; no facial asymmetry, power and sensation grossly intact. LYMPHATICS: No lymph nodes palpable in the axilla and neck INVESTIGATIONS, reviewed in the clinical context: October 17, 2023: White: 0.5 hemoglobin 14.6 platelets 293 sodium 137 potassium 3.3 BUN 21 creatinine 1.05 magnesium 1.5 proBNP 764 EKG tracing personally reviewed by me-ventricular paced rhythm. Underlying atrial flutter fibrillation Chest x-ray film personally reviewed by me-cardiomegaly. Some venous prominence. AICD. Assessment plan: -Acute on chronic medical debility. Multifactorial. Patient is morbidly obese. Does use a cane and a walker at bedside. Had decreased oral intake yesterday. That could have precipitated increased weakness. PT OT -Morbid obesity BMI 47.3 Weight loss measures -Obstructive sleep apnea, patient's machine is not working -AICD -Persistent atrial flutter fibrillation. Eliquis 5 mg twice daily Toprol-XL to her milligram a day -Diabetes mellitus type 2, chronically on insulin Resume home dose of Lantus. Accu-Cheks with sliding scale -Essential hypertension Entresto. Toprol-XL. -Some abdominal discomfort. No bowel movement for 2 days. Abdominal x-ray shows nonobstructive bowel gas pattern. Patient rather concerned about his symptoms. 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 General surgery cardiology consult. Discussed with patient. Past Medical History Past Medical History: Atrial Flutter, COPD, Diabetes Mellitus, GERD/Reflux, Osteoarthritis (OA), Pneumonia, Renal Disease, Skin Disorder, Sleep Apnea/CPAP/BIPAP Additional Past Medical History / Comment(s): BLOOD IN STOOL, cellulitis bilateral lower extremities-healing, gout, USES A CANE TO AMBULATE, History of Any Multi-Drug Resistant Organisms: None Reported Past Surgical History: AICD, Cardiac Ablation, Orthopedic Surgery Additional Past Surgical History / Comment(s): rectal fistula repair X2. RUEL KNEE ARTHROSCOPY, surgery to remove part of lower left lung for abestosis Past Anesthesia/Blood Transfusion Reactions: No Reported Reaction Type of Cardiac Device: AICD Device Placement Date:: [facility] 10/13/15 Past Psychological History: No Psychological Hx Reported Smoking Status: Never smoker Past Alcohol Use History: Daily, Heavy Past Drug Use History: Marijuana - Past Family History Father Family Medical History: Diabetes Mellitus Additional Family Medical History / Comment(s): Father is almost 90 yrs old. Mother Family Medical History: Cancer Additional Family Medical History / Comment(s): STOMACH CA. Medications and Allergies Home Medications Medication Instructions Recorded Confirmed Type Metoprolol Succinate [Toprol XL] 200 mg PO DAILY 03/01/16 10/17/23 History Albuterol Sulfate [Ventolin HFA] 2 puff INHALATION RT-QID PRN 07/28/19 10/17/23 History Atorvastatin [Lipitor] 40 mg PO DAILY 07/28/19 10/17/23 History Montelukast [Singulair] 10 mg PO HS 07/28/19 10/17/23 History allopurinoL [Zyloprim] 200 mg PO DAILY 07/28/19 10/17/23 History Budesonide/Formoterol Fumarate 2 puff INHALATION RT-BID 03/31/21 10/17/23 History [Symbicort 160-4.5 Mcg Inhaler] EPINEPHrine (Auto Inject) [Epipen] 0.3 mg IM ONCE PRN 03/31/21 10/17/23 History Ibuprofen [Motrin] 800 mg PO BID PRN 03/31/21 10/17/23 History HYDROcodone/APAP 10-325MG [[place] 1 tab PO TID PRN #10 tab 04/07/21 10/17/23 Rx 10-325] Apixaban [Eliquis] 5 mg PO BID 10/17/23 10/17/23 History Balsalazide Disodium 750 mg PO TID 10/17/23 10/17/23 History Dapagliflozin Propanediol [Farxiga] 10 mg PO DAILY 10/17/23 10/17/23 History Furosemide [Lasix] 40 mg PO BID 10/17/23 10/17/23 History Insulin Glargine,Hum.rec.anlog 10 units SQ HS 10/17/23 10/17/23 History [Lantus Solostar Pen] Ipratropium-Albuterol Nebulize 3 ml INHALATION RT-QID 10/17/23 10/17/23 History [Duoneb 0.5 mg-3 mg/3 ml Soln] Lactulose 10 gm PO BID PRN 10/17/23 10/17/23 History Omeprazole [PriLOSEC] 40 mg PO DAILY 10/17/23 10/17/23 History Sacubitril/Valsartan [Entresto 24 1 tab PO BID 10/17/23 10/17/23 History mg-26 mg Tablet] Spironolactone [Aldactone] 25 mg PO DAILY 10/17/23 10/17/23 History Allergies Allergy/AdvReac Type Severity Reaction Status Date / Time No Known Allergies Allergy Verified 10/17/23 07:08 Physical Exam Vitals: Vital Signs Temp Pulse Pulse Resp BP BP Pulse Ox 10/17/23 09:06 98.3 F 60 18 90/56 91 L 10/17/23 09:00 98 10/17/23 06:26 60 16 96/60 96 10/17/23 05:43 60 16 106/51 10/17/23 04:14 60 16 106/61 97 10/17/23 02:58 60 18 102/64 95 10/17/23 01:16 60 18 111/69 92 L 10/16/23 21:21 62 18 119/63 95 10/16/23 19:41 97.9 F 63 18 110/61 93 L Intake and Output 10/16/23 10/17/23 10/17/23 22:59 06:59 14:59 Other: # Voids 1 Weight 145.15 kg Results CBC & Chem 7: 10/17/23 07:28 10/17/23 07:28 Labs: Abnormal Lab Results - Last 24 Hours (Table) 10/16/23 10/16/23 10/16/23 Range/Units 19:52 19:52 19:52 WBC 12.1 H (3.8-10.6) k/uL MCHC (31.0-37.0) g/dL RDW 16.0 H (11.5-15.5) % Neutrophils # 9.4 H (1.3-7.7) k/uL Lymphocytes # (1.0-4.8) k/uL Monocytes # 1.3 H (0-1.0) k/uL Sodium 136 L (137-145) mmol/L Potassium 3.3 L (3.5-5.1) mmol/L BUN 22 H (9-20) mg/dL Glucose 153 H (74-99) mg/dL POC Glucose (mg/dL) (70-110) mg/dL Plasma Lactic Acid Seven 2.8 H* (0.7-2.0) mmol/L Phosphorus (2.5-4.5) mg/dL Magnesium 1.5 L (1.6-2.3) mg/dL Albumin 3.2 L (3.5-5.0) g/dL Urine Protein (Negative) Urine Glucose (UA) (Negative) Urine Blood (Negative) Urine Mucus (None) /hpf 10/16/23 10/17/23 10/17/23 Range/Units 23:03 07:28 07:28 WBC 11.5 H (3.8-10.6) k/uL MCHC 30.8 L (31.0-37.0) g/dL RDW 15.7 H (11.5-15.5) % Neutrophils # 9.2 H (1.3-7.7) k/uL Lymphocytes # 0.9 L (1.0-4.8) k/uL Monocytes # 1.1 H (0-1.0) k/uL Sodium (137-145) mmol/L Potassium 3.3 L (3.5-5.1) mmol/L BUN 21 H (9-20) mg/dL Glucose 110 H (74-99) mg/dL POC Glucose (mg/dL) (70-110) mg/dL Plasma Lactic Acid Seven (0.7-2.0) mmol/L Phosphorus 4.7 H (2.5-4.5) mg/dL Magnesium 1.5 L (1.6-2.3) mg/dL Albumin 2.9 L (3.5-5.0) g/dL Urine Protein Trace H (Negative) Urine Glucose (UA) 4+ H (Negative) Urine Blood Trace H (Negative) Urine Mucus Rare H (None) /hpf 10/17/23 Range/Units 08:56 WBC (3.8-10.6) k/uL MCHC (31.0-37.0) g/dL RDW (11.5-15.5) % Neutrophils # (1.3-7.7) k/uL Lymphocytes # (1.0-4.8) k/uL Monocytes # (0-1.0) k/uL Sodium (137-145) mmol/L Potassium (3.5-5.1) mmol/L BUN (9-20) mg/dL Glucose (74-99) mg/dL POC Glucose (mg/dL) 134 H (70-110) mg/dL Plasma Lactic Acid Seven (0.7-2.0) mmol/L Phosphorus (2.5-4.5) mg/dL Magnesium (1.6-2.3) mg/dL Albumin (3.5-5.0) g/dL Urine Protein (Negative) Urine Glucose (UA) (Negative) Urine Blood (Negative) Urine Mucus (None) /hpf
[2023-10-17 20:14] LABS: Glucose,Whole Blood 139 mg/dL (70-110)
[2023-10-17] MEDS: INSULIN DETEMIR (LEVEMIR) 100 UNIT/ML SYR SQ SCH (20:29)
[2023-10-17] MEDS: MONTELUKAST 10 MG TAB PO SCH (20:29)
[2023-10-17] MEDS: APIXABAN 5 MG TAB PO SCH (20:29)
[2023-10-17] MEDS: SACUBITRIL/VALSARTAN 24 MG-26 MG TABLET PO SCH (20:29)
--- NOTE | 2023-10-17 21:17 | P.CNPUL ---
History of Present Illness Consult date: 10/17/23 Reason for consult: dyspnea History of present illness: The was history of facility 68-year-old male patient presenting to the hospital because of generalized weakness and failure to thrive. He has also been complaining of shortness of breath. The patient is also complaining of multiple episodes of other problems including some constipation, chronic pains, chronic difficulty with mobility, not feeling tired and fatigued. I believe he came in as the patient was unable to take care of himself adequately at home. For that reason, the patient was admitted to the hospital and I was asked to evaluate this patient for shortness of breath. The patient's chest x-ray at the time of admission showed cardiomegaly and pulm vessel congestion and the patient also has a pacemaker over the left anterior chest area. This was essentially consistent with CHF and volume overload. The patient also had an abdominal film that showed a nonspecific bowel gas pattern. The patient's WBC count was 11.5 and hemoglobin 14.6 and a platelet count of 293, BUN is 21 with a creatinine of 1.05 and his sodium level is at 137. Liver function test were normal. Based on my available history, the patient is known to have chronic shortness of breath related to chronic interstitial lung disease secondary to asbestosis. The patient also has diastolic heart failure he is morbidly obese and has obstructive sleep apnea. He has not been compliant to CPAP therapy. He also has had a previous history of left-sided pleural effusion and the patient was hospitalized back in 2014 for a left lung empyema and at that time the patient required a a video-assisted thoracoscopic surgery and he underwent a left thoracotomy and complete decortication of the left lung. His course was complicated by ventilator dependent respiratory failure and ultimately was extubated successfully. He also has chronic atrial fibrillation, hyperlipidemia, and gout. He is essentially bedridden. His most recent echocardiogram available to us from July 2019 showed impairment of the LV function with an ejection fraction of 40 to 45%. RV was severely enlarged and the patient had severe pulm hypertension with a PA pressure of 70. His current cardiac rhythm is paced and the patient has been maintained on anticoagulation with Eliquis on outpatient basis. In terms of his CHF, he has had previous history of severe cardiomyopathy and his ejection fraction dropped to as low as 20%. Subsequently his left ventricular ejection fraction improved with the treatment and the patient is currently on a combination of Entresto, Aldactone and Toprol. He is diabetic on insulin taking Lantus insulin 10 units on a daily basis and is also on Farxiga. He currently has a pacer/AICD. Review of Systems Constitutional: Reports fatigue, Reports weakness, Reports weight gain Eyes: denies as per HPI, denies blurred vision, denies bulging eye, denies decreased vision, denies diplopia, denies discharge, denies dry eye, denies irritation, denies itching, denies pain, denies photophobia, denies loss of peripheral vision, denies loss of vision, denies tunnel vision/blind spots Ears: deny: decreased hearing, ear discharge, earache, tinnitus Ears, nose, mouth and throat: Reports as per HPI Breasts: absent: as per HPI, gynecomastia Cardiovascular: Reports decreased exercise tolerance, Reports dyspnea on exertion, Reports irregular heart beat, Reports shortness of breath Respiratory: Reports cough, Reports dyspnea, Reports sleep apnea Gastrointestinal: Reports as per HPI Genitourinary: Reports as per HPI Musculoskeletal: Reports muscle weakness Musculoskeletal: bilateral: ankle swelling, absent: ankle pain, ankle stiffness Integumentary: Reports as per HPI Neurological: Reports as per HPI, Reports gait dysfunction Psychiatric: Reports as per HPI Endocrine: Reports as per HPI, Reports fatigue Hematologic/Lymphatic: Reports as per HPI Past Medical History Past Medical History: Atrial Flutter, Heart Failure, COPD, Diabetes Mellitus, GERD/Reflux, Hyperlipidemia, Hypertension, Osteoarthritis (OA), Sleep Apnea/CPAP/BIPAP Additional Past Medical History / Comment(s): previous history of empyema with left lung decortication, history of interstitial lung disease/asbestosis, chronic cellulitis involving the lower extremities. History of Any Multi-Drug Resistant Organisms: None Reported Past Surgical History: AICD, Cardiac Ablation, Orthopedic Surgery Additional Past Surgical History / Comment(s): rectal fistula repair X2. RUEL KNEE ARTHROSCOPY, surgery to remove part of lower left lung for abestosis Past Anesthesia/Blood Transfusion Reactions: No Reported Reaction Type of Cardiac Device: AICD Device Placement Date:: [facility] 10/13/15 Past Psychological History: No Psychological Hx Reported Additional Psychological History / Comment(s): . Smoking Status: Never smoker Past Alcohol Use History: Daily, Heavy Additional Past Alcohol Use History / Comment(s): Pt states he stopped drinking before he was 52. Past Drug Use History: Marijuana - Past Family History Father Family Medical History: Diabetes Mellitus Additional Family Medical History / Comment(s): Father is almost 90 yrs old. Mother Family Medical History: Cancer Additional Family Medical History / Comment(s): STOMACH CA. Medications and Allergies Home Medications Medication Instructions Recorded Confirmed Type Metoprolol Succinate [Toprol XL] 200 mg PO DAILY 03/01/16 10/17/23 History Albuterol Sulfate [Ventolin HFA] 2 puff INHALATION RT-QID PRN 07/28/19 10/17/23 History Atorvastatin [Lipitor] 40 mg PO DAILY 07/28/19 10/17/23 History Montelukast [Singulair] 10 mg PO HS 07/28/19 10/17/23 History allopurinoL [Zyloprim] 200 mg PO DAILY 07/28/19 10/17/23 History Budesonide/Formoterol Fumarate 2 puff INHALATION RT-BID 03/31/21 10/17/23 History [Symbicort 160-4.5 Mcg Inhaler] EPINEPHrine (Auto Inject) [Epipen] 0.3 mg IM ONCE PRN 03/31/21 10/17/23 History Ibuprofen [Motrin] 800 mg PO BID PRN 03/31/21 10/17/23 History HYDROcodone/APAP 10-325MG [[place] 1 tab PO TID PRN #10 tab 04/07/21 10/17/23 Rx 10-325] Apixaban [Eliquis] 5 mg PO BID 10/17/23 10/17/23 History Balsalazide Disodium 750 mg PO TID 10/17/23 10/17/23 History Dapagliflozin Propanediol [Farxiga] 10 mg PO DAILY 10/17/23 10/17/23 History Furosemide [Lasix] 40 mg PO BID 10/17/23 10/17/23 History Insulin Glargine,Hum.rec.anlog 10 units SQ HS 10/17/23 10/17/23 History [Lantus Solostar Pen] Ipratropium-Albuterol Nebulize 3 ml INHALATION RT-QID 10/17/23 10/17/23 History [Duoneb 0.5 mg-3 mg/3 ml Soln] Lactulose 10 gm PO BID PRN 10/17/23 10/17/23 History Omeprazole [PriLOSEC] 40 mg PO DAILY 10/17/23 10/17/23 History Sacubitril/Valsartan [Entresto 24 1 tab PO BID 10/17/23 10/17/23 History mg-26 mg Tablet] Spironolactone [Aldactone] 25 mg PO DAILY 10/17/23 10/17/23 History Allergies Allergy/AdvReac Type Severity Reaction Status Date / Time No Known Allergies Allergy Verified 10/17/23 07:08 Physical Exam Vitals: Vital Signs Temp Pulse Pulse Resp BP BP BP 10/17/23 15:58 61 10/17/23 15:45 60 10/17/23 14:00 98.8 F 60 18 113/55 10/17/23 11:38 61 10/17/23 11:26 61 10/17/23 09:36 60 105/59 10/17/23 09:06 98.3 F 60 18 90/56 10/17/23 09:00 10/17/23 06:26 60 16 96/60 10/17/23 05:43 60 16 106/51 10/17/23 04:14 60 16 106/61 10/17/23 02:58 60 18 102/64 10/17/23 01:16 60 18 111/69 10/16/23 21:21 62 18 119/63 10/16/23 19:41 97.9 F 63 18 110/61 Pulse Ox 10/17/23 15:58 10/17/23 15:45 10/17/23 14:00 96 10/17/23 11:38 10/17/23 11:26 10/17/23 09:36 94 L 10/17/23 09:06 91 L 10/17/23 09:00 98 10/17/23 06:26 96 10/17/23 05:43 10/17/23 04:14 97 10/17/23 02:58 95 10/17/23 01:16 92 L 10/16/23 21:21 95 10/16/23 19:41 93 L Intake and Output 10/17/23 10/17/23 10/17/23 06:59 14:59 22:59 Intake Total 450 Output Total 300 Balance 150 Intake: Oral 450 Output: Urine 300 Other: # Voids 1 Weight 145.15 kg Morbidly obese,, comfortable, not in acute distress. Able to communicate. BMI is 47.3 Head exam was generally normal. There was no scleral icterus or corneal arcus. Mucous membranes were moist. Neck was supple and without jugular venous distension, thyromegaly, or carotid bruits. Carotids were easily palpable bilaterally. There was no adenopathy. Lung sounds are diminished bilaterally especially in the lung bases. Occasional scattered rhonchi. No significant wheezing appreciated. Cardiac exam revealed the PMI to be normally situated and sized. The rhythm was regular and no extrasystoles were noted during several minutes of auscultation. The first and second heart sounds were normal and physiologic splitting of the second heart sound was noted. There were no murmurs, rubs, clicks, or gallops. The overall heart sounds are distant. Abdomen is obese. Patient has a large abdominal pannus. No direct tenderness. No rebound tenderness. No guarding. Organs cannot be accurately assessed. Extremities are chronic severely swollen and lower extremity and the patient has evidence of chronic venous stasis. No open wounds or ulceration at this point in time. Neurologically awake and alert and the patient is Following commands and answering questions. The patient however has chronic difficulties mobility and gait and the patient walks around with the help of a walker and he has limited mobility at this point. Will strengthen his lower extremities and the proximal muscles. No facial asymmetry. No focal neurological deficits. Results - Laboratory Findings CBC and BMP: 10/17/23 07:28 10/17/23 07: ABG WBC 11.5 k/uL (3.8-10.6) H 10/17/23: RBC 5.08 m/uL (4.30-5.90) 10/17/23 07: Hgb 14.6 gm/dL (13.0-17.5) 10/17/23: Hct 47.3 % (39.0-53.0) 10/17/23: MCV 93.0 fL (80.0-100.0) 10/17/23 07:28 MCH 28.7 pg (25.0-35.0) 10/17/23 07: MCHC 30.8 g/dL (31.0-37.0) L 04/10/24 07:28 RDW 15.7 % (11.5-15.5) H 10/17/23 07:28 Plt Count 293 k/uL (150-450) 10/17/23 07:28 MPV 8.2 10/17/23 07:28 Neutrophils % 80 % 10/17/23 07:28 Lymphocytes % 8 % 10/17/23 07:28 Monocytes % 9 % 10/17/23 07: Eosinophils % 1 % 10/17/23 07: Basophils % 1 % 10/17/23 07:28 Neutrophils # 9.2 k/uL (1.3-7.7) H 10/17/23 07:28 Lymphocytes # 0.9 k/uL (1.0-4.8) L 10/17/23 07: Monocytes # 1.1 k/uL (0-1.0) H 10/17/23 07:28 Eosinophils # 0.1 k/uL (0-0.7) 10/17/23 07: Basophils # 0.1 k/uL (0-0.2) 10/17/23 07:28 Hypochromasia Slight 10/17/23 07:28 PT 12.0 sec (10.0-12.5) 10/16/23 19:52 INR 1.1 (<1.2) 10/16/23 19:52 APTT 29.7 sec (22.0-30.0) 10/16/23 19:52 Sodium 137 mmol/L (137-145) 10/17/23 07:28 Potassium 3.3 mmol/L (3.5-5.1) L 10/17/23 07:28 Chloride 99 mmol/L (98-107) 10/17/23 07:28 Carbon Dioxide 30 mmol/L (22-30) 10/17/23 07:28 Anion Gap 8 mmol/L 10/17/23 07:28 BUN 21 mg/dL (9-20) H 10/17/23 07:28 Creatinine 1.05 mg/dL (0.66-1.25) 10/17/23 07:28 Est GFR (CKD-EPI)AfAm 86 (>60 ml/min/1.73 sqM) 10/17/23 07:28 Est GFR (CKD-EPI)NonAf 74 (>60 ml/min/1.73 sqM) 10/17/23 07:28 Glucose 110 mg/dL (74-99) H 10/17/23 07:28 POC Glucose (mg/dL) 123 mg/dL (70-110) H 10/17/23 13:21 POC Glu Drama Therapist ID Shannon Ortiz 10/17/23 13:21 Lactic Ac Sepsis Rflx Y 10/16/23 21:33 Plasma Lactic Acid Seven 1.2 mmol/L (0.7-2.0) 10/17/23 00:10 Calcium 8.4 mg/dL (8.4-10.2) 10/17/23 07:28 Phosphorus 4.7 mg/dL (2.5-4.5) H 10/17/23 07: Magnesium 1.5 mg/dL (1.6-2.3) L 10/17/23 07:28 Total Bilirubin 0.8 mg/dL (0.2-1.3) 10/17/23 07:28 AST 17 U/L (17-59) 10/17/23 07:28 ALT 9 U/L (4-49) 10/17/23 07:28 Alkaline Phosphatase 109 U/L (38-126) 10/17/23 07:28 Troponin I <0.012 ng/mL (0.000-0.034) 10/16/23 19:52 NT-Pro-B Natriuret Pep 885 pg/mL 10/16/23 19:52 Total Protein 6.3 g/dL (6.3-8.2) 10/17/23 07:28 Albumin 2.9 g/dL (3.5-5.0) L 10/17/23 07:28 Lipase 29 U/L (23-300) 10/17/23 07:28 TSH 2.550 mIU/L (0.465-4.680) 10/16/23 19:52 Urine Color Colorless 10/16/23 23:03 Urine Appearance Clear (Clear) 10/16/23 23:03 Urine pH 5.0 (5.0-8.0) 10/16/23 23:03 Ur Specific [place] 1.012 (1.001-1.035) 10/16/23 23:03 Urine Protein Trace (Negative) H 10/16/23 23:03 Urine Glucose (UA) 4+ (Negative) H 10/16/23 23:03 Urine Ketones Negative (Negative) 10/16/23 23:03 Urine Blood Trace (Negative) H 10/16/23 23:03 Urine Nitrite Negative (Negative) 10/16/23 23:03 Urine Bilirubin Negative (Negative) 10/16/23 23:03 Urine Urobilinogen <2.0 mg/dL (<2.0) 10/16/23 23:03 Ur Leukocyte Esterase Negative (Negative) 10/16/23 23:03 Urine RBC 2 /hpf (0-5) 10/16/23 23:03 Urine WBC 3 /hpf (0-5) 10/16/23 23:03 Ur Squamous Epith Cells <1 /hpf (0-4) 10/16/23 23:03 Hyaline Casts 1 /lpf (0-2) 10/16/23 23:03 Urine Mucus Rare /hpf (None) H 10/16/23 23:03 Serum Alcohol <10 mg/dL 10/16/23 19:52 PT/INR, D-dimer PT 12.0 sec (10.0-12.5) 10/16/23 19:52 INR 1.1 (<1.2) 10/16/23 19:52 Abnormal lab findings: Abnormal Labs 10/16/23 10/16/23 10/16/23 19:52 19:52 19:52 WBC 12.1 H MCHC RDW 16.0 H Neutrophils # 9.4 H Lymphocytes # Monocytes # 1.3 H Sodium 136 L Potassium 3.3 L BUN 22 H Glucose 153 H POC Glucose (mg/dL) Plasma Lactic Acid Seven 2.8 H* Phosphorus Magnesium 1.5 L Albumin 3.2 L Urine Protein Urine Glucose (UA) Urine Blood Urine Mucus 10/16/23 10/17/23 10/17/23 23:03 07:28 07:28 WBC 11.5 H MCHC 30.8 L RDW 15.7 H Neutrophils # 9.2 H Lymphocytes # 0.9 L Monocytes # 1.1 H Sodium Potassium 3.3 L BUN 21 H Glucose 110 H POC Glucose (mg/dL) Plasma Lactic Acid Seven Phosphorus 4.7 H Magnesium 1.5 L Albumin 2.9 L Urine Protein Trace H Urine Glucose (UA) 4+ H Urine Blood Trace H Urine Mucus Rare H 10/17/23 10/17/23 08:56 13:21 WBC MCHC RDW Neutrophils # Lymphocytes # Monocytes # Sodium Potassium BUN Glucose POC Glucose (mg/dL) 134 H 123 H Plasma Lactic Acid Seven Phosphorus Magnesium Albumin Urine Protein Urine Glucose (UA) Urine Blood Urine Mucus Assessment and Plan Plan: Shortness of breath, multifactorial. The patient has history of chronic ILD and asbestosis and the patient also has a component of CHF on today's chest x-ray with increased pulm vascular markings and cardiomegaly. Cardiac enzymes has not been checked during this current admission. EKG showing a paced rhythm. I believe the patient's shortness of breath is chronic. No acute decompensating factors. I think is present patient is related to inability to take care of himself at home and seems to be quite debilitated Chronic hypoxic respiratory failure, currently on 2 L of oxygen by nasal cannula CHF with history of systolic heart failure, treated with a combination of Entresto, Farxiga, Aldactone and Toprol. 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 Morbid obesity Obstructive sleep apnea with an AHI of 45 and the patient supposed to be on CPAP therapy at a pressure of 10 cm of water Previous history of empyema back in 2014 complicated by respiratory failure requiring chest tube insertion and subsequent video-assisted arthroscopic surgery with decortication Diabetes mellitus maintained on Lantus insulin Hypertension Hyperlipidemia Chronic recurrent cellulitis of the lower extremities History of atrial fibrillation and sick sinus syndrome. The patient has undergone previous ablation and the patient currently has a pacer/AICD in place and his cardiac rhythm is paced Difficult mobility and the patient is currently bedridden Plan history of GI bleed, none for now and the patient has been maintained on anticoagulants. Plan Plan is to resume home medications. Will discuss with the medical team. May need some rehabilitation and strengthening. No acute pulmonary decompensating factors. There is evidence of chronic debility.
[2023-10-18] MEDS: ALBUTEROL NEBULIZED 2.5 MG/3 ML INHALATION PRN (00:45)
[2023-10-18 06:33] LABS: Glucose,Whole Blood 101 mg/dL (70-110)
--- NOTE | 2023-10-18 08:30 | CA ---
Transthoracic Echo Report Name: Servando Winkler Age: 68 Gender: M : 1955 Exam Date: 10/17/2023 14:12 Exam Location: [facility] Ht (in): 69 Wt (lb): 320 Ordering Physician: Seth Ye MD ([id number]) Attending/Referring Phys: [employer] Sara Pina RCS Procedure CPT: Indications: prior poor EF Cardiac Hx: Technical Quality: Very technically difficult study Contrast 1: Definity Total Dose (mL): 2 Contrast 2: Total Dose (mL): MEASUREMENTS (Male / Female) Normal Values 2D ECHO LV Diastolic Diameter PLAX 5.6 cm 4.2 - 5.9 / 3.9 - 5.3 cm LV Systolic Diameter PLAX 3.7 cm IVS Diastolic Thickness 0.8 cm 0.6 - 1.0 / 0.6 - 0.9 cm LVPW Diastolic Thickness 0.9 cm 0.6 - 1.0 / 0.6 - 0.9 cm LV Relative Wall Thickness 0.3 RV Internal Dim ED PLAX 4.2 cm LVOT Diameter 2.3 cm Aortic Root Diameter 3.2 cm Ascending Aorta Diameter 3.6 cm DOPPLER AV Peak Velocity 147.1 cm/s AV Peak Gradient 8.7 mmHg AV Mean Velocity 96.4 cm/s AV Mean Gradient 4.4 mmHg AV Velocity Time Integral 26.0 cm LVOT Peak Velocity 96.4 cm/s LVOT Peak Gradient 3.7 mmHg LVOT Velocity Time Integral 17.4 cm LVOT Stroke Volume 73.9 cm??? LVOT Stroke Volume Index 29.3 ml/m??? LVOT Cardiac Index 1620.3 cm???/min???m??? AV Area Cont Eq vti 2.8 cm??? AV Area Cont Eq pk 2.8 cm??? TR Peak Velocity 302.8 cm/s TR Peak Gradient 36.7 mmHg PV Peak Velocity 79.2 cm/s PV Peak Gradient 2.5 mmHg FINDINGS Left Ventricle Left ventricular ejection fraction is estimated at 55 % by visual. Left ventricular wall thickness normal. Left ventricular cavity size normal. No obvious regional wall motion abnormalities. Diastolic dysfunction with increased Awave velocity Right Ventricle Moderate right ventricular dilatation with normal function. Mildly elevated right ventricular systolic pressure. Right Atrium Right atrium not well visualized. Left Atrium Left atrium not well visualized. Mitral Valve Structurally normal mitral valve. No evidence for mitral valve prolapse. No mitral stenosis. No mitral regurgitation. Aortic Valve Trileaflet aortic valve. No aortic valve stenosis or regurgitation. Tricuspid Valve Structurally normal tricuspid valve. No tricuspid stenosis. Mild to moderate tricuspid regurgitation. Pulmonic Valve Pulmonic valve not well visualized. No pulmonic stenosis. No pulmonic regurgitation. Pericardium No pericardial effusion. Aorta Aortic root and proximal ascending aorta not well visualized. CONCLUSIONS LV size and systolic function is fairly well-preserved right ventricle is dilated. Mild to moderate tricuspid regurgitation. No pericardial effusion. Technically difficult echo Previewed by: Dr. Seth Ye MD (Electronically Signed) Final Date: 18 October 2023 08:29
[2023-10-18] MEDS: METOPROLOL SUCCINATE (ER) 100 MG TAB.ER.24H PO SCH (09:41)
[2023-10-18] MEDS: SPIRONOLACTONE 25 MG TAB PO SCH (09:41)
[2023-10-18 12:41] LABS: Glucose,Whole Blood 97 mg/dL (70-110)
[2023-10-18] MEDS: IOPAMIDOL CONTRAST (ORAL USE) VIAL PO PRN (15:39)
--- NOTE | 2023-10-18 16:28 | P.GSCN ---
History of Present Illness Consult date: 10/18/23 History of present illness: CHIEF COMPLAINT: Weakness and not feeling well HISTORY OF PRESENT ILLNESS: This is a 68-year-old male who presented to the hospital with weakness and not feeling well. He does complain of abdominal pain in the left upper quadrant. He reports the pain has been present for 2 weeks. He did have episode of vomiting this morning. He reports he is passing gas but no bowel movement for 3 days. He reports a decreased appetite. Denies any p rior surgical history on the abdomen. Abdominal x-ray had reported a nonobstructing bowel gas pattern. Surgical service consulted for abdominal pain. PAST MEDICAL HISTORY: See below PAST SURGICAL HISTORY: See below MEDICATIONS: See below ALLERGIES: See below SOCIAL HISTORY: No illicit drug use. Prior history of heavy alcohol use. Patient reports it has been several years since he drank REVIEW OF SYSTEMS: CONSTITUTIONAL: Denies fever or chills. HEENT: Denies blurred vision, vision changes, or eye pain. Denies hemoptysis CARDIOVASCULAR: Denies chest pain or pressure. RESPIRATORY: No shortness of breath. GASTROINTESTINAL: See HPI for pertinent findings HEMATOLOGIC: Denies bleeding disorders. GENITOURINARY: Denies any blood in urine or increased urinary frequency. SKIN: Denies pruitis. Denies rash. PHYSICAL EXAM: VITAL SIGNS: Reviewed GENERAL: Well-developed in no acute distress. HEENT: No sclera icterus. Extraocular movements grossly intact. Moist buccal mucosa. Head is atraumatic, normocephalic. No nasal drainage. ABDOMEN: Soft. Obese. Nondistended. Tenderness left upper quadrant NEUROLOGIC: Alert and oriented. Cranial nerves II through XII grossly intact. LABORATORY DATA: WBC 11.5 Hgb 14.6 platelets 293 Sodium 137 potassium 3.3 creatinine 1.05 Lactic acid 2.8 down to 1.2 Magnesium 1.5 Albumin 2.9 Serum alcohol level less than 10 IMAGING: Abdominal x-ray nonobstructive bowel gas pattern Echo EF 55% mild to moderate tricuspid regurg Chest x-ray cardiopulmonary venous congestion and small effusion suggested. Correlate for volume overload ASSESSMENT: 1. Left upper quadrant abdominal pain 2. Constipation 3. Hypokalemia and hypomagnesemia PLAN: -CT scan abdomen and pelvis ordered for further evaluation of abdominal pain -Further recommendations forthcoming depending on CT scan results -Continue supportive care -Continue to correct electrolytes Physician Butane Compressor Operator note has been reviewed by physician. Signing provider agrees with the documented findings, assessment, and plan of care. Past Medical History Past Medical History: Atrial Flutter, Heart Failure, COPD, Diabetes Mellitus, GERD/Reflux, Hyperlipidemia, Hypertension, Osteoarthritis (OA), Sleep Apnea/CPAP/BIPAP Additional Past Medical History / Comment(s): previous history of empyema with left lung decortication, history of interstitial lung disease/asbestosis, chronic cellulitis involving the lower extremities. History of Any Multi-Drug Resistant Organisms: None Reported Past Surgical History: AICD, Cardiac Ablation, Orthopedic Surgery Additional Past Surgical History / Comment(s): rectal fistula repair X2. RUEL KNEE ARTHROSCOPY, surgery to remove part of lower left lung for abestosis Past Anesthesia/Blood Transfusion Reactions: No Reported Reaction Type of Cardiac Device: AICD Device Placement Date:: [facility] 10/13/15 Past Psychological History: No Psychological Hx Reported Additional Psychological History / Comment(s): . Smoking Status: Never smoker Past Alcohol Use History: Daily, Heavy Additional Past Alcohol Use History / Comment(s): Pt states he stopped drinking before he was 52. Past Drug Use History: Marijuana - Past Family History Father Family Medical History: Diabetes Mellitus Additional Family Medical History / Comment(s): Father is almost 90 yrs old. Mother Family Medical History: Cancer Additional Family Medical History / Comment(s): STOMACH CA. Medications and Allergies Home Medications Medication Instructions Recorded Confirmed Type Metoprolol Succinate [Toprol XL] 200 mg PO DAILY 03/01/16 10/17/23 History Albuterol Sulfate [Ventolin HFA] 2 puff INHALATION RT-QID PRN 07/28/19 10/17/23 History Atorvastatin [Lipitor] 40 mg PO DAILY 07/28/19 10/17/23 History Montelukast [Singulair] 10 mg PO HS 07/28/19 10/17/23 History allopurinoL [Zyloprim] 200 mg PO DAILY 07/28/19 10/17/23 History Budesonide/Formoterol Fumarate 2 puff INHALATION RT-BID 03/31/21 10/17/23 History [Symbicort 160-4.5 Mcg Inhaler] EPINEPHrine (Auto Inject) [Epipen] 0.3 mg IM ONCE PRN 03/31/21 10/17/23 History Ibuprofen [Motrin] 800 mg PO BID PRN 03/31/21 10/17/23 History HYDROcodone/APAP 10-325MG [[place] 1 tab PO TID PRN #10 tab 04/07/21 10/17/23 Rx 10-325] Apixaban [Eliquis] 5 mg PO BID 10/17/23 10/17/23 History Balsalazide Disodium 750 mg PO TID 10/17/23 10/17/23 History Dapagliflozin Propanediol [Farxiga] 10 mg PO DAILY 10/17/23 10/17/23 History Furosemide [Lasix] 40 mg PO BID 10/17/23 10/17/23 History Insulin Glargine,Hum.rec.anlog 10 units SQ HS 10/17/23 10/17/23 History [Lantus Solostar Pen] Ipratropium-Albuterol Nebulize 3 ml INHALATION RT-QID 10/17/23 10/17/23 History [Duoneb 0.5 mg-3 mg/3 ml Soln] Lactulose 10 gm PO BID PRN 10/17/23 10/17/23 History Omeprazole [PriLOSEC] 40 mg PO DAILY 10/17/23 10/17/23 History Sacubitril/Valsartan [Entresto 24 1 tab PO BID 10/17/23 10/17/23 History mg-26 mg Tablet] Spironolactone [Aldactone] 25 mg PO DAILY 10/17/23 10/17/23 History Allergies Allergy/AdvReac Type Severity Reaction Status Date / Time No Known Allergies Allergy Verified 10/17/23 07:08 Surgical - Exam Vital Signs Temp Pulse Resp BP Pulse Ox 97.9 F 63 18 110/61 93 L 10/16/23 19:41 10/16/23 19:41 10/16/23 19:41 10/16/23 19:41 10/16/23 19:41 Results - Labs 10/17/23 07:28 10/17/23 07:28 Abnormal Lab Results - Last 24 Hours (Table) 10/17/23 10/17/23 10/17/23 Range/Units 11:45 13:21 17:23 POC Glucose (mg/dL) 123 H 133 H (70-110) mg/dL NT-Pro-B Natriuret Pep 764 H (0-125) pg/mL 10/17/23 Range/Units 20:13 POC Glucose (mg/dL) 139 H (70-110) mg/dL NT-Pro-B Natriuret Pep (0-125) pg/mL
--- NOTE | 2023-10-18 17:32 | P.PN ---
Progress Note - Text Progress Note Date: 10/18/23 Chief Complaint: Multiple complaints This is a 68-year-old patient who for the [facility] visiting physician Dr. Esquivel. Has multiple symptoms. He does complain of occasional nausea. Normally has a bowel movement 2-3 times a day. Last couple of days not had a bowel movement. No abdominal pain. Patient does have obstructive sleep apnea does not use his machine. Has AICD. Has a large abdominal pannus. He is asking if he has bowel obstruction. It is soft. Patient also wears a brace for the left knee. Does have both of a cane and a walker at home. Till about 10 years ago patient was drinking increased alcohol. Anywhere from 6-12 beers a day. He also wants to see the geotechnician Dr. Barillas for his AICD. Chronic lower extremity swelling with some venous insufficiency. Not keen for breakfast this morning. Patient complains of generalized weakness. Unable to get up and walk. October 17: Sitting at the side of bed. Seen by pulmonary. No further intervention. Seen by general surgery. CT scan abdomen ordered. 2D echocardiogram unremarkable. Decreased appetite. Active Medications Hydrocodone Bitart/Acetaminophen (Hydrocodone/Apap 10-325mg 1 Each Tab) 1 each PO TID PRN PRN Reason: Pain Albuterol Sulfate (Albuterol Nebulized 2.5 Mg/3 Ml) 2.5 mg INHALATION RT-QID PRN PRN Reason: Shortness Of Breath Last Admin: 10/18/23 00:45 Dose: 2.5 mg Albuterol/Ipratropium (Ipratropium-Albuterol 3 Ml Neb) 3 ml INHALATION RT-QID [facility] Last Admin: 10/18/23 16:22 Dose: 3 ml Allopurinol (Allopurinol 100 Mg Tab) 200 mg PO DAILY [facility] Last Admin: 10/18/23 09:41 Dose: 200 mg Apixaban (Apixaban 5 Mg Tab) 5 mg PO BID [facility]; Protocol Last Admin: 10/18/23 09:41 Dose: 5 mg Atorvastatin Calcium (Atorvastatin 40 Mg Tab) 40 mg PO DAILY [facility] Last Admin: 10/18/23 09:41 Dose: 40 mg Balsalazide (Balsalazide Disodium 750 Mg Capsule) 750 mg PO TID [facility] Last Admin: 10/18/23 15:38 Dose: 750 mg Budesonide/Formoterol Fumarate (Symbicort 160-4.5 Mcg Inhaler) 2 puff INHALATION RT-BID [facility] Last Admin: 10/18/23 09:59 Dose: 2 puff Dapagliflozin (Dapagliflozin Propanediol 10 Mg Tablet) 10 mg PO DAILY [facility] Last Admin: 10/18/23 09:42 Dose: 10 mg Folic Acid (Folic Acid 1 Mg Tab) 1 mg PO DAILY [facility] Last Admin: 10/18/23 09:41 Dose: 1 mg Furosemide (Furosemide 40 Mg Tab) 40 mg PO BID@0900,1600 [facility] Last Admin: 10/18/23 15:38 Dose: 40 mg Sodium Chloride (Saline 0.9%) 1,000 mls @ 75 mls/hr IV .[id number] [facility] Last Admin: 10/18/23 03:38 Dose: Not Given Insulin Detemir (Insulin Detemir (Levemir) 100 Unit/Ml Syr) 10 unit SQ HS [facility] Last Admin: 10/17/23 20:29 Dose: 10 unit Magnesium Oxide (Magnesium Oxide 400 Mg Tab) 400 mg PO BID [facility] Last Admin: 10/18/23 09:42 Dose: 400 mg Metoprolol Succinate (Metoprolol Succinate (Er) 100 Mg Tab.Er.24h) 200 mg PO DAILY [facility] Last Admin: 10/18/23 09:41 Dose: 200 mg Montelukast Sodium (Montelukast 10 Mg Tab) 10 mg PO HS [facility] Last Admin: 10/17/23 20:29 Dose: 10 mg Multivitamins (Multivitamins, Thera 1 Each Tab) 1 each PO DAILY [facility] Last Admin: 10/18/23 09:41 Dose: 1 each Naloxone HCl (Naloxone 0.4 Mg/Ml 1 Ml Vial) 0.2 mg IV Q2M PRN PRN Reason: Opioid Reversal Ondansetron HCl (Ondansetron 4 Mg/2 Ml Vial) 4 mg IVP Q8HR PRN PRN Reason: Nausea And Vomiting Sacubitril/Valsartan (Sacubitril/Valsartan 24 Mg-26 Mg Tablet) 1 each PO BID [facility] Last Admin: 10/18/23 09:41 Dose: 1 each Spironolactone (Spironolactone 25 Mg Tab) 25 mg PO DAILY [facility] Last Admin: 10/18/23 09:41 Dose: 25 mg Social history: Lives alone. Does use a cane and a walker. No smoking. Till about 10 years ago patient is drinking anywhere from 6-12 beers a day. For some time. Physical examination: VITAL SIGNS: 98, 59, 17, 124 x 78, 93% room air GENERAL: BMI 47.3, sitting at edge of the bed, comfortable EYES: Pupils equal. Conjunctiva zara l. HEENT: External appearance of nose and ears normal, oral cavity grossly normal. NECK: JVD unable to assess; masses not palpable. HEART: Heart sounds are distant, some edema present. LUNGS: Respiratory rate increased; clear to auscultation. ABDOMEN: Soft, nontender, liver spleen not palpable, no masses palpable. Large abdominal pannus. PSYCH: Alert and oriented x3; mood and affect zara l. MUSCULOSKELETAL:No Clubbing/cyanosis;muscles-grossly intact. OA EXTREMITIES: Evidence of venous sufficiency with discoloration bilateral lower extremity NEUROLOGICAL: Cranial nerves grossly intact; no facial asymmetry, power and sensation grossly intact. LYMPHATICS: No lymph nodes palpable in the axilla and neck INVESTIGATIONS, reviewed in the clinical context: October 17, 2023: White: 0.5 hemoglobin 14.6 platelets 293 sodium 137 potassium 3.3 BUN 21 creatinine 1.05 magnesium 1.5 proBNP 764 EKG tracing personally reviewed by me-ventricular paced rhythm. Underlying at rial flutter fibrillation Chest x-ray film personally reviewed by me-cardiomegaly. Some venous prominence. AICD. Assessment plan: -Acute on chronic medical debility. Multifactorial. Patient is morbidly obese. Does use a cane and a walker at bedside. Had decreased oral intake yesterday. That could have precipitated increased weakness. PT OT Declined rehab. -Morbid obesity BMI 47.3 Weight loss measures -Obstructive sleep apnea, patient's machine is not working -AICD -Persistent atrial flutter fibrillation. Eliquis 5 mg twice daily Toprol-XL to her milligram a day -Diabetes mellitus type 2, chronically on insulin Resume home dose of Lantus. Accu-Cheks with sliding scale -Essential hypertension Entresto. Toprol-XL. -Some abdominal discomfort. No bowel movement for 2 days. Abdominal x-ray shows nonobstructive bowel gas pattern. Patient rather concerned about his symptoms. Dr. Hurd consulted CT abdomen ordered Await results of CT scan. Follow-up with cardiology. Discussed with patient. He does not want rehab. Past Medical History Past Medical History: Atrial Flutter, COPD, Diabetes Mellitus, GERD/Reflux, Osteoarthritis (OA), Pneumonia, Renal Disease, Skin Disorder, Sleep Apnea/CPAP/BIPAP Additional Past Medical History / Comment(s): BLOOD IN STOOL, cellulitis bilateral lower extremities-healing, gout, USES A CANE TO AMBULATE, History of Any Multi-Drug Resistant Organisms: None Reported Past Surgical History: AICD, Cardiac Ablation, Orthopedic Surgery Additional Past Surgical History / Comment(s): rectal fistula repair X2. RUEL KNEE ARTHROSCOPY, surgery to remove part of lower left lung for abestosis Past Anesthesia/Blood Transfusion Reactions: No Reported Reaction Type of Cardiac Device: AICD Device Placement Date:: [facility] 10/13/15 Past Psychological History: No Psychological Hx Reported Smoking Status: Never smoker Past Alcohol Use History: Daily, Heavy Past Drug Use History: Marijuana
--- NOTE | 2023-10-18 17:37 | CT ---
EXAMINATION TYPE: CT abdomen pelvis w con DATE OF EXAM: 10/18/2023 COMPARISON: 04/01/2021 HISTORY: ABD PAIN CT DLP: 2449.30 mGycm CONTRAST: CT scan of the abdomen and pelvis is performed with Oral Contrast and with IV Contrast, patient injec mike with 100 mL of Isovue 300. Exam is limited by the fact that the portion of the left hemiabdomen i s cut off the [id number]. FINDINGS: LUNG BASES-: No visible nodule. No infiltrate. Basilar calcified pleural plaques. LIVER/GB: No calcified gallstones. No space occupying hepatic lesion. Biliary tree is of normal ca liber. PANCREAS: No inflammation. No distinct mass. SPLEEN: No splenic enlargement. No lesion seen. ADRENALS: No nodule. No thickening. KIDNEYS/BLADDER: No hydronephrosis. No nephrolithiasis. No distinct renal mass. Urinary bladder g rossly unremarkable. BOWEL: The appendix is not clearly visualized. Normal bowel caliber. No inflammation. GENITAL ORGANS: No gross abnormality. LYMPH NODES: No greater than 1cm abdominal or pelvic lymph nodes are appreciated. AORTA: No significant abnormality. OSSEOUS STRUCTURES: No significant abnormality is seen. OTHER: No significant additional abnormality is seen. IMPRESSION: 1. No acute process seen to account for the patient's symptoms.
[2023-10-18 17:55] LABS: Glucose,Whole Blood 137 mg/dL (70-110)
[2023-10-18 20:33] LABS: Glucose,Whole Blood 147 mg/dL (70-110)
--- NOTE | 2023-10-18 23:24 | CONS ---
CONSULTATION HISTORY OF PRESENT ILLNESS: Mr. Winkler is a 68-year-old gentleman with a history of alcoholism in the past, had nonischemic cardiomyopathy and a single-chamber ICD that was done by Dr. Collazo. Patient follows with Dr. Collazo closely. Last visit was in November 2020 at which time his device was checked and he missed a couple of appointments, he has another 1 scheduled in December of this year. However, he came in, admitted because of general debility, weakness, and shortness of breath. Clinically, he is not in heart failure. I saw him yesterday evening. BNP is normal. He is in no distress, but he does have shortness of breath with activity, probably has some interstitial lung disease and COPD as well. His breathing has been affected lately, but he does not have any chest pain or shortness of breath. His initial troponin was normal. BNP is also within acceptable limits. No significant elevation, is resting comfortably without symptoms. He has history of paroxysmal atrial fibrillation and has been on Eliquis. PAST MEDICAL HISTORY: 1. History of paroxysmal atrial fibrillation, on Eliquis according to the patient. 2. History of nonischemic cardiomyopathy related to alcohol, subsequent improvement in LV function. 3. No significant obstructive CAD by cath a few years ago. 4. Type 2 diabetes. 5. Hypertension. 6. Hyperlipidemia. Possible the patient may have probably some interstitial lung disease as well in addition to COPD. SOCIAL HISTORY: He has a past smoker. PHYSICAL EXAMINATION: VITAL SIGNS: Blood pressure is 120/70, pulse rate is 64 per minute and regular. HEENT: Unremarkable. Fundus was not examined by me. NECK: Supple. There is JVD of 1 cm. No carotid bruit. HEART: Reveals S1, S2 heard normally, short systolic murmur noted. LUNGS: Reveal bilateral diminished air entry. ABDOMEN: Soft, nontender. EXTREMITIES: Lower extremities reveal diminished pulses. NEUROLOGIC: Central nervous system is normal. EKG revealed a ventricular paced rhythm at a rate of 60 beats per minute. IMPRESSION: 1. Exacerbation of COPD and/or interstitial lung disease. 2. No evidence of heart failure clinically. 3. History of nonischemic cardiomyopathy with alcohol use in the past. Patient has since then quit alcohol. 4. No significant obstructive CAD by cardiac cath in 2019. RECOMMENDATIONS: I am recommending that we will do an echocardiogram and seek pulmonary evaluation. No aggressive intervention cardiac-aranda and he will, upon discharge, be followed up by Dr. Collazo in the office along with a device check. Discussed my thoughts in detail with the patient. Thank you very much for the consult. MMSTACYL / IJN: [id number] /
[2023-10-19 07:59] VITALS: BP 136/73; RESP 19; TEMP 98.1
--- NOTE | 2023-10-19 12:51 | PN ---
PROGRESS NOTE SUBJECTIVE: Mr. Winkler is a 68-year-old gentleman with nonischemic cardiomyopathy and single- chamber ICD, who is scheduled to see Dr. Collazo and I have requested that his appointment be made in 2 weeks, so he can have a device check and probably an upgrade. He is here with shortness of breath, mostly of pulmonary etiology. Ejection fraction is good. No heart failure. OBJECTIVE: HEART: S1, S2 heard normally, short systolic murmur noted. LUNGS: Revealed bilateral decent air entry. ABDOMEN: Soft. EXTREMITIES: Lower extremities reveal diminished pulses. Edema is improved. NEUROLOGIC: Central nervous system grossly no focal deficits. I am suggesting that upon discharge, he should see Dr. Collazo in 2 weeks for an office visit and device check which may require an upgrade to dual-chamber. Same medications from a cardiac standpoint and he can be discharged whenever okay by the admitting doctor and to see Dr. Collazo in 2 weeks for an office visit and device check. I will see him as needed. MMODL / IJN: [id number] /
[2023-10-19 13:39] VITALS: PULSE 60
--- NOTE | 2023-10-19 15:42 | P.DS ---
Providers Date of admission: 10/18/23 16:04 Expected date of discharge: 10/19/23 Attending physician: Kennedy Nevarez Consults: 10/17/23 09:29 Consult Physician Routine Consulting Provider: Kevyn Reich Consult Reason/Comments: chf - eval cardiac meds Do you want consulting provider notified?: Yes 10/17/23 11:41 Consult Physician Routine Consulting Provider: Trinity Hickman Consult Reason/Comments: abd pain Do you want consulting provider notified?: Yes 10/17/23 12:01 Consult Physician Routine Consulting Provider: David Baumann Consult Reason/Comments: SOB COPD Do you want consulting provider notified?: Yes Primary care physician: [facility] Course: Chief Complaint: Multiple complaints This is a 68-year-old patient who for the [facility] visiting physician Dr. Esquivel. Has multiple symptoms. He does complain of occasional nausea. Normally has a bowel movement 2-3 times a day. Last couple of days not had a bowel movement. No abdominal pain. Patient does have obstructive sleep apnea does not use his machine. Has AICD. Has a large abdominal pannus. He is asking if he has bowel obstruction. It is soft. Patient also wears a brace for the left knee. Does have both of a cane and a walker at home. Till about 10 years ago patient was drinking increased alcohol. Anywhere from 6-12 beers a day. He also wants to see the plaster patternmaker Dr. Barillas for his AICD. Chronic lower extremity swelling with some venous insufficiency. Not keen for breakfast this morning. Patient complains of generalized weakness. Unable to get up and walk. October 17: Sitting at the side of bed. Seen by pulmonary. No further intervention. Seen by general surgery. CT scan abdomen ordered. 2D echocardiogram unremarkable. Decreased appetite. October 18: Patient be going home today. Cleared by surgery. CT scan unremarkable. Cleared by pulmonary and cardiology. Patient to follow-up with Dr. Joshua and his visiting physicians. Left abdominal pain felt to be muscular. Patient follow-up with Dr. Hickman outpatient. Social history: Lives alone. Does use a cane and a walker. No smoking. Till about 10 years ago patient is drinking anywhere from 6-12 beers a day. For some time. Physical examination: VITAL SIGNS: 98.1, 60, 19, 136 x 73, 91% room air GENERAL: BMI 47.3, sitting at edge of the bed, comfortable EYES: Pupils equal. Conjunctiva zara l. HEENT: External appearance of nose and ears normal, oral cavity grossly normal. NECK: JVD unable to assess; masses not palpable. HEART: Heart sounds are distant, some edema present. LUNGS: Respiratory rate increased; clear to auscultation. ABDOMEN: Soft, nontender, liver spleen not palpable, no masses palpable. Large abdominal pannus. PSYCH: Alert and oriented x3; mood and affect zara l. MUSCULOSKELETAL:No Clubbing/cyanosis;muscles-grossly intact. OA EXTREMITIES: Evidence of venous sufficiency with discoloration bilateral lower extremity NEUROLOGICAL: Cranial nerves grossly intact; no facial asymmetry, power and sensation grossly intact. LYMPHATICS: No lymph nodes palpable in the axilla and neck INVESTIGATIONS, reviewed in the clinical context: October 17, 2023: White: 0.5 hemoglobin 14.6 platelets 293 sodium 137 potassium 3.3 BUN 21 creatinine 1.05 magnesium 1.5 proBNP 764 EKG tracing personally reviewed by me-ventricular paced rhythm. Underlying atrial flutter fibrillation Chest x-ray film personally reviewed by me-cardiomegaly. Some venous prominence. AICD. Assessment plan: -Acute on chronic medical debility. Multifactorial. Patient is morbidly obese. Does use a cane and a walker at bedside. Had decreased oral intake yesterday. That could have precipitated increased weakness. PT OT Declined rehab. -Morbid obesity BMI 47.3 Weight loss measures -Obstructive sleep apnea, patient's machine is not working -AICD -Persistent atrial flutter fibrillation. Eliquis 5 mg twice daily Toprol-XL to her milligram a day -Diabetes mellitus type 2, chronically on insulin Resume home dose of Lantus. Accu-Cheks with sliding scale -Essential hypertension Entresto. Toprol-XL. -Left abdominal discomfort. Burns to be from the musculoskeletal. CT scan abdomen unremarkable Disposition: Home Past Medical History Past Medical History: Atrial Flutter, COPD, Diabetes Mellitus, GERD/Reflux, Osteoarthritis (OA), Pneumonia, Renal Disease, Skin Disorder, Sleep Apnea/CPAP/BIPAP Additional Past Medical History / Comment(s): BLOOD IN STOOL, cellulitis bilateral lower extremities-healing, gout, USES A CANE TO AMBULATE, History of Any Multi-Drug Resistant Organisms: None Reported Past Surgical History: AICD, Cardiac Ablation, Orthopedic Surgery Additional Past Surgical History / Comment(s): rectal fistula repair X2. RUEL K NEE ARTHROSCOPY, surgery to remove part of lower left lung for abestosis Past Anesthesia/Blood Transfusion Reactions: No Reported Reaction Type of Cardiac Device: AICD Device Placement Date:: [facility] 10/13/15 Past Psychological History: No Psychological Hx Reported Smoking Status: Never smoker Past Alcohol Use History: Daily, Heavy Past Drug Use History: Marijuana Plan - Discharge Summary Discharge Rx Participant: No New Discharge Prescriptions: Continue Metoprolol Succinate [Toprol XL] 200 mg PO DAILY Montelukast [Singulair] 10 mg PO HS Atorvastatin [Lipitor] 40 mg PO DAILY allopurinoL [Zyloprim] 200 mg PO DAILY Albuterol Sulfate [Ventolin HFA] 2 puff INHALATION RT-QID PRN PRN Reason: Shortness Of Breath Ibuprofen [Motrin] 800 mg PO BID PRN PRN Reason: Pain Spironolactone [Aldactone] 25 mg PO DAILY Apixaban [Eliquis] 5 mg PO BID Budesonide/Formoterol Fumarate [Symbicort 160-4.5 Mcg Inhaler] 2 puff INHALATION RT-BID EPINEPHrine (Auto Inject) [Epipen] 0.3 mg IM ONCE PRN PRN Reason: Anaphylaxis HYDROcodone/APAP 10-325MG [[place] 10-325] 1 tab PO TID PRN #10 tab PRN Reason: Pain Sacubitril/Valsartan [Entresto 24 mg-26 mg Tablet] 1 tab PO BID Omeprazole [PriLOSEC] 40 mg PO DAILY Insulin Glargine,Hum.rec.anlog [Lantus Solostar Pen] 10 units SQ HS Furosemide [Lasix] 40 mg PO BID Dapagliflozin Propanediol [Farxiga] 10 mg PO DAILY Balsalazide Disodium 750 mg PO TID Ipratropium-Albuterol Nebulize [Duoneb 0.5 mg-3 mg/3 ml Soln] 3 ml INHALATION RT-QID Lactulose 10 gm PO BID PRN PRN Reason: Constipation Discharge Medication List Metoprolol Succinate [Toprol XL] 200 mg PO DAILY 03/01/16 [History] Albuterol Sulfate [Ventolin HFA] 2 puff INHALATION RT-QID PRN 07/28/19 [History] Atorvastatin [Lipitor] 40 mg PO DAILY 07/28/19 [History] Montelukast [Singulair] 10 mg PO HS 07/28/19 [History] allopurinoL [Zyloprim] 200 mg PO DAILY 07/28/19 [History] Budesonide/Formoterol Fumarate [Symbicort 160-4.5 Mcg Inhaler] 2 puff INHALATION RT-BID 03/31/21 [History] EPINEPHrine (Auto Inject) [Epipen] 0.3 mg IM ONCE PRN 03/31/21 [History] Ibuprofen [Motrin] 800 mg PO BID PRN 03/31/21 [History] HYDROcodone/APAP 10-325MG [[place] 10-325] 1 tab PO TID PRN #10 tab 04/07/21 [Rx] Apixaban [Eliquis] 5 mg PO BID 10/17/23 [History] Balsalazide Disodium 750 mg PO TID 10/17/23 [History] Dapagliflozin Propanediol [Farxiga] 10 mg PO DAILY 10/17/23 [History] Furosemide [Lasix] 40 mg PO BID 10/17/23 [History] Insulin Glargine,Hum.rec.anlog [Lantus Solostar Pen] 10 units SQ HS 10/17/23 [History] Ipratropium-Albuterol Nebulize [Duoneb 0.5 mg-3 mg/3 ml Soln] 3 ml INHALATION RT-QID 10/17/23 [History] Lactulose 10 gm PO BID PRN 10/17/23 [History] Omeprazole [PriLOSEC] 40 mg PO DAILY 10/17/23 [History] Sacubitril/Valsartan [Entresto 24 mg-26 mg Tablet] 1 tab PO BID 10/17/23 [History] Spironolactone [Aldactone] 25 mg PO DAILY 10/17/23 [History] Follow up Appointment(s)/Referral(s): Rafa Collazo MD [STAFF PHYSICIAN] - 1 Week (office will call patient with appointment ) [facility] [NON-STAFF] - As Needed Donald Esquivel MD [Primary Care Provider] - 1-2 Days Patient Instructions/Handouts: Heart Failure (GEN), Acute Abdominal Pain (GEN), Weakness (GEN) Activity/Diet/Wound Care/Special Instructions: Call [facility] to set up wheelchair transport at discharge: [phone] - inform them of the need for 2 transporters to assist into the house. Discharge Disposition: HOME SELF-CARE
--- NOTE | 2023-10-19 16:07 | P.PN ---
Subjective Progress Note Date: 10/19/23 CHIEF COMPLAINT: Weakness and not feeling well HISTORY OF PRESENT ILLNESS: Surgical consult placed for abdominal pain. Patient had a CT scan abdomen pelvis which was negative. Patient did report a small emesis this morning that was not witnessed. After the emesis he was able to tolerate diet fine. He is having flatus. Medicine service is planning on discharge. He is afebrile. PHYSICAL EXAM: VITAL SIGNS: Reviewed. GENERAL: Well-developed in no acute distress. HEENT: No sclera icterus. Extraocular movements grossly intact. Moist buccal mucosa. Head is atraumatic, normocephalic. ABDOMEN: Soft. Obese. Nondistended. Nontender. NEUROLOGIC: Alert and oriented. Cranial nerves II through XII grossly intact. ASSESSMENT: 1. Left upper quadrant pain. CT scan abdomen pelvis negative PLAN: -No surgical intervention planned -Patient tolerating diet -Patient can be discharged from surgical standpoint Physician Marine Propulsion Technician note has been reviewed by physician. Signing provider agrees with the documented findings, assessment, and plan of care. Objective - Vital Signs Vital signs: Vital Signs Temp 98.1 F 10/19/23 07:26 Pulse 72 10/19/23 09:05 Resp 19 10/19/23 07:26 BP 136/73 10/19/23 07:26 Pulse Ox 91 L 10/19/23 07:26 FiO2 Intake & Output 10/18/23 10/19/23 10/19/23 18:59 06:59 18:59 Intake Total 118 118 Output Total 501 1 Balance -383 -1 118 Intake: Oral 118 118 Output: Urine 500 Stool 1 1 Other: Voiding Method Toilet # Voids 2 - Labs CBC & Chem 7: 10/17/23 07:28 10/17/23 07:28 Labs: Abnormal Lab Results - Last 24 Hours (Table) 10/18/23 10/18/23 Range/Units 17:53 20:32 POC Glucose (mg/dL) 137 H 147 H (70-110) mg/dL
--- NOTE | 2023-10-23 04:52 | CDI ---
Documentation Clarification Form Date: 10/23/2023 03:47:32 AM From: Blanca Wilson Admit Date: 10/18/2023 04:04:00 PM Patient Name: Servando Winkler Visit Number: [id number] Discharge Date: 10/19/2023 01:20:00 PM ATTENTION: The Clinical Documentation Specialists (CDI) and [facility] Coding Staff appreciate your assistance in clarifying documentation. Please respond to the clarification below the line at the bottom and electronically sign. The CDI & [facility] Coding staff will review the response and follow-up if needed. Please note: Queries are made part of the Legal Health Record. If you have any questions, please contact the author of this message via ITS. Dr. Kennedy Nevarez The patients principal diagnosis the diagnosis that was chiefly responsible for the admission - has not been clearly identified and clarification is requested. The patient presented with the following Weakness, difficulty breathing, SOB, failure to thrive, morbid obesity History/Risk factors: Occasional nausea, obstructive sleep apnea, diabetes, AICD, venous insufficiency, lives alone, underlying atrial fib/flutter. Per DCS Acute on chronic medical debility Multifactorial. Personal history of alcoholism. Clinical Indicators: Lab findings: Elevated WBC's. low sodium, low potassium, elevated lactic acid Radiology findings: CT abdomen no acute process, CXR compatible with COPD. Cardiopulmonary venous congestion and small effusions suggested. Correlate for volume overlaod or pulmonary venous decompensation. Vital Signs: 97.9F, 93 bpm, 18, 110/61, 93% RA Treatment: O2 up to 4 NC, Ativan, Morphine, Protonix, Eliquis. Insulin, Lasix PO Consults: cardiology Exacerbation Copd and/or interstitial lung disease. PULMONARY: ILD asbestosis and component of CHF history of systolic, chronic hypoxic respiratory failure, pulmonary hypertension secondary, BITA morbid obesiity. Surgical: Left upper quadrant abdominal pain. Constipation, Hypokalemia and hypomagnesia. In your professional opinion, can you please clarify which diagnosis, after study, was the reason chiefly responsible for the admission? [ ] COPD EXACERBATION [ ] ATRIAL FIB/FLUTTER [ ] SYSTOLIC CHF (ACUTE/CHRONIC) [ + ] Other, please specify _see discharge summary. No need for further change in documentation [ ] Unable to determine MTDD
== END 2023-10-19 13:20 | disposition home or self-care (01) | DRG 948 ==
LOC: EC 19:34 → 6NMEDSUR 23:27 → OBSVTOIN 10-18 16:04
PROVIDERS: ADMIT Hospitalist; ATTEND Hospitalist
DX: R53.81 Other malaise (principal); I48.19 Other persistent atrial fibrillation; I50.30 Unspecified diastolic (congestive) heart failure; J84.9 Interstitial pulmonary disease, unspecified; Z68.42 Body mass index [BMI] 45.0-49.9, adult; L03.116 Cellulitis of left lower limb; L03.115 Cellulitis of right lower limb; I42.6 Alcoholic cardiomyopathy; I48.92 Unspecified atrial flutter; I42.8 Other cardiomyopathies; E66.01 Morbid (severe) obesity due to excess calories; E11.9 Type 2 diabetes mellitus without complications; E78.5 Hyperlipidemia, unspecified; E83.42 Hypomagnesemia; E87.6 Hypokalemia; G47.33 Obstructive sleep apnea (adult) (pediatric); R62.7 Adult failure to thrive; J44.9 Chronic obstructive pulmonary disease, unspecified; G89.29 Other chronic pain; J61 Pneumoconiosis due to asbestos and other mineral fibers; F10.11 Alcohol abuse, in remission; I49.5 Sick sinus syndrome; K59.00 Constipation, unspecified; I11.0 Hypertensive heart disease with heart failure; I27.20 Pulmonary hypertension, unspecified; D64.9 Anemia, unspecified; I87.2 Venous insufficiency (chronic) (peripheral); E65 Localized adiposity; Z74.01 Bed confinement status; M10.9 Gout, unspecified; Z74.09 Other reduced mobility; Z95.810 Presence of automatic (implantable) cardiac defibrillator; Z60.2 Problems related to living alone; Z83.3 Family history of diabetes mellitus; Z79.4 Long term (current) use of insulin; Z79.51 Long term (current) use of inhaled steroids; Z79.01 Long term (current) use of anticoagulants; Z79.899 Other long term (current) drug therapy; Z82.49 Family history of ischemic heart disease and other diseases of the circulatory system
CPT/HCPCS: 36415; 71046; 74019; 74177; 80053; 80320; 81001; 83605; 83690; 83735; 83880; 84100; 84443; 84484; 85025; 85610; 85730; 93005; 93306; 94640; 94760; 96361; 96374; 96375; 99285

== ENCOUNTER → 2023-12-11 | Outpatient (CLI) | payer MEDICARE, OTHER ==
[2023-12-11 15:17] LABS: HCT 39.1 % (39.6-50.0); HGB 12.6 g/dL (13.0-17.0); MCH 28.3 pg (27.0-32.0); MCHC 32.2 g/dL (32.0-37.0); MCV 87.7 FL (80.0-97.0); Mean Platelet Volume 10.4 FL (9.5-12.2); NRBC Per 100 WBC 0 X 10*3/uL (0.00-0.01); Platelet Count 307 X 10*3/uL (140-440); RBC 4.46 X 10*6/uL (4.40-5.60); RDW 14.8 % (11.5-14.5); WBC 8.87 X 10*3/uL (4.50-10.00)
[2023-12-11 15:42] LABS: Blood Urea Nitrogen 12.1 mg/dL (9.0-27.0); Carbon Dioxide 31.9 mmol/L (21.6-31.8); Chloride 94 mmol/L (96-109); Potassium 2.5 mmol/L (3.5-5.5); Sodium 141 mmol/L (135-145)
== END | disposition home or self-care (01) ==
LOC: LABPAT 11:45
PROVIDERS: ATTEND Internal Medicine Clinical Cardiac Electrophysiology
DX: Z01.812 Encounter for preprocedural laboratory examination (principal); I25.5 Ischemic cardiomyopathy
CPT/HCPCS: 80051; 82565; 84520; 85027

== ENCOUNTER 2023-12-20 12:38 | Day surgery (SDC) | payer MEDICARE, OTHER ==
[2023-12-19 10:12] VITALS: BMI 46.5
[2023-12-20] MEDS: IV FLUID CONTINUATION 1,000 ML IV ONE ×2 (12:23→12:55)
[2023-12-20] MEDS: SODIUM CHLORIDE 0.9% 1,000 ML IV SCH (12:55)
[2023-12-20] MEDS: VANCOMYCIN 2,250 MG in SODIUM CHLORIDE 0.9% 500 ML 500 ML IVPB ONE (13:05)
[2023-12-20 13:14] LABS: Glucose,Whole Blood 114 mg/dL (70-110)
[2023-12-20 13:52] LABS: ALT 10 U/L (4-49); AST 19 U/L (17-59); African American GFR (CKD) >90 (>60 ml/min/1.73 sqM); Albumin 3.2 g/dL (3.5-5.0); Alkaline Phosphatase 114 U/L (38-126); Anion Gap 7 mmol/L; Blood Urea Nitrogen 23 mg/dL (9-20); Calcium 8.3 mg/dL (8.4-10.2); Carbon Dioxide 28 mmol/L (22-30); Chloride 100 mmol/L (98-107); Glucose 124 mg/dL (74-99); Non-African American GFR(CKD) >90 (>60 ml/min/1.73 sqM); Sodium 135 mmol/L (137-145); Total Bilirubin 0.8 mg/dL (0.2-1.3); Total Protein 6.6 g/dL (6.3-8.2)
[2023-12-20] MEDS ORDERED: fentaNYL (PF) 50 MCG/ML 2 ML AMP ONE (16:16)
[2023-12-20] MEDS ORDERED: KETAMINE HCL IN 0.9 % NACL 50 MG/5 ML SYRINGE ONE (16:16)
[2023-12-20] MEDS ORDERED: MIDAZOLAM 2 MG/2 ML VIAL ONE (16:16)
[2023-12-20] MEDS: ceFAZolin 3 GM in SODIUM CHLORIDE 0.9% 100 ML IVPB PRN (16:41)
[2023-12-20] MEDS: ceFAZolin 1 GM in SODIUM CHLORIDE 0.9% IRRIG BTL 250 ML IRRIGATION PRN (16:42)
[2023-12-20] MEDS ORDERED: LIDOCAINE 1% INJ 10MG/ML (20 ML MDV) ONE (16:49)
[2023-12-20] MEDS: LIDOCAINE 1% INJ 10MG/ML (20 ML MDV) SQ ONE ×2 (16:52→17:03)
[2023-12-20] MEDS ORDERED: ACETAMINOPHEN TAB 325 MG TAB PO PRN (17:27)
--- NOTE | 2023-12-20 17:27 | P.EPPROC ---
- EP Procedure Note Electrophysiology Procedure Note: Diagnosis Cardiomyopathy, chronic, nonischemic Congestive heart failure [place] [employer] class class II Pleat heart block status post AV node ablation for permanent atrial fibrillation On guide line directed medical treatment for he has Following AV node ablation and biventricular pacing LV function is improved History of sustained VT requiring ICD therapies Procedure: Biventricular ICD implantation for management of risk of sudden cardiac and congestive heart failure/secondary prevention of sudden cardiac and for pacing support Result: Successful biventricular ICD generator implant, [place] heart failure Chronic atrial lead: Fib waves 0.9 mV, pacing impedance 430 ohms RV ICD lead: 0.7 V at 0.5 ms, complete heart block, pacing impedance 430 ohms Left ventricular lead: 2.4 V at 0.5 ms, pace impedance 440 ohms, D1-RV coil High-voltage impedance 55 ohms Procedure details: Patient was brought to the EP lab in a fasting state. Written informed consent was obtained prior to the procedure. Options, pros and cons, benefits and risks and complications discussed with patient in detail prior to the procedure (shared decision making) previously. Importance of continuing medical treatment emphasized previously. Alternatives discussed prev iously. The left pectoral area was prepped and draped as a protocol. IV antibiotics administered 1% lidocaine was used for local anesthesia. A 4 cm incision was made parallel to the deltopectoral groove, about 1.5 cm medial to it. The incision was carried down to the level of the pectoralis muscle and the subfascial pocket was made. Hemostasis was assured. Old biventricular ICD generator explanted. pocket irrigated with antibiotic solution. Antibiotic pouch placed Leads connected to the biventricular ICD generator. Wound closed in 3 layers and dressed per protocol Biventricular ICD interrogated and programmed. Appropriate pacing parameters, antitachycardia therapies with antitachycardia pacing cardioversion defibrillations programmed. AV delay and biventricular pacing parameters programmed to achieve optimal pacing Patient tolerated the procedure well without any acute complications. See scanned device report in EMR for lead details
[2023-12-20] MEDS: SYMBICORT 160-4.5 MCG INHALER INHALATION SCH (19:38)
[2023-12-20] MEDS: ALBUTEROL NEBULIZED 2.5 MG/3 ML INHALATION PRN (19:41)
[2023-12-20 20:12] LABS: Glucose,Whole Blood 123 mg/dL (70-110)
[2023-12-20] MEDS: SACUBITRIL/VALSARTAN 24 MG-26 MG TABLET PO SCH (20:48)
[2023-12-20] MEDS: INSULIN DETEMIR (LEVEMIR) 100 UNIT/ML SYR SQ SCH (20:48)
[2023-12-20] MEDS: MONTELUKAST 10 MG TAB PO SCH (20:48)
[2023-12-20] MEDS: ceFAZolin 3 GM in SODIUM CHLORIDE 0.9% 100 ML IVPB SCH (20:48)
[2023-12-20] MEDS: FUROSEMIDE 40 MG TAB PO SCH (20:48)
[2023-12-20] MEDS: ACETAMINOPHEN IV (For NPO) 1,000 MG in EMPTY BAG 1 BAG IVPB ONE (22:17)
[2023-12-21] MEDS: SODIUM CHLORIDE 0.9% 1,000 ML IV SCH (04:44)
[2023-12-21 05:16] LABS: Glucose,Whole Blood 105 mg/dL (70-110)
[2023-12-21 08:24] VITALS: RESP 20; TEMP 97.9
[2023-12-21 09:44] VITALS: BP 106/67
[2023-12-21] MEDS: allopurinoL 100 MG TAB PO SCH (09:45)
[2023-12-21] MEDS: APIXABAN 5 MG TAB PO SCH (09:45)
[2023-12-21] MEDS: FUROSEMIDE 80 MG TAB PO SCH (09:46)
[2023-12-21] MEDS: POTASSIUM CHLORIDE ER 20 MEQ TAB.ER PO SCH (09:46)
[2023-12-21] MEDS: METOPROLOL SUCCINATE (ER) 100 MG TAB.ER.24H PO SCH (09:46)
[2023-12-21] MEDS: ATORVASTATIN 40 MG TAB PO SCH (09:46)
[2023-12-21] MEDS: DAPAGLIFLOZIN PROPANEDIOL 10 MG TABLET PO SCH (09:46)
[2023-12-21] MEDS: SPIRONOLACTONE 25 MG TAB PO SCH (09:48)
--- NOTE | 2023-12-21 09:52 | P.DS ---
Providers Attending physician: Rafa Collazo Primary care physician: [facility] Course: Patient underwent biventricular ICD generator change for device at [facility] He has a history of nonischemic cardiomyopathy with AV node ablation in the past While his LV function is steadily improved. He did have an episode of sustained VT requiring ICD therapies His device is at [facility] and he was brought in for biventricular ICD generator change He is doing well today no chest discomfort dizziness or lightheadedness The ICD site has healed well without any hematoma or soakage Heart sounds are normal and regular Impression Nonischemic cardiomyopathy on guideline directed medical treatment CHF class II Morbid obesity Sustained monomorphic VT requiring ICD therapy Biventricular ICD generator change for secondary prevention of sudden cardiac and management of complete heart block status post AV node ablation Patient has permanent atrial fibrillation Plan resume all heart failure medications and home medications as before Resume Eliquis Follow-up in the device clinic in 1 week Plan - Discharge Summary Discharge Rx Participant: No New Discharge Prescriptions: Continue Metoprolol Succinate [Toprol XL] 200 mg PO DAILY Montelukast [Singulair] 10 mg PO HS Atorvastatin [Lipitor] 40 mg PO DAILY allopurinoL [Zyloprim] 200 mg PO DAILY Albuterol Sulfate [Ventolin HFA] 2 puff INHALATION Q4H PRN PRN Reason: Shortness Of Breath Ibuprofen [Motrin] 400 - 800 mg PO BID Spironolactone [Aldactone] 25 mg PO DAILY Apixaban [Eliquis] 5 mg PO BID Potassium Chloride [Klor-Con M20] 40 meq PO DAILY Cyanocobalamin (Vitamin B-12) [Vitamin B-12] 1,000 mcg PO DAILY Temazepam [Restoril] 15 - 30 mg PO HS PRN PRN Reason: Insomnia Ergocalciferol [Vitamin D2 (1250 Mcg = 27173 Iu)] 1,250 mcg PO WEEKLY Sennosides/Docusate Sodium [Senna Plus 8.6-50 mg Tablet] 1 each PO BID PRN PRN Reason: Constipation Budesonide/Formoterol Fumarate [Symbicort 160-4.5 Mcg Inhaler] 2 puff INHALATION RT-BID EPINEPHrine (Auto Inject) [Epipen] 0.3 mg IM ONCE PRN PRN Reason: Anaphylaxis HYDROcodone/APAP 10-325MG [[place] 10-325] 1 tab PO TID PRN #10 tab PRN Reason: Pain Sacubitril/Valsartan [Entresto 24 mg-26 mg Tablet] 1 tab PO BID Omeprazole [PriLOSEC] 40 mg PO DAILY Insulin Glargine,Hum.rec.anlog [Lantus Solostar Pen] 10 units SQ HS Furosemide [Lasix] 80 mg PO QAM Dapagliflozin Propanediol [Farxiga] 10 mg PO DAILY Balsalazide Disodium 2,250 mg PO TID Ipratropium-Albuterol Nebulize [Duoneb 0.5 mg-3 mg/3 ml Soln] 3 ml INHALATION RT-QID Lactulose 20 gm PO BID Furosemide [Lasix] 40 mg PO HS Folic Acid 1 mg PO DAILY Empagliflozin [Jardiance] 25 mg PO DAILY Cinnamon Bark [Cinnamon] 1,000 mg PO BID Simethicone Chew [Mylicon Chew] 80 mg PO QID PRN PRN Reason: Gas/Bloating Sodium Chloride [[place]] 1 spray EA NOSTRIL DIRECTED PRN PRN Reason: Dry Nasal Passages Turmeric Root Extract [Turmeric] 500 mg PO DAILY Simethicone [Mylanta Gas Minis] 125 mg PO QID Silver Sulfadiazine [Silver Sulfadiazine 1%] 1 applic TOPICAL DAILY Discharge Medication List Metoprolol Succinate [Toprol XL] 200 mg PO DAILY 03/01/16 [History] Albuterol Sulfate [Ventolin HFA] 2 puff INHALATION Q4H PRN 07/28/19 [History] Atorvastatin [Lipitor] 40 mg PO DAILY 07/28/19 [History] Montelukast [Singulair] 10 mg PO HS 07/28/19 [History] allopurinoL [Zyloprim] 200 mg PO DAILY 07/28/19 [History] Budesonide/Formoterol Fumarate [Symbicort 160-4.5 Mcg Inhaler] 2 puff INHALATION RT-BID 03/31/21 [History] EPINEPHrine (Auto Inject) [Epipen] 0.3 mg IM ONCE PRN 03/31/21 [History] Ibuprofen [Motrin] 400 - 800 mg PO BID 03/31/21 [History] HYDROcodone/APAP 10-325MG [[place] 10-325] 1 tab PO TID PRN #10 tab 04/07/21 [Rx] Apixaban [Eliquis] 5 mg PO BID 10/17/23 [History] Balsalazide Disodium 2,250 mg PO TID 10/17/23 [History] Dapagliflozin Propanediol [Farxiga] 10 mg PO DAILY 10/17/23 [History] Furosemide [Lasix] 80 mg PO QAM 10/17/23 [History] Insulin Glargine,Hum.rec.anlog [Lantus Solostar Pen] 10 units SQ HS 10/17/23 [History] Ipratropium-Albuterol Nebulize [Duoneb 0.5 mg-3 mg/3 ml Soln] 3 ml INHALATION RT-QID 10/17/23 [History] Lactulose 20 gm PO BID 10/17/23 [History] Omeprazole [PriLOSEC] 40 mg PO DAILY 10/17/23 [History] Sacubitril/Valsartan [Entresto 24 mg-26 mg Tablet] 1 tab PO BID 10/17/23 [History] Spironolactone [Aldactone] 25 mg PO DAILY 10/17/23 [History] Cinnamon Bark [Cinnamon] 1,000 mg PO BID 12/19/23 [History] Cyanocobalamin (Vitamin B-12) [Vitamin B-12] 1,000 mcg PO DAILY 12/19/23 [History] Empagliflozin [Jardiance] 25 mg PO DAILY 12/19/23 [History] Ergocalciferol [Vitamin D2 (1250 Mcg = 32284 Iu)] 1,250 mcg PO WEEKLY 12/19/23 [History] Folic Acid 1 mg PO DAILY 12/19/23 [History] Furosemide [Lasix] 40 mg PO HS 12/19/23 [History] Potassium Chloride [Klor-Con M20] 40 meq PO DAILY 12/19/23 [History] Sennosides/Docusate Sodium [Senna Plus 8.6-50 mg Tablet] 1 each PO BID PRN 12/19/23 [History] Silver Sulfadiazine [Silver Sulfadiazine 1%] 1 applic TOPICAL DAILY 12/19/23 [History] Simethicone Chew [Mylicon Chew] 80 mg PO QID PRN 12/19/23 [History] Simethicone [Mylanta Gas Minis] 125 mg PO QID 12/19/23 [History] Sodium Chloride [[place]] 1 spray EA NOSTRIL DIRECTED PRN 12/19/23 [History] Temazepam [Restoril] 15 - 30 mg PO HS PRN 12/19/23 [History] Turmeric Root Extract [Turmeric] 500 mg PO DAILY 12/19/23 [History] Follow up Appointment(s)/Referral(s): Rafa Collazo MD [STAFF PHYSICIAN] - 06/10/24 11:00 am (Device clinic follow-up in 1 week Follow-up with Dr. Collazo in 4 to 6 months) Activity/Diet/Wound Care/Special Instructions: DEVICE CLINIC APPOINTMENT (INSIDE DR. COLLAZO'S OFFICE ON ): December @ 4 PM. Discharge Disposition: HOME SELF-CARE
[2023-12-21 11:35] VITALS: PULSE 78
[2023-12-21 12:29] LABS: Glucose,Whole Blood 108 mg/dL (70-110)
== END 2023-12-21 14:00 | disposition home or self-care (01) ==
LOC: CATHEP 12:38 → 6NMEDSUR 17:19 → CATHEP 12-21 14:00
PROVIDERS: ATTEND Internal Medicine Clinical Cardiac Electrophysiology
DX: Z45.02 Encounter for adjustment and management of automatic implantable cardiac defibrillator (principal); I12.9 Hypertensive chronic kidney disease with stage 1 through stage 4 chronic kidney disease, or unspecified chronic kidney disease; I50.9 Heart failure, unspecified; I44.2 Atrioventricular block, complete; I48.21 Permanent atrial fibrillation; I42.8 Other cardiomyopathies; E11.9 Type 2 diabetes mellitus without complications; E66.01 Morbid (severe) obesity due to excess calories; Z68.42 Body mass index [BMI] 45.0-49.9, adult; Z79.51 Long term (current) use of inhaled steroids; Z79.899 Other long term (current) drug therapy; Z79.4 Long term (current) use of insulin; Z79.84 Long term (current) use of oral hypoglycemic drugs; Z79.01 Long term (current) use of anticoagulants
CPT/HCPCS: 94640 ×3; 33264; 80053; C1882; J3370; J0690; J2001

== ENCOUNTER 2024-09-09 14:47 | Emergency (ER) | payer MEDICARE, OTHER ==
[2024-09-09 14:56] VITALS: TEMP 98
--- NOTE | 2024-09-09 15:25 | ED ---
Fall HPI - General Chief Complaint: Fall Stated Complaint: fall Time Seen by Provider: 09/09/24 15:22 Source: patient, RN notes reviewed Mode of arrival: EMS - History of Present Illness Initial Comments: 69-year-old male on Eliquis presenting for mechanical fall with head injury 2 hours ago. States he was walking to his commode in his home using his crutches when the crutches fell, and patient hit the front of his head on the refrigerator. He also reports hitting his right knee on the ground. Denies loss of consciousness however reports he could not stand up which prompted him to call EMS. He is currently asymptomatic. Denies headache, nausea, vomiting, vision changes. States he lives at home by himself and uses crutches due to chronic knee issues. When EMS arrived to the ER, they reported concern about patient living and poor living conditions. States they believe patient does not leave from his recliner often. The noticed a pool of urine on the floor that they believe may have caused by mechanical fall today. They also reports a litter box next to the recliner with feces that they believe to be the patient's. They report several decomposing mice present on the ground. Patient lives alone and does not have a guardian. Patient has a home care nurse once weekly. - Related Data Home Medications Medication Instructions Recorded Confirmed Metoprolol Succinate [Toprol XL] 200 mg PO DAILY 03/01/16 12/20/23 Albuterol Sulfate [Ventolin HFA] 2 puff INHALATION Q4H PRN 07/28/19 12/20/23 Atorvastatin [Lipitor] 40 mg PO DAILY 07/28/19 12/20/23 Montelukast [Singulair] 10 mg PO HS 07/28/19 12/20/23 allopurinoL [Zyloprim] 200 mg PO DAILY 07/28/19 12/20/23 Budesonide/Formoterol Fumarate 2 puff INHALATION RT-BID 03/31/21 12/19/23 [Symbicort 160-4.5 Mcg Inhaler] EPINEPHrine (Auto Inject) [Epipen] 0.3 mg IM ONCE PRN 03/31/21 12/19/23 Ibuprofen [Motrin] 400 - 800 mg PO BID 03/31/21 12/20/23 Apixaban [Eliquis] 5 mg PO BID 10/17/23 12/20/23 Balsalazide Disodium 2,250 mg PO TID 10/17/23 12/20/23 Dapagliflozin Propanediol [Farxiga] 10 mg PO DAILY 10/17/23 12/20/23 Furosemide [Lasix] 80 mg PO QAM 10/17/23 12/20/23 Insulin Glargine,Hum.rec.anlog 10 units SQ HS 10/17/23 12/20/23 [Lantus Solostar Pen] Ipratropium-Albuterol Nebulize 3 ml INHALATION RT-QID 10/17/23 12/19/23 [Duoneb 0.5 mg-3 mg/3 ml Soln] Lactulose 20 gm PO BID 10/17/23 12/20/23 Omeprazole [PriLOSEC] 40 mg PO DAILY 10/17/23 12/20/23 Sacubitril/Valsartan [Entresto 24 1 tab PO BID 10/17/23 12/20/23 mg-26 mg Tablet] Spironolactone [Aldactone] 25 mg PO DAILY 10/17/23 12/20/23 Cinnamon Bark [Cinnamon] 1,000 mg PO BID 12/19/23 12/20/23 Cyanocobalamin (Vitamin B-12) 1,000 mcg PO DAILY 12/19/23 12/20/23 [Vitamin B-12] Empagliflozin [Jardiance] 25 mg PO DAILY 12/19/23 12/20/23 Ergocalciferol [Vitamin D2 (1250 1,250 mcg PO WEEKLY 12/19/23 12/20/23 Mcg = 25286 Iu)] Folic Acid 1 mg PO DAILY 12/19/23 12/20/23 Furosemide [Lasix] 40 mg PO HS 12/19/23 12/20/23 Potassium Chloride [Klor-Con M20] 40 meq PO DAILY 12/19/23 12/20/23 Sennosides/Docusate Sodium [Senna 1 each PO BID PRN 12/19/23 12/19/23 Plus 8.6-50 mg Tablet] Silver Sulfadiazine [Silver 1 applic TOPICAL DAILY 12/19/23 12/19/23 Sulfadiazine 1%] Simethicone Chew [Mylicon Chew] 80 mg PO QID PRN 12/19/23 12/19/23 Simethicone [Mylanta Gas Minis] 125 mg PO QID 12/19/23 12/20/23 Sodium Chloride [[place]] 1 spray EA NOSTRIL DIRECTED PRN 12/19/23 12/20/23 Temazepam [Restoril] 15 - 30 mg PO HS PRN 12/19/23 12/19/23 Turmeric Root Extract [Turmeric] 500 mg PO DAILY 12/19/23 12/19/23 Previous Rx's Medication Instructions Recorded HYDROcodone/APAP 10-325MG [[place] 1 tab PO TID PRN #10 tab 04/07/21 10-325] Allergies Allergy/AdvReac Type Severity Reaction Status Date / Time No Known Allergies Allergy Verified 09/09/24 14:57 Review of Systems ROS Statement: Those systems with pertinent positive or pertinent negative responses have been documented in the HPI. ROS Other: All systems not noted in ROS Statement are negative. Past Medical History Past Medical History: Atrial Flutter, COPD, Diabetes Mellitus, GERD/Reflux, Hypertension, Osteoarthritis (OA), Pneumonia, Skin Disorder, Sleep Apnea/CPAP/BIPAP Additional Past Medical History / Comment(s): See Dr Collazo's H&P. HX BLOOD IN STOOL. Hx cellulitis bilateral lower extremities. Gout. Wears knee brace, small blister on right west. Abdominal hernia. No device for Sleep Apnea. History of Any Multi-Drug Resistant Organisms: None Reported Past Surgical History: AICD, Cardiac Ablation, Orthopedic Surgery Additional Past Surgical History / Comment(s): Rectal fistula repair X2, bilateral knee arthroscopy, surgery to remove part of lower left lung for abestosis, bilateral cataract surgery with lens implants. Past Anesthesia/Blood Transfusion Reactions: No Reported Reaction Type of Cardiac Device: AICD Device Placement Date:: [facility] 10/13/15 Past Psychological History: No Psychological Hx Reported Smoking Status: Never smoker Past Alcohol Use History: Daily, Heavy Past Drug Use History: None Reported - Past Family History Mother Family Medical History: Cancer Additional Family Medical History / Comment(s): STOMACH CANCER. General Exam Limitations: physical limitation General appearance: alert, in no apparent distress Head exam: Present: normocephalic, other (Mild contusion to forehead with no lacerations or hematomas) Eye exam: Present: normal appearance, PERRL, EOMI. Absent: scleral icterus, conjunctival injection, periorbital swelling Respiratory exam: Present: normal lung sounds bilaterally. Absent: respiratory distress, wheezes, rales, rhonchi, stridor Cardiovascular Exam: Present: regular rate, normal rhythm, normal heart sounds. Absent: systolic murmur, diastolic murmur, rubs, gallop, clicks Right Upper Leg exam: Present: normal inspection, full ROM. Absent: tenderness, swelling Knee exam: Present: full ROM, tenderness (Diffuse anterior tenderness), abrasion. Absent: normal inspection (Abrasion present to anterior right knee), swelling, laceration, deformity, erythema Lower Leg exam: Present: normal inspection, full ROM. Absent: tenderness, swelling Neurovascular tendon exam: Present: no vascular compromise. Absent: pulse deficit, abnormal cap refill, sensory deficit Neurological exam: Present: alert, oriented X3 Psychiatric exam: Present: normal affect, normal mood Skin exam: Present: warm, dry, intact, normal color. Absent: rash Course Vital Signs 09/09/24 14:50 Temperature 98.0 F Pulse Rate 64 Respiratory 20 Rate Blood Pressure 124/70 O2 Sat by Pulse 96 Oximetry Medical Decision Making - Medical Decision Making Was pt. sent in by a medical professional or institution (, PA, OFFICE COMMUNICATION PROFESSOR, urgent care, hospital, or penitentiary...) When possible be specific @ -No Did you speak to anyone other than the patient for history (EMS, parent, family, police, friend...)? What history was obtained from this source @ -EMS supplemented history Did you review nursing and triage notes (agree or disagree)? Why? @ -I reviewed and agree with nursing and triage notes Were old charts reviewed (outside hosp., previous admission, EMS record, old EKG, old radiological studies, urgent care reports/EKG's, penitentiary records)? Report findings @ -No old charts were reviewed Differential Diagnosis (chest pain, altered mental status, abdominal pain women, abdominal pain men, vaginal bleeding, weakness, fever, dyspnea, syncope, headache, dizziness, GI bleed, back pain, seizure, CVA, palpatations, mental health, musculoskeletal)? @ -Differential Musculoskeletal Intracranial bleed, skull fracture, muscular strain, contusion, ligament sprain, fracture, arthritis, septic arthritis, bursitis, cellulitis, muscle spasm, nerve compression, DVT, arterial occlusion, herpes zoster, electrolyte abnormality, tumor.... This is not meant to be in all inclusive list EKG interpreted by me (3pts min.). @ -As above X-rays interpreted by me (1pt min.). @ -X-ray right knee reveals no acute process CT interpreted by me (1pt min.). @ -CT brain and C-spine reveals no acute intracranial abnormality U/S interpreted by me (1pt. min.). @ -None done What testing was considered but not performed or refused? (CT, X-rays, U/S, labs)? Why? @ -None What meds were considered but not given or refused? Why? @ -None Did you discuss the management of the patient with other professionals (professionals i.e. , PA, OFFICE COMMUNICATION PROFESSOR, lab, RT, psych nurse, transition social worker, regulatory affairs consultant, teacher, security officers and guards, shoe parts caser)? Give summary @ -I called APS regarding patient's living conditions per EMS to make a report Was smoking cessation discussed for >3mins.? @ -No Was critical care preformed (if so, how long)? @ -No Were there social determinants of health that impacted care today? How? (Homelessness, low income, unemployed, alcoholism, drug addiction, transportation, low edu. Level, literacy, decrease access to med. care, chcf, re hab)? @ -No Was there de-escalation of care discussed even if they declined (Discuss DNR or withdrawal of care, Hospice)? DNR status @ -No What co-morbidities impacted this encounter? (DM, HTN, Smoking, COPD, CAD, Cancer, CVA, ARF, Chemo, Hep., AIDS, mental health diagnosis, sleep apnea, morbid obesity)? @ -None Was patient admitted / discharged? Hospital course, mention meds given and route, prescriptions, significant lab abnormalities, going to OR and other pertinent info. @ -Discharge. This is a 69-year-old male presenting for mechanical fall with head injury. Patient is on Eliquis. Denies loss of consciousness. He is currently asymptomatic. Code coag was initiated. CT brain and C-spine revealed no acute intracranial abnormality. X-ray right knee reveals no acute process. I called APS to make report regarding patient's living conditions per EMS. Results discussed with patient. Patient prefers discharge today. Patient is competent and does not have a guardian. Case was discussed with ED attending Dr. Hart. Undiagnosed new problem with uncertain prognosis? @ -No Drug Therapy requiring intensive monitoring for toxicity (Heparin, Nitro, Insulin, Cardizem)? @ -No Were any procedures done? @ -No Diagnosis/symptom? @ -Head injury Acute, or Chronic, or Acute on Chronic? @ -Acute Uncomplicated (without systemic symptoms) or Complicated (systemic symptoms)? @ -Uncomplicated Side effects of treatment? @ -No Exacerbation, Progression, or Severe Exacerbation? @ -No Poses a threat to life or bodily function? How? (Chest pain, [place], [place], pneumonia, PE, COPD, DKA, ARF, appy, cholecystitis, CVA, Diverticulitis, Homicidal, Suicidal, threat to staff... and all critical care pts) @ -Not at this time - EKG Data -: EKG Interpreted by Me EKG Comments: EKG reveals paced rhythm with ventricular rate 60 bpm, NC interval not admitted, QRS duration 152, QT/QTc 482/482 Disposition Clinical Impression: Head injury Disposition: HOME SELF-CARE Condition: Stable Instructions (If sedation given, give patient instructions): Head Injury (ED) Additional Instructions: Follow-up with your PCP. Please return to the Emergency Department if symptoms worsen or any other concerns. Is patient prescribed a controlled substance at d/c from ED?: No Referrals: Donald Esquivel MD [Primary Care Provider] - 1-2 days Time of Disposition: 17:37
--- NOTE | 2024-09-09 15:53 | CT ---
EXAMINATION TYPE: CT brain pardeep wo con DATE OF EXAM: 09/09/2024 COMPARISON: CT brain dated 05/11/2014 CLINICAL INDICATION: Male, 69 years old with history of pain; PHH, Code Coag, Fall on thinners. TECHNIQUE: CT scan of the head and cervical spine are performed without contrast. CT DLP: 1665.[address] CTDI: mGy Automated exposure control for dose reduction was used. FINDINGS: Head CT: Ventricles, basal cisterns and sulci over convexities within normal limits for the patient's age and there is no mass, mass effect or shift of midline structures. There is mild decreased density in the periventricular white matter consistent with mild chronic isch emic white matter demyelination. There is no acute intra or extra-axial hemorrhage. Posterior fossa including the brainstem, fourth ventricle and cerebellar pontine angles are grossly n ormal. The intraorbital contents appear normal and symmetric. There is mild chronic inflammatory changes in the left maxillary sinus. The mastoid air cells are wel l aerated. The calvarium is intact. CT cervical spine: Craniovertebral junction relationships and prevertebral soft tissues are normal. The cervical vertebral segments are normal in height and there is no fracture. There is a 2 to 3 mm a nterolisthesis of C4 on C5. There is marked degenerative disease at C5-6 level and mild to moderate d egenerative disease at the C6-7 level The bony cervical canal is widely patent and there is no bony encroachment of the neural foramina. The paraspinal soft tissues unremarkable. IMPRESSION: 1. Head CT: No acute bleed or mass effect. Mild senescent changes as described above. 2. CT cervical spine: No acute trauma. Degenerative changes as described above. [facility], , 09/09/2024 3:50 PM
--- NOTE | 2024-09-09 16:18 | XR ---
EXAMINATION TYPE: XR knee complete RT DATE OF EXAM: 09/09/2024 4:13 PM INDICATION: Patient age:Male; 69 years old; Reason for study: right knee injury; PHH. pain COMPARISON: None. TECHNIQUE: The Right knee(s) was examined in Frontal, lateral and oblique projections. FINDINGS: No acute fracture or dislocation. Tricompartmental joint space narrowing with marginal os teophytosis. There is near complete joint space loss of the medial tibiofemoral joint space. No joint effusion or soft tissue swelling. Incidental fabella. IMPRESSION: 1. No acute osseous pathology. 2. Tricompartmental osteoarthritic changes. Most pronounced involving the medial tibiofemoral joint s pace with near complete joint space loss. [facility], , 09/09/2024 4:16 PM
[2024-09-09 17:45] LABS: Glucose,Whole Blood 109 mg/dL (70-110)
[2024-09-09] MEDS: ACETAMINOPHEN TAB 500 MG TAB PO STA (17:51)
[2024-09-09 18:33] VITALS: BP 147/77; PULSE 58; RESP 24
== END 2024-09-09 18:33 | disposition home or self-care (01) ==
LOC: EC 14:47
DX: S09.90XA Unspecified injury of head, initial encounter (principal); W22.09XA Striking against other stationary object, initial encounter; Y93.01 Activity, walking, marching and hiking
CPT/HCPCS: 36415; 70450; 72125; 93005; 99284

== ENCOUNTER 2024-11-26 14:17 | Inpatient (IN) | payer MEDICARE, OTHER ==
[2024-11-26] MEDS: IPRATROPIUM-ALBUTEROL 3 ML NEB INHALATION STA (14:28)
[2024-11-26] MEDS: methylPREDNISolone SOD SUCCI 125 MG/2 ML VIAL IV STA (14:33)
[2024-11-26] MEDS: MAGNESIUM SULFATE-D5W PMX 1 GM in DEXTROSE/WATER 1 100ML.BAG IVPB STA (14:38)
[2024-11-26 14:53] LABS: Basophils # (A) 0.09 10*3/uL (0.00-0.10); Basophils % (A) 0.6 %; Eosinophils # (A) 0.09 10*3/uL (0.04-0.35); Eosinophils % (A) 0.6 %; HCT 51.9 % (39.6-50.0); HGB 16.5 g/dL (13.0-17.0); Lymphocytes # (A) 1.13 10*3/uL (0.90-5.00); MCHC 31.8 g/dL (32.0-37.0); MCV 100.6 fL (80.0-97.0); Mean Platelet Volume 10.4 fL (9.5-12.2); Monocytes # (A) 1.22 10*3/uL (0.20-1.00); Monocytes % (A) 8.6 %; Neutrophils # (A) 11.38 10*3/uL (1.80-7.70); Neutrophils % (A) 80.1 %; Platelet Count 335 10*3/uL (140-440); RBC 5.16 10*6/uL (4.40-5.60); RDW 14.2 % (11.5-14.5); WBC 14.21 10*3/uL (4.50-10.00)
[2024-11-26 14:56] LABS: ABG Base Excess 0.4 mmol/L; ABG HCO3 30 mmol/L (21-25); ABG Oxygen Saturation >100.0 % (94-97); ABG PCO2 69 mmHg (35-45); ABG PH 7.25 (7.35-7.45); ABG PO2 394 mmHg (83-108); ABG TCO2 32 mmol/L (19-24); Allen Test Performed? Yes
[2024-11-26 15:14] LABS: ALT 18 U/L (4-49); AST 33 U/L (17-59); African American GFR (CKD) >90 (>60 ml/min/1.73 sqM); Albumin 3.5 g/dL (3.5-5.0); Alkaline Phosphatase 154 U/L (38-126); Anion Gap 13 mmol/L; Blood Urea Nitrogen 20 mg/dL (9-20); Carbon Dioxide 27 mmol/L (22-30); Chloride 96 mmol/L (98-107); Glucose 244 mg/dL (74-99); Non-African American GFR(CKD) >90 (>60 ml/min/1.73 sqM); Potassium 4.4 mmol/L (3.5-5.1); Sodium 136 mmol/L (137-145); Total Bilirubin 0.9 mg/dL (0.2-1.3); Total Protein 6.7 g/dL (6.3-8.2)
[2024-11-26 15:23] LABS: NT-Pro-B-Type Natriuretic Pept 2950 pg/mL
--- NOTE | 2024-11-26 15:24 | XR ---
EXAMINATION TYPE: XR chest 1V portable DATE OF EXAM: 11/26/2024 COMPARISON: Chest x-ray from October 17, 2023 CLINICAL INDICATION: Male, 69 years old with history of cough; TECHNIQUE: Single frontal view of the chest is obtained. FINDINGS: There is persistent cardiomegaly with multilead pacemaker/defibrillator. Calcified pleural plaques right lung are seen. Chronic parenchymal changes are present bilaterally . Bibasilar opacit ies are noted. The osseous structures are intact. IMPRESSION: Chronic changes and cardiomegaly. Correlate for prior asbestos exposure. Probable acute infiltrates and/or atelectasis in the lung bases. Progress study advised. [facility], , 11/26/2024 3:22 PM
[2024-11-26] MEDS: SODIUM CHLORIDE 0.9% 1,000 ML IV ONE (15:43)
[2024-11-26] MEDS: ONDANSETRON 4 MG/2 ML VIAL IVP STA (15:46)
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
[2024-11-26] MEDS ORDERED: VANCOMYCIN IV PER PHARMACY 1 EACH MISC MISCELLANE PRN (16:15)
[2024-11-26] MEDS ORDERED: NALOXONE 0.4 MG/ML 1 ML VIAL IV PRN (16:17)
[2024-11-26] MEDS: LACTATED RINGERS 1,000 ML IV ONE (16:35)
[2024-11-26] MEDS ORDERED: DEXTROSE 50% SYRINGE 50 ML IVP PRN ×2 (16:41)
[2024-11-26 16:44] LABS: Partial Thromboplastin Time 22.9 sec (22.0-30.0); Prothrombin Time 11.4 sec (10.0-12.5)
[2024-11-26] MEDS: LACTATED RINGERS 1,000 ML IV SCH (17:00)
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
[2024-11-26 17:35] LABS: Glucose,Whole Blood 138 mg/dL (70-110)
[2024-11-26] MEDS: INSULIN LISPRO (HumaLOG) 100 UNIT/ML 10 mL VL SQ SCH (17:41)
[2024-11-26] MEDS: LACTATED RINGERS 500 ML IV ONE (17:58)
[2024-11-26] MEDS: VANCOMYCIN 2,500 MG in SODIUM CHLORIDE 0.9% 500 ML 500 ML IVPB SCH (18:09)
[2024-11-26] MEDS: IPRATROPIUM-ALBUTEROL 3 ML NEB INHALATION SCH (19:38)
[2024-11-26] MEDS: SYMBICORT 160-4.5 MCG INHALER INHALATION SCH (19:38)
[2024-11-26 21:42] LABS: Glucose,Whole Blood 123 mg/dL (70-110)
[2024-11-26] MEDS: APIXABAN 5 MG TAB PO SCH (22:25)
[2024-11-26] MEDS: SACUBITRIL/VALSARTAN 24 MG-26 MG TABLET PO SCH (22:25)
[2024-11-26] MEDS: LACTULOSE 20 GM/30 ML CUP PO SCH (22:26)
[2024-11-27] MEDS: methylPREDNISolone SOD SUCCI 40 MG/ML 1 ML VIAL IV SCH (00:45)
[2024-11-27] MEDS: SYMBICORT 80-4.5 MCG INHALER INHALATION SCH (01:03)
[2024-11-27 04:33] LABS: Appearance,Urine Cloudy (Clear); Bilirubin,Urine Negative (Negative); Blood,Urine Large (Negative); Color,Urine Yellow; Glucose,Urine (UA) 4+ (Negative); Granular Casts,Urine 1 /lpf (0); Ketones,Urine Negative (Negative); Leukocyte Esterase,Urine Negative (Negative); Mucus,Urine Rare /hpf; Nitrite,Urine Negative (Negative); Protein,Urine 3+ (Negative); RBC,Urine 24 /hpf (0-5); Specific Gravity,Urine 1.037 (1.001-1.035); Squamous Epithelial Cell,Urine <1 /hpf (0-4); Urobilinogen,Urine <2.0 mg/dL (<2.0); WBC,Urine 8 /hpf (0-5)
[2024-11-27] MEDS: ACETAMINOPHEN TAB 325 MG TAB PO PRN (04:57)
[2024-11-27] MEDS: VANCOMYCIN 2,500 MG in SODIUM CHLORIDE 0.9% 500 ML 500 ML IVPB SCH ×2 (06:35→22:35)
--- NOTE | 2024-11-27 06:44 | XR ---
EXAMINATION TYPE: XR chest 1V portable DATE OF EXAM: 11/27/2024 CLINICAL INDICATION: Male, 69 years old with history of f/u infiltrates, progress study. TECHNIQUE: Single AP portable upright view of the chest is obtained. COMPARISON: Chest x-ray from one day earlier FINDINGS: There is persistent cardiomegaly with multilead pacemaker/defibrillator. Calcified pleural plaques right lung are redemonstrated suggestive of prior asbestos exposure. Correlate clinically. Chronic parenchymal changes are present bilaterally with increased bilateral central opacities noted. The osseous structures are intact. IMPRESSION: Chronic changes and cardiomegaly redemonstrated. Worsening mid to lower lung acute infil trates and/or edema are present bilaterally. [facility], , 11/27/2024 6:42 AM
[2024-11-27 07:05] LABS: Basophils # (A) 0.02 10*3/uL (0.00-0.10); Basophils % (A) 0.1 %; HCT 49.6 % (39.6-50.0); HGB 15.5 g/dL (13.0-17.0); Lymphocytes # (A) 0.24 10*3/uL (0.90-5.00); Lymphocytes % (A) 1.1 %; MCH 31.5 pg (27.0-32.0); MCHC 31.3 g/dL (32.0-37.0); MCV 100.8 fL (80.0-97.0); Mean Platelet Volume 11.3 fL (9.5-12.2); Monocytes # (A) 1.04 10*3/uL (0.20-1.00); Monocytes % (A) 4.7 %; Neutrophils # (A) 20.82 10*3/uL (1.80-7.70); Neutrophils % (A) 93.6 %; Platelet Count 297 10*3/uL (140-440); RBC 4.92 10*6/uL (4.40-5.60); RDW 14.3 % (11.5-14.5); WBC 22.24 10*3/uL (4.50-10.00)
[2024-11-27 07:20] LABS: ALT 21 U/L (4-49); AST 48 U/L (17-59); African American GFR (CKD) 88 (>60 ml/min/1.73 sqM); Albumin 3.4 g/dL (3.5-5.0); Alkaline Phosphatase 159 U/L (38-126); Anion Gap 8 mmol/L; Blood Urea Nitrogen 28 mg/dL (9-20); Calcium 8.6 mg/dL (8.4-10.2); Carbon Dioxide 32 mmol/L (22-30); Chloride 97 mmol/L (98-107); Glucose 156 mg/dL (74-99); Non-African American GFR(CKD) 76 (>60 ml/min/1.73 sqM); Potassium 4.9 mmol/L (3.5-5.1); Sodium 137 mmol/L (137-145); Total Bilirubin 0.7 mg/dL (0.2-1.3); Total Protein 6.6 g/dL (6.3-8.2)
[2024-11-27 07:32] LABS: Glucose,Whole Blood 152 mg/dL (70-110)
[2024-11-27 07:38] LABS: INR 1.2 (<1.2); Prothrombin Time 12.4 sec (10.0-12.5)
[2024-11-27] MEDS: SPIRONOLACTONE 25 MG TAB PO SCH (08:13)
[2024-11-27] MEDS: ATORVASTATIN 40 MG TAB PO SCH (08:13)
[2024-11-27] MEDS: METOPROLOL SUCCINATE (ER) 100 MG TAB.ER.24H PO SCH (08:15)
[2024-11-27] MEDS ORDERED: ENOXAPARIN 40 MG/0.4 ML SYRINGE SQ SCH (09:00)
[2024-11-27] MEDS ORDERED: ZINC OXIDE 20% OINT 28.4 GM TUBE TOPICAL PRN (11:36)
[2024-11-27 12:23] LABS: Glucose,Whole Blood 176 mg/dL (70-110)
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
[2024-11-27] MEDS: FUROSEMIDE 10 MG/ML 4 ML VIAL IV STA (13:45)
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
[2024-11-27 17:39] LABS: Glucose,Whole Blood 218 mg/dL (70-110)
[2024-11-27] MEDS: CEFEPIME 2 GM in SODIUM CHLORIDE 0.9% 100 ML IVPB SCH (17:44)
[2024-11-27 20:35] LABS: Glucose,Whole Blood 122 mg/dL (70-110)
[2024-11-28] MEDS: IPRATROPIUM-ALBUTEROL 3 ML NEB INHALATION PRN (01:03)
[2024-11-28 06:03] LABS: Glucose,Whole Blood 166 mg/dL (70-110)
[2024-11-28 08:05] LABS: HCT 48.1 % (39.6-50.0); HGB 14.8 g/dL (13.0-17.0); MCH 31.4 pg (27.0-32.0); MCHC 30.8 g/dL (32.0-37.0); MCV 101.9 FL (80.0-97.0); NRBC Per 100 WBC 0 X 10*3/uL (0.00-0.01); Platelet Count 262 X 10*3/uL (140-440); RBC 4.72 X 10*6/uL (4.40-5.60); RDW 14.5 % (11.5-14.5)
[2024-11-28] MEDS: IPRATROPIUM-ALBUTEROL 3 ML NEB INHALATION SCH (08:07)
[2024-11-28 08:23] LABS: ALT 27 U/L (10-49); AST 52 U/L (14-35); Albumin 3.4 g/dL (3.8-4.9); Albumin/Globulin Ratio 1.17 Ratio (1.60-3.17); Alkaline Phosphatase 159 U/L (41-126); BUN/Creat Ratio 26.38 Ratio (12.00-20.00); Blood Urea Nitrogen 42.2 mg/dL (9.0-27.0); Calcium 8.6 mg/dL (8.7-10.3); Carbon Dioxide 27.3 mmol/L (21.6-31.8); Chloride 96 mmol/L (96-109); Globulin 2.9 g/dL (1.6-3.3); Glucose 177 mg/dL (70-110); Potassium 5.6 mmol/L (3.5-5.5); Sodium 135 mmol/L (135-145); Total Bilirubin 0.4 mg/dL (0.3-1.2); Total Protein 6.3 g/dL (6.2-8.2)
[2024-11-28 08:59] LABS: Basophils # (A) 0.04 X 10*3/uL (0.00-0.10); Basophils % (A) 0.2 %; Eosinophils # (A) 0.14 X 10*3/uL (0.04-0.35); Eosinophils % (A) 0.6 %; Lymphocytes % (A) 0.8 %; Macrocytosis (M) 2+ (None Seen); Monocytes % (A) 4.2 %; Neutrophils # (A) 22.37 X 10*3/uL (1.80-7.70); Neutrophils % (A) 93.6 %
[2024-11-28 09:40] LABS: INR 1.18 sec (0.93-1.11); Prothrombin Time 13.3 sec (9.9-11.9)
[2024-11-28 10:20] LABS: African American GFR (CKD) 59 (>60 ml/min/1.73 sqM); Anion Gap 8 mmol/L; Blood Urea Nitrogen 50 mg/dL (9-20); Calcium 8.9 mg/dL (8.4-10.2); Carbon Dioxide 30 mmol/L (22-30); Chloride 93 mmol/L (98-107); Glucose 178 mg/dL (74-99); Non-African American GFR(CKD) 51 (>60 ml/min/1.73 sqM); Potassium 5.2 mmol/L (3.5-5.1); Sodium 131 mmol/L (137-145)
[2024-11-28 11:31] LABS: Glucose,Whole Blood 230 mg/dL (70-110)
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
[2024-11-28] MEDS: FUROSEMIDE 10 MG/ML 4 ML VIAL IV SCH (12:38)
[2024-11-28] MEDS: methylPREDNISolone SOD SUCCI 40 MG/ML 1 ML VIAL IV SCH (12:40)
[2024-11-28 16:23] LABS: Glucose,Whole Blood 147 mg/dL (70-110)
[2024-11-28] MEDS ORDERED: VANCOMYCIN TROUGH DUE 1 EACH MISC MISCELLANE ONE (21:00)
[2024-11-28 21:37] LABS: Glucose,Whole Blood 213 mg/dL (70-110)
[2024-11-28] MEDS: CEFEPIME 2 GM in SODIUM CHLORIDE 0.9% 100 ML IVPB SCH (21:49)
[2024-11-29] MEDS: methylPREDNISolone SOD SUCCI 125 MG/2 ML VIAL IV SCH (00:31)
[2024-11-29] MEDS: IPRATROPIUM-ALBUTEROL 3 ML NEB INHALATION PRN (03:35)
[2024-11-29 06:30] LABS: Glucose,Whole Blood 171 mg/dL (70-110)
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
[2024-11-29 09:12] LABS: Basophils # (A) 0.02 X 10*3/uL (0.00-0.10); Basophils % (A) 0.1 %; Eosinophils # (A) 0.02 X 10*3/uL (0.04-0.35); Eosinophils % (A) 0.1 %; HCT 48.4 % (39.6-50.0); HGB 14.9 g/dL (13.0-17.0); Lymphocytes # (A) 0.13 X 10*3/uL (0.90-5.00); Lymphocytes % (A) 0.8 %; MCH 31.1 pg (27.0-32.0); MCHC 30.8 g/dL (32.0-37.0); Mean Platelet Volume 11.2 FL (9.5-12.2); Monocytes # (A) 0.62 X 10*3/uL (0.20-1.00); Monocytes % (A) 3.6 %; NRBC Per 100 WBC 0 X 10*3/uL (0.00-0.01); Neutrophils # (A) 16.34 X 10*3/uL (1.80-7.70); Neutrophils % (A) 94.9 %; Platelet Count 250 X 10*3/uL (140-440); RBC 4.79 X 10*6/uL (4.40-5.60); RDW 14.4 % (11.5-14.5); WBC 17.22 X 10*3/uL (4.50-10.00)
[2024-11-29 10:39] LABS: ALT 32 U/L (10-49); AST 44 U/L (14-35); Albumin 3.3 g/dL (3.8-4.9); Albumin/Globulin Ratio 1.18 Ratio (1.60-3.17); Alkaline Phosphatase 148 U/L (41-126); BUN/Creat Ratio 33.73 Ratio (12.00-20.00); Blood Urea Nitrogen 50.6 mg/dL (9.0-27.0); Carbon Dioxide 26.2 mmol/L (21.6-31.8); Chloride 96 mmol/L (96-109); Globulin 2.8 g/dL (1.6-3.3); Glucose 156 mg/dL (70-110); Potassium 5.5 mmol/L (3.5-5.5); Sodium 135 mmol/L (135-145); Total Bilirubin 0.4 mg/dL (0.3-1.2); Total Protein 6.1 g/dL (6.2-8.2)
[2024-11-29] MEDS ORDERED: VANCOMYCIN IV PER PHARMACY 1 EACH MISC MISCELLANE PRN (11:32)
[2024-11-29 11:49] LABS: Glucose,Whole Blood 202 mg/dL (70-110)
[2024-11-29] MEDS: IPRATROPIUM-ALBUTEROL 3 ML NEB INHALATION SCH (12:16)
[2024-11-29] MEDS: VANCOMYCIN 2,250 MG in SODIUM CHLORIDE 0.9% 500 ML 500 ML IVPB SCH (13:49)
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
[2024-11-29 16:50] LABS: Glucose,Whole Blood 244 mg/dL (70-110)
[2024-11-29] MEDS ORDERED: ZINC OXIDE PASTE (Z-GUARD) 1 APPLIC TOPICAL PRN (17:11)
[2024-11-29 20:06] LABS: Glucose,Whole Blood 229 mg/dL (70-110)
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
[2024-11-30 06:28] LABS: Glucose,Whole Blood 219 mg/dL (70-110)
[2024-11-30 09:06] LABS: Basophils # (A) 0.01 X 10*3/uL (0.00-0.10); Basophils % (A) 0.1 %; Eosinophils # (A) 0 X 10*3/uL (0.04-0.35); Eosinophils % (A) 0 %; HGB 14.9 g/dL (13.0-17.0); Lymphocytes # (A) 0.11 X 10*3/uL (0.90-5.00); Lymphocytes % (A) 0.8 %; MCH 30.5 pg (27.0-32.0); MCHC 30.4 g/dL (32.0-37.0); MCV 100.2 FL (80.0-97.0); Mean Platelet Volume 11.4 FL (9.5-12.2); Monocytes # (A) 0.72 X 10*3/uL (0.20-1.00); Monocytes % (A) 5.3 %; NRBC Per 100 WBC 0 X 10*3/uL (0.00-0.01); Neutrophils # (A) 12.73 X 10*3/uL (1.80-7.70); Neutrophils % (A) 93.4 %; Platelet Count 249 X 10*3/uL (140-440); RBC 4.89 X 10*6/uL (4.40-5.60); RDW 14.2 % (11.5-14.5); WBC 13.63 X 10*3/uL (4.50-10.00)
[2024-11-30] MEDS: guaiFENesin 600 MG TABLET.ER PO SCH (09:26)
[2024-11-30 10:00] LABS: ALT 31 U/L (10-49); AST 33 U/L (14-35); Albumin 3.3 g/dL (3.8-4.9); Albumin/Globulin Ratio 1.18 Ratio (1.60-3.17); Alkaline Phosphatase 148 U/L (41-126); BUN/Creat Ratio 36.19 Ratio (12.00-20.00); Blood Urea Nitrogen 57.9 mg/dL (9.0-27.0); Calcium 9.1 mg/dL (8.7-10.3); Carbon Dioxide 27.5 mmol/L (21.6-31.8); Chloride 97 mmol/L (96-109); Globulin 2.8 g/dL (1.6-3.3); Glucose 217 mg/dL (70-110); Potassium 5.2 mmol/L (3.5-5.5); Sodium 135 mmol/L (135-145); Total Bilirubin 0.4 mg/dL (0.3-1.2); Total Protein 6.1 g/dL (6.2-8.2)
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
[2024-11-30 11:45] LABS: Glucose,Whole Blood 234 mg/dL (70-110)
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
[2024-11-30] MEDS: INSULIN LISPRO (HumaLOG) 100 UNIT/ML 10 mL VL SQ SCH (11:56)
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
[2024-11-30 16:51] LABS: Glucose,Whole Blood 277 mg/dL (70-110)
[2024-11-30 20:22] LABS: Glucose,Whole Blood 166 mg/dL (70-110)
[2024-11-30] MEDS: INSULIN GLARGINE (LANTUS) 100 UNIT/ML SYR SQ SCH (21:11)
[2024-12-01 05:45] LABS: Basophils # (A) 0.01 10*3/uL (0.00-0.10); Basophils % (A) 0.1 %; HCT 48.5 % (39.6-50.0); HGB 15.4 g/dL (13.0-17.0); Lymphocytes # (A) 0.11 10*3/uL (0.90-5.00); Lymphocytes % (A) 0.7 %; MCH 31.1 pg (27.0-32.0); MCHC 31.8 g/dL (32.0-37.0); Mean Platelet Volume 10.7 fL (9.5-12.2); Monocytes % (A) 6.6 %; Neutrophils # (A) 13.89 10*3/uL (1.80-7.70); Neutrophils % (A) 91.9 %; Platelet Count 202 10*3/uL (140-440); RBC 4.95 10*6/uL (4.40-5.60); WBC 15.11 10*3/uL (4.50-10.00)
[2024-12-01 06:23] LABS: Glucose,Whole Blood 253 mg/dL (70-110)
[2024-12-01 06:27] LABS: African American GFR (CKD) 66 (>60 ml/min/1.73 sqM); Anion Gap 8 mmol/L; Blood Urea Nitrogen 71 mg/dL (9-20); Calcium 9.2 mg/dL (8.4-10.2); Carbon Dioxide 26 mmol/L (22-30); Chloride 97 mmol/L (98-107); Glucose 268 mg/dL (74-99); Non-African American GFR(CKD) 57 (>60 ml/min/1.73 sqM); Sodium 131 mmol/L (137-145)
[2024-12-01 12:00] LABS: Glucose,Whole Blood 252 mg/dL (70-110)
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
--- NOTE | 2024-12-01 13:41 | XR ---
EXAMINATION TYPE: XR chest 1V portable DATE OF EXAM: 12/01/2024 1:29 PM COMPARISON: 11/29/2024 CLINICAL INDICATION: Male, 69 years old with history of COPD, CHF, TECHNIQUE: XR chest 1V portable view(s) obtained. FINDINGS: The heart size is enlarged. The pulmonary vasculature is somewhat prominent. Mild infiltrate at the right base. IMPRESSION: 1. Mild right lower lobe infiltrate. Correlate for atelectasis or pneumonia. 2. Mild cardiomegaly [facility], , 12/01/2024 1:39 PM
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
[2024-12-01] MEDS: CEFEPIME 2 GM in SODIUM CHLORIDE 0.9% 100 ML IVPB SCH (15:57)
[2024-12-01 17:08] LABS: Glucose,Whole Blood 137 mg/dL (70-110)
[2024-12-01] MEDS: NYSTATIN 100,000 UNIT/GM POWD 15 GM TOPICAL SCH (17:34)
[2024-12-01 20:36] LABS: Glucose,Whole Blood 172 mg/dL (70-110)
[2024-12-02 05:44] LABS: HCT 40.1 % (39.6-50.0); HGB 12.8 g/dL (13.0-17.0); MCH 31.6 pg (27.0-32.0); MCHC 31.9 g/dL (32.0-37.0); Mean Platelet Volume 10.8 fL (9.5-12.2); Platelet Count 243 10*3/uL (140-440); RBC 4.05 10*6/uL (4.40-5.60); RDW 13.7 % (11.5-14.5); WBC 23.14 10*3/uL (4.50-10.00)
[2024-12-02 06:00] LABS: African American GFR (CKD) 67 (>60 ml/min/1.73 sqM); Anion Gap 4 mmol/L; Blood Urea Nitrogen 70 mg/dL (9-20); Calcium 8.8 mg/dL (8.4-10.2); Carbon Dioxide 32 mmol/L (22-30); Chloride 97 mmol/L (98-107); Glucose 215 mg/dL (74-99); Non-African American GFR(CKD) 58 (>60 ml/min/1.73 sqM); Potassium 5.3 mmol/L (3.5-5.1); Sodium 133 mmol/L (137-145)
[2024-12-02 06:16] LABS: Glucose,Whole Blood 225 mg/dL (70-110)
[2024-12-02] MEDS: LACTULOSE 20 GM/30 ML CUP PO SCH (06:42)
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
[2024-12-02 12:18] LABS: Glucose,Whole Blood 268 mg/dL (70-110)
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
--- NOTE | 2024-12-02 13:16 | CT ---
EXAMINATION TYPE: CT abdomen pelvis wo con DATE OF EXAM: 12/02/2024 1:03 PM COMPARISON: 10/18/2023 CLINICAL INDICATION: Male, 69 years old with history of Abd pain; Abdominal pain. TECHNIQUE: CT of the abdomen and pelvis without IV contrast. Sagittal and coronal reformats were crea mike on a separate workstation. CT DLP: 2976.4 mGycm, Automated exposure control for dose reduction was used. FINDINGS: Right atrial, right ventricular, and coronary sinus leads noted. Heart mildly enlarged without pericardial effusion. Large caliber visualized main right and left pulmonary arteries up to 3.0 cm suggesting pulmonary hyp ertension. Chronic appearing pleural thickening at the visualized lower lungs with scattered pleural plaques and suspected bibasilar pleural parenchymal scarring. There is diffuse breathing motion artifact. Also, limited by large body habitus with portions of the abdomen located outside the field of view. Anasarca change has worsened. There appear to be masslike high density soft tissue area along the anterior right flank measuring up to 18.0 cm located within the subcutaneous adipose layer. The subcutaneous tissues of the left flank are excluded from view. Noncontrast appearance of the liver, gallbladder, adrenal glands, kidneys, spleen, and pancreas show no gross abnormality. No dilated small bowel, free fluid, or free air. No mesenteric or retroperitoneal lymphadenopathy see n. Mild to moderate stool in the right side of the colon. Sigmoid colon appears redundant. Bladder collapsed. No abnormal fluid collection in the pelvis are pelvic lymphadenopathy seen. Moderate degenerative change of the hips. Assessment of the bones limited due to osteopenia and large patient body habitus. At least moderate d egenerative disc disease L3-L4. Hypertrophic facet arthropathy mid to lower lumbar spine, left greate r than right. IMPRESSION: 1. Generalized anasarca change has worsened in the interval. In addition, there appears to be a large 18.0 cm focal hematoma located along the anterior right flank subcutaneous fat layer. The left flank subcutaneous tissues are excluded from view due to large body habitus. 2. Mild cardiomegaly. Pulmonary arterial hypertension. Suspect chronic pleural parenchymal scarring a t the lung bases and possible asbestos related pleural disease. [facility], , 12/02/2024 1:14 PM
[2024-12-02] MEDS: VANCOMYCIN TROUGH DUE 1 EACH MISC MISCELLANE ONE (13:20)
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
[2024-12-02 16:58] LABS: Glucose,Whole Blood 200 mg/dL (70-110)
[2024-12-02 21:25] LABS: Glucose,Whole Blood 163 mg/dL (70-110)
[2024-12-02] MEDS: LINEZOLID 600 MG TAB PO SCH (21:32)
[2024-12-03 06:35] LABS: Glucose,Whole Blood 170 mg/dL (70-110)
[2024-12-03 10:31] LABS: HCT 31.5 % (39.6-50.0); HGB 10.4 g/dL (13.0-17.0); MCV 96.9 fL (80.0-97.0); Mean Platelet Volume 11.2 fL (9.5-12.2); Platelet Count 208 10*3/uL (140-440); RBC 3.25 10*6/uL (4.40-5.60); RDW 13.9 % (11.5-14.5)
[2024-12-03 10:46] LABS: African American GFR (CKD) 51 (>60 ml/min/1.73 sqM); Anion Gap 7 mmol/L; Blood Urea Nitrogen 85 mg/dL (9-20); Calcium 8.8 mg/dL (8.4-10.2); Carbon Dioxide 30 mmol/L (22-30); Chloride 96 mmol/L (98-107); Glucose 212 mg/dL (74-99); Magnesium 2.3 mg/dL (1.6-2.3); Non-African American GFR(CKD) 44 (>60 ml/min/1.73 sqM); Sodium 133 mmol/L (137-145)
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
[2024-12-03 11:46] LABS: Glucose,Whole Blood 180 mg/dL (70-110)
[2024-12-03] MEDS ORDERED: VANCOMYCIN 2,250 MG in SODIUM CHLORIDE 0.9% 500 ML 500 ML IVPB SCH (12:00)
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
[2024-12-03 17:03] LABS: Glucose,Whole Blood 215 mg/dL (70-110)
[2024-12-03 18:56] LABS: Basophils # (A) 0.06 10*3/uL (0.00-0.10); Basophils % (A) 0.2 %; HCT 30.5 % (39.6-50.0); Lymphocytes # (A) 0.99 10*3/uL (0.90-5.00); Lymphocytes % (A) 2.9 %; MCH 31.7 pg (27.0-32.0); MCHC 32.8 g/dL (32.0-37.0); MCV 96.8 fL (80.0-97.0); Mean Platelet Volume 10.8 fL (9.5-12.2); Monocytes # (A) 2.94 10*3/uL (0.20-1.00); Monocytes % (A) 8.5 %; Neutrophils # (A) 30.24 10*3/uL (1.80-7.70); Neutrophils % (A) 87.6 %; Platelet Count 189 10*3/uL (140-440); RBC 3.15 10*6/uL (4.40-5.60); RDW 14.1 % (11.5-14.5)
[2024-12-03 20:55] LABS: Glucose,Whole Blood 162 mg/dL (70-110)
[2024-12-03] MEDS: CEFEPIME 2 GM in SODIUM CHLORIDE 0.9% 100 ML IVPB SCH (21:30)
[2024-12-04 06:09] LABS: Glucose,Whole Blood 119 mg/dL (70-110)
[2024-12-04 07:21] LABS: Basophils # (A) 0.06 10*3/uL (0.00-0.10); Basophils % (A) 0.2 %; Eosinophils # (A) 0.01 10*3/uL (0.04-0.35); HCT 26.8 % (39.6-50.0); HGB 9.2 g/dL (13.0-17.0); Lymphocytes # (A) 0.55 10*3/uL (0.90-5.00); Lymphocytes % (A) 1.4 %; MCH 31.9 pg (27.0-32.0); MCHC 34.3 g/dL (32.0-37.0); MCV 93.1 fL (80.0-97.0); Mean Platelet Volume 11.7 fL (9.5-12.2); Monocytes # (A) 4.95 10*3/uL (0.20-1.00); Monocytes % (A) 12.9 %; Neutrophils % (A) 84.5 %; Platelet Count 168 10*3/uL (140-440); RBC 2.88 10*6/uL (4.40-5.60); RDW 13.7 % (11.5-14.5); WBC 38.35 10*3/uL (4.50-10.00)
[2024-12-04 07:26] LABS: Neutrophils # (A) 32.41 10*3/uL (1.80-7.70)
[2024-12-04 08:03] LABS: African American GFR (CKD) 65 (>60 ml/min/1.73 sqM); Anion Gap 5 mmol/L; Blood Urea Nitrogen 88 mg/dL (9-20); Calcium 8.5 mg/dL (8.4-10.2); Carbon Dioxide 22 mmol/L (22-30); Chloride 105 mmol/L (98-107); Glucose 122 mg/dL (74-99); Non-African American GFR(CKD) 56 (>60 ml/min/1.73 sqM); Sodium 132 mmol/L (137-145)
[2024-12-04 08:09] LABS: Potassium 5.7 mmol/L (3.5-5.1)
[2024-12-04] MEDS: FUROSEMIDE 40 MG TAB PO SCH (08:45)
[2024-12-04] MEDS: predniSONE 20 MG TAB PO SCH (08:45)
[2024-12-04 11:50] LABS: Glucose,Whole Blood 135 mg/dL (70-110)
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
[2024-12-04 16:18] LABS: Glucose,Whole Blood 150 mg/dL (70-110)
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
[2024-12-05 08:02] LABS: HCT 24.9 % (39.6-50.0); HGB 8.1 g/dL (13.0-17.0); MCH 31.5 pg (27.0-32.0); MCHC 32.5 g/dL (32.0-37.0); MCV 96.9 fL (80.0-97.0); Mean Platelet Volume 11.1 fL (9.5-12.2); Platelet Count 190 10*3/uL (140-440); RBC 2.57 10*6/uL (4.40-5.60); WBC 30.56 10*3/uL (4.50-10.00)
[2024-12-05 08:31] LABS: African American GFR (CKD) 58 (>60 ml/min/1.73 sqM); Anion Gap 1 mmol/L; Blood Urea Nitrogen 84 mg/dL (9-20); C Reactive Protein 2.2 mg/dL (<1.0); Calcium 8.3 mg/dL (8.4-10.2); Carbon Dioxide 31 mmol/L (22-30); Chloride 98 mmol/L (98-107); Glucose 161 mg/dL (74-99); Non-African American GFR(CKD) 50 (>60 ml/min/1.73 sqM); Sodium 130 mmol/L (137-145)
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
--- NOTE | 2024-12-05 16:36 | P.PN ---
Subjective Patient seen and evaluated bedside. Patient denies significant pain in the left flank/lower quadrant states that his pain has improved over the last several days. Objective - Vital Signs Vital signs: Vital Signs Temp 99 F 12/05/24 13:30 Pulse 72 12/05/24 16:23 Resp 18 12/05/24 13:30 BP 131/63 12/05/24 13:30 Pulse Ox 97 12/05/24 13:30 FiO2 40 11/26/24 19:39 Intake & Output 12/04/24 12/05/24 12/05/24 18:59 06:59 18:59 Output Total 500 1275 300 Balance -500 -5095 -300 Weight 170 kg Output: Urine 500 1275 300 Other: Voiding Method Urinal Urinal Urinal Incontinent Incontinent Incontinent # Bowel Movements 1 - Exam General No acute distress alert and oriented x 3 Cardiovascular regular rhythm Pulmonary nonlabored breathing Flank demonstrates minor bruising which looks like it has improved - Labs CBC & Chem 7: 12/05/24 07:37 12/05/24 07:37 Labs: Abnormal Lab Results - Last 24 Hours (Table) 12/05/24 12/05/24 Range/Units 07:37 07:37 WBC 30.56 H (4.50-10.00) 10*3/uL RBC 2.57 L (4.40-5.60) 10*6/uL Hgb 8.1 L (13.0-17.0) g/dL Hct 24.9 L (39.6-50.0) % Sodium 130 L (137-145) mmol/L Carbon Dioxide 31 H (22-30) mmol/L BUN 84 H (9-20) mg/dL Creatinine 1.44 H (0.66-1.25) mg/dL Glucose 161 H (74-99) mg/dL Calcium 8.3 L (8.4-10.2) mg/dL C-Reactive Protein 2.2 H (<1.0) mg/dL Microbiology - Last 24 Hours (Table) 12/04/24 08:58 Gram Stain - Preliminary Sputum Sputum Culture - Preliminary Maria albicans Assessment and Plan Assessment: 69-year-old male with flank hematoma which is stable Hemoglobin dropped from 9.2-8.1 we will continue to trend no need for transfusion at this time as vital signs are stable Will continue to monitor Time with Patient: Less than 30
[2024-12-05] MEDS: FLUCONAZOLE 100 MG TAB PO ONE (16:39)
[2024-12-06 07:17] LABS: MCH 31.7 pg (27.0-32.0); MCV 96.2 fL (80.0-97.0); Mean Platelet Volume 11.4 fL (9.5-12.2); RBC 2.08 10*6/uL (4.40-5.60); RDW 13.9 % (11.5-14.5); WBC 23.87 10*3/uL (4.50-10.00)
[2024-12-06 07:30] LABS: HGB 6.6 g/dL (13.0-17.0)
[2024-12-06 07:58] LABS: ALT 31 U/L (4-49); AST 37 U/L (17-59); African American GFR (CKD) 73 (>60 ml/min/1.73 sqM); Albumin 2.2 g/dL (3.5-5.0); Alkaline Phosphatase 97 U/L (38-126); Anion Gap 3 mmol/L; Blood Urea Nitrogen 82 mg/dL (9-20); Calcium 7.9 mg/dL (8.4-10.2); Carbon Dioxide 30 mmol/L (22-30); Chloride 99 mmol/L (98-107); Globulin 2.3 g/dL; Glucose 176 mg/dL (74-99); Non-African American GFR(CKD) 63 (>60 ml/min/1.73 sqM); Potassium 5.4 mmol/L (3.5-5.1); Sodium 132 mmol/L (137-145); Total Bilirubin 0.9 mg/dL (0.2-1.3); Total Protein 4.5 g/dL (6.3-8.2)
[2024-12-06] MEDS: FLUCONAZOLE 100 MG TAB PO SCH (08:24)
[2024-12-06 08:27] LABS: Large Platelets Present; Platelet Count 88 10*3/uL (140-440)
[2024-12-06] MEDS: SODIUM ZIRCONIUM CYCLOSILICATE 10 GM PACKET PO ONE (11:34)
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
--- NOTE | 2024-12-06 13:38 | P.PN ---
Subjective Patient seen and evaluated bedside. Patient denies significant pain in the left flank/lower quadrant states that his pain has improved over the last several days. Objective - Vital Signs Vital signs: Vital Signs Temp 97.5 F L 12/06/24 13:07 Pulse 60 12/06/24 13:07 Resp 16 12/06/24 13:07 BP 124/65 12/06/24 13:07 Pulse Ox 97 12/06/24 13:07 FiO2 40 11/26/24 19:39 Intake & Output 12/05/24 12/06/24 12/06/24 18:59 06:59 18:59 Intake Total 240 310 Output Total 300 600 Balance -300 -360 310 Weight 170 kg Intake: Oral 240 Blood Product 310 Rc As-1 Unit 310 [id number] Output: Urine 300 600 Other: Voiding Method Urinal Urinal Urinal Incontinent Incontinent Incontinent # Bowel Movements 1 - Exam General No acute distress alert and oriented x 3 Cardiovascular regular rhythm Pulmonary nonlabored breathing Flank demonstrates minor bruising which looks like it has improved - Labs CBC & Chem 7: 12/06/24 05:29 12/06/24 05:29 Labs: Abnormal Lab Results - Last 24 Hours (Table) 12/06/24 12/06/24 12/06/24 Range/Units 05:29 05:29 08:00 WBC 23.87 H (4.50-10.00) 10*3/uL RBC 2.08 L (4.40-5.60) 10*6/uL Hgb 6.6 L* D (13.0-17.0) g/dL Hct 20.0 L (39.6-50.0) % Plt Count 88 L D (140-440) 10*3/uL Immature Gran # 0.38 H (0.00-0.04) 10*3/uL Neutrophils # 20.20 H (1.80-7.70) 10*3/uL Lymphocytes # 0.75 L (0.90-5.00) 10*3/uL Monocytes # 2.46 H (0.20-1.00) 10*3/uL Sodium 132 L (137-145) mmol/L Potassium 5.4 H (3.5-5.1) mmol/L BUN 82 H (9-20) mg/dL Glucose 176 H (74-99) mg/dL Calcium 7.9 L (8.4-10.2) mg/dL Total Protein 4.5 L (6.3-8.2) g/dL Albumin 2.2 L (3.5-5.0) g/dL Crossmatch See Detail Microbiology - Last 24 Hours (Table) 12/04/24 08:58 Gram Stain - Final Sputum Sputum Culture - Final Maria albicans Assessment and Plan Assessment: 69-year-old male with flank hematoma which is stable Hemoglobin dropped to 6.6. Transfuse 1 unit and recheck after 2 hours. Current vital signs are stable physical exam reveals hematoma has not gotten larger Time with Patient: Less than 30
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
[2024-12-06] MEDS ORDERED: CEFEPIME 2 GM in SODIUM CHLORIDE 0.9% 100 ML IVPB SCH (16:00)
[2024-12-06 16:21] LABS: Glucose,Whole Blood 271 mg/dL (70-110)
[2024-12-06 16:34] LABS: HCT 23.2 % (39.6-50.0); HGB 7.7 g/dL (13.0-17.0); MCH 30.8 pg (27.0-32.0); MCHC 33.2 g/dL (32.0-37.0); MCV 92.8 fL (80.0-97.0); Mean Platelet Volume 11.5 fL (9.5-12.2); RDW 14.6 % (11.5-14.5); WBC 28.27 10*3/uL (4.50-10.00)
[2024-12-06 16:38] LABS: Platelet Count 227 10*3/uL (140-440)
[2024-12-06 16:51] LABS: Monocytes # (M) 1.13 k/uL (0-1.0); Neutrophils # (M) 27.14 k/uL (1.3-7.7); Neutrophils % (M) 96 %; Nucleated Red Blood Cells 0 /100 WBC (0-0); Total Cells Counted 100
[2024-12-06 16:52] LABS: Spherocytes Present
[2024-12-06] MEDS: ONDANSETRON 4 MG/2 ML VIAL IVP PRN (22:24)
[2024-12-07] MEDS: HYDROcodone/APAP 5-325MG 1 EACH TAB PO PRN (01:07)
[2024-12-07] MEDS: PROCHLORPERAZINE INJ 10 MG/2 ML VIAL IVP PRN (01:15)
[2024-12-07 06:16] LABS: Glucose,Whole Blood 218 mg/dL (70-110)
[2024-12-07 08:38] LABS: HCT 21.2 % (39.6-50.0); HGB 7.2 g/dL (13.0-17.0); MCH 31.4 pg (27.0-32.0); MCV 92.6 fL (80.0-97.0); Mean Platelet Volume 10.4 fL (9.5-12.2); Platelet Count 233 10*3/uL (140-440); RBC 2.29 10*6/uL (4.40-5.60); RDW 14.7 % (11.5-14.5); WBC 32.92 10*3/uL (4.50-10.00)
[2024-12-07 08:58] LABS: ALT 33 U/L (4-49); AST 32 U/L (17-59); African American GFR (CKD) 65 (>60 ml/min/1.73 sqM); Albumin 2.3 g/dL (3.5-5.0); Alkaline Phosphatase 98 U/L (38-126); Anion Gap 1 mmol/L; Blood Urea Nitrogen 82 mg/dL (9-20); Carbon Dioxide 31 mmol/L (22-30); Chloride 98 mmol/L (98-107); Globulin 2.3 g/dL; Glucose 184 mg/dL (74-99); Non-African American GFR(CKD) 56 (>60 ml/min/1.73 sqM); Potassium 5.5 mmol/L (3.5-5.1); Sodium 130 mmol/L (137-145); Total Protein 4.6 g/dL (6.3-8.2)
[2024-12-07 09:33] LABS: Lymphocytes # (M) 1.32 k/uL (1.0-4.8); Monocytes # (M) 1.98 k/uL (0-1.0); Neutrophils # (M) 29.63 k/uL (1.3-7.7); Neutrophils % (M) 90 %; Nucleated Red Blood Cells 0 /100 WBC (0-0); Total Cells Counted 100
[2024-12-07 09:34] LABS: RBC Morphology Normal
[2024-12-07 11:37] LABS: Glucose,Whole Blood 203 mg/dL (70-110)
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
--- NOTE | 2024-12-07 13:54 | CT ---
EXAMINATION TYPE: CT angio abdomen pelvis CT DLP: 6943.4 mGycm, Automated exposure control for dose reduction was used. DATE OF EXAM: 12/07/2024 1:22 PM COMPARISON:CT abdomen and pelvis 12/02/2024 CLINICAL INDICATION:Male, 69 years old with history of bleed; Bleed TECHNIQUE: Multiple thin slice sub-millimeter images were obtained through the abdomen and pelvis bef ore and after administration of contrast. Patient was given Isovue 370, 100 cc intravenously. Maxim um intensity projection images were obtained of the abdomen and pelvis. FINDINGS: Limited examination with the left lateral flank is not entirely included in the field-of-vi ew due to patient's body habitus. CTA Abdomen and pelvis: The abdominal aorta does not demonstrate aneurysmal dilatation. Mild atheros clerotic plaquing is identified within the abdominal aorta. The origins of the superior mesenteric a rtery, renal arteries, inferior mesenteric artery, and celiac axis are patent. The bilateral common iliac, external and internal iliac arteries are patent. The bilateral visualized common femoral, supe rficial and deep femoral arteries are patent. VISCERA: The liver, spleen, adrenal glands, kidneys, pancreas, and gallbladder are not optimally enha nced due the arterial phase utilized. LIVER: Unremarkable GALLBLADDER AND BILE DUCTS: Unremarkable. PANCREAS: Unremarkable. SPLEEN: Unremarkable. ADRENAL GLANDS: Unremarkable. KIDNEYS AND URETERS: No evidence of hydronephrosis or renal calculus. The kidneys enhance symmetrical ly. Nonspecific bilateral perinephric fat stranding redemonstrated. PELVIS BLADDER: Unremarkable REPRODUCTIVE: Unremarkable. ABDOMEN & PELVIS STOMACH AND BOWEL: Stomach and duodenum are unremarkable. Redundant sigmoid colon. No focal bowel wal l thickening or surrounding inflammatory changes. No evidence of bowel obstruction. PERITONEUM/RETROPERITONEUM: No evidence of pneumoperitoneum. Trace ascites within the pelvis. No evid ence for retroperitoneal hematoma. MUSCULOSKELETAL: No acute osseous abnormalities. Diffuse osteopenia. Multilevel anterior osteophytosi s of the thoracolumbar spine. Moderate degenerative changes of the hips. LYMPH NODES: No evidence for lymphadenopathy. SOFT TISSUE/ABDOMINAL WALL: Similar generalized anasarca. Redemonstration of a large focal hematoma l ocated along the anterior right flank subcutaneous fat layer measuring up to 17 cm. No evidence for a ctive extravasation. Small fat filled umbilical hernia. LOWER CHEST: Cardiomegaly with leads terminating in the right atrium, right ventricle, and coronary s inus. No pericardial effusion. Trace bilateral pleural effusions with pleural calcifications. Correla te for prior asbestosis exposure. IMPRESSION: Limited examination due to patient body habitus with the left flank subcutaneous tissue i s not included in the [id number]. 1. Overall similar generalized anasarca with similar focal large hematoma along the anterior right fl ank subcutaneous fat layer. No evidence for active extravasation. 2. Trace bilateral pleural effusions with calcified pleural plaques. Correlate for prior stenosis exp osure. 3. At [facility], , 12/07/2024 1:51 PM
[2024-12-07] MEDS: SODIUM ZIRCONIUM CYCLOSILICATE 10 GM PACKET PO ONE (14:46)
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
--- NOTE | 2024-12-07 16:44 | P.PN ---
Subjective Patient seen and evaluated bedside. Patient denies significant pain in the left flank/lower quadrant pain Objective - Vital Signs Vital signs: Vital Signs Temp 98.5 F 12/07/24 14:43 Pulse 64 12/07/24 15:46 Resp 16 12/07/24 14:43 BP 114/63 12/07/24 14:43 Pulse Ox 99 12/07/24 14:43 FiO2 40 11/26/24 19:39 Intake & Output 12/06/24 12/07/24 12/07/24 18:59 06:59 18:59 Intake Total 310 1320 0 Output Total 850 550 Balance -540 770 0 Intake: Oral 1320 Blood Product 310 0 Rc As-1 Unit 0 [id number] Rc As-1 Unit 310 [id number] Output: Urine 850 550 Other: Voiding Method Urinal Urinal Urinal Incontinent Incontinent Incontinent - Exam General No acute distress alert and oriented x 3 Cardiovascular regular rhythm Pulmonary nonlabored breathing Flank demonstrates minor bruising which looks like it has improved - Labs CBC & Chem 7: 12/07/24 08:08 12/07/24 08:08 Labs: Abnormal Lab Results - Last 24 Hours (Table) 12/06/24 12/06/24 12/07/24 Range/Units 08:00 15:25 06:14 WBC (4.50-10.00) 10*3/uL RBC (4.40-5.60) 10*6/uL Hgb (13.0-17.0) g/dL Hct (39.6-50.0) % RDW (11.5-14.5) % Immature Gran # (0.00-0.04) 10*3/uL Neutrophils # (Manual) 27.14 H (1.3-7.7) k/uL Monocytes # (Manual) 1.13 H (0-1.0) k/uL Sodium (137-145) mmol/L Potassium (3.5-5.1) mmol/L Carbon Dioxide (22-30) mmol/L BUN (9-20) mg/dL Creatinine (0.66-1.25) mg/dL Glucose (74-99) mg/dL POC Glucose (mg/dL) 218 H (70-110) mg/dL Calcium (8.4-10.2) mg/dL Total Protein (6.3-8.2) g/dL Albumin (3.5-5.0) g/dL Crossmatch See Detail 12/07/24 12/07/24 12/07/24 Range/Units 08:08 08:08 11:36 WBC 32.92 H (4.50-10.00) 10*3/uL RBC 2.29 L (4.40-5.60) 10*6/uL Hgb 7.2 L (13.0-17.0) g/dL Hct 21.2 L (39.6-50.0) % RDW 14.7 H (11.5-14.5) % Immature Gran # 1.15 H (0.00-0.04) 10*3/uL Neutrophils # (Manual) 29.63 H (1.3-7.7) k/uL Monocytes # (Manual) 1.98 H (0-1.0) k/uL Sodium 130 L (137-145) mmol/L Potassium 5.5 H (3.5-5.1) mmol/L Carbon Dioxide 31 H (22-30) mmol/L BUN 82 H (9-20) mg/dL Creatinine 1.31 H (0.66-1.25) mg/dL Glucose 184 H (74-99) mg/dL POC Glucose (mg/dL) 203 H (70-110) mg/dL Calcium 8.0 L (8.4-10.2) mg/dL Total Protein 4.6 L (6.3-8.2) g/dL Albumin 2.3 L (3.5-5.0) g/dL Crossmatch Assessment and Plan Assessment: 69-year-old male with flank hematoma which is stable Current hemoglobin stable Increasing WBC, defer to infectious disease CT angio of the abdomen pelvis demonstrates similar right flank hematoma with no active extravasation or no signs of infected hematoma Continue medical management no surgical intervention Time with Patient: Greater than 30
[2024-12-07 16:45] LABS: Glucose,Whole Blood 233 mg/dL (70-110)
[2024-12-07 19:32] LABS: Basophils # (A) 0.06 10*3/uL (0.00-0.10); Basophils % (A) 0.2 %; HCT 24.3 % (39.6-50.0); HGB 8.2 g/dL (13.0-17.0); Lymphocytes # (A) 0.38 10*3/uL (0.90-5.00); Lymphocytes % (A) 1.2 %; MCH 30.5 pg (27.0-32.0); MCHC 33.7 g/dL (32.0-37.0); MCV 90.3 fL (80.0-97.0); Mean Platelet Volume 10.5 fL (9.5-12.2); Monocytes # (A) 1.54 10*3/uL (0.20-1.00); Monocytes % (A) 4.9 %; Neutrophils # (A) 28.64 10*3/uL (1.80-7.70); Neutrophils % (A) 90.1 %; Platelet Count 252 10*3/uL (140-440); RBC 2.69 10*6/uL (4.40-5.60); WBC 31.75 10*3/uL (4.50-10.00)
[2024-12-07 20:35] LABS: Glucose,Whole Blood 261 mg/dL (70-110)
[2024-12-07 22:10] LABS: Anisocytosis (M) Present
[2024-12-08 06:15] LABS: Glucose,Whole Blood 224 mg/dL (70-110)
[2024-12-08 10:04] LABS: HCT 24.4 % (39.6-50.0); HGB 7.9 g/dL (13.0-17.0); MCH 30.9 pg (27.0-32.0); MCHC 32.4 g/dL (32.0-37.0); MCV 95.3 fL (80.0-97.0); Mean Platelet Volume 10.8 fL (9.5-12.2); Platelet Count 333 10*3/uL (140-440); RBC 2.56 10*6/uL (4.40-5.60); RDW 15.2 % (11.5-14.5); WBC 35.38 10*3/uL (4.50-10.00)
[2024-12-08 10:28] LABS: ALT 36 U/L (10-49); AST 31 U/L (14-35); Albumin 2.7 g/dL (3.8-4.9); Albumin/Globulin Ratio 1.42 Ratio (1.60-3.17); Alkaline Phosphatase 112 U/L (41-126); BUN/Creat Ratio 48.47 Ratio (12.00-20.00); Blood Urea Nitrogen 72.7 mg/dL (9.0-27.0); Calcium 7.9 mg/dL (8.7-10.3); Carbon Dioxide 26.2 mmol/L (21.6-31.8); Chloride 98 mmol/L (96-109); Globulin 1.9 g/dL (1.6-3.3); Glucose 208 mg/dL (70-110); Potassium 5.7 mmol/L (3.5-5.5); Sodium 131 mmol/L (135-145); Total Bilirubin 0.6 mg/dL (0.3-1.2); Total Protein 4.6 g/dL (6.2-8.2)
[2024-12-08 11:23] LABS: Glucose,Whole Blood 165 mg/dL (70-110)
[2024-12-08 11:26] LABS: Lymphocytes # (M) 2.48 k/uL (1.0-4.8); Monocytes # (M) 2.12 k/uL (0-1.0); Neutrophils # (M) 30.78 k/uL (1.3-7.7); Neutrophils % (M) 87 %; Nucleated Red Blood Cells 0 /100 WBC (0-0); Total Cells Counted 100
[2024-12-08 11:27] LABS: RBC Morphology Normal
--- NOTE | 2024-12-08 11:38 | XR ---
EXAMINATION TYPE: XR chest 1V portable DATE OF EXAM: 12/08/2024 11:15 AM COMPARISON: 12/01/2024 CLINICAL INDICATION: Male, 69 years old with history of Eval for fluid overload, TECHNIQUE: XR chest 1V portable view(s) obtained. FINDINGS: The heart size is enlarged. The pulmonary vasculature is somewhat prominent. Some mild bibasilar infiltrates are present. Consider pulmonary edema Correlate for atelectasis. Pneu monia could be considered. Follow-up can be performed as clinically indicated. IMPRESSION: 1. Suggestion of mild congestive heart failure. Bibasilar atelectasis or pneumonia could be considere d. Follow-up can be performed as clinically indicated. [facility], , 12/08/2024 11:36 AM
[2024-12-08] MEDS: SODIUM ZIRCONIUM CYCLOSILICATE 10 GM PACKET PO ONE (11:51)
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
[2024-12-08] MEDS: PIPERACILLIN-TAZOBACTAM 3.375 GM in SODIUM CHLORIDE 0.9% 100 ML IVPB SCH (16:24)
[2024-12-08 16:28] LABS: Glucose,Whole Blood 242 mg/dL (70-110)
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
[2024-12-08 20:10] LABS: Glucose,Whole Blood 269 mg/dL (70-110)
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
[2024-12-08] MEDS: KETOROLAC 15 MG/ML 1 ML VIAL IVP STA (22:43)
[2024-12-09 01:56] LABS: Glucose,Whole Blood 182 mg/dL (70-110)
[2024-12-09 03:05] LABS: African American GFR (CKD) 56 (>60 ml/min/1.73 sqM); Anion Gap 5 mmol/L; Blood Urea Nitrogen 87 mg/dL (9-20); Calcium 8.3 mg/dL (8.4-10.2); Carbon Dioxide 28 mmol/L (22-30); Chloride 96 mmol/L (98-107); Glucose 137 mg/dL (74-99); Magnesium 2.4 mg/dL (1.6-2.3); Non-African American GFR(CKD) 49 (>60 ml/min/1.73 sqM); Potassium 5.7 mmol/L (3.5-5.1); Sodium 129 mmol/L (137-145)
[2024-12-09 03:25] LABS: HCT 29.8 % (39.6-50.0); MCH 31.6 pg (27.0-32.0); MCHC 32.2 g/dL (32.0-37.0); Mean Platelet Volume 9.7 fL (9.5-12.2); Platelet Count 381 10*3/uL (140-440); RBC 3.04 10*6/uL (4.40-5.60)
[2024-12-09 03:26] LABS: WBC 83.03 10*3/uL (4.50-10.00)
[2024-12-09 03:29] LABS: HGB 9.6 g/dL (13.0-17.0)
[2024-12-09] MEDS ORDERED: LACTATED RINGERS 500 ML IV ONE (03:36)
[2024-12-09] MEDS: LACTATED RINGERS 500 ML IV ONE (03:43)
[2024-12-09] MEDS: SODIUM CHLORIDE 0.9% 500 ML 500 ML IV ONE (04:35)
[2024-12-09 04:49] LABS: Anisocytosis (M) Present; Band Neutrophils % 5 %; Lymphocytes # (M) 1.66 k/uL (1.0-4.8); Monocytes # (M) 1.66 k/uL (0-1.0); Myelocytes # (M) 0.83 k/uL (0); Myelocytes % 1 %; Neutrophils % (M) 91 %; Nucleated Red Blood Cells 0 /100 WBC (0-0); Polychromasia Present; Total Cells Counted 200
[2024-12-09 05:38] LABS: Glucose,Whole Blood 196 mg/dL (70-110)
--- NOTE | 2024-12-09 05:44 | P.EN ---
Overnight the patient became hypotensive with a blood pressure of 62/48. At that time patient was awake and alert, showing no signs or symptoms of being hypotensive. When seen at bedside he was able to communicate without issue and had no complaint. He received 500 cc NS bolus at that time. After 1 hour, we were alerted his lactic acid was 2.7, potassium 5.7 and magnesium 2.4 and at t hat time he received a 500 cc bolus of LR. After receiving a total of 1L of fluid in boluses his blood pressure was 69/46 with a pulse of 60. At that time patient received 25%albumin and 250 cc LR bolus. Case was discussed with ICU CONTROLS DESIGNER who accepted the admission of this patient to ICU for further control of his blood pressure with the use of pressors.
[2024-12-09] MEDS: ALBUMIN HUMAN 25% 50 ML in EMPTY BAG 1 BAG IVPB SCH (05:50)
[2024-12-09] MEDS: LACTATED RINGERS 250 ML IV ONE (06:11)
[2024-12-09] MEDS: NOREPINEPHRINE 4 MG in SODIUM CHLORIDE 0.9% 250 ML IV SCH (06:16)
[2024-12-09] MEDS: predniSONE 20 MG TAB PO SCH (08:29)
[2024-12-09] MEDS: FUROSEMIDE 20 MG TAB PO SCH (08:29)
[2024-12-09] MEDS: SODIUM CHLORIDE 0.9% 1,000 ML IV SCH (09:40)
--- NOTE | 2024-12-09 09:52 | XR ---
EXAMINATION TYPE: XR chest 1V portable DATE OF EXAM: 12/09/2024 9:43 AM COMPARISON: 12/08/2024 CLINICAL INDICATION: Male, 69 years old with history of leukocytosis, TECHNIQUE: XR chest 1V portable view(s) obtained. FINDINGS: The heart size is enlarged. The pulmonary vasculature is normal. Some scattered infiltrate appears to be present diffusely. Correlate for pulmonary edema. Atypical i nfection could be considered. IMPRESSION: 1. Diffuse mild increased lung markings and cardiomegaly. Correlate for pulmonary edema. Atypical pne umonia could be considered. Findings mildly worsened from comparison. [facility], , 12/09/2024 9:49 AM
[2024-12-09 10:24] LABS: Basophils # (A) 0.02 10*3/uL (0.00-0.10); HGB 8.2 g/dL (13.0-17.0); Lymphocytes # (A) 0.59 10*3/uL (0.90-5.00); Lymphocytes % (A) 0.8 %; MCH 31.1 pg (27.0-32.0); MCHC 32.8 g/dL (32.0-37.0); MCV 94.7 fL (80.0-97.0); Mean Platelet Volume 9.6 fL (9.5-12.2); Monocytes # (A) 4.94 10*3/uL (0.20-1.00); Monocytes % (A) 6.6 %; Neutrophils # (A) 67.14 10*3/uL (1.80-7.70); Neutrophils % (A) 89.7 %; Platelet Count 394 10*3/uL (140-440); RBC 2.64 10*6/uL (4.40-5.60); RDW 14.9 % (11.5-14.5)
[2024-12-09 10:35] LABS: ALT 29 U/L (4-49); AST 31 U/L (17-59); African American GFR (CKD) 46 (>60 ml/min/1.73 sqM); Albumin 2.6 g/dL (3.5-5.0); Albumin/Globulin Ratio 1.1; Alkaline Phosphatase 98 U/L (38-126); Anion Gap 9 mmol/L; Blood Urea Nitrogen 86 mg/dL (9-20); Calcium 8.2 mg/dL (8.4-10.2); Carbon Dioxide 22 mmol/L (22-30); Chloride 98 mmol/L (98-107); Globulin 2.3 g/dL; Glucose 135 mg/dL (74-99); Non-African American GFR(CKD) 40 (>60 ml/min/1.73 sqM); Sodium 129 mmol/L (137-145); Total Bilirubin 1.6 mg/dL (0.2-1.3); Total Protein 4.9 g/dL (6.3-8.2)
[2024-12-09 10:42] LABS: Potassium 6.2 mmol/L (3.5-5.1)
[2024-12-09 10:52] LABS: WBC 74.89 10*3/uL (4.50-10.00)
[2024-12-09 10:57] LABS: Anisocytosis (M) Present; Poikilocytosis (M) Present
[2024-12-09 11:27] LABS: Glucose,Whole Blood 133 mg/dL (70-110)
[2024-12-09] MEDS: SODIUM BICARB 8.4% 50 ML SYR (1 MEQ/ML) IV STA ×3 (11:27→23:44)
[2024-12-09] MEDS: SODIUM ZIRCONIUM CYCLOSILICATE 10 GM PACKET PO ONE ×2 (11:52→18:36)
[2024-12-09] MEDS: PANTOPRAZOLE 40 MG/10 ML VIAL IVP SCH (13:43)
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
[2024-12-09] MEDS: LACTATED RINGERS 1,000 ML IV ONE ×3 (13:54→20:34)
[2024-12-09] MEDS: NOREPINEPHRINE 8 MG in SODIUM CHLORIDE 0.9% 250 ML IV SCH (14:12)
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
[2024-12-09] MEDS: VASOPRESSIN 60 UNIT in SODIUM CHLORIDE 0.9% 150 ML IV SCH (15:29)
[2024-12-09] MEDS: IOPAMIDOL CONTRAST (ORAL USE) VIAL PO PRN (15:31)
[2024-12-09] MEDS ORDERED: ALBUMIN HUMAN 5% 500 ML in EMPTY BAG 1 BAG IVPB STA (16:03)
[2024-12-09] MEDS: ALBUMIN HUMAN 5% 500 ML in EMPTY BAG 1 BAG IVPB STA (16:31)
[2024-12-09 17:47] LABS: African American GFR (CKD) 34 (>60 ml/min/1.73 sqM); Anion Gap 15 mmol/L; Blood Urea Nitrogen 85 mg/dL (9-20); Calcium 7.5 mg/dL (8.4-10.2); Carbon Dioxide 15 mmol/L (22-30); Chloride 97 mmol/L (98-107); Glucose 142 mg/dL (74-99); Non-African American GFR(CKD) 29 (>60 ml/min/1.73 sqM); Sodium 127 mmol/L (137-145)
--- NOTE | 2024-12-09 17:54 | XR ---
EXAMINATION TYPE: XR chest 1V portable DATE OF EXAM: 12/09/2024 4:28 PM COMPARISON: 12/09/2024 CLINICAL INDICATION: Male, 69 years old with history of post central line placement, TECHNIQUE: XR chest 1V portable view(s) obtained. FINDINGS: The heart size is enlarged. The pulmonary vasculature is normal. The lungs are clear. PICC line enters on the right with the tip in the right atrium. Pacemaker overlies left chest IMPRESSION: 1. No acute pulmonary process. 2. Cardiomegaly [facility], , 12/09/2024 5:52 PM
[2024-12-09 17:56] LABS: Potassium 6.1 mmol/L (3.5-5.1)
[2024-12-09 18:00] LABS: Glucose,Whole Blood 148 mg/dL (70-110)
--- NOTE | 2024-12-09 18:18 | CA ---
Transthoracic Echo Report Name: Servando Winkler Age: 69 Gender: M : 1955 Exam Date: 12/09/2024 16:38 Exam Location: [facility] Ht (in): 70 Wt (lb): 374 Ordering Physician: David Baumann MD Attending/Referring Phys: Otorhinolaryngologist Giulia Jones RDCS Procedure CPT: Indications: gladis Cardiac Hx: pacemaker Technical Quality: Very technically difficult study Contrast 1: Definity Total Dose (mL): 2 Contrast 2: Total Dose (mL): MEASUREMENTS (Male / Female) Normal Values 2D ECHO LV Diastolic Diameter PLAX 4.5 cm 4.2 - 5.9 / 3.9 - 5.3 cm LV Systolic Diameter PLAX 3.8 cm IVS Diastolic Thickness 1.7 cm 0.6 - 1.0 / 0.6 - 0.9 cm LVPW Diastolic Thickness 1.8 cm 0.6 - 1.0 / 0.6 - 0.9 cm LV Relative Wall Thickness 0.8 RV Internal Dim ED PLAX 3.9 cm LA Systolic Diameter LX 4.6 cm 3.0 - 4.0 / 2.7 - 3.8 cm LV Diastolic Volume MOD BP 94.5 cm??? 67 - 155 / 56 - 104 cm??? LV Systolic Volume MOD BP 30.9 cm??? 22 - 58 / 19 - 49 cm??? LV Ejection Fraction MOD BP 67.3 % >= 55 % LV Cardiac Index MOD BP 1274.4 cm???/min???m??? LV Diastolic Volume MOD 4C 115.3 cm??? LV Systolic Volume MOD 4C 37.9 cm??? LV Ejection Fraction MOD 4C 67.1 % LV Cardiac Index MOD 4C 1552.5 cm???/min???m??? LV Diastolic Length 4C 7.9 cm LV Systolic Length 4C 7.0 cm LV Diastolic Volume MOD 2C 72.8 cm??? LV Systolic Volume MOD 2C 23.2 cm??? LV Ejection Fraction MOD 2C 68.1 % LV Cardiac Index MOD 2C 994.2 cm???/min???m??? LV Diastolic Length 2C 7.3 cm LV Systolic Length 2C 6.2 cm M-MODE Aortic Root Diameter MM 3.5 cm AV Cusp Separation MM 2.4 cm DOPPLER AV Peak Velocity 147.5 cm/s AV Peak Gradient 8.7 mmHg TR Peak Velocity 314.7 cm/s TR Peak Gradient 39.6 mmHg Right Ventricular Systolic Press 56.0 mmHg FINDINGS Left Ventricle Left ventricular ejection fraction is estimated at 55-60%. Left ventricular cavity size normal. Moderately increased septal wall thickness. Right Ventricle Right ventricle not well visualized. Severe pulmonary hypertension. Right ventricular systolic pressure estimated at 56 mm hg. Right Atrium Right atrium not well visualized. Left Atrium Mildly increased left atrial diameter. Mitral Valve Mitral valve thickened. Mild mitral annular calcification. Trace mitral regurgitation. Aortic Valve Trileaflet aortic valve. No aortic valve stenosis or regurgitation. Tricuspid Valve Tricuspid valve not well visualized. Moderate tricuspid regurgitation. Pulmonic Valve Structurally normal pulmonic valve. Trace pulmonic regurgitation. Pericardium No pericardial effusion. Aorta Normal size aortic root and proximal ascending aorta. CONCLUSIONS Technically difficult study with poor acoustic windows LVEF 55 to 60% Moderate concentric LVH Severe pulmonary hypertension with RVSP estimated at 56 mmHg Valvular function could not be assessed with good sensitivity due to poor acoustic windows. No obvious valvular dysfunction however. Previewed by: Dr Faisal Low (Electronically Signed) Final Date: 09 December 2024 18:18
[2024-12-09 18:23] LABS: MCHC 32.1 g/dL (32.0-37.0); MCV 96.4 fL (80.0-97.0); Mean Platelet Volume 10.1 fL (9.5-12.2); Platelet Count 339 10*3/uL (140-440); RBC 1.97 10*6/uL (4.40-5.60); RDW 14.8 % (11.5-14.5)
[2024-12-09 18:27] LABS: HGB 6.1 g/dL (13.0-17.0); WBC 68.11 10*3/uL (4.50-10.00)
--- NOTE | 2024-12-09 18:33 | P.PCN ---
Date of Procedure: 12/09/24 Preoperative Diagnosis: Shock Postoperative Diagnosis: Shock Procedure(s) Performed: Central line, arterial line Anesthesia: local Surgeon: David Baumann Estimated Blood Loss (ml): 0 Pathology: other Condition: critical Disposition: ICU Operative Findings: Indication: Hemodynamic monitoring/Intravenous access. A time-out was completed verifying correct patient, procedure, site, positioning, and implant(s) or special equipment if applicable. The patient was placed in a dependent position appropriate for triple lumen catheter placement based on the vein to be cannulated. The patient's right subclavian area was prepped and draped in sterile fashion. 1% Lidocaine was used to anesthetize the surrounding skin area. A triple lumen 9F Cordis catheter was introduced into the subclavian vein using Seldinger technique. The catheter was threaded smoothly over the guide wire and appropriate blood return was obtained. Each lumen of the catheter was evacuated of air and flushed with sterile saline. The catheter was then sutured in place to the skin and a sterile dressing applied. Perfusion to the extremity distal to the point of catheter insertion was checked and found to be adequate. Indication: Hemodynamic monitoring. A time-out was completed verifying correct patient, procedure, site, positioning, and implant(s) or special equipment if applicable. AllenÂ´s test was performed to ensure adequate perfusion. The patientÂ´s wrist was prepped and draped in sterile fashion. 1% Lidocaine was used to anesthetize the area. An 18G Arrow arterial line was introduced into the right radial artery. The catheter was threaded over the guide wire and the needle was removed with appropriate pulsatile blood return. Blood loss was minimal. The catheter was then sutured in place to the skin and a sterile dressing applied. Perfusion to the extremity distal to the point of catheter insertion was checked and found to be adequate. The patient tolerated the procedure well and there were no complications.
--- NOTE | 2024-12-09 18:49 | CT ---
"EXAMINATION TYPE: CT abdomen pelvis wo con DATE OF EXAM: 12/09/2024 5:25 PM COMPARISON: None. CLINICAL INDICATION: Male, 69 years old with history of sepsis , elevated lactic acid, hematoma later al subcutaneous lowering hemoglobin. Sepsis , elevated lactic acid. TECHNIQUE: Axial images were obtained from above the diaphragm to the pubic rami in the axial plane a t 5 mm thick sections. Reconstructed images are reviewed on the computer in the coronal plane. Some detector defect is present. CONTRAST: mL of . Study performed with Oral Contrast DLP: 3273.2 mGycm, Automated exposure control for dose reduction was used. FINDINGS: Limited CT sections are obtained the lung bases. There is a minimal right pleural effusion. Some adj acent compressive atelectasis. The present. Some mild streak atelectasis may be at the left base. Ca lcifications along the diaphragm and pleural margin. CT ABDOMEN: Small amount of free air is adjacent to the liver. Liver: Normal Spleen: Normal Pancreas: Normal Adrenal glands: The adrenal glands are normal. Gallbladder: Normal Kidneys: No masses are evident. No hydronephrosis is present. No cysts are present. No renal stone s are identified. Aorta: Vascular calcification is within the aorta. Inferior vena cava: Normal. CT PELVIS: Loops of bowel within the abdomen and pelvis are normal. There are loops of bowel which are incom pletely distended or lack oral contrast limiting their evaluation. Appendix: Not identified Urinary bladder: Decompressed with Diaz catheter Genitourinary structures: Prostate appears normal Osseous structures: No suspicious lytic or sclerotic lesions. Nurse reports is a large hematoma along the left flank. Due to the patient's body habitus this extend s out of the field of view and cannot be estimated on this exam. There is an additional right anterio r pelvic hematoma currently measuring 18.9 cm. Previous measurement 17 cm. Hematoma or hemorrhage may be within the anterior left intraperitoneal region measuring 12 cm, exampl e image is 201 image 82. This appears to be new from comparison. IMPRESSION: 1. Pneumoperitoneum. Source is not identified. Preliminary results were called to the ICU at the helen e of preliminary interpretation. 2. Slight enlargement of the suspected subcutaneous hematoma right anterior pelvis. 3. Intraperitoneal hemorrhage may be present in the left anterior pelvis. A [place] level critical message alert has been initiated for Neville Quiros via the [employer] | Crit ical Results System on 12/09/2024 6:47 PM. This message alert has been sent to Neville Quiros via the pr eferences provided by the clinician for the receipt of Radiology Critical Findings. Message ID [id number] 7. [facility], , 12/09/2024 6:47 PM"
[2024-12-09 18:50] LABS: INR 1.4 (<1.2); Prothrombin Time 15.1 sec (10.0-12.5)
[2024-12-09] MEDS: DEXTROSE 5% IN WATER 1,000 ML with SODIUM BICARB (1 MEQ/ML) 150 ML IV SCH (18:52)
[2024-12-09 19:44] LABS: Glucose,Whole Blood 147 mg/dL (70-110)
[2024-12-09 19:45] LABS: ABG Base Excess -10.8 mmol/L; ABG HCO3 16 mmol/L (21-25); ABG Oxygen Saturation 97.9 % (94-97); ABG PCO2 38 mmHg (35-45); ABG PH 7.23 (7.35-7.45); ABG PO2 99 mmHg (83-108); ABG TCO2 17 mmol/L (19-24)
[2024-12-09 19:47] LABS: Allen Test Performed? No
[2024-12-09] MEDS ORDERED: ROCURONIUM 10 MG/ML (5 ML VIAL) IV ONE (20:34)
[2024-12-09] MEDS ORDERED: ETOMIDATE 2 MG/ML 10 ML VIAL ONE (20:34)
[2024-12-09] MEDS ORDERED: KETAMINE HCL IN 0.9 % NACL 50 MG/5 ML SYRINGE ONE (20:34)
[2024-12-09] MEDS ORDERED: ePHEDrine 50 MG/ML 1 ML VIAL ONE (20:34)
[2024-12-09 22:59] LABS: ABG Base Excess -10.7 mmol/L; ABG HCO3 16 mmol/L (21-25); ABG Oxygen Saturation >100.0 % (94-97); ABG PCO2 40 mmHg (35-45); ABG PH 7.22 (7.35-7.45); ABG PO2 395 mmHg (83-108); ABG TCO2 18 mmol/L (19-24)
[2024-12-09 23:00] LABS: Allen Test Performed? No
--- NOTE | 2024-12-09 23:22 | P.OP ---
Date of Procedure: 12/09/24 Preoperative Diagnosis: Pneumoperitoneum Postoperative Diagnosis: 1. Ischemic Colon with Perforated Transverse Colon 2. Interloop Abscesses 3. Intraabdominal Hematomas Procedure(s) Performed: 1. Exploratory Laparotomy 2. Small Bowel Resection 3. Subtotal Colectomy 4. Abdominal Washout 5. Abthera Wound Vac Placement Anesthesia: LEONARD Surgeon: Janusz Canela Estimated Blood Loss (ml): 100 Pathology: other (Small Bowel and Colon) Condition: critical Disposition: ICU Description of Procedure: The patient was taken to the operating suite and placed in the supine position. Anesthesia was given and endotracheal intubation was performed. The abdomen was prepped and draped in the usual sterile fashion. A timeout was performed prior to the surgery. A #10 blade was used to make a midline incision from the sternum to the pubis. Bovie electrocautery was used to dissect down through the subcutaneous tissue, fascia, peritoneum, and the abdominal cavity was entered. There was a large amount of free fluid appreciated upon entering the abdomen. The abdomen was thoroughly irrigated and washed out. There was extensive contamination. I began by inspecting the stomach and small bowel and there was no obvious perforation noted. The short gastrics of the stomach were taken down with a ligasure device and the posterior surface of the stomach and small bowel were inspected and there were no perforations noted. There were hematomas located in the lesser sac which were evacuated. The small bowel was then ran from the ligament of treitz to the cecum. In the distal ileum, there were significant interloop abscesses with the small bowel plastered to itself without any obvious perforation. The right colon and transverse colon appeared ischemic and upon further inspection, there was perforation noted in the transverse colon. Due to the interloop abscesses, a mesenteric window was made in the distal ileum. An Endo BRIANNE 60 mm purple staple load was used to divide the ileum. The colon was mobilized and due to the ischemia and perforation, the most viable place for distal transection was the descending colon. An Endo BRIANNE 60 mm purple staple load was used to divide the descending colon. A ligasure was used to take down the mesentery of the colon and small bowel. The specimen was then passed off which included the ileum, right colon, transverse colon, and a portion of the descending colon. Decision was made to leave the patient in discontinuity. The abdomen was throughly irrigated. Abthera wound vac was placed. There was no leak appeciated. This concluded the procedure. The patient was transferred to the ICU in guarded condition.
[2024-12-09 23:35] LABS: Glucose,Whole Blood 208 mg/dL (70-110)
[2024-12-09] MEDS: INSULIN LISPRO (HumaLOG) 100 UNIT/ML 10 mL VL SQ SCH (23:45)
[2024-12-09 23:51] LABS: HCT 24.8 % (39.6-50.0); MCH 29.9 pg (27.0-32.0); MCHC 33.1 g/dL (32.0-37.0); Mean Platelet Volume 10.2 fL (9.5-12.2); Platelet Count 298 10*3/uL (140-440); RBC 2.74 10*6/uL (4.40-5.60)
--- NOTE | 2024-12-09 23:54 | XR ---
EXAM: XR Chest, 1 View CLINICAL HISTORY: ITS.REASON XR Reason: Tube placement TECHNIQUE: Frontal view of the chest. COMPARISON: No relevant prior studies available. FINDINGS: Lungs: Pulmonary vascular congestion. Small effusions. Correlate for CHF. Airspace consolidations of the right lung base, concerning for pneumonia. Pleural space: Unremarkable. No pneumothorax. Heart: Unremarkable. No cardiomegaly. Mediastinum: Unremarkable. Bones/joints: Unremarkable. Tubes, lines and devices: Feeding tube terminates in the midline of the mid chest. Removal and repositioning recommended prior to use. Endotracheal tube terminates 2.7 cm above the juan francisco. AICD/pacemaker. Right subclavian central venous catheter tip in the line terminates in the right atrium superior vena cava. IMPRESSION: 1. Feeding tube terminates in the midline of the mid chest. Removal and repositioning recommended prior to use. 2. Pulmonary vascular congestion. Small effusions. Correlate for CHF. 3. Airspace consolidations of the right lung base, concerning for pneumonia. 4. Endotracheal tube terminates 2.7 cm above the juan francisco. <MYCVCSECTION> Communications: 12/10/24 00:03 Verify Receipt Verified receipt with SANDING MACHINE OPERATOR OR TENDER Mary on 12/10 00:03 (-04:00)
[2024-12-10] LABS: African American GFR (CKD) 31 (>60 ml/min/1.73 sqM); Albumin 2.2 g/dL (3.5-5.0); Alkaline Phosphatase 74 U/L (38-126); Anion Gap 17 mmol/L; Blood Urea Nitrogen 82 mg/dL (9-20); Calcium 7.4 mg/dL (8.4-10.2); Carbon Dioxide 17 mmol/L (22-30); Chloride 95 mmol/L (98-107); Glucose 162 mg/dL (74-99); Magnesium 2.2 mg/dL (1.6-2.3); Non-African American GFR(CKD) 27 (>60 ml/min/1.73 sqM); Potassium 5.8 mmol/L (3.5-5.1); Sodium 129 mmol/L (137-145); Total Bilirubin 2.7 mg/dL (0.2-1.3)
[2024-12-10 00:13] LABS: ALT 1111 U/L (4-49); AST 1471 U/L (17-59)
[2024-12-10] MEDS: INSULIN LISPRO (HumaLOG) 100 UNIT/ML 10 mL VL SQ SCH (00:19)
[2024-12-10 00:51] LABS: WBC 64.93 10*3/uL (4.50-10.00)
[2024-12-10 00:52] LABS: HGB 8.2 g/dL (13.0-17.0); MCV 90.5 fL (80.0-97.0)
[2024-12-10 03:59] LABS: Band Neutrophils % 2 %; Lymphocytes # (M) 1.95 k/uL (1.0-4.8); Metamyelocytes # (M) 0.65 k/uL (0); Metamyelocytes % 1 %; Neutrophils # (M) 61.68 k/uL (1.3-7.7); Neutrophils % (M) 93 %; Nucleated Red Blood Cells 2 /100 WBC (0-0); Total Cells Counted 200
[2024-12-10 04:00] LABS: Anisocytosis (M) Present; Polychromasia Present
[2024-12-10 04:33] LABS: Basophils # (A) 0.05 10*3/uL (0.00-0.10); Basophils % (A) 0.1 %; HCT 24.1 % (39.6-50.0); Lymphocytes # (A) 0.92 10*3/uL (0.90-5.00); Lymphocytes % (A) 1.3 %; MCH 29.5 pg (27.0-32.0); MCHC 33.2 g/dL (32.0-37.0); MCV 88.9 fL (80.0-97.0); Mean Platelet Volume 10.4 fL (9.5-12.2); Monocytes % (A) 5.4 %; Neutrophils # (A) 63.85 10*3/uL (1.80-7.70); Neutrophils % (A) 90.7 %; Platelet Count 296 10*3/uL (140-440); RBC 2.71 10*6/uL (4.40-5.60); RDW 16.6 % (11.5-14.5)
[2024-12-10 04:47] LABS: African American GFR (CKD) 28 (>60 ml/min/1.73 sqM); Albumin 2.1 g/dL (3.5-5.0); Alkaline Phosphatase 86 U/L (38-126); Anion Gap 18 mmol/L; Blood Urea Nitrogen 86 mg/dL (9-20); Calcium 7.1 mg/dL (8.4-10.2); Carbon Dioxide 17 mmol/L (22-30); Chloride 94 mmol/L (98-107); Glucose 207 mg/dL (74-99); Non-African American GFR(CKD) 25 (>60 ml/min/1.73 sqM); Potassium 5.8 mmol/L (3.5-5.1); Sodium 129 mmol/L (137-145); Total Bilirubin 3.1 mg/dL (0.2-1.3); Total Protein 3.9 g/dL (6.3-8.2)
[2024-12-10 04:55] LABS: ABG Base Excess -8.3 mmol/L; ABG HCO3 18 mmol/L (21-25); ABG Oxygen Saturation 99.4 % (94-97); ABG PCO2 39 mmHg (35-45); ABG PH 7.28 (7.35-7.45); ABG PO2 135 mmHg (83-108); ABG TCO2 19 mmol/L (19-24)
[2024-12-10 05:08] LABS: Allen Test Performed? No
[2024-12-10 05:09] LABS: ALT 1589 U/L (4-49)
[2024-12-10 05:18] LABS: AST 2409 U/L (17-59)
--- NOTE | 2024-12-10 05:56 | XR ---
EXAMINATION TYPE: XR chest 1V portable DATE OF EXAM: 12/10/2024 CLINICAL INDICATION: Male, 69 years old with history of NGT placement. TECHNIQUE: Single AP portable semiupright view of the chest is obtained. COMPARISON: Chest x-ray from earlier today FINDINGS: There is new nasogastric tube projecting below diaphragm. Improved positioning of endotrac heal tube now terminating at superior aortic knob level. Stable right subclavian central venous misael ter. Persistent cardiomegaly with multilead pacemaker/defibrillator. Calcified pleural plaques in the lung bases redemonstrated. Persistent small left pleural effusion and bibasilar opacities. Persistent rig ht lateral pleural effusion or pleural thickening. IMPRESSION: New Nasogastric tube is satisfactory in position. [facility], , 12/10/2024 5:53 AM
[2024-12-10 06:03] LABS: Glucose,Whole Blood 276 mg/dL (70-110)
[2024-12-10 06:09] LABS: WBC 70.34 10*3/uL (4.50-10.00)
[2024-12-10 06:10] LABS: Monocytes # (A) 3.78 10*3/uL (0.20-1.00)
[2024-12-10] MEDS: SODIUM CHLORIDE 0.9% 1,000 ML IV ONE ×2 (06:30→09:48)
--- NOTE | 2024-12-10 07:52 | XR ---
EXAMINATION TYPE: XR chest 1V portable DATE OF EXAM: 12/10/2024 5:18 AM COMPARISON: 12/10/2024 CLINICAL INDICATION: Male, 69 years old with history of Tube placement, difficulty breathing TECHNIQUE: XR chest 1V portable view(s) obtained. FINDINGS: The heart size is upper limits of normal. The pulmonary vasculature is normal. There is elevation lateral left diaphragm. Subpulmonic effusion may be present. There appears to be s ome calcification along the right diaphragm and possibly the left diaphragm. Endotracheal tube is present with the tip 5.3 cm above juan francisco. Nasogastric tube appears to be curled within the hypopharynx with the tip in the mid thorax region. Right central venous catheter tip is in the proximal right atrium. Pacemaker overlies left chest. IMPRESSION: 1. Left pleural effusion. 2. Nasogastric tube appears to be curled within the hypopharynx with tip in the mid esophagus. Withdr awal and replacement is recommended. 3. Endotracheal tube tip 5 cm above the juan francisco. [facility], , 12/10/2024 7:49 AM
[2024-12-10] MEDS: BUDESONIDE 1 MG/2 ML NEBU INHALATION SCH (07:57)
[2024-12-10] MEDS: FORMOTEROL FUMARATE 20 MCG/2 ML NEBU INHALATION SCH (07:57)
[2024-12-10] MEDS ORDERED: metroNIDAZOLE-NS PMX 500 MG in SALINE 1 100ML.BAG IVPB SCH (09:30)
[2024-12-10] MEDS: CHLORHEXIDINE GLUCONATE 15 ML CUP MUCOUS MEM SCH (09:42)
[2024-12-10] MEDS: HYDROCORTISONE SUCCINATE 100 MG/2 ML VIAL IV SCH (09:47)
[2024-12-10] MEDS: LINEZOLID 600 MG in DEXTROSE/WATER 1 300ML.BAG IVPB SCH (10:18)
[2024-12-10] MEDS: FLUCONAZOLE IN NACL,ISO-OSM 200 MG in SALINE 1 100ML.BAG IVPB SCH (10:20)
[2024-12-10 12:08] LABS: Glucose,Whole Blood 305 mg/dL (70-110)
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
[2024-12-10 14:23] LABS: Potassium 5.8 mmol/L (3.5-5.1)
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
--- NOTE | 2024-12-10 14:55 | P.PN ---
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 Hemoglobin (13.0-17.5) gm/dL Sodium 129 L (137-145) mmol/L Potassium 5.8 H (3.5-5.1) mmol/L Chloride 94 L (98-107) mmol/L Carbon Dioxide 17 L (22-30) mmol/L BUN 86 H (9-20) mg/dL Creatinine 2.59 H (0.66-1.25) mg/dL Glucose 207 H (74-99) mg/dL POC Glucose (mg/dL) (70-110) mg/dL Plasma Lactic Acid Seven 11.5 H* (0.7-2.0) mmol/L Calcium 7.1 L (8.4-10.2) mg/dL Total Bilirubin 3.1 H (0.2-1.3) mg/dL AST 2409 H (17-59) U/L ALT 1589 H (4-49) U/L Total Protein 3.9 L (6.3-8.2) g/dL Albumin 2.1 L (3.5-5.0) g/dL Procalcitonin (0.02-0.50) ng/mL Crossmatch 12/10/24 12/10/24 Range/Units 04:49 06:02 WBC (4.50-10.00) 10*3/uL RBC (4.40-5.60) 10*6/uL Hgb (13.0-17.0) g/dL Hct (39.6-50.0) % RDW (11.5-14.5) % Immature Gran # (0.00-0.04) 10*3/uL Neutrophils # (1.80-7.70) 10*3/uL Neutrophils # (Manual) (1.3-7.7) k/uL Lymphocytes # (0.90-5.00) 10*3/uL Monocytes # (0.20-1.00) 10*3/uL Monocytes # (Manual) (0-1.0) k/uL Eosinophils # (0.04-0.35) 10*3/uL Metamyelocytes # (Man) (0) k/uL Nucleated RBCs (0-0) /100 WBC PT (10.0-12.5) sec INR (<1.2) ABG pH 7.28 L (7.35-7.45) ABG pO2 135 H (83-108) mmHg ABG HCO3 18 L (21-25) mmol/L ABG Total CO2 (19-24) mmol/L ABG O2 Saturation 99.4 H (94-97) % Hemoglobin 8.1 L (13.0-17.5) gm/dL Sodium (137-145) mmol/L Potassium (3.5-5.1) mmol/L Chloride (98-107) mmol/L Carbon Dioxide (22-30) mmol/L BUN (9-20) mg/dL Creatinine (0.66-1.25) mg/dL Glucose (74-99) mg/dL POC Glucose (mg/dL) 276 H (70-110) mg/dL Plasma Lactic Acid Seven (0.7-2.0) mmol/L Calcium (8.4-10.2) mg/dL Total Bilirubin (0.2-1.3) mg/dL AST (17-59) U/L ALT (4-49) U/L Total Protein (6.3-8.2) g/dL Albumin (3.5-5.0) g/dL Procalcitonin (0.02-0.50) ng/mL Crossmatch Microbiology - Last 24 Hours (Table) 12/08/24 18:16 Blood Culture - Preliminary Blood Assessment and Plan Plan: Acute abdomen with septic shock. The patient underwent exploratory laparotomy, small bowel resection, subtotal colectomy and the patient was found to have ischemic and perforated transverse colon. The patient was found to have intra abdominal hematoma that was evacuated and interloop abscesses. The patient has an open abdomen with ABThera wound VAC in place. Patient is postop day #1 Shock, septic in nature, white cell count remains elevated and the patient remains on high-dose pressors Acute leukocytosis secondary to above Acute lactic acidosis secondary to above Acute on top of chronic injury and the patient remains oliguric and urine output remains minimal Shock liver secondary to above Acute hypoxic/hypercapnic respiratory failure in the patient currently intubated on the mechanical ventilator. COPD, severe at baseline Right lower extremity wound culture positive for MRSA Acute anemia, current hemoglobin 6.6. Received 2 unit of packed red blood cells. Current hemoglobin is stable History of systolic congestive heart failure, the most recent echocardiogram on this patient was done on 10/17/2023 and the patient has a preserved LV function with an EF of around 55%. There is moderate RV dilatation with normal function and mild to moderate tricuspid regurgitation, no pericardial effusion. Secondary pulmonary hypertension Morbid obesity Obstructive sleep apnea syndrome with apnea-hypopnea index of 45 History of left-sided empyema requiring decortication back in 2014 History of diabetes with elevated blood sugars, currently on Lantus insulin Benign essential hypertension Dyslipidemia Chronic and recurrent cellulitis of lower extremities History of atrial fibrillation and sick sinus syndrome previous pacer/AICD placement patient has a paced rhythm on his initial presentation Medical debility with difficult ambulation, patient is mostly bedbound and failure to thrive Plan: The patient is sedated on propofol Continue ventilator support and no vent changes are recommended for today CVP is around 8 and the patient will be given another liter of normal saline Continue pressors and the patient is currently on a combination norepinephrine and vasopressin's Continue broad-spectrum antibiotic coverage and the patient is currently on IV Zosyn, IV Zyvox and Diflucan. ABThera wound VAC applied to the anterior abdominal wall and the patient will have another surgical exploration within the next 24 hours. Case was discussed with general surgery. Continue DuoNeb inhalations discontinue the prednisone and put the patient on stress dose hydrocortisone Anticoagulation is currently on hold Continue bicarb infusion at rate of 150 cc an hour Obtain a follow-up procalcitonin level Monitor LFTs Monitor lactic acid level Cultures are still pending ID is on the case and the patient will be kept on same antibiotic coverage Monitor K level and repeat set of electrolytes Lower extremity wounds are stable and there is no active cellulitis and there is no active drainage from the wounds noted the lower extremities bilaterally appropriate dressing is been applied We will stop the rest of the oral medications and keep the patient n.p.o. We will continue to follow and the patient will be kept in the intensive care unit Condition is critical care patient does not have any immediate family member. A friend, a close friend named Mahesh seems to be the advocate and he was informed of those changes and he was updated on his condition. Will continue to follow. Condition is very critical. Time with Patient: Greater than 30
[2024-12-10 16:59] LABS: Alkaline Phosphatase 120 U/L (38-126); Anion Gap 13 mmol/L; Blood Urea Nitrogen 85 mg/dL (9-20); Calcium 6.5 mg/dL (8.4-10.2); Carbon Dioxide 19 mmol/L (22-30); Chloride 96 mmol/L (98-107); Glucose 285 mg/dL (74-99); Sodium 128 mmol/L (137-145); Total Bilirubin 3.5 mg/dL (0.2-1.3); Total Protein 3.8 g/dL (6.3-8.2)
[2024-12-10 17:05] LABS: African American GFR (CKD) 27 (>60 ml/min/1.73 sqM); Non-African American GFR(CKD) 23 (>60 ml/min/1.73 sqM)
[2024-12-10 17:20] LABS: ALT 2018 U/L (4-49)
[2024-12-10 17:34] LABS: AST 2735 U/L (17-59)
[2024-12-10 17:39] LABS: Glucose,Whole Blood 367 mg/dL (70-110)
[2024-12-10] MEDS: CALCIUM GLUCONATE IN NACL 2 GM in SALINE 1 100ML.BAG IVPB ONE (19:58)
[2024-12-10] MEDS: FUROSEMIDE 10 MG/ML 10 ML VIAL IV STA ×2 (20:01→23:42)
[2024-12-10] MEDS: INSULIN REGULAR 100 UNIT/ML VIAL (IV) IV ONE (20:02)
[2024-12-10 23:57] LABS: Glucose,Whole Blood 295 mg/dL (70-110)
[2024-12-11 00:19] LABS: Anion Gap 12 mmol/L; Blood Urea Nitrogen 90 mg/dL (9-20); Carbon Dioxide 24 mmol/L (22-30); Chloride 91 mmol/L (98-107); Glucose 296 mg/dL (74-99); Potassium 5.7 mmol/L (3.5-5.1); Sodium 127 mmol/L (137-145)
[2024-12-11 00:25] LABS: African American GFR (CKD) 24 (>60 ml/min/1.73 sqM); Non-African American GFR(CKD) 21 (>60 ml/min/1.73 sqM)
[2024-12-11 05:12] LABS: ABG Base Excess 2.8 mmol/L; ABG HCO3 27 mmol/L (21-25); ABG Oxygen Saturation 99.2 % (94-97); ABG PCO2 42 mmHg (35-45); ABG PH 7.43 (7.35-7.45); ABG PO2 111 mmHg (83-108); ABG TCO2 29 mmol/L (19-24)
[2024-12-11 05:16] LABS: Allen Test Performed? No
[2024-12-11 05:23] LABS: Basophils # (A) 0.03 10*3/uL (0.00-0.10); Basophils % (A) 0.1 %; HCT 20.2 % (39.6-50.0); HGB 7.1 g/dL (13.0-17.0); Lymphocytes # (A) 0.35 10*3/uL (0.90-5.00); Lymphocytes % (A) 0.6 %; MCH 29.8 pg (27.0-32.0); MCHC 35.1 g/dL (32.0-37.0); MCV 84.9 fL (80.0-97.0); Monocytes # (A) 2.68 10*3/uL (0.20-1.00); Monocytes % (A) 4.6 %; Neutrophils # (A) 52.82 10*3/uL (1.80-7.70); Neutrophils % (A) 90.8 %; Platelet Count 217 10*3/uL (140-440); RBC 2.38 10*6/uL (4.40-5.60); RDW 16.5 % (11.5-14.5)
[2024-12-11 05:29] LABS: WBC 58.12 10*3/uL (4.50-10.00)
[2024-12-11 06:00] LABS: Albumin 1.8 g/dL (3.5-5.0); Alkaline Phosphatase 164 U/L (38-126); Anion Gap 10 mmol/L; Blood Urea Nitrogen 93 mg/dL (9-20); Calcium 6.7 mg/dL (8.4-10.2); Carbon Dioxide 27 mmol/L (22-30); Chloride 90 mmol/L (98-107); Glucose 300 mg/dL (74-99); Potassium 5.6 mmol/L (3.5-5.1); Sodium 127 mmol/L (137-145); Total Bilirubin 3.9 mg/dL (0.2-1.3); Total Protein 3.6 g/dL (6.3-8.2)
[2024-12-11 06:05] LABS: African American GFR (CKD) 23 (>60 ml/min/1.73 sqM); Non-African American GFR(CKD) 20 (>60 ml/min/1.73 sqM)
[2024-12-11 06:35] LABS: ALT 2222 U/L (4-49)
[2024-12-11 06:42] LABS: Glucose,Whole Blood 267 mg/dL (70-110)
[2024-12-11 07:08] LABS: AST 2178 U/L (17-59)
--- NOTE | 2024-12-11 07:14 | XR ---
EXAMINATION TYPE: XR chest 1V portable DATE OF EXAM: 12/11/2024 5:56 AM COMPARISON: 12/10/2024 CLINICAL INDICATION: Male, 69 years old with history of Tube placement, previous chest TECHNIQUE: XR chest 1V portable view(s) obtained. FINDINGS: The heart size is prominent. The pulmonary vasculature is mildly prominent. Small effusions are likely present. There is calcification of the right diaphragm. Endotracheal tube tip is 3.8 cm above the juan francisco. Nasogastric tube transverses the thorax. Pacemaker overlies left chest. Right central venous catheter tip is in the proximal right atrium. IMPRESSION: 1. Improving congestive heart failure. 2. Small bilateral effusions. 3. Lines and catheters discussed above [facility], , 12/11/2024 7:12 AM
[2024-12-11] MEDS: INSULIN NPH 100 UNIT/ML 10 ML VIAL SQ SCH (08:47)
[2024-12-11] MEDS: SODIUM CHLORIDE 0.9% 1,000 ML IV SCH (10:35)
[2024-12-11 11:19] LABS: Glucose,Whole Blood 362 mg/dL (70-110)
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
--- NOTE | 2024-12-11 12:47 | P.PN ---
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 Condition is critical care patient does not have any immediate family member. A friend, a close friend named Mahesh seems to be the advocate and he was informed of those changes and he was updated on his condition. Will continue to follow. Condition is very critical. Evaluation was done in 40 minutes. Time with Patient: Greater than 30
--- NOTE | 2024-12-11 13:50 | P.PN ---
Subjective Patient is seen for follow-up for acute kidney injury. He remains oliguric with no significant response to Lasix. Levophed is down to 0.1 mcg/kg. Patient remains on the vasopressin. Scheduled for abdominal surgery later on today. Serum potassium 5.6 and serum creatinine was up to 3.0 today. White cell count decreased to 58,000 Objective - Vital Signs Vital signs: Vital Signs Temp 98.4 F 12/11/24 12:54 Pulse 60 12/11/24 13:15 Resp 18 12/11/24 13:15 BP 145/66 12/11/24 12:54 Pulse Ox 98 12/11/24 13:15 FiO2 40 12/11/24 12:00 Intake & Output 12/10/24 12/11/24 12/11/24 18:59 06:59 18:59 Intake Total 5970.776 3681.275 1655.687 Output Total 920 1650 885 Balance 5050.776 2031.275 770.687 Weight 206.4 kg 206.4 kg Intake: IV 4692 2567 1306 0.9 @ KVO 1220 120 70 Calcium Gluconate in NaCl 100 2 gm In Saline 1 100ml. bag @ 100 mls/hr IVPB ONCE ONE Rx#:[id number] Dextrose 5% in Water 1, 1800 1800 450 000 ml @ 150 mls/hr IV . Q7H40M [facility]G with Sodium Bicarb (1 Meq/ml) 150 ml Rx#:[id number] Fluconazole in NaCl,Iso- 100 100 Osm 200 mg In Saline 1 100ml.bag @ 100 mls/hr IVPB DAILY [facility] Rx#: [id number] Linezolid 600 mg In 300 300 300 Dextrose/Water 1 300ml. bag @ 150 mls/hr IVPB Q12HR [facility] Rx#:[id number] Piperacillin-Tazobactam 3 200 175 125 .375 gm In Sodium Chloride 0.9% 100 ml @ 25 mls/hr IVPB Q8HR [facility] Rx# :[id number] Pressure Bags 72 72 36 Sodium Chloride 0.9% 1, 225 000 ml @ 75 mls/hr IV . [id number] [facility] Rx#:[id number] Sodium Chloride 0.9% 1, 1000 000 ml @ 999 mls/hr IV . Q1H1M [facility] Rx#:[id number] Intake, IV Titration 7088.777 5137.275 349.687 Amount Norepinephrine 8 mg In 774.000 841.175 131.135 Sodium Chloride 0.9% 250 ml @ 0.03 MCG/KG/MIN 9. 869 mls/hr IV .Q24H [facility] Rx#:[id number] Vasopressin 60 unit In 114.546 142.902 Sodium Chloride 0.9% 150 ml @ 0.03 UNITS/MIN 4.59 mls/hr IV .Q24H JG Rx#: [id number] propofoL 1,000 mg In 390.23 273.1 75.65 Empty Bag 1 bag @ 15 MCG/ KG/MIN 15.3 mls/hr IV . Q6H33M [facility] Rx#:[id number] Blood Product 0 Unit 0 Output: Gastric Drainage 250 Drainage 900 1400 800 Abdomen Wound Vac 900 1400 800 Urine 20 0 85 Other: Voiding Method Indwelling Catheter Indwelling Catheter Indwelling Catheter ABP, PAP, CO, CI - Last Documented Arterial Blood Pressure 146/67 - Exam Patient is sedated and on the vent Examination of the heart S1 and S2 Examination of the lungs shows bilateral breath sounds are heard Abdomen is obese with abdominal wound VAC noted in drains Examination lower extremity shows both extremities are wrapped. Chronic skin changes noted in the feet - Labs CBC & Chem 7: 12/11/24 05:09 12/11/24 05:09 Labs: Abnormal Lab Results - Last 24 Hours (Table) 12/09/24 12/10/24 12/10/24 Range/Units 19:08 14:02 17:38 WBC (4.50-10.00) 10*3/uL RBC (4.40-5.60) 10*6/uL Hgb (13.0-17.0) g/dL Hct (39.6-50.0) % Immature Gran # (0.00-0.04) 10*3/uL Neutrophils # (1.80-7.70) 10*3/uL Lymphocytes # (0.90-5.00) 10*3/uL Monocytes # (0.20-1.00) 10*3/uL Eosinophils # (0.04-0.35) 10*3/uL ABG pO2 (83-108) mmHg ABG HCO3 (21-25) mmol/L ABG Total CO2 (19-24) mmol/L ABG O2 Saturation (94-97) % Hemoglobin (13.0-17.5) gm/dL Sodium 128 L (137-145) mmol/L Potassium 5.8 H (3.5-5.1) mmol/L Chloride 96 L (98-107) mmol/L Carbon Dioxide 19 L (22-30) mmol/L BUN 85 H (9-20) mg/dL Creatinine 2.73 H (0.66-1.25) mg/dL Glucose 285 H (74-99) mg/dL POC Glucose (mg/dL) 367 H (70-110) mg/dL Calcium 6.5 L (8.4-10.2) mg/dL Total Bilirubin 3.5 H (0.2-1.3) mg/dL AST 2735 H (17-59) U/L ALT 2018 H (4-49) U/L Alkaline Phosphatase (38-126) U/L Total Protein 3.8 L (6.3-8.2) g/dL Albumin 2.0 L (3.5-5.0) g/dL Crossmatch See Detail 12/10/24 12/10/24 12/11/24 Range/Units 23:52 23:56 04:59 WBC (4.50-10.00) 10*3/uL RBC (4.40-5.60) 10*6/uL Hgb (13.0-17.0) g/dL Hct (39.6-50.0) % Immature Gran # (0.00-0.04) 10*3/uL Neutrophils # (1.80-7.70) 10*3/uL Lymphocytes # (0.90-5.00) 10*3/uL Monocytes # (0.20-1.00) 10*3/uL Eosinophils # (0.04-0.35) 10*3/uL ABG pO2 111 H (83-108) mmHg ABG HCO3 27 H (21-25) mmol/L ABG Total CO2 29 H (19-24) mmol/L ABG O2 Saturation 99.2 H (94-97) % Hemoglobin 7.2 L (13.0-17.5) gm/dL Sodium 127 L (137-145) mmol/L Potassium 5.7 H (3.5-5.1) mmol/L Chloride 91 L (98-107) mmol/L Carbon Dioxide (22-30) mmol/L BUN 90 H (9-20) mg/dL Creatinine 2.96 H (0.66-1.25) mg/dL Glucose 296 H (74-99) mg/dL POC Glucose (mg/dL) 295 H (70-110) mg/dL Calcium 7.0 L (8.4-10.2) mg/dL Total Bilirubin (0.2-1.3) mg/dL AST (17-59) U/L ALT (4-49) U/L Alkaline Phosphatase (38-126) U/L Total Protein (6.3-8.2) g/dL Albumin (3.5-5.0) g/dL Crossmatch 12/11/24 12/11/24 12/11/24 Range/Units 05:09 05:09 06:41 WBC 58.12 H* (4.50-10.00) 10*3/uL RBC 2.38 L (4.40-5.60) 10*6/uL Hgb 7.1 L (13.0-17.0) g/dL Hct 20.2 L (39.6-50.0) % Immature Gran # 2.24 H (0.00-0.04) 10*3/uL Neutrophils # 52.82 H (1.80-7.70) 10*3/uL Lymphocytes # 0.35 L (0.90-5.00) 10*3/uL Monocytes # 2.68 H (0.20-1.00) 10*3/uL Eosinophils # 0.00 L (0.04-0.35) 10*3/uL ABG pO2 (83-108) mmHg ABG HCO3 (21-25) mmol/L ABG Total CO2 (19-24) mmol/L ABG O2 Saturation (94-97) % Hemoglobin (13.0-17.5) gm/dL Sodium 127 L (137-145) mmol/L Potassium 5.6 H (3.5-5.1) mmol/L Chloride 90 L (98-107) mmol/L Carbon Dioxide (22-30) mmol/L BUN 93 H (9-20) mg/dL Creatinine 3.05 H (0.66-1.25) mg/dL Glucose 300 H (74-99) mg/dL POC Glucose (mg/dL) 267 H (70-110) mg/dL Calcium 6.7 L (8.4-10.2) mg/dL Total Bilirubin 3.9 H (0.2-1.3) mg/dL AST 2178 H (17-59) U/L ALT 2222 H (4-49) U/L Alkaline Phosphatase 164 H (38-126) U/L Total Protein 3.6 L (6.3-8.2) g/dL Albumin 1.8 L (3.5-5.0) g/dL Crossmatch 12/11/24 Range/Units 11:18 WBC (4.50-10.00) 10*3/uL RBC (4.40-5.60) 10*6/uL Hgb (13.0-17.0) g/dL Hct (39.6-50.0) % Immature Gran # (0.00-0.04) 10*3/uL Neutrophils # (1.80-7.70) 10*3/uL Lymphocytes # (0.90-5.00) 10*3/uL Monocytes # (0.20-1.00) 10*3/uL Eosinophils # (0.04-0.35) 10*3/uL ABG pO2 (83-108) mmHg ABG HCO3 (21-25) mmol/L ABG Total CO2 (19-24) mmol/L ABG O2 Saturation (94-97) % Hemoglobin (13.0-17.5) gm/dL Sodium (137-145) mmol/L Potassium (3.5-5.1) mmol/L Chloride (98-107) mmol/L Carbon Dioxide (22-30) mmol/L BUN (9-20) mg/dL Creatinine (0.66-1.25) mg/dL Glucose (74-99) mg/dL POC Glucose (mg/dL) 362 H (70-110) mg/dL Calcium (8.4-10.2) mg/dL Total Bilirubin (0.2-1.3) mg/dL AST (17-59) U/L ALT (4-49) U/L Alkaline Phosphatase (38-126) U/L Total Protein (6.3-8.2) g/dL Albumin (3.5-5.0) g/dL Crossmatch Microbiology - Last 24 Hours (Table) 12/10/24 00:37 Urine Culture - Final Urine,Catheterized 12/08/24 18:16 Blood Culture - Preliminary Blood 12/09/24 10:06 Blood Culture - Preliminary Blood 12/10/24 08:09 Gram Stain - Preliminary Sputum Assessment and Plan Assessment: 1. Acute kidney injury, ATN secondary to sepsis and hypotension, oliguric. We will proceed with renal replacement therapy due to intractable hyperkalemia in the setting of oliguria and progressive acute kidney injury. 2. Hyperkalemia associated with acute kidney injury and ischemic bowel 3. Anion gap metabolic acidosis secondary to lactic acidosis shock and acute kidney injury maintained on bicarb drip 4. Hypovolemic hyponatremia status post multiple fluid boluses 5. Perforated bowel and intra-abdominal abscess status post explorative laparotomy, subtotal colectomy, with abdominal washout and abdominal wound VAC, scheduled for surgery again tomorrow. 6. Elevated liver enzymes from shock liver Plan: Consult vascular surgery for dialysis catheter placement. Plan for first treatment of hemodialysis tomorrow. Continue to wean down pressors Continue antibiotics as per ID.
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
[2024-12-11 17:28] LABS: Glucose,Whole Blood 296 mg/dL (70-110)
[2024-12-11] MEDS ORDERED: ROCURONIUM 10 MG/ML (5 ML VIAL) IV ONE (18:55)
[2024-12-11] MEDS: SODIUM CHLORIDE 0.9% 1,000 ML IV ONE ×2 (18:55)
--- NOTE | 2024-12-11 19:57 | P.OP ---
Date of Procedure: 12/11/24 Preoperative Diagnosis: Open Abdomen Postoperative Diagnosis: Open Abdomen Procedure(s) Performed: 1. Second Look Laparotomy 2. Abdominal Washout 3. Ileocolonic Anastamosis 4 Abthera Wound Vac Anesthesia: LEONARD Surgeon: Janusz Canela Estimated Blood Loss (ml): 10 Pathology: none sent Condition: critical Disposition: ICU Description of Procedure: The patient was taken to the operating suite and placed in the supine position. The patient was already intubated from the ICU. The top of the patient's wound VAC was removed. The abdomen was prepped and draped in usual sterile fashion. Timeout was performed with everyone in agreement. The rest of the wound VAC was removed from the abdomen. The abdomen was thoroughly inspected. They were no new areas of ischemia. The report is no obvious sign of any new perforation. The abdomen was copiously irrigated with saline. There was much less purulent fluid noted at this time. Decision was made to perform an anastomosis tween the ileum and the descending colon. An ileocolonic anastomosis was fashioned multiple firings of an Endo BRIANNE 60 mm purple staple load in a [id number] functional end-to-end fashion. At this time I decided that we would take the patient back to the operating room one more time to inspect our anastomosis and the rest of the abdomen prior to closure. An ABThera wound VAC was placed in the patient's abdomen. There were no leaks. The patient was sent to the ICU in critical condition.
[2024-12-11 20:13] LABS: Glucose,Whole Blood 283 mg/dL (70-110)
[2024-12-11 23:59] LABS: Glucose,Whole Blood 173 mg/dL (70-110)
[2024-12-12 00:20] LABS: Basophils # (A) 0.15 10*3/uL (0.00-0.10); Basophils % (A) 0.3 %; HCT 21.1 % (39.6-50.0); HGB 7.5 g/dL (13.0-17.0); Lymphocytes # (A) 0.46 10*3/uL (0.90-5.00); Lymphocytes % (A) 0.9 %; MCH 29.8 pg (27.0-32.0); MCHC 35.5 g/dL (32.0-37.0); MCV 83.7 fL (80.0-97.0); Monocytes % (A) 4.5 %; Platelet Count 143 10*3/uL (140-440); RBC 2.52 10*6/uL (4.40-5.60); RDW 16.2 % (11.5-14.5)
[2024-12-12 00:49] LABS: WBC 49.41 10*3/uL (4.50-10.00)
[2024-12-12 00:50] LABS: Neutrophils # (A) 44.47 10*3/uL (1.80-7.70)
[2024-12-12] MEDS: HYDROmorphone 0.5 MG/0.5 ML SYRINGE IVP PRN (02:48)
[2024-12-12 05:35] LABS: Basophils # (A) 0.14 10*3/uL (0.00-0.10); Basophils % (A) 0.3 %; Lymphocytes # (A) 0.57 10*3/uL (0.90-5.00); Lymphocytes % (A) 1.1 %; MCH 30.4 pg (27.0-32.0); MCHC 36.1 g/dL (32.0-37.0); MCV 84.1 fL (80.0-97.0); Mean Platelet Volume 10.5 fL (9.5-12.2); Monocytes # (A) 2.12 10*3/uL (0.20-1.00); Neutrophils # (A) 47.24 10*3/uL (1.80-7.70); Neutrophils % (A) 90.2 %; Platelet Count 153 10*3/uL (140-440); RBC 2.27 10*6/uL (4.40-5.60); RDW 16.2 % (11.5-14.5)
[2024-12-12 05:40] LABS: Albumin 1.6 g/dL (3.5-5.0); Alkaline Phosphatase 209 U/L (38-126); Anion Gap 8 mmol/L; Blood Urea Nitrogen 98 mg/dL (9-20); Carbon Dioxide 27 mmol/L (22-30); Chloride 91 mmol/L (98-107); Glucose 203 mg/dL (74-99); Potassium 5.4 mmol/L (3.5-5.1); Sodium 126 mmol/L (137-145); Total Bilirubin 4.2 mg/dL (0.2-1.3); Total Protein 3.4 g/dL (6.3-8.2)
[2024-12-12 05:46] LABS: African American GFR (CKD) 19 (>60 ml/min/1.73 sqM); Non-African American GFR(CKD) 17 (>60 ml/min/1.73 sqM)
[2024-12-12 06:07] LABS: Glucose,Whole Blood 147 mg/dL (70-110)
[2024-12-12 06:10] LABS: WBC 52.39 10*3/uL (4.50-10.00)
[2024-12-12 06:13] LABS: HGB 6.9 g/dL (13.0-17.0)
[2024-12-12 06:14] LABS: HCT 19.1 % (39.6-50.0)
[2024-12-12 06:17] LABS: Calcium 6.3 mg/dL (8.4-10.2)
[2024-12-12 06:18] LABS: ALT 1380 U/L (4-49); AST 821 U/L (17-59)
[2024-12-12 06:37] LABS: ABG HCO3 27 mmol/L (21-25); ABG Oxygen Saturation 99.8 % (94-97); ABG PCO2 38 mmHg (35-45); ABG PH 7.47 (7.35-7.45); ABG PO2 157 mmHg (83-108); ABG TCO2 28 mmol/L (19-24)
[2024-12-12] MEDS: DESMOPRESSIN ACETATE 32 MCG in SODIUM CHLORIDE 0.9% 50 ML IVPB ONE (06:48)
[2024-12-12] MEDS: HEPARIN SODIUM 1,000 UN/ML (10ML VL) MISCELLANE ONE (07:40)
--- NOTE | 2024-12-12 08:04 | XR ---
EXAMINATION TYPE: XR chest 1V portable DATE OF EXAM: 12/12/2024 5:32 AM COMPARISON: 12/11/2024 CLINICAL INDICATION: Male, 69 years old with history of Tube placement, difficulty breathing TECHNIQUE: XR chest 1V portable view(s) obtained. FINDINGS: The heart size is enlarged. The pulmonary vasculature is normal. Mild left costophrenic angle infiltrate is present Endotracheal tube tip is 3.8 cm above the juan francisco. Nasogastric tube transverses the thorax. Right cent ral venous catheter tip is in the distal superior vena cava region IMPRESSION: 1. Stable exam from prior study. Small infiltrate at the left costophrenic angle. Lines and catheters discussed above [facility], , 12/12/2024 8:02 AM
--- NOTE | 2024-12-12 08:11 | XR ---
EXAMINATION TYPE: XR chest 1V confirm line [facility] DATE OF EXAM: 12/12/2024 8:04 AM COMPARISON: None. CLINICAL INDICATION: Male, 69 years old with history of post hd cath insertion, TECHNIQUE: XR chest 1V confirm line plcmn view(s) obtained. FINDINGS: The heart size is enlarged. The pulmonary vasculature is normal. Mild bibasilar infiltrates. Present. Calcifications of the right diaphragm. Endotracheal tube tip is 2.9 cm above the juan francisco. Nasogastric tube transverses the thorax with the ti p in the left upper quadrant of the abdomen. Right central venous catheter tip is in the region of th e right atrium. A second right-sided catheter has its tip in the distal superior vena cava region. No pneumothorax is evident. IMPRESSION: 1. Stable appearance of mild bibasilar infiltrates 2. Lines and catheters discussed above. [facility], , 12/12/2024 8:09 AM
[2024-12-12] MEDS: CALCIUM GLUCONATE IN NACL 1 GM in SALINE 1 100ML.BAG IVPB ONE (08:38)
[2024-12-12 09:11] LABS: Glucose,Whole Blood 220 mg/dL (70-110)
--- NOTE | 2024-12-12 10:30 | OP ---
OPERATIVE REPORT DATE OF SERVICE : 12/12/2024 PREOPERATIVE DIAGNOSIS: Renal failure with exploratory laparotomy. POSTOPERATIVE DIAGNOSIS: Renal failure with exploratory laparotomy. PROCEDURE: Placement of a dialysis catheter right jugular approach. DESCRIPTION OF PROCEDURE: The patient was seen in the intensive care unit. Right side of the neck and chest was prepped and draped in a usual sterile manner. 1% lidocaine was infiltrated in the neck area. Ultrasound-guided micropuncture introduced in right jugular vein. Micropuncture guidewire was passed and 4-Faroese dilator advanced on top of the guidewire. Then, we passed a regular guidewire, which was parked in the inferior vena cava. A dilator was advanced on top of the guidewire, then we placed a 16 cm dialysis catheter on top of the guidewire. The guidewire was removed, flushed with heparin saline and hep- locked, secured with 3-0 nylon, dressing applied. The patient tolerated the procedure well. MMODL / IJN: [id number] / MTDD
--- NOTE | 2024-12-12 10:33 | CONS ---
DATE OF CONSULTATION: 12/12/2024 HISTORY OF PRESENT ILLNESS: This is a 69-year-old gentleman, seen in the intensive care unit today. I was consulted for placement of a dialysis catheter. MEDICAL HISTORY: History of chronic respiratory failure, history of hypertension, history of atrial fibrillation. SURGICAL HISTORY: The patient has a pacemaker AICD placed in the past. The patient has morbid obesity. The patient had exploratory laparotomy and colectomy. PHYSICAL EXAMINATION: GENERAL: The patient was seen in his room. The patient has been intubated and had abdominal surgery done recently. CHEST: Has bilateral crackles with a few bilateral rhonchi noted. ABDOMEN: Protuberant. PLAN: Placement of dialysis catheter, right jugular approach. Risks and complications discussed. MMODL / IJN: [id number] / MTDNyasia
[2024-12-12 11:26] LABS: Glucose,Whole Blood 228 mg/dL (70-110)
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
[2024-12-12 14:06] LABS: Magnesium 1.8 mg/dL (1.6-2.3); Phosphorus 5.5 mg/dL (2.5-4.5)
[2024-12-12 14:13] LABS: Basophils # (A) 0.13 10*3/uL (0.00-0.10); Basophils % (A) 0.3 %; HGB 7.1 g/dL (13.0-17.0); Lymphocytes # (A) 0.51 10*3/uL (0.90-5.00); Lymphocytes % (A) 1.1 %; MCV 83.8 fL (80.0-97.0); Mean Platelet Volume 10.5 fL (9.5-12.2); Monocytes # (A) 1.71 10*3/uL (0.20-1.00); Monocytes % (A) 3.7 %; Neutrophils % (A) 90.8 %; Platelet Count 116 10*3/uL (140-440); RBC 2.29 10*6/uL (4.40-5.60); RDW 15.4 % (11.5-14.5); WBC 46.78 10*3/uL (4.50-10.00)
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
[2024-12-12 14:34] LABS: HCT 19.2 % (39.6-50.0)
[2024-12-12 14:35] LABS: Neutrophils # (A) 42.51 10*3/uL (1.80-7.70)
--- NOTE | 2024-12-12 14:39 | P.PN ---
Subjective Patient is seen for follow-up for acute kidney injury. He remains oliguric with no significant response to Lasix. Status post second look explorative laparotomy yesterday on 12/11/2024 with ileocolonic anastomosis. Patient has had bleeding at the wound VAC site. Levophed is slightly increased from yesterday. Patient remains on vasopressin. No significant urine output noted. Objective - Vital Signs Vital signs: Vital Signs Temp 96.7 F L 12/12/24 12:00 Pulse 60 12/12/24 13:28 Resp 18 12/12/24 13:15 BP 130/50 12/12/24 11:11 Pulse Ox 97 12/12/24 13:15 FiO2 40 12/12/24 13:28 Intake & Output 12/11/24 12/12/24 12/12/24 18:59 06:59 18:59 Intake Total 4330.838 3377.314 7177.503 Output Total 1795 635 0 Balance 2535.838 4989.976 1226.503 Weight 206.4 kg 199.6 kg 199.6 kg Intake: IV 3112 1612 1207 0.9 @ KVO 190 240 140 Calcium Gluconate in NaCl 100 2 gm In Saline 1 100ml. bag @ 100 mls/hr IVPB ONCE ONE Rx#:[id number] Dextrose 5% in Water 1, 450 000 ml @ 150 mls/hr IV . Q7H40M [facility] with Sodium Bicarb (1 Meq/ml) 150 ml Rx#:[id number] Fluconazole in NaCl,Iso- 100 Osm 200 mg In Saline 1 100ml.bag @ 100 mls/hr IVPB DAILY [facility] Rx#: [id number] Linezolid 600 mg In 300 300 300 Dextrose/Water 1 300ml. bag @ 150 mls/hr IVPB Q12HR [facility] Rx#:[id number] Piperacillin-Tazobactam 3 225 100 100 .375 gm In Sodium Chloride 0.9% 100 ml @ 25 mls/hr IVPB Q8HR [facility] Rx# :[id number] Pressure Bags 72 72 42 Sodium Chloride 0.9% 1, 675 900 525 000 ml @ 75 mls/hr IV . [id number] [facility] Rx#:[id number] Intake, IV Titration 607.838 298.197 721.503 Amount Fluconazole in NaCl,Iso- 100 Osm 200 mg In Saline 1 100ml.bag @ 100 mls/hr IVPB DAILY [facility] Rx#: [id number] Norepinephrine 8 mg In 204.711 98.197 283.724 Sodium Chloride 0.9% 250 ml @ 0.03 MCG/KG/MIN 9. 869 mls/hr IV .Q24H [facility] Rx#:[id number] Vasopressin 60 unit In 142.902 137.904 Sodium Chloride 0.9% 150 ml @ 0.03 UNITS/MIN 4.59 mls/hr IV .Q24H [facility] Rx#: [id number] propofoL 1,000 mg In 260.225 200 199.875 Empty Bag 1 bag @ 15 MCG/ KG/MIN 15.3 mls/hr IV . Q6H33M [facility] Rx#:[id number] Blood Product 561 310 Rc As-1 Unit 310 [id number] Rc Pheresis 2 As3 Unit 285 [id number] Rc Pheresis 2 As3 Unit 276 [id number] Other 50 Rc Pheresis 2 As3 Unit 50 [id number] Output: Gastric Drainage 100 Drainage 1700 500 Abdomen Wound Vac 1700 500 Urine 95 25 0 Estimated Blood Loss 10 Other: Voiding Method Indwelling Catheter Indwelling Catheter Indwelling Catheter # Voids 0 ABP, PAP, CO, CI - Last Documented Arterial Blood Pressure 134/53 - Exam Patient is sedated and on the vent Examination of the heart S1 and S2 Examination of the lungs shows bilateral breath sounds are heard Abdomen is obese with abdominal wound VAC noted, bleeding noted Examination lower extremity shows both extremities are wrapped. Chronic skin changes noted in the feet - Labs CBC & Chem 7: 12/12/24 04:59 12/12/24 04:59 Labs: Abnormal Lab Results - Last 24 Hours (Table) 12/09/24 12/11/24 12/11/24 Range/Units 19:08 17:25 20:11 WBC (4.50-10.00) 10*3/uL RBC (4.40-5.60) 10*6/uL Hgb (13.0-17.0) g/dL Hct (39.6-50.0) % Immature Gran # (0.00-0.04) 10*3/uL Neutrophils # (1.80-7.70) 10*3/uL Lymphocytes # (0.90-5.00) 10*3/uL Monocytes # (0.20-1.00) 10*3/uL Eosinophils # (0.04-0.35) 10*3/uL Basophils # (0.00-0.10) 10*3/uL ABG pH (7.35-7.45) ABG pO2 (83-108) mmHg ABG HCO3 (21-25) mmol/L ABG Total CO2 (19-24) mmol/L ABG O2 Saturation (94-97) % Hemoglobin (13.0-17.5) gm/dL Sodium (137-145) mmol/L Potassium (3.5-5.1) mmol/L Chloride (98-107) mmol/L BUN (9-20) mg/dL Creatinine (0.66-1.25) mg/dL Glucose (74-99) mg/dL POC Glucose (mg/dL) 296 H 283 H (70-110) mg/dL Calcium (8.4-10.2) mg/dL Ionized Calcium [place] (4.5-5.3) mg/dL Phosphorus (2.5-4.5) mg/dL Total Bilirubin (0.2-1.3) mg/dL AST (17-59) U/L ALT (4-49) U/L Alkaline Phosphatase (38-126) U/L Total Protein (6.3-8.2) g/dL Albumin (3.5-5.0) g/dL Crossmatch See Detail 12/11/24 12/11/24 12/12/24 Range/Units 23:40 23:57 04:59 WBC 49.41 H 52.39 H* (4.50-10.00) 10*3/uL RBC 2.52 L 2.27 L (4.40-5.60) 10*6/uL Hgb 7.5 L 6.9 L* (13.0-17.0) g/dL Hct 21.1 L 19.1 L* (39.6-50.0) % Immature Gran # 2.13 H 2.32 H (0.00-0.04) 10*3/uL Neutrophils # 44.47 H 47.24 H (1.80-7.70) 10*3/uL Lymphocytes # 0.46 L 0.57 L (0.90-5.00) 10*3/uL Monocytes # 2.20 H 2.12 H (0.20-1.00) 10*3/uL Eosinophils # 0.00 L 0.00 L (0.04-0.35) 10*3/uL Basophils # 0.15 H 0.14 H (0.00-0.10) 10*3/uL ABG pH (7.35-7.45) ABG pO2 (83-108) mmHg ABG HCO3 (21-25) mmol/L ABG Total CO2 (19-24) mmol/L ABG O2 Saturation (94-97) % Hemoglobin (13.0-17.5) gm/dL Sodium (137-145) mmol/L Potassium (3.5-5.1) mmol/L Chloride (98-107) mmol/L BUN (9-20) mg/dL Creatinine (0.66-1.25) mg/dL Glucose (74-99) mg/dL POC Glucose (mg/dL) 173 H (70-110) mg/dL Calcium (8.4-10.2) mg/dL Ionized Calcium [place] (4.5-5.3) mg/dL Phosphorus (2.5-4.5) mg/dL Total Bilirubin (0.2-1.3) mg/dL AST (17-59) U/L ALT (4-49) U/L Alkaline Phosphatase (38-126) U/L Total Protein (6.3-8.2) g/dL Albumin (3.5-5.0) g/dL Crossmatch 12/12/24 12/12/24 12/12/24 Range/Units 04:59 06:05 06:22 WBC (4.50-10.00) 10*3/uL RBC (4.40-5.60) 10*6/uL Hgb (13.0-17.0) g/dL Hct (39.6-50.0) % Immature Gran # (0.00-0.04) 10*3/uL Neutrophils # (1.80-7.70) 10*3/uL Lymphocytes # (0.90-5.00) 10*3/uL Monocytes # (0.20-1.00) 10*3/uL Eosinophils # (0.04-0.35) 10*3/uL Basophils # (0.00-0.10) 10*3/uL ABG pH (7.35-7.45) ABG pO2 (83-108) mmHg ABG HCO3 (21-25) mmol/L ABG Total CO2 (19-24) mmol/L ABG O2 Saturation (94-97) % Hemoglobin (13.0-17.5) gm/dL Sodium 126 L (137-145) mmol/L Potassium 5.4 H (3.5-5.1) mmol/L Chloride 91 L (98-107) mmol/L BUN 98 H (9-20) mg/dL Creatinine 3.56 H (0.66-1.25) mg/dL Glucose 203 H (74-99) mg/dL POC Glucose (mg/dL) 147 H (70-110) mg/dL Calcium 6.3 L* (8.4-10.2) mg/dL Ionized Calcium [place] 3.7 L (4.5-5.3) mg/dL Phosphorus (2.5-4.5) mg/dL Total Bilirubin 4.2 H (0.2-1.3) mg/dL AST 821 H (17-59) U/L ALT 1380 H (4-49) U/L Alkaline Phosphatase 209 H (38-126) U/L Total Protein 3.4 L (6.3-8.2) g/dL Albumin 1.6 L (3.5-5.0) g/dL Crossmatch 12/12/24 12/12/24 12/12/24 Range/Units 06:33 09:09 11:24 WBC (4.50-10.00) 10*3/uL RBC (4.40-5.60) 10*6/uL Hgb (13.0-17.0) g/dL Hct (39.6-50.0) % Immature Gran # (0.00-0.04) 10*3/uL Neutrophils # (1.80-7.70) 10*3/uL Lymphocytes # (0.90-5.00) 10*3/uL Monocytes # (0.20-1.00) 10*3/uL Eosinophils # (0.04-0.35) 10*3/uL Basophils # (0.00-0.10) 10*3/uL ABG pH 7.47 H (7.35-7.45) ABG pO2 157 H (83-108) mmHg ABG HCO3 27 H (21-25) mmol/L ABG Total CO2 28 H (19-24) mmol/L ABG O2 Saturation 99.8 H (94-97) % Hemoglobin 6.6 L* (13.0-17.5) gm/dL Sodium (137-145) mmol/L Potassium (3.5-5.1) mmol/L Chloride (98-107) mmol/L BUN (9-20) mg/dL Creatinine (0.66-1.25) mg/dL Glucose (74-99) mg/dL POC Glucose (mg/dL) 220 H 228 H (70-110) mg/dL Calcium (8.4-10.2) mg/dL Ionized Calcium [place] (4.5-5.3) mg/dL Phosphorus (2.5-4.5) mg/dL Total Bilirubin (0.2-1.3) mg/dL AST (17-59) U/L ALT (4-49) U/L Alkaline Phosphatase (38-126) U/L Total Protein (6.3-8.2) g/dL Albumin (3.5-5.0) g/dL Crossmatch 12/12/24 Range/Units 13:29 WBC (4.50-10.00) 10*3/uL RBC (4.40-5.60) 10*6/uL Hgb (13.0-17.0) g/dL Hct (39.6-50.0) % Immature Gran # (0.00-0.04) 10*3/uL Neutrophils # (1.80-7.70) 10*3/uL Lymphocytes # (0.90-5.00) 10*3/uL Monocytes # (0.20-1.00) 10*3/uL Eosinophils # (0.04-0.35) 10*3/uL Basophils # (0.00-0.10) 10*3/uL ABG pH (7.35-7.45) ABG pO2 (83-108) mmHg ABG HCO3 (21-25) mmol/L ABG Total CO2 (19-24) mmol/L ABG O2 Saturation (94-97) % Hemoglobin (13.0-17.5) gm/dL Sodium (137-145) mmol/L Potassium (3.5-5.1) mmol/L Chloride (98-107) mmol/L BUN (9-20) mg/dL Creatinine (0.66-1.25) mg/dL Glucose (74-99) mg/dL POC Glucose (mg/dL) (70-110) mg/dL Calcium (8.4-10.2) mg/dL Ionized Calcium [place] (4.5-5.3) mg/dL Phosphorus 5.5 H (2.5-4.5) mg/dL Total Bilirubin (0.2-1.3) mg/dL AST (17-59) U/L ALT (4-49) U/L Alkaline Phosphatase (38-126) U/L Total Protein (6.3-8.2) g/dL Albumin (3.5-5.0) g/dL Crossmatch Microbiology - Last 24 Hours (Table) 12/10/24 08:09 Gram Stain - Final Sputum Sputum Culture - Final 12/08/24 18:16 Blood Culture - Preliminary Blood 12/09/24 10:06 Blood Culture - Preliminary Blood 12/10/24 00:37 Urine Culture - Final Urine,Catheterized Assessment and Plan Assessment: 1. Acute kidney injury, ATN secondary to sepsis and hypotension, oliguric. We will proceed with renal replacement therapy due to intractable hyperkalemia in the setting of oliguria and progressive acute kidney injury. 2. Hyperkalemia associated with acute kidney injury and ischemic bowel 3. Anion gap metabolic acidosis secondary to lactic acidosis shock and acute kidney injury maintained on bicarb drip 4. Hypovolemic hyponatremia status post multiple fluid boluses 5. Perforated bowel and intra-abdominal abscess status post explorative laparotomy, subtotal colectomy, with abdominal washout and abdominal wound VAC, status post second look explorative laparotomy with ileocolonic anastomosis on 12/11/2024 6. Elevated liver enzymes from shock liver Plan: First treatment of hemodialysis today and repeat in a.m. DDAVP x 1 due to bleeding noted at surgical site Continue antibiotics as per ID.
--- NOTE | 2024-12-12 15:09 | P.PN ---
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 abdominal hematoma that was evacuated and interloop abscesses. The patient has an open abdomen with ABThera wound VAC in place. The patient underwent a second look laparotomy on 12/11/2024 with ileocolonic anastomosis and abdominal washout. Remains septic, hemodynamically unstable, pressor dependent and has signs of multisystem organ failure. Shock, septic in nature, white cell count remains elevated and the patient remains on high-dose pressors, also on a normal set rate of 75 cc an hour Acute leukocytosis secondary to above, the white cell count remains quite elevated Acute lactic acidosis secondary to above, improved respiratory status Acute on top of chronic injury and the patient remains oliguric and urine output remains minimal and the patient is in acute renal failure. He is having hyperkalemia and he remains oliguric. Shock liver secondary to above, LFTs are improving. Acute hypoxic/hypercapnic respiratory failure in the patient currently intubated on the mechanical ventilator. Chest x-ray shows no significant interval change in the blood. Were noted. COPD, severe at baseline Right lower extremity wound culture positive for MRSA Acute anemia, current hemoglobin is down to 6.9. In the morning hemoglobin is at 7.1. History of systolic congestive heart failure, the most recent echocardiogram on this patient was done on 10/17/2023 and the patient has a preserved LV function with an EF of around 55%. There is moderate RV dilatation with normal function and mild to moderate tricuspid regurgitation, no pericardial effusion. Secondary pulmonary hypertension Morbid obesity Obstructive sleep apnea syndrome with apnea-hypopnea index of 45 History of left-sided empyema requiring decortication back in 2015 History of diabetes with elevated blood sugars, currently on Lantus insulin Benign essential hypertension Dyslipidemia Chronic and recurrent cellulitis of lower extremities History of atrial fibrillation and sick sinus syndrome previous pacer/AICD placement patient has a paced rhythm on his initial presentation Medical debility with difficult ambulation, patient is mostly bedbound and failure to thrive Plan: The patient is sedated on propofol Continue ventilator support and no vent changes Normal saline at 75 cc an hour. Continue pressors and the patient is currently on a combination norepinephrine and vasopressin's to control Continue broad-spectrum antibiotic coverage and the patient is currently on IV Zosyn, IV Zyvox and Diflucan. ABThera wound VAC applied to the anterior abdominal wall Continue DuoNeb inhalations Continue patient on stress dose hydrocortisone Anticoagulation is currently on hold Monitor LFTs Hemodialysis catheter was inserted and the patient will be started on hemodialysis today Dietary consult, history of TPN for the next 24 hours. ID is on the case and the patient will be kept on same antibiotic coverage Monitor K level Lower extremity wounds are stable and there is no active cellulitis and there is no active drainage from the wounds noted the lower extremities bilaterally appropriate dressing is been applied We will stop the rest of the oral medications and keep the patient n.p.o. We will continue to follow and the patient will be kept in the intensive care unit Condition is critical care patient does not have any immediate family member. A friend, a close friend named Mahesh seems to be the advocate and he was informed of those changes and he was updated on his condition. Will continue to follow. Condition is very critical. Evaluation was done in 40 minutes. Time with Patient: Greater than 30
[2024-12-12] MEDS: EPINEPHrine 4 MG in DEXTROSE 5% IN WATER 250 ML IV SCH (15:28)
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
[2024-12-12 17:51] LABS: Glucose,Whole Blood 141 mg/dL (70-110)
[2024-12-12] MEDS: MVI, ADULT NO.4 WITH VIT K 10 ML, TRACE (CONC-1ML/DOSE) 1 ML, SODIUM CHLORIDE 4MEQ/ML V... IV ONE (18:23)
[2024-12-12 19:06] LABS: Carbon Dioxide 27 mmol/L (22-30); Chloride 95 mmol/L (98-107); Glucose 140 mg/dL (74-99); Potassium 4.2 mmol/L (3.5-5.1); Sodium 130 mmol/L (137-145)
[2024-12-12 19:07] LABS: AST 582 U/L (17-59); African American GFR (CKD) 34 (>60 ml/min/1.73 sqM); Albumin 1.6 g/dL (3.5-5.0); Alkaline Phosphatase 239 U/L (38-126); Anion Gap 8 mmol/L; Blood Urea Nitrogen 59 mg/dL (9-20); Calcium 6.6 mg/dL (8.4-10.2); Non-African American GFR(CKD) 30 (>60 ml/min/1.73 sqM); Total Bilirubin 4.2 mg/dL (0.2-1.3); Total Protein 3.4 g/dL (6.3-8.2)
[2024-12-12 19:15] LABS: ALT 1194 U/L (4-49)
[2024-12-12 21:38] LABS: Hepatitis B Surface Antigen Nonreactive (Nonreactive)
[2024-12-12 21:42] LABS: Hepatitis B Surface AB- Quant 3.6 mIU/mL
[2024-12-13 00:09] LABS: Glucose,Whole Blood 156 mg/dL (70-110)
[2024-12-13 05:38] LABS: MCH 31.3 pg (27.0-32.0); MCHC 36.5 g/dL (32.0-37.0); MCV 85.9 fL (80.0-97.0); Mean Platelet Volume 10.3 fL (9.5-12.2); RBC 1.98 10*6/uL (4.40-5.60); RDW 15.7 % (11.5-14.5)
[2024-12-13 05:50] LABS: HGB 6.2 g/dL (13.0-17.0); WBC 52.37 10*3/uL (4.50-10.00)
[2024-12-13 05:50] LABS: ABG Base Excess -0.5 mmol/L; ABG HCO3 24 mmol/L (21-25); ABG Oxygen Saturation 99.7 % (94-97); ABG PCO2 39 mmHg (35-45); ABG PO2 145 mmHg (83-108); ABG TCO2 26 mmol/L (19-24)
[2024-12-13 06:12] LABS: AST 403 U/L (17-59); Albumin 1.5 g/dL (3.5-5.0); Alkaline Phosphatase 208 U/L (38-126); Anion Gap 9 mmol/L; Blood Urea Nitrogen 76 mg/dL (9-20); Calcium 6.6 mg/dL (8.4-10.2); Carbon Dioxide 24 mmol/L (22-30); Chloride 94 mmol/L (98-107); Glucose 202 mg/dL (74-99); Magnesium 1.8 mg/dL (1.6-2.3); Phosphorus 6.5 mg/dL (2.5-4.5); Potassium 5.2 mmol/L (3.5-5.1); Sodium 127 mmol/L (137-145); Total Bilirubin 4.1 mg/dL (0.2-1.3); Total Protein 3.2 g/dL (6.3-8.2)
[2024-12-13 06:18] LABS: African American GFR (CKD) 23 (>60 ml/min/1.73 sqM); Non-African American GFR(CKD) 20 (>60 ml/min/1.73 sqM)
[2024-12-13 06:29] LABS: Glucose,Whole Blood 211 mg/dL (70-110)
[2024-12-13 06:32] LABS: ALT 915 U/L (4-49)
[2024-12-13 08:11] LABS: Platelet Count 78 10*3/uL (140-440)
[2024-12-13] MEDS: CALCIUM GLUCONATE IN NACL 2 GM in SALINE 1 100ML.BAG IVPB ONE (08:22)
--- NOTE | 2024-12-13 08:23 | XR ---
EXAMINATION TYPE: XR chest 1V portable DATE OF EXAM: 12/13/2024 4:59 AM COMPARISON: 12/12/2024 CLINICAL INDICATION: Male, 69 years old with history of VENTILATOR, difficulty breathing TECHNIQUE: XR chest 1V portable view(s) obtained. FINDINGS: The heart size is enlarged. The pulmonary vasculature is normal. There is some developing mild right lower lobe infiltrate. Correlate for atelectasis or pneumonia. Th ere is persistent thickening along the right pleural margin. Calcification is along the right diaphra gm. Endotracheal tube tip is 3.3 cm above the juan francisco. Right-sided catheter tip is in the distal superior vena cava region. Right central venous catheter tip is in the right atrium. Nasogastric tube transver ses the thorax. IMPRESSION: 1. Mild right lower lobe infiltrate. Correlate for atelectasis or pneumonia. [facility], , 12/13/2024 8:21 AM
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
[2024-12-13 09:17] LABS: Prothrombin Time 11.4 sec (10.0-12.5)
[2024-12-13] MEDS ORDERED: Magnesium Replacement Protocol 1 EACH MISC MISCELLANE PRN (09:34)
--- NOTE | 2024-12-13 11:10 | P.PN ---
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 (0.04-0.35) 10*3/uL Basophils # (0.00-0.10) 10*3/uL ABG pO2 145 H (83-108) mmHg ABG Total CO2 26 H (19-24) mmol/L ABG O2 Saturation 99.7 H (94-97) % Hemoglobin 6.1 L* (13.0-17.5) gm/dL Sodium (137-145) mmol/L Potassium (3.5-5.1) mmol/L Chloride (98-107) mmol/L BUN (9-20) mg/dL Creatinine (0.66-1.25) mg/dL Glucose (74-99) mg/dL POC Glucose (mg/dL) 211 H (70-110) mg/dL Calcium (8.4-10.2) mg/dL Phosphorus (2.5-4.5) mg/dL Total Bilirubin (0.2-1.3) mg/dL AST (17-59) U/L ALT (4-49) U/L Alkaline Phosphatase (38-126) U/L Total Protein (6.3-8.2) g/dL Albumin (3.5-5.0) g/dL Crossmatch Microbiology - Last 24 Hours (Table) 12/09/24 10:06 Blood Culture - Preliminary Blood 12/10/24 08:09 Gram Stain - Final Sputum Sputum Culture - Final 12/08/24 18:16 Blood Culture - Preliminary Blood Assessment and Plan Plan: Acute abdomen with septic shock. The patient underwent exploratory laparotomy, small bowel resection, subtotal colectomy on 12/09/2024 and the patient was found to have ischemic and perforated transverse colon. The patient was found to have intra abdominal hematoma that was evacuated and interloop abscesses. The patient has an open abdomen with ABThera wound VAC in place. The patient underwent a second look laparotomy on 12/11/2024 with ileocolonic anastomosis and abdominal washout. Remains septic, hemodynamically unstable, pressor dependent and has signs of multisystem organ failure. Wound VAC is in place and the patient is having blood oozing from the wound surface in addition to high output as noted in the ABThera wound VAC. Patient was started on TPN for nutritional support. Shock, septic in nature, white cell count remains elevated and the patient remains on high-dose pressors, also on a normal set rate of 75 cc an hour Acute leukocytosis secondary to above, the white cell count remains quite elevated Acute lactic acidosis secondary to above, improved respiratory status, lactic acid level remains elevated Acute on top of chronic injury and the patient started on hemodialysis, first session of hemodialysis was performed yesterday and the patient not producing any urine output. Shock liver secondary to above, LFTs are improving. Acute hypoxic/hypercapnic respiratory failure in the patient currently intubated on the mechanical ventilator. Chest x-ray shows no significant interval change in the blood. Were noted. COPD, severe at baseline Right lower extremity wound culture positive for MRSA Acute anemia, current hemoglobin is down to 6.2 and the patient will be given another 2 units of packed RBC. General surgery was involved. There is extension of the right flank hematoma into the right thigh and the patient is oozing blood from the wound surface. History of systolic congestive heart failure, the most recent echocardiogram on this patient was done on 10/17/2023 and the patient has a preserved LV function with an EF of around 55%. There is moderate RV dilatation with normal function and mild to moderate tricuspid regurgitation, no pericardial effusion. Secondary pulmonary hypertension Morbid obesity Obstructive sleep apnea syndrome with apnea-hypopnea index of 45 History of left-sided empyema requiring decortication back in 2014 History of diabetes with elevated blood sugars, currently on Lantus insulin Benign essential hypertension Dyslipidemia Chronic and recurrent cellulitis of lower extremities History of atrial fibrillation and sick sinus syndrome previous pacer/AICD placement patient has a paced rhythm on his initial presentation Medical debility with difficult ambulation, patient is mostly bedbound and failure to thrive Plan: The patient is sedated on propofol Continue ventilator support and no vent changes Normal saline at 75 cc an hour. TPN for nutrition support Continue pressors and the patient is currently on norepinephrine Continue broad-spectrum antibiotic coverage and the patient is currently on IV Zosyn, IV Zyvox and Diflucan. ABThera wound VAC applied to the anterior abdominal wall, will obtain surgical evaluation again as the patient continues to have oozing of blood from the wound surface. Continue DuoNeb inhalations Continue patient on stress dose hydrocortisone Anticoagulation is currently on hold Monitor LFTs Hemodialysis per nephrology, ID is on the case and the patient will be kept on same antibiotic coverage Monitor K level Give 2 g of calcium Check coagulation profile Monitor lactic acid level Lower extremity wounds are stable and there is no active cellulitis and there is no active drainage from the wounds noted the lower extremities bilaterally appropriate dressing is been applied We will continue to follow and the patient will be kept in the intensive care unit Condition is critical care patient does not have any immediate family member. A friend, a close friend named Mahesh seems to be the advocate and he was informed of those changes and he was updated on his condition. Will continue to follow. Condition is very critical. Evaluation was done in 40 minutes. Time with Patient: Greater than 30
--- NOTE | 2024-12-13 11:39 | P.PN ---
Subjective Progress Note Date: 12/13/24 Patient seen and examined at bedside. Vented, sedated. Off of vaso, continued with Levophed. Requiring packed red blood cell transfusion today. Wound VAC in place. Objective - Vital Signs Vital signs: Vital Signs Temp 97.8 F 12/13/24 10:33 Pulse 64 12/13/24 11:29 Resp 18 12/13/24 10:45 BP 154/39 12/13/24 10:45 Pulse Ox 100 12/13/24 10:45 FiO2 40 12/13/24 11:21 Intake & Output 12/12/24 12/13/24 12/13/24 18:59 06:59 18:59 Intake Total 4108.463 9218.619 3572.708 Output Total 1885 1050 112 Balance 2223.463 786.187 936.708 Weight 199.6 kg 199.4 kg Intake: IV 1712 1069 451 0.9 @ KVO 240 130 30 Calcium Gluconate in NaCl 100 2 gm In Saline 1 100ml. bag @ 100 mls/hr IVPB ONCE ONE Rx#:[id number] Calcium Gluconate in NaCl 100 2 gm In Saline 1 100ml. bag @ 100 mls/hr IVPB ONCE ONE Rx#:[id number] Linezolid 600 mg In 300 Dextrose/Water 1 300ml. bag @ 150 mls/hr IVPB Q12HR [facility] Rx#:[id number] Piperacillin-Tazobactam 3 100 .375 gm In Sodium Chloride 0.9% 100 ml @ 25 mls/hr IVPB Q8HR [facility] Rx# :[id number] Pressure Bags 72 39 21 Sodium Chloride 0.9% 1, 900 900 300 000 ml @ 75 mls/hr IV . [id number] [facility] Rx#:[id number] Intake, IV Titration 1236.463 767.187 287.708 Amount EPINEPHrine 4 mg In 10.853 Dextrose 5% in Water 250 ml @ 0.03 MCG/KG/MIN 22. 455 mls/hr IV .Q11H8M [facility] Rx#:[id number] Fluconazole in NaCl,Iso- 100 Osm 200 mg In Saline 1 100ml.bag @ 100 mls/hr IVPB DAILY [facility] Rx#: [id number] Norepinephrine 8 mg In 687.831 412.333 261.783 Sodium Chloride 0.9% 250 ml @ 0.03 MCG/KG/MIN 9. 869 mls/hr IV .Q24H [facility] Rx#:[id number] Vasopressin 60 unit In 137.904 75.379 Sodium Chloride 0.9% 150 ml @ 0.03 UNITS/MIN 4.59 mls/hr IV .Q24H [facility] Rx#: [id number] propofoL 1,000 mg In 299.875 279.475 25.925 Empty Bag 1 bag @ 15 MCG/ KG/MIN 15.3 mls/hr IV . Q6H33M [facility] Rx#:[id number] Blood Product 310 310 Rc As-1 Unit 310 [id number] Rc As-1 Unit 310 [id number] Rc Pheresis As-3 Unit 0 [id number] Hemodialysis 850 Output: Drainage 1000 1050 100 Abdomen Wound Vac 1000 1050 100 Urine 35 0 12 Hemodialysis 150 Hemodialysis Net Amount 700 Other: Voiding Method Indwelling Catheter Indwelling Catheter # Voids 0 ABP, PAP, CO, CI - Last Documented Arterial Blood Pressure 125/54 - Constitutional Constitutional Comment(s): Vented and sedated - Gastrointestinal Gastrointestinal Comment(s): Abdomen with ABThera wound VAC in place - Integumentary Integumentary Comment(s): Ischemic changes noted to toes on bilateral feet and fingers on bilateral upper extremities - Labs CBC & Chem 7: 12/13/24 05:00 12/13/24 05:00 Labs: Abnormal Lab Results - Last 24 Hours (Table) 12/09/24 12/12/24 12/12/24 Range/Units 19:08 13:24 13:29 WBC 46.78 H (4.50-10.00) 10*3/uL RBC 2.29 L (4.40-5.60) 10*6/uL Hgb 7.1 L (13.0-17.0) g/dL Hct 19.2 L* (39.6-50.0) % Plt Count 116 L (140-440) 10*3/uL Immature Gran # 1.92 H (0.00-0.04) 10*3/uL Neutrophils # 42.51 H (1.80-7.70) 10*3/uL Lymphocytes # 0.51 L (0.90-5.00) 10*3/uL Monocytes # 1.71 H (0.20-1.00) 10*3/uL Eosinophils # 0.00 L (0.04-0.35) 10*3/uL Basophils # 0.13 H (0.00-0.10) 10*3/uL ABG pO2 (83-108) mmHg ABG Total CO2 (19-24) mmol/L ABG O2 Saturation (94-97) % Hemoglobin (13.0-17.5) gm/dL Sodium (137-145) mmol/L Potassium (3.5-5.1) mmol/L Chloride (98-107) mmol/L BUN (9-20) mg/dL Creatinine (0.66-1.25) mg/dL Glucose (74-99) mg/dL POC Glucose (mg/dL) (70-110) mg/dL Calcium (8.4-10.2) mg/dL Phosphorus 5.5 H (2.5-4.5) mg/dL Total Bilirubin (0.2-1.3) mg/dL AST (17-59) U/L ALT (4-49) U/L Alkaline Phosphatase (38-126) U/L Total Protein (6.3-8.2) g/dL Albumin (3.5-5.0) g/dL Triglycerides (0.00-149.00) mg/dL Crossmatch See Detail 12/12/24 12/12/24 12/13/24 Range/Units 15:30 17:49 00:07 WBC (4.50-10.00) 10*3/uL RBC (4.40-5.60) 10*6/uL Hgb (13.0-17.0) g/dL Hct (39.6-50.0) % Plt Count (140-440) 10*3/uL Immature Gran # (0.00-0.04) 10*3/uL Neutrophils # (1.80-7.70) 10*3/uL Lymphocytes # (0.90-5.00) 10*3/uL Monocytes # (0.20-1.00) 10*3/uL Eosinophils # (0.04-0.35) 10*3/uL Basophils # (0.00-0.10) 10*3/uL ABG pO2 (83-108) mmHg ABG Total CO2 (19-24) mmol/L ABG O2 Saturation (94-97) % Hemoglobin (13.0-17.5) gm/dL Sodium 130 L (137-145) mmol/L Potassium (3.5-5.1) mmol/L Chloride 95 L (98-107) mmol/L BUN 59 H (9-20) mg/dL Creatinine 2.23 H (0.66-1.25) mg/dL Glucose 140 H (74-99) mg/dL POC Glucose (mg/dL) 141 H 156 H (70-110) mg/dL Calcium 6.6 L (8.4-10.2) mg/dL Phosphorus (2.5-4.5) mg/dL Total Bilirubin 4.2 H (0.2-1.3) mg/dL AST 582 H (17-59) U/L ALT 1194 H (4-49) U/L Alkaline Phosphatase 239 H (38-126) U/L Total Protein 3.4 L (6.3-8.2) g/dL Albumin 1.6 L (3.5-5.0) g/dL Triglycerides (0.00-149.00) mg/dL Crossmatch 12/13/24 12/13/24 12/13/24 Range/Units 05:00 05:00 05:46 WBC 52.37 H* (4.50-10.00) 10*3/uL RBC 1.98 L (4.40-5.60) 10*6/uL Hgb 6.2 L* (13.0-17.0) g/dL Hct 17.0 L* (39.6-50.0) % Plt Count 78 L (140-440) 10*3/uL Immature Gran # (0.00-0.04) 10*3/uL Neutrophils # (1.80-7.70) 10*3/uL Lymphocytes # (0.90-5.00) 10*3/uL Monocytes # (0.20-1.00) 10*3/uL Eosinophils # (0.04-0.35) 10*3/uL Basophils # (0.00-0.10) 10*3/uL ABG pO2 145 H (83-108) mmHg ABG Total CO2 26 H (19-24) mmol/L ABG O2 Saturation 99.7 H (94-97) % Hemoglobin 6.1 L* (13.0-17.5) gm/dL Sodium 127 L (137-145) mmol/L Potassium 5.2 H (3.5-5.1) mmol/L Chloride 94 L (98-107) mmol/L BUN 76 H (9-20) mg/dL Creatinine 3.10 H (0.66-1.25) mg/dL Glucose 202 H (74-99) mg/dL POC Glucose (mg/dL) (70-110) mg/dL Calcium 6.6 L (8.4-10.2) mg/dL Phosphorus 6.5 H (2.5-4.5) mg/dL Total Bilirubin 4.1 H (0.2-1.3) mg/dL AST 403 H (17-59) U/L ALT 915 H (4-49) U/L Alkaline Phosphatase 208 H (38-126) U/L Total Protein 3.2 L (6.3-8.2) g/dL Albumin 1.5 L (3.5-5.0) g/dL Triglycerides 308.00 H (0.00-149.00) mg/dL Crossmatch 12/13/24 12/13/24 Range/Units 06:20 06:28 WBC (4.50-10.00) 10*3/uL RBC (4.40-5.60) 10*6/uL Hgb (13.0-17.0) g/dL Hct (39.6-50.0) % Plt Count (140-440) 10*3/uL Immature Gran # (0.00-0.04) 10*3/uL Neutrophils # (1.80-7.70) 10*3/uL Lymphocytes # (0.90-5.00) 10*3/uL Monocytes # (0.20-1.00) 10*3/uL Eosinophils # (0.04-0.35) 10*3/uL Basophils # (0.00-0.10) 10*3/uL ABG pO2 (83-108) mmHg ABG Total CO2 (19-24) mmol/L ABG O2 Saturation (94-97) % Hemoglobin (13.0-17.5) gm/dL Sodium (137-145) mmol/L Potassium (3.5-5.1) mmol/L Chloride (98-107) mmol/L BUN (9-20) mg/dL Creatinine (0.66-1.25) mg/dL Glucose (74-99) mg/dL POC Glucose (mg/dL) 211 H (70-110) mg/dL Calcium (8.4-10.2) mg/dL Phosphorus (2.5-4.5) mg/dL Total Bilirubin (0.2-1.3) mg/dL AST (17-59) U/L ALT (4-49) U/L Alkaline Phosphatase (38-126) U/L Total Protein (6.3-8.2) g/dL Albumin (3.5-5.0) g/dL Triglycerides (0.00-149.00) mg/dL Crossmatch See Detail Microbiology - Last 24 Hours (Table) 12/09/24 10:06 Blood Culture - Preliminary Blood 12/10/24 08:09 Gram Stain - Final Sputum Sputum Culture - Final Assessment and Plan Plan: Postop day status post exploratory laparotomy, small bowel resection, subtotal colectomy, abdominal washout and wound VAC placement. He has undergone second look laparotomy with anastomosis creation. ABThera VAC is still in place. Transfusions as needed. Patient weaning from vasopressors. Patient will require relook laparotomy in next 24 hours for change of ABThera wound VAC versus abdominal closure. This facility does not have the Vicryl bridging mesh and order has been placed with anticipation of receiving the mesh today for the procedure. Patient's prognosis is guarded. Case discussed in depth with anesthesia as well. Continue ICU care.
--- NOTE | 2024-12-13 11:54 | P.PN ---
Subjective Patient is seen for follow-up for acute kidney injury. He remains oliguric with no significant response to Lasix. Status post first treatment of hemodialysis yesterday on 12/12/2024. Started dialysis due to progressive acute kidney injury and intractable hyperkalemia Patient continues to have bleeding from the wound VAC site Hemoglobin is down to 6.2 g/dL. Patient is off of vasopressin Levophed is at 0.1 mcg/kg Objective - Vital Signs Vital signs: Vital Signs Temp 97.8 F 12/13/24 10:33 Pulse 64 12/13/24 11:29 Resp 18 12/13/24 10:45 BP 154/39 12/13/24 10:45 Pulse Ox 100 12/13/24 10:45 FiO2 40 12/13/24 11:21 Intake & Output 12/12/24 12/13/24 12/13/24 18:59 06:59 18:59 Intake Total 4108.463 6915.062 9932.708 Output Total 1885 1050 112 Balance 2223.463 786.187 936.708 Weight 199.6 kg 199.4 kg Intake: IV 1712 1069 451 0.9 @ KVO 240 130 30 Calcium Gluconate in NaCl 100 2 gm In Saline 1 100ml. bag @ 100 mls/hr IVPB ONCE ONE Rx#:[id number] Calcium Gluconate in NaCl 100 2 gm In Saline 1 100ml. bag @ 100 mls/hr IVPB ONCE ONE Rx#:[id number] Linezolid 600 mg In 300 Dextrose/Water 1 300ml. bag @ 150 mls/hr IVPB Q12HR [facility] Rx#:[id number] Piperacillin-Tazobactam 3 100 .375 gm In Sodium Chloride 0.9% 100 ml @ 25 mls/hr IVPB Q8HR [facility] Rx# :[id number] Pressure Bags 72 39 21 Sodium Chloride 0.9% 1, 900 900 300 000 ml @ 75 mls/hr IV . [id number] [facility] Rx#:[id number] Intake, IV Titration 1236.463 767.187 287.708 Amount EPINEPHrine 4 mg In 10.853 Dextrose 5% in Water 250 ml @ 0.03 MCG/KG/MIN 22. 455 mls/hr IV .Q11H8M [facility] Rx#:[id number] Fluconazole in NaCl,Iso- 100 Osm 200 mg In Saline 1 100ml.bag @ 100 mls/hr IVPB DAILY [facility] Rx#: [id number] Norepinephrine 8 mg In 687.831 412.333 261.783 Sodium Chloride 0.9% 250 ml @ 0.03 MCG/KG/MIN 9. 869 mls/hr IV .Q24H [facility] Rx#:[id number] Vasopressin 60 unit In 137.904 75.379 Sodium Chloride 0.9% 150 ml @ 0.03 UNITS/MIN 4.59 mls/hr IV .Q24H [facility] Rx#: [id number] propofoL 1,000 mg In 299.875 279.475 25.925 Empty Bag 1 bag @ 15 MCG/ KG/MIN 15.3 mls/hr IV . Q6H33M [facility] Rx#:[id number] Blood Product 310 310 Rc As-1 Unit 310 [id number] Rc As-1 Unit 310 [id number] Rc Pheresis As-3 Unit 0 [id number] Hemodialysis 850 Output: Drainage 1000 1050 100 Abdomen Wound Vac 1000 1050 100 Urine 35 0 12 Hemodialysis 150 Hemodialysis Net Amount 700 Other: Voiding Method Indwelling Catheter Indwelling Catheter # Voids 0 ABP, PAP, CO, CI - Last Documented Arterial Blood Pressure 125/54 - Exam Patient is sedated and on the vent Examination of the heart S1 and S2 Examination of the lungs shows bilateral breath sounds are heard Abdomen is obese with abdominal wound VAC noted, bleeding noted Examination lower extremity shows both extremities are wrapped. Chronic skin changes noted in the feet - Labs CBC & Chem 7: 12/13/24 05:00 12/13/24 05:00 Labs: Abnormal Lab Results - Last 24 Hours (Table) 12/09/24 12/12/24 12/12/24 Range/Units 19:08 13:24 13:29 WBC 46.78 H (4.50-10.00) 10*3/uL RBC 2.29 L (4.40-5.60) 10*6/uL Hgb 7.1 L (13.0-17.0) g/dL Hct 19.2 L* (39.6-50.0) % Plt Count 116 L (140-440) 10*3/uL Immature Gran # 1.92 H (0.00-0.04) 10*3/uL Neutrophils # 42.51 H (1.80-7.70) 10*3/uL Lymphocytes # 0.51 L (0.90-5.00) 10*3/uL Monocytes # 1.71 H (0.20-1.00) 10*3/uL Eosinophils # 0.00 L (0.04-0.35) 10*3/uL Basophils # 0.13 H (0.00-0.10) 10*3/uL ABG pO2 (83-108) mmHg ABG Total CO2 (19-24) mmol/L ABG O2 Saturation (94-97) % Hemoglobin (13.0-17.5) gm/dL Sodium (137-145) mmol/L Potassium (3.5-5.1) mmol/L Chloride (98-107) mmol/L BUN (9-20) mg/dL Creatinine (0.66-1.25) mg/dL Glucose (74-99) mg/dL POC Glucose (mg/dL) (70-110) mg/dL Calcium (8.4-10.2) mg/dL Phosphorus 5.5 H (2.5-4.5) mg/dL Total Bilirubin (0.2-1.3) mg/dL AST (17-59) U/L ALT (4-49) U/L Alkaline Phosphatase (38-126) U/L Total Protein (6.3-8.2) g/dL Albumin (3.5-5.0) g/dL Triglycerides (0.00-149.00) mg/dL Crossmatch See Detail 12/12/24 12/12/24 12/13/24 Range/Units 15:30 17:49 00:07 WBC (4.50-10.00) 10*3/uL RBC (4.40-5.60) 10*6/uL Hgb (13.0-17.0) g/dL Hct (39.6-50.0) % Plt Count (140-440) 10*3/uL Immature Gran # (0.00-0.04) 10*3/uL Neutrophils # (1.80-7.70) 10*3/uL Lymphocytes # (0.90-5.00) 10*3/uL Monocytes # (0.20-1.00) 10*3/uL Eosinophils # (0.04-0.35) 10*3/uL Basophils # (0.00-0.10) 10*3/uL ABG pO2 (83-108) mmHg ABG Total CO2 (19-24) mmol/L ABG O2 Saturation (94-97) % Hemoglobin (13.0-17.5) gm/dL Sodium 130 L (137-145) mmol/L Potassium (3.5-5.1) mmol/L Chloride 95 L (98-107) mmol/L BUN 59 H (9-20) mg/dL Creatinine 2.23 H (0.66-1.25) mg/dL Glucose 140 H (74-99) mg/dL POC Glucose (mg/dL) 141 H 156 H (70-110) mg/dL Calcium 6.6 L (8.4-10.2) mg/dL Phosphorus (2.5-4.5) mg/dL Total Bilirubin 4.2 H (0.2-1.3) mg/dL AST 582 H (17-59) U/L ALT 1194 H (4-49) U/L Alkaline Phosphatase 239 H (38-126) U/L Total Protein 3.4 L (6.3-8.2) g/dL Albumin 1.6 L (3.5-5.0) g/dL Triglycerides (0.00-149.00) mg/dL Crossmatch 12/13/24 12/13/24 12/13/24 Range/Units 05:00 05:00 05:46 WBC 52.37 H* (4.50-10.00) 10*3/uL RBC 1.98 L (4.40-5.60) 10*6/uL Hgb 6.2 L* (13.0-17.0) g/dL Hct 17.0 L* (39.6-50.0) % Plt Count 78 L (140-440) 10*3/uL Immature Gran # (0.00-0.04) 10*3/uL Neutrophils # (1.80-7.70) 10*3/uL Lymphocytes # (0.90-5.00) 10*3/uL Monocytes # (0.20-1.00) 10*3/uL Eosinophils # (0.04-0.35) 10*3/uL Basophils # (0.00-0.10) 10*3/uL ABG pO2 145 H (83-108) mmHg ABG Total CO2 26 H (19-24) mmol/L ABG O2 Saturation 99.7 H (94-97) % Hemoglobin 6.1 L* (13.0-17.5) gm/dL Sodium 127 L (137-145) mmol/L Potassium 5.2 H (3.5-5.1) mmol/L Chloride 94 L (98-107) mmol/L BUN 76 H (9-20) mg/dL Creatinine 3.10 H (0.66-1.25) mg/dL Glucose 202 H (74-99) mg/dL POC Glucose (mg/dL) (70-110) mg/dL Calcium 6.6 L (8.4-10.2) mg/dL Phosphorus 6.5 H (2.5-4.5) mg/dL Total Bilirubin 4.1 H (0.2-1.3) mg/dL AST 403 H (17-59) U/L ALT 915 H (4-49) U/L Alkaline Phosphatase 208 H (38-126) U/L Total Protein 3.2 L (6.3-8.2) g/dL Albumin 1.5 L (3.5-5.0) g/dL Triglycerides 308.00 H (0.00-149.00) mg/dL Crossmatch 12/13/24 12/13/24 Range/Units 06:20 06:28 WBC (4.50-10.00) 10*3/uL RBC (4.40-5.60) 10*6/uL Hgb (13.0-17.0) g/dL Hct (39.6-50.0) % Plt Count (140-440) 10*3/uL Immature Gran # (0.00-0.04) 10*3/uL Neutrophils # (1.80-7.70) 10*3/uL Lymphocytes # (0.90-5.00) 10*3/uL Monocytes # (0.20-1.00) 10*3/uL Eosinophils # (0.04-0.35) 10*3/uL Basophils # (0.00-0.10) 10*3/uL ABG pO2 (83-108) mmHg ABG Total CO2 (19-24) mmol/L ABG O2 Saturation (94-97) % Hemoglobin (13.0-17.5) gm/dL Sodium (137-145) mmol/L Potassium (3.5-5.1) mmol/L Chloride (98-107) mmol/L BUN (9-20) mg/dL Creatinine (0.66-1.25) mg/dL Glucose (74-99) mg/dL POC Glucose (mg/dL) 211 H (70-110) mg/dL Calcium (8.4-10.2) mg/dL Phosphorus (2.5-4.5) mg/dL Total Bilirubin (0.2-1.3) mg/dL AST (17-59) U/L ALT (4-49) U/L Alkaline Phosphatase (38-126) U/L Total Protein (6.3-8.2) g/dL Albumin (3.5-5.0) g/dL Triglycerides (0.00-149.00) mg/dL Crossmatch See Detail Microbiology - Last 24 Hours (Table) 12/09/24 10:06 Blood Culture - Preliminary Blood 12/10/24 08:09 Gram Stain - Final Sputum Sputum Culture - Final Assessment and Plan Assessment: 1. Acute kidney injury, ATN secondary to sepsis and hypotension, oliguric. Started on renal replacement therapy on 12/12/2024 due to intractable hyperkalemia in the setting of oliguria and progressive acute kidney injury. 2. Hyperkalemia associated with acute kidney injury and ischemic bowel 3. Anion gap metabolic acidosis secondary to lactic acidosis shock and acute kidney injury maintained on bicarb drip 4. Hypovolemic hyponatremia status post multiple fluid boluses 5. Perforated bowel and intra-abdominal abscess status post explorative laparotomy, subtotal colectomy, with abdominal washout and abdominal wound VAC, status post second look explorative laparotomy with ileocolonic anastomosis on 12/11/2024 6. Elevated liver enzymes from shock liver 7. Anemia associated with acute blood loss, status post packed RBCs transfusion Plan: Repeat hemodialysis today Repeat DDAVP Add Aranesp Continue antibiotics as per ID.
[2024-12-13 12:00] LABS: Glucose,Whole Blood 225 mg/dL (70-110)
[2024-12-13] MEDS: DESMOPRESSIN ACETATE 32 MCG in SODIUM CHLORIDE 0.9% 50 ML IVPB ONE (12:33)
[2024-12-13] MEDS: MAGNESIUM SULFATE-D5W PMX 1 GM in DEXTROSE/WATER 1 100ML.BAG IVPB ONE (12:49)
[2024-12-13] MEDS: DARBEPOETIN ALFA 60 MCG/0.3 ML SYRINGE SQ SCH (13:53)
[2024-12-13 17:15] LABS: Glucose,Whole Blood 207 mg/dL (70-110)
[2024-12-13 17:23] LABS: HCT 21.5 % (39.6-50.0); MCH 30.8 pg (27.0-32.0); MCHC 36.3 g/dL (32.0-37.0); Mean Platelet Volume 10.7 fL (9.5-12.2); RBC 2.53 10*6/uL (4.40-5.60); RDW 14.6 % (11.5-14.5)
[2024-12-13 17:38] LABS: HGB 7.8 g/dL (13.0-17.0)
[2024-12-13 18:11] LABS: Platelet Count 37 10*3/uL (140-440)
[2024-12-13] MEDS: MVI, ADULT NO.4 WITH VIT K 10 ML, TRACE (CONC-1ML/DOSE) 1 ML, SODIUM CHLORIDE 4MEQ/ML V... IV SCH (20:25)
[2024-12-14 00:39] LABS: Glucose,Whole Blood 167 mg/dL (70-110)
[2024-12-14 01:19] LABS: Immature Platelet Fraction 8.9 % (1.1-6.1); MCH 31.1 pg (27.0-32.0); MCHC 36.5 g/dL (32.0-37.0); MCV 85.4 fL (80.0-97.0); Mean Platelet Volume 11.7 fL (9.5-12.2); RBC 2.12 10*6/uL (4.40-5.60); RDW 14.8 % (11.5-14.5)
[2024-12-14 01:36] LABS: HCT 18.1 % (39.6-50.0); HGB 6.6 g/dL (13.0-17.0)
[2024-12-14 01:37] LABS: Platelet Count 38 10*3/uL (140-440)
[2024-12-14 04:30] LABS: Band Neutrophils % 5 %; Lymphocytes # (M) 1.67 k/uL (1.0-4.8); Metamyelocytes # (M) 0.56 k/uL (0); Metamyelocytes % 1 %; Monocytes # (M) 0.56 k/uL (0-1.0); Neutrophils # (M) 53.83 k/uL (1.3-7.7); Neutrophils % (M) 92 %; Nucleated Red Blood Cells 0 /100 WBC (0-0); Total Cells Counted 200
[2024-12-14 04:32] LABS: Anisocytosis (M) Present
[2024-12-14 04:36] LABS: Polychromasia Present
[2024-12-14 05:29] LABS: ABG HCO3 23 mmol/L (21-25); ABG Oxygen Saturation 99.6 % (94-97); ABG PCO2 38 mmHg (35-45); ABG PH 7.39 (7.35-7.45); ABG PO2 136 mmHg (83-108); ABG TCO2 24 mmol/L (19-24)
[2024-12-14 05:31] LABS: Allen Test Performed? no
[2024-12-14 05:53] LABS: MCH 30.7 pg (27.0-32.0); MCHC 35.9 g/dL (32.0-37.0); MCV 85.3 fL (80.0-97.0); Mean Platelet Volume 11.9 fL (9.5-12.2); RBC 2.25 10*6/uL (4.40-5.60); RDW 14.9 % (11.5-14.5)
[2024-12-14 06:04] LABS: WBC 53.36 10*3/uL (4.50-10.00)
[2024-12-14 06:05] LABS: Glucose,Whole Blood 158 mg/dL (70-110)
[2024-12-14 06:06] LABS: HGB 6.9 g/dL (13.0-17.0)
[2024-12-14 06:07] LABS: ALT 535 U/L (4-49); AST 201 U/L (17-59); African American GFR (CKD) 24 (>60 ml/min/1.73 sqM); Albumin 1.3 g/dL (3.5-5.0); Alkaline Phosphatase 186 U/L (38-126); Anion Gap 8 mmol/L; Blood Urea Nitrogen 61 mg/dL (9-20); Calcium 6.8 mg/dL (8.4-10.2); Carbon Dioxide 22 mmol/L (22-30); Chloride 97 mmol/L (98-107); Glucose 181 mg/dL (74-99); HCT 19.2 % (39.6-50.0); Magnesium 1.9 mg/dL (1.6-2.3); Non-African American GFR(CKD) 21 (>60 ml/min/1.73 sqM); Platelet Count 36 10*3/uL (140-440); Sodium 127 mmol/L (137-145); Total Bilirubin 3.6 mg/dL (0.2-1.3); Total Protein 2.9 g/dL (6.3-8.2)
--- NOTE | 2024-12-14 07:32 | XR ---
EXAMINATION TYPE: XR chest 1V portable DATE OF EXAM: 12/14/2024 5:37 AM COMPARISON: None. CLINICAL INDICATION: Male, 69 years old with history of Vent, difficulty breathing TECHNIQUE: XR chest 1V portable view(s) obtained. FINDINGS: The heart size is enlarged. The pulmonary vasculature is normal. Thickening along the lateral right pleural margin. Calcification along the right diaphragm. Partial s ilhouetting of the left diaphragm. Mild infiltrate remains present at the right base, stable. Correla te for atelectasis. Endotracheal tube tip 4.4 cm above the juan francisco. Nasogastric tube transverses the thorax. Double-lumen catheter on the right has tips in the superior vena cava region. Pacemaker overlies left chest IMPRESSION: 1. Stable examination from prior study. 2. Mild right lower lobe infiltrate. Correlate for atelectasis or pneumonia. Some mild atelectasis ma y be at the left base. 3. Lines and catheters discussed above [facility], , 12/14/2024 7:30 AM
[2024-12-14] MEDS ORDERED: VASOPRESSIN 20 UNIT/ML 1 ML VIAL ONE (08:30)
[2024-12-14] MEDS ORDERED: ROCURONIUM 10 MG/ML (5 ML VIAL) IV ONE (08:30)
[2024-12-14] MEDS: IV FLUID CONTINUATION 1,000 ML IV ONE (08:30)
[2024-12-14] MEDS ORDERED: MIDAZOLAM 2 MG/2 ML VIAL ONE (08:30)
[2024-12-14] MEDS ORDERED: KETAMINE HCL IN 0.9 % NACL 50 MG/5 ML SYRINGE ONE (08:30)
[2024-12-14 10:08] LABS: Glucose,Whole Blood 179 mg/dL (70-110)
--- NOTE | 2024-12-14 11:11 | P.OP ---
Date of Procedure: 12/14/24 Preoperative Diagnosis: Ischemic bowel Postoperative Diagnosis: Ischemic bowel Procedure(s) Performed: Relook laparotomy Abdominal washout Abdominal closure Negative pressure wound VAC application Anesthesia: LEONARD Surgeon: Moi Rae Pathology: other (Intra-abdominal fluid cultures) Condition: stable Disposition: ICU Indications for Procedure: 69-year-old male with history of ischemic bowel that has been maintained in the ICU. He has undergone bowel resection with discontinuity and relook laparotomy with anastomosis creation. Plan for operative intervention today is for attempt at closure and abdominal washout. This was discussed with patient's sister along with risks, benefits and alternatives. She is aware of his poor overall prognosis and this was discussed in depth with her as well as discussion on goals of care. Patient's sister is understanding of this and further decisions to be made based on operative findings. Operative Findings: Old hematoma within abdominal cavity evacuated Anastomosis appears patent and healthy Description of Procedure: Patient was brought to the operating suite and placed in supine position on the operating table. As patient is already intubated, further sedation provided by anesthesia and patient had previous ABThera wound VAC removed. He was then prepped and draped in regular sterile fashion. Abdomen was completely examined and evacuation of old hematoma was performed. No active bleeding was noted and hemostasis was noted to be maintained. Previous anastomosis site was evaluated and noted to be patent and without any ischemic changes. Appears to be healing at this time. No evidence of leakage noted. Copious amounts irrigation was placed throughout the wound cavity and suctioned. Initial thought on closure of the abdomen was to perform a Vicryl bridging mesh. However, this facility does not have this product available and although it was ordered it has not been delivered. As patient has had multiple relook laparotomies, closure will become more difficult with continued ABThera placement. Decision was made to primarily close the fascia. MARÍA drain was placed in both the right paracolic and left paracolic gutters and secured in place on either side of the abdomen. Fascia was closed with running looped PDS suture. And with discussion with anesthesia during this, patient's peak pressures did not elevate. Decision was made to place black wound VAC sponge over the fascial closure. This was secured in place with the wound VAC dressing. Appropriate seal was noted when attached to wound VAC. Patient was taken back to ICU in critical condition.
[2024-12-14 12:13] LABS: Glucose,Whole Blood 123 mg/dL (70-110)
--- NOTE | 2024-12-14 12:14 | P.PN ---
Subjective Patient is seen for follow-up for acute kidney injury. He remains oliguric Started hemodialysis on 12/12/2024 due to progressive acute kidney injury and intractable hyperkalemia Status post explorative laparotomy, abdominal washout and replacement of wound VAC this morning. Hemoglobin is 6.9 g/dL Patient is back on high-dose pressors with Levophed at 0.3 along with vasopressin Potassium is 5.0 Objective - Vital Signs Vital signs: Vital Signs Temp 98.6 F 12/14/24 10:15 Pulse 75 12/14/24 11:30 Resp 18 12/14/24 11:30 BP 149/115 12/14/24 11:30 Pulse Ox 100 12/14/24 11:30 FiO2 40 12/14/24 11:17 Intake & Output 12/13/24 12/14/24 12/14/24 18:59 06:59 18:59 Intake Total 3428.351 2651.312 1112.108 Output Total 612 1825 115 Balance 2816.351 826.312 997.108 Intake: IV 1559 1782 523 0.9 @ KVO 90 120 30 Calcium Gluconate in NaCl 100 2 gm In Saline 1 100ml. bag @ 100 mls/hr IVPB ONCE ONE Rx#:[id number] Linezolid 600 mg In 150 Dextrose/Water 1 300ml. bag @ 150 mls/hr IVPB Q12HR [facility] Rx#:[id number] Magnesium Sulfate-D5w Pmx 100 1 gm In Dextrose/Water 1 100ml.bag @ 100 mls/hr IVPB ONCE ONE Rx#: [id number] Mvi, Adult No.4 with Vit 690 150 K 10 ml Trace (Conc-1Ml/ Dose) 1 ml Sodium Chloride 4Meq/ml Vial 40 meq Magnesium Sulfate gm 1 gm Calcium Gluconate 1 gm In Amino Acids 5 %/ Dextrose 20 % 1,000 ml @ 60 mls/hr IV .[id number] [facility] Rx#:[id number] Piperacillin-Tazobactam 3 150 .375 gm In Sodium Chloride 0.9% 100 ml @ 25 mls/hr IVPB Q8HR [facility] Rx# :[id number] Pressure Bags 69 72 18 Sodium Chloride 0.9% 1, 900 900 225 000 ml @ 75 mls/hr IV . [id number] [facility] Rx#:[id number] Intake, IV Titration 779.351 559.312 279.108 Amount Norepinephrine 8 mg In 554.871 559.312 279.108 Sodium Chloride 0.9% 250 ml @ 0.03 MCG/KG/MIN 9. 869 mls/hr IV .Q24H [facility] Rx#:[id number] Vasopressin 60 unit In 24.48 Sodium Chloride 0.9% 150 ml @ 0.03 UNITS/MIN 4.59 mls/hr IV .Q24H [facility] Rx#: [id number] propofoL 1,000 mg In 200.000 Empty Bag 1 bag @ 15 MCG/ KG/MIN 15.3 mls/hr IV . [id number] [facility] Rx#:[id number] Blood Product 590 310 310 Rc As-1 Unit 310 [id number] Rc As-1 Unit 310 [id number] Rc As-1 Unit 310 [id number] Rc Pheresis As-3 Unit 280 [id number] Hemodialysis 500 Output: Drainage 100 1800 100 Abdomen Wound Vac 100 1800 100 Urine 12 25 5 Hemodialysis 149 Hemodialysis Net Amount 351 Estimated Blood Loss 10 Other: Voiding Method Indwelling Catheter Indwelling Catheter ABP, PAP, CO, CI - Last Documented Arterial Blood Pressure 173/61 - Exam Patient is sedated and on the vent Examination of the heart S1 and S2 Examination of the lungs shows bilateral breath sounds are heard Abdomen is obese with abdominal wound VAC noted Examination lower extremity shows both extremities are wrapped. Chronic skin changes noted in the feet - Labs CBC & Chem 7: 12/14/24 05:35 12/14/24 05:35 Labs: Abnormal Lab Results - Last 24 Hours (Table) 12/13/24 12/13/24 12/13/24 Range/Units 06:20 17:14 17:14 WBC 54.80 H* (4.50-10.00) 10*3/uL RBC 2.53 L (4.40-5.60) 10*6/uL Hgb 7.8 L D (13.0-17.0) g/dL Hct 21.5 L (39.6-50.0) % Plt Count 37 L D (140-440) 10*3/uL Immature Gran # (0.00-0.04) 10*3/uL Neutrophils # (Manual) (1.3-7.7) k/uL Metamyelocytes # (Man) (0) k/uL Immature Plt Fraction (1.1-6.1) % ABG pO2 (83-108) mmHg ABG O2 Saturation (94-97) % Hemoglobin (13.0-17.5) gm/dL Sodium (137-145) mmol/L Chloride (98-107) mmol/L BUN (9-20) mg/dL Creatinine (0.66-1.25) mg/dL Glucose (74-99) mg/dL POC Glucose (mg/dL) 207 H (70-110) mg/dL Calcium (8.4-10.2) mg/dL Phosphorus (2.5-4.5) mg/dL Total Bilirubin (0.2-1.3) mg/dL AST (17-59) U/L ALT (4-49) U/L Alkaline Phosphatase (38-126) U/L Total Protein (6.3-8.2) g/dL Albumin (3.5-5.0) g/dL Crossmatch See Detail 12/14/24 12/14/24 12/14/24 Range/Units 00:38 00:56 05:27 WBC 55.50 H* (4.50-10.00) 10*3/uL RBC 2.12 L (4.40-5.60) 10*6/uL Hgb 6.6 L* (13.0-17.0) g/dL Hct 18.1 L* (39.6-50.0) % Plt Count 38 L (140-440) 10*3/uL Immature Gran # 1.42 H (0.00-0.04) 10*3/uL Neutrophils # (Manual) 53.83 H (1.3-7.7) k/uL Metamyelocytes # (Man) 0.56 H (0) k/uL Immature Plt Fraction 8.9 H (1.1-6.1) % ABG pO2 136 H (83-108) mmHg ABG O2 Saturation 99.6 H (94-97) % Hemoglobin 7.0 L* (13.0-17.5) gm/dL Sodium (137-145) mmol/L Chloride (98-107) mmol/L BUN (9-20) mg/dL Creatinine (0.66-1.25) mg/dL Glucose (74-99) mg/dL POC Glucose (mg/dL) 167 H (70-110) mg/dL Calcium (8.4-10.2) mg/dL Phosphorus (2.5-4.5) mg/dL Total Bilirubin (0.2-1.3) mg/dL AST (17-59) U/L ALT (4-49) U/L Alkaline Phosphatase (38-126) U/L Total Protein (6.3-8.2) g/dL Albumin (3.5-5.0) g/dL Crossmatch 12/14/24 12/14/24 12/14/24 Range/Units 05:35 05:35 06:04 WBC 53.36 H* (4.50-10.00) 10*3/uL RBC 2.25 L (4.40-5.60) 10*6/uL Hgb 6.9 L* (13.0-17.0) g/dL Hct 19.2 L* (39.6-50.0) % Plt Count 36 L (140-440) 10*3/uL Immature Gran # (0.00-0.04) 10*3/uL Neutrophils # (Manual) (1.3-7.7) k/uL Metamyelocytes # (Man) (0) k/uL Immature Plt Fraction 10.0 H (1.1-6.1) % ABG pO2 (83-108) mmHg ABG O2 Saturation (94-97) % Hemoglobin (13.0-17.5) gm/dL Sodium 127 L (137-145) mmol/L Chloride 97 L (98-107) mmol/L BUN 61 H (9-20) mg/dL Creatinine 2.93 H (0.66-1.25) mg/dL Glucose 181 H (74-99) mg/dL POC Glucose (mg/dL) 158 H (70-110) mg/dL Calcium 6.8 L (8.4-10.2) mg/dL Phosphorus 6.0 H (2.5-4.5) mg/dL Total Bilirubin 3.6 H (0.2-1.3) mg/dL AST 201 H (17-59) U/L ALT 535 H (4-49) U/L Alkaline Phosphatase 186 H (38-126) U/L Total Protein 2.9 L (6.3-8.2) g/dL Albumin 1.3 L (3.5-5.0) g/dL Crossmatch 12/14/24 Range/Units 10:07 WBC (4.50-10.00) 10*3/uL RBC (4.40-5.60) 10*6/uL Hgb (13.0-17.0) g/dL Hct (39.6-50.0) % Plt Count (140-440) 10*3/uL Immature Gran # (0.00-0.04) 10*3/uL Neutrophils # (Manual) (1.3-7.7) k/uL Metamyelocytes # (Man) (0) k/uL Immature Plt Fraction (1.1-6.1) % ABG pO2 (83-108) mmHg ABG O2 Saturation (94-97) % Hemoglobin (13.0-17.5) gm/dL Sodium (137-145) mmol/L Chloride (98-107) mmol/L BUN (9-20) mg/dL Creatinine (0.66-1.25) mg/dL Glucose (74-99) mg/dL POC Glucose (mg/dL) 179 H (70-110) mg/dL Calcium (8.4-10.2) mg/dL Phosphorus (2.5-4.5) mg/dL Total Bilirubin (0.2-1.3) mg/dL AST (17-59) U/L ALT (4-49) U/L Alkaline Phosphatase (38-126) U/L Total Protein (6.3-8.2) g/dL Albumin (3.5-5.0) g/dL Crossmatch Microbiology - Last 24 Hours (Table) 12/08/24 18:16 Blood Culture - Final Blood Assessment and Plan Assessment: 1. Acute kidney injury, ATN secondary to sepsis and hypotension, oliguric. Started on renal replacement therapy on 12/12/2024 due to intractable hyperkalemia in the setting of oliguria and progressive acute kidney injury. 2. Hyperkalemia associated with acute kidney injury and ischemic bowel 3. Anion gap metabolic acidosis secondary to lactic acidosis shock and acute kidney injury maintained status post bicarb drip 4. Hypovolemic hyponatremia status post multiple fluid boluses, now hypervolemic 5. Perforated bowel and intra-abdominal abscess status post explorative laparotomy, subtotal colectomy, with abdominal washout and abdominal wound VAC, status post second look explorative laparotomy with ileocolonic anastomosis on 12/11/2024. Patient was taken back to the OR today on 12/14/2024 for abdominal washout and replacement of wound VAC 6. Elevated liver enzymes from shock liver 7. Anemia associated with acute blood loss, status post packed RBCs transfusion Plan: Possible hemodialysis in a.m. if hemodynamically stable. Patient will likely need sled procedure Overall prognosis is guarded Continue antibiotics as per ID.
--- NOTE | 2024-12-14 12:15 | P.PN ---
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 12/14/24 Range/Units 05:35 05:35 06:04 WBC 53.36 H* (4.50-10.00) 10*3/uL RBC 2.25 L (4.40-5.60) 10*6/uL Hgb 6.9 L* (13.0-17.0) g/dL Hct 19.2 L* (39.6-50.0) % Plt Count 36 L (140-440) 10*3/uL Immature Gran # (0.00-0.04) 10*3/uL Neutrophils # (Manual) (1.3-7.7) k/uL Metamyelocytes # (Man) (0) k/uL Immature Plt Fraction 10.0 H (1.1-6.1) % ABG pO2 (83-108) mmHg ABG O2 Saturation (94-97) % Hemoglobin (13.0-17.5) gm/dL Sodium 127 L (137-145) mmol/L Chloride 97 L (98-107) mmol/L BUN 61 H (9-20) mg/dL Creatinine 2.93 H (0.66-1.25) mg/dL Glucose 181 H (74-99) mg/dL POC Glucose (mg/dL) 158 H (70-110) mg/dL Calcium 6.8 L (8.4-10.2) mg/dL Phosphorus 6.0 H (2.5-4.5) mg/dL Total Bilirubin 3.6 H (0.2-1.3) mg/dL AST 201 H (17-59) U/L ALT 535 H (4-49) U/L Alkaline Phosphatase 186 H (38-126) U/L Total Protein 2.9 L (6.3-8.2) g/dL Albumin 1.3 L (3.5-5.0) g/dL Crossmatch 12/14/24 Range/Units 10:07 WBC (4.50-10.00) 10*3/uL RBC (4.40-5.60) 10*6/uL Hgb (13.0-17.0) g/dL Hct (39.6-50.0) % Plt Count (140-440) 10*3/uL Immature Gran # (0.00-0.04) 10*3/uL Neutrophils # (Manual) (1.3-7.7) k/uL Metamyelocytes # (Man) (0) k/uL Immature Plt Fraction (1.1-6.1) % ABG pO2 (83-108) mmHg ABG O2 Saturation (94-97) % Hemoglobin (13.0-17.5) gm/dL Sodium (137-145) mmol/L Chloride (98-107) mmol/L BUN (9-20) mg/dL Creatinine (0.66-1.25) mg/dL Glucose (74-99) mg/dL POC Glucose (mg/dL) 179 H (70-110) mg/dL Calcium (8.4-10.2) mg/dL Phosphorus (2.5-4.5) mg/dL Total Bilirubin (0.2-1.3) mg/dL AST (17-59) U/L ALT (4-49) U/L Alkaline Phosphatase (38-126) U/L Total Protein (6.3-8.2) g/dL Albumin (3.5-5.0) g/dL Crossmatch Microbiology - Last 24 Hours (Table) 12/08/24 18:16 Blood Culture - Final Blood Assessment and Plan Plan: Acute abdomen with septic shock. The patient underwent exploratory laparotomy, small bowel resection, subtotal colectomy on 12/09/2024 and the patient was found to have ischemic and perforated transverse colon. The patient was found to have intra abdominal hematoma that was evacuated and interloop abscesses. The patient has an open abdomen with ABThera wound VAC in place. The patient underwent a second look laparotomy on 12/11/2024 with ileocolonic anastomosis and abdominal washout. Remains septic, hemodynamically unstable, pressor dependent and has signs of multisystem organ failure. Wound VAC is in place and the patient is having blood oozing from the wound surface in addition to high output as noted in the ABThera wound VAC. Patient was started on TPN for nutritional support. The patient is to be taken to the operating room for closure of the abdominal wound and abdominal washout. Shock, septic in nature, white cell count remains elevated and the patient remains on high-dose pressors, also on a normal set rate of 75 cc an hour, remains hemodynamically unstable Acute leukocytosis secondary to above, the white cell count remains quite elevated Acute lactic acidosis secondary to above, improved respiratory status, lactic acid level remains elevated Acute on top of chronic injury and the patient started on hemodialysis, The patient underwent a second session of hemodialysis yesterday. Shock liver secondary to above, LFTs are still elevated although there is been some improving trend. Acute hypoxic/hypercapnic respiratory failure in the patient currently intubated on the mechanical ventilator. Chest x-ray shows no significant interval change in the blood. Were noted. COPD, severe at baseline Right lower extremity wound culture positive for MRSA Acute anemia, current hemoglobin is down to 6.2 and the patient will be given another 2 units of packed RBC. General surgery was involved. There is extension of the right flank hematoma into the right thigh and the patient is oozing blood from the wound surface. Thrombocytopenia, sepsis induced, rule out underlying low-grade DIC. History of systolic congestive heart failure, the most recent echocardiogram on this patient was done on 10/17/2023 and the patient has a preserved LV function with an EF of around 55%. There is moderate RV dilatation with normal function and mild to moderate tricuspid regurgitation, no pericardial effusion. Secondary pulmonary hypertension Morbid obesity Obstructive sleep apnea syndrome with apnea-hypopnea index of 45 History of left-sided empyema requiring decortication back in 2014 History of diabetes with elevated blood sugars, currently on Lantus insulin Benign essential hypertension Dyslipidemia Chronic and recurrent cellulitis of lower extremities History of atrial fibrillation and sick sinus syndrome previous pacer/AICD placement patient has a paced rhythm on his initial presentation Medical debility with difficult ambulation, patient is mostly bedbound and failure to thrive Plan: The patient is sedated on propofol Continue ventilator support and no vent changes Normal saline at 75 cc an hour. TPN for nutrition support Continue pressors and the patient is currently on norepinephrine and vasopressin Continue broad-spectrum antibiotic coverage and the patient is currently on IV Zosyn, IV Zyvox and Diflucan. ABThera wound VAC applied to the anterior abdominal wall, will obtain surgical evaluation again as the patient continues to have oozing of blood from the wound surface. The patient will be taken to the operating room for closure of the abdominal wound. Continue DuoNeb inhalations Continue patient on stress dose hydrocortisone Anticoagulation is currently on hold Monitor LFTs Monitor platelet count and coagulation profile. Hemodialysis per nephrology, ID is on the case and the patient will be kept on same antibiotic coverage Monitor lactic acid level Transfuse with another unit of packed RBC. Lantus insulin for blood sugar control 10 units a day and sliding scale coverage. Lower extremity wounds are stable and there is no active cellulitis and there is no active drainage from the wounds noted the lower extremities bilaterally appropriate dressing is been applied We will continue to follow and the patient will be kept in the intensive care unit Condition is critical care patient does not have any immediate family member. A friend, a close friend named Mahesh seems to be the advocate and he was informed of those changes and he was updated on his condition. Will continue to follow. Condition is very critical. Evaluation was done in 40 minutes. Time with Patient: Greater than 30
[2024-12-14 13:01] LABS: Basophils # (A) 0.05 10*3/uL (0.00-0.10); Basophils % (A) 0.1 %; HGB 7.9 g/dL (13.0-17.0); Immature Platelet Fraction 11.1 % (1.1-6.1); Lymphocytes # (A) 0.49 10*3/uL (0.90-5.00); Lymphocytes % (A) 0.9 %; MCH 29.2 pg (27.0-32.0); MCHC 35.9 g/dL (32.0-37.0); MCV 81.2 fL (80.0-97.0); Monocytes # (A) 3.36 10*3/uL (0.20-1.00); Monocytes % (A) 6.4 %; Neutrophils # (A) 46.59 10*3/uL (1.80-7.70); Neutrophils % (A) 89.2 %; RBC 2.71 10*6/uL (4.40-5.60); RDW 16.2 % (11.5-14.5)
[2024-12-14 13:16] LABS: Platelet Count 33 10*3/uL (140-440); WBC 52.26 10*3/uL (4.50-10.00)
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
[2024-12-14 16:58] LABS: Glucose,Whole Blood 157 mg/dL (70-110)
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
[2024-12-14 17:55] LABS: Glucose,Whole Blood 86 mg/dL (70-110)
[2024-12-14] MEDS: MVI, ADULT NO.4 WITH VIT K 10 ML, TRACE (CONC-1ML/DOSE) 1 ML, SODIUM CHLORIDE 4MEQ/ML V... IV SCH (23:16)
[2024-12-14 23:20] LABS: Glucose,Whole Blood 253 mg/dL (70-110)
[2024-12-15 05:34] LABS: ABG Base Excess -5.3 mmol/L; ABG HCO3 20 mmol/L (21-25); ABG PCO2 40 mmHg (35-45); ABG PH 7.32 (7.35-7.45); ABG PO2 121 mmHg (83-108); ABG TCO2 22 mmol/L (19-24)
[2024-12-15 05:36] LABS: Allen Test Performed? no
[2024-12-15 05:50] LABS: MCH 28.6 pg (27.0-32.0); MCHC 34.7 g/dL (32.0-37.0); MCV 82.6 fL (80.0-97.0); RBC 2.41 10*6/uL (4.40-5.60); RDW 17.3 % (11.5-14.5)
[2024-12-15 06:04] LABS: WBC 56.56 10*3/uL (4.50-10.00)
[2024-12-15 06:05] LABS: HCT 19.9 % (39.6-50.0); HGB 6.9 g/dL (13.0-17.0)
[2024-12-15 06:06] LABS: Platelet Count 34 10*3/uL (140-440)
[2024-12-15 06:07] LABS: Glucose,Whole Blood 305 mg/dL (70-110)
[2024-12-15 06:33] LABS: ALT 335 U/L (4-49); AST 117 U/L (17-59); Albumin 1.4 g/dL (3.5-5.0); Alkaline Phosphatase 209 U/L (38-126); Anion Gap 10 mmol/L; Blood Urea Nitrogen 69 mg/dL (9-20); Calcium 6.9 mg/dL (8.4-10.2); Carbon Dioxide 20 mmol/L (22-30); Chloride 96 mmol/L (98-107); Glucose 259 mg/dL (74-99); Magnesium 1.9 mg/dL (1.6-2.3); Phosphorus 6.7 mg/dL (2.5-4.5); Sodium 126 mmol/L (137-145); Total Bilirubin 4.4 mg/dL (0.2-1.3); Total Protein 3.1 g/dL (6.3-8.2)
[2024-12-15 06:39] LABS: African American GFR (CKD) 21 (>60 ml/min/1.73 sqM); Non-African American GFR(CKD) 18 (>60 ml/min/1.73 sqM)
[2024-12-15 06:40] LABS: Band Neutrophils % 1 %; Metamyelocytes # (M) 1.13 k/uL (0); Metamyelocytes % 2 %; Monocytes # (M) 1.13 k/uL (0-1.0); Neutrophils # (M) 54.29 k/uL (1.3-7.7); Neutrophils % (M) 95 %; Nucleated Red Blood Cells 0 /100 WBC (0-0); Total Cells Counted 200
--- NOTE | 2024-12-15 07:12 | XR ---
EXAMINATION TYPE: XR chest 1V portable DATE OF EXAM: 12/15/2024 5:26 AM COMPARISON: None. CLINICAL INDICATION: Male, 69 years old with history of vent, difficulty breathing TECHNIQUE: XR chest 1V portable view(s) obtained. FINDINGS: The heart size is Enlarged. The pulmonary vasculature is normal. Right lateral pleural thickening remains present. Mild right lower lobe infiltrate is worsening. Pace maker overlies left chest. Endotracheal tube tip is 3.3 cm above the juan francisco. Nasogastric transverse thorax. Right central venous catheter has its tips within the superior vena cava region. A right central venous catheter has its tip within the right atrium. IMPRESSION: 1. Worsening right lower lobe infiltrate. Correlate for pneumonia. 2. Lines and catheters discussed above. [facility], , 12/15/2024 7:10 AM
[2024-12-15 08:04] LABS: Glucose,Whole Blood 301 mg/dL (70-110)
[2024-12-15 10:49] VITALS: BMI 66.9
[2024-12-15 11:32] LABS: Glucose,Whole Blood 277 mg/dL (70-110)
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
[2024-12-15 14:00] LABS: Glucose,Whole Blood 298 mg/dL (70-110)
[2024-12-15] MEDS: MAGNESIUM SULFATE-D5W PMX 1 GM in DEXTROSE/WATER 1 100ML.BAG IVPB ONE (14:02)
--- NOTE | 2024-12-15 14:32 | P.PN ---
Subjective Patient is seen for follow-up for acute kidney injury. He remains oliguric Started hemodialysis on 12/12/2024 due to progressive acute kidney injury and intractable hyperkalemia Status post repeat explorative laparotomy, abdominal washout and replacement of wound VAC 12/14/2024 Hemoglobin is 6.9 g/dL Levophed is down to 0.1 mcg/kg Vasopressin at 0.04 mcg/kg Potassium is 5.0 Scheduled for hemodialysis today Objective - Vital Signs Vital signs: Vital Signs Temp 98.3 F 12/15/24 13:10 Pulse 80 12/15/24 14:00 Resp 20 12/15/24 14:00 BP 157/61 12/15/24 14:00 Pulse Ox 99 12/15/24 14:00 FiO2 35 12/15/24 12:00 Intake & Output 12/14/24 12/15/24 12/15/24 18:59 06:59 18:59 Intake Total 2643.213 2489.442 2177.366 Output Total 695 1895 1420 Balance 1948.213 594.442 757.366 Weight 211.692 kg 211.692 kg Intake: IV 1620 1932 1228 0.9 @ KVO 140 240 160 Mvi, Adult No.4 with Vit 570 720 420 K 10 ml Trace (Conc-1Ml/ Dose) 1 ml Sodium Chloride 4Meq/ml Vial 40 meq Magnesium Sulfate gm 1 gm Calcium Gluconate 1 gm In Amino Acids 5 %/ Dextrose 20 % 1,000 ml @ 60 mls/hr IV .[id number] JG Rx#:[id number] Pressure Bags 60 72 48 Sodium Chloride 0.9% 1, 750 900 600 000 ml @ 75 mls/hr IV . [id number] JG Rx#:[id number] Intake, IV Titration 713.213 557.442 370.366 Amount Norepinephrine 8 mg In 509.374 390.504 207.506 Sodium Chloride 0.9% 250 ml @ 0.03 MCG/KG/MIN 9. 869 mls/hr IV .Q24H JG Rx#:[id number] Vasopressin 60 unit In 106.259 66.938 Sodium Chloride 0.9% 150 ml @ 0.03 UNITS/MIN 4.59 mls/hr IV .Q24H JG Rx#: [id number] propofoL 1,000 mg In 97.58 100 162.86 Empty Bag 1 bag @ 15 MCG/ KG/MIN 15.3 mls/hr IV . Q6H33M [facility] Rx#:[id number] Blood Product 310 579 Rc As-1 Unit 310 [id number] Rc As-1 Unit 310 [id number] Rc Pheresis 2 As3 Unit 269 [id number] Output: Drainage 680 1895 1420 Abdomen Wound Vac 100 1275 1000 Left 460 400 220 Medial 120 220 200 Urine 5 0 0 Estimated Blood Loss 10 Other: Voiding Method Indwelling Catheter Indwelling Catheter ABP, PAP, CO, CI - Last Documented Arterial Blood Pressure 125/54 - Exam Patient is sedated and on the vent Examination of the heart S1 and S2 Examination of the lungs shows bilateral breath sounds are heard Abdomen is obese with abdominal wound VAC noted Examination lower extremity shows both extremities are wrapped. Chronic skin changes noted in the feet with mottling - Labs CBC & Chem 7: 12/15/24 06:00 12/15/24 06:00 Labs: Abnormal Lab Results - Last 24 Hours (Table) 12/13/24 12/14/24 12/14/24 Range/Units 06:20 16:57 23:18 WBC (4.50-10.00) 10*3/uL RBC (4.40-5.60) 10*6/uL Hgb (13.0-17.0) g/dL Hct (39.6-50.0) % Plt Count (140-440) 10*3/uL Immature Gran # (0.00-0.04) 10*3/uL Neutrophils # (Manual) (1.3-7.7) k/uL Monocytes # (Manual) (0-1.0) k/uL Metamyelocytes # (Man) (0) k/uL ABG pH (7.35-7.45) ABG pO2 (83-108) mmHg ABG HCO3 (21-25) mmol/L ABG O2 Saturation (94-97) % Hemoglobin (13.0-17.5) gm/dL Sodium (137-145) mmol/L Chloride (98-107) mmol/L Carbon Dioxide (22-30) mmol/L BUN (9-20) mg/dL Creatinine (0.66-1.25) mg/dL Glucose (74-99) mg/dL POC Glucose (mg/dL) 157 H 253 H (70-110) mg/dL Calcium (8.4-10.2) mg/dL Phosphorus (2.5-4.5) mg/dL Total Bilirubin (0.2-1.3) mg/dL AST (17-59) U/L ALT (4-49) U/L Alkaline Phosphatase (38-126) U/L Total Protein (6.3-8.2) g/dL Albumin (3.5-5.0) g/dL Crossmatch See Detail 12/15/24 12/15/24 12/15/24 Range/Units 05:31 06:00 06:00 WBC 56.56 H* (4.50-10.00) 10*3/uL RBC 2.41 L (4.40-5.60) 10*6/uL Hgb 6.9 L* (13.0-17.0) g/dL Hct 19.9 L* (39.6-50.0) % Plt Count 34 L (140-440) 10*3/uL Immature Gran # 2.36 H (0.00-0.04) 10*3/uL Neutrophils # (Manual) 54.29 H (1.3-7.7) k/uL Monocytes # (Manual) 1.13 H (0-1.0) k/uL Metamyelocytes # (Man) 1.13 H (0) k/uL ABG pH 7.32 L (7.35-7.45) ABG pO2 121 H (83-108) mmHg ABG HCO3 20 L (21-25) mmol/L ABG O2 Saturation 99.0 H (94-97) % Hemoglobin 7.0 L* (13.0-17.5) gm/dL Sodium 126 L (137-145) mmol/L Chloride 96 L (98-107) mmol/L Carbon Dioxide 20 L (22-30) mmol/L BUN 69 H (9-20) mg/dL Creatinine 3.31 H (0.66-1.25) mg/dL Glucose 259 H (74-99) mg/dL POC Glucose (mg/dL) (70-110) mg/dL Calcium 6.9 L (8.4-10.2) mg/dL Phosphorus 6.7 H (2.5-4.5) mg/dL Total Bilirubin 4.4 H (0.2-1.3) mg/dL AST 117 H (17-59) U/L ALT 335 H (4-49) U/L Alkaline Phosphatase 209 H (38-126) U/L Total Protein 3.1 L (6.3-8.2) g/dL Albumin 1.4 L (3.5-5.0) g/dL Crossmatch 12/15/24 12/15/24 12/15/24 Range/Units 06:06 08:03 11:31 WBC (4.50-10.00) 10*3/uL RBC (4.40-5.60) 10*6/uL Hgb (13.0-17.0) g/dL Hct (39.6-50.0) % Plt Count (140-440) 10*3/uL Immature Gran # (0.00-0.04) 10*3/uL Neutrophils # (Manual) (1.3-7.7) k/uL Monocytes # (Manual) (0-1.0) k/uL Metamyelocytes # (Man) (0) k/uL ABG pH (7.35-7.45) ABG pO2 (83-108) mmHg ABG HCO3 (21-25) mmol/L ABG O2 Saturation (94-97) % Hemoglobin (13.0-17.5) gm/dL Sodium (137-145) mmol/L Chloride (98-107) mmol/L Carbon Dioxide (22-30) mmol/L BUN (9-20) mg/dL Creatinine (0.66-1.25) mg/dL Glucose (74-99) mg/dL POC Glucose (mg/dL) 305 H 301 H 277 H (70-110) mg/dL Calcium (8.4-10.2) mg/dL Phosphorus (2.5-4.5) mg/dL Total Bilirubin (0.2-1.3) mg/dL AST (17-59) U/L ALT (4-49) U/L Alkaline Phosphatase (38-126) U/L Total Protein (6.3-8.2) g/dL Albumin (3.5-5.0) g/dL Crossmatch 12/15/24 Range/Units 13:58 WBC (4.50-10.00) 10*3/uL RBC (4.40-5.60) 10*6/uL Hgb (13.0-17.0) g/dL Hct (39.6-50.0) % Plt Count (140-440) 10*3/uL Immature Gran # (0.00-0.04) 10*3/uL Neutrophils # (Manual) (1.3-7.7) k/uL Monocytes # (Manual) (0-1.0) k/uL Metamyelocytes # (Man) (0) k/uL ABG pH (7.35-7.45) ABG pO2 (83-108) mmHg ABG HCO3 (21-25) mmol/L ABG O2 Saturation (94-97) % Hemoglobin (13.0-17.5) gm/dL Sodium (137-145) mmol/L Chloride (98-107) mmol/L Carbon Dioxide (22-30) mmol/L BUN (9-20) mg/dL Creatinine (0.66-1.25) mg/dL Glucose (74-99) mg/dL POC Glucose (mg/dL) 298 H (70-110) mg/dL Calcium (8.4-10.2) mg/dL Phosphorus (2.5-4.5) mg/dL Total Bilirubin (0.2-1.3) mg/dL AST (17-59) U/L ALT (4-49) U/L Alkaline Phosphatase (38-126) U/L Total Protein (6.3-8.2) g/dL Albumin (3.5-5.0) g/dL Crossmatch Microbiology - Last 24 Hours (Table) 12/14/24 09:24 Gram Stain - Preliminary Abdomen Wound Culture - Preliminary 12/09/24 10:06 Blood Culture - Final Blood Assessment and Plan Assessment: 1. Acute kidney injury, ATN secondary to sepsis and hypotension, oliguric. Sta rted on renal replacement therapy on 12/12/2024 due to intractable hyperkalemia in the setting of oliguria and progressive acute kidney injury. 2. Hyperkalemia associated with acute kidney injury and ischemic bowel 3. Anion gap metabolic acidosis secondary to lactic acidosis shock and acute kidney injury maintained status post bicarb drip 4. Hypovolemic hyponatremia status post multiple fluid boluses, now hypervolemic 5. Perforated bowel and intra-abdominal abscess status post explorative lapa rotomy, subtotal colectomy, with abdominal washout and abdominal wound VAC, status post second look explorative laparotomy with ileocolonic anastomosis on 12/11/2024. Patient was taken back to the OR on 12/14/2024 for abdominal washout and replacement of wound VAC 6. Elevated liver enzymes from shock liver 7. Anemia associated with acute blood loss, status post packed RBCs transfusion Plan: Hemodialysis today Overall prognosis is guarded Continue antibiotics as per ID.
[2024-12-15 16:20] LABS: Glucose,Whole Blood 290 mg/dL (70-110)
[2024-12-15] MEDS: MVI, ADULT NO.4 WITH VIT K 10 ML, TRACE (CONC-1ML/DOSE) 1 ML, SODIUM CHLORIDE 4MEQ/ML V... IV SCH (17:09)
[2024-12-15] MEDS: PIPERACILLIN-TAZOBACTAM 3.375 GM in SODIUM CHLORIDE 0.9% 100 ML IVPB SCH (20:43)
[2024-12-15 21:45] LABS: HCT 22.5 % (39.6-50.0); MCH 29.2 pg (27.0-32.0); MCHC 35.6 g/dL (32.0-37.0); MCV 82.1 fL (80.0-97.0); Mean Platelet Volume 12.1 fL (9.5-12.2); RBC 2.74 10*6/uL (4.40-5.60); RDW 16.2 % (11.5-14.5)
[2024-12-15 21:53] LABS: Platelet Count 22 10*3/uL (140-440); WBC 53.63 10*3/uL (4.50-10.00)
[2024-12-15 23:37] VITALS: BP 152/57
[2024-12-16 00:02] LABS: Glucose,Whole Blood 229 mg/dL (70-110)
[2024-12-16 03:44] LABS: HCT 22.1 % (39.6-50.0); HGB 7.7 g/dL (13.0-17.0); Immature Platelet Fraction 13.9 % (1.1-6.1); MCH 28.6 pg (27.0-32.0); MCHC 34.8 g/dL (32.0-37.0); MCV 82.2 fL (80.0-97.0); RBC 2.69 10*6/uL (4.40-5.60); RDW 16.2 % (11.5-14.5)
[2024-12-16 04:18] LABS: Ionized Calcium 4.1 mg/dL (4.5-5.3)
[2024-12-16 04:31] LABS: ALT 240 U/L (4-49); AST 97 U/L (17-59); African American GFR (CKD) 29 (>60 ml/min/1.73 sqM); Albumin 1.4 g/dL (3.5-5.0); Alkaline Phosphatase 230 U/L (38-126); Anion Gap 8 mmol/L; Blood Urea Nitrogen 55 mg/dL (9-20); Carbon Dioxide 21 mmol/L (22-30); Chloride 96 mmol/L (98-107); Glucose 191 mg/dL (74-99); Magnesium 1.9 mg/dL (1.6-2.3); Non-African American GFR(CKD) 25 (>60 ml/min/1.73 sqM); Phosphorus 5.2 mg/dL (2.5-4.5); Potassium 4.2 mmol/L (3.5-5.1); Sodium 125 mmol/L (137-145); Total Bilirubin 5.7 mg/dL (0.2-1.3); Total Protein 3.3 g/dL (6.3-8.2)
[2024-12-16 04:35] LABS: WBC 49.56 10*3/uL (4.50-10.00)
[2024-12-16 04:36] LABS: Platelet Count 22 10*3/uL (140-440)
[2024-12-16 05:18] LABS: ABG Base Excess -2.6 mmol/L; ABG HCO3 23 mmol/L (21-25); ABG Oxygen Saturation 98.3 % (94-97); ABG PCO2 39 mmHg (35-45); ABG PH 7.37 (7.35-7.45); ABG PO2 96 mmHg (83-108); ABG TCO2 24 mmol/L (19-24)
[2024-12-16 05:19] LABS: Allen Test Performed? no
[2024-12-16 05:31] LABS: Glucose,Whole Blood 141 mg/dL (70-110)
--- NOTE | 2024-12-16 07:59 | XR ---
EXAMINATION TYPE: XR chest 1V portable DATE OF EXAM: 12/16/2024 5:19 AM COMPARISON: Multiple radiographs, with the most recent on 12/15/2024 TECHNIQUE: XR chest 1V portable Portable AP radiograph of the chest. CLINICAL INDICATION:Male, 69 years old with history of vent; FINDINGS: Lungs/Pleura: Blunting of both costophrenic angles. Right basilar patchy airspace opacities. No pneum othorax. Pulmonary vascularity: Unremarkable. Heart/mediastinum: Cardiomediastinal silhouette is enlarged and stable. Three lead cardiac conduction device overlying the left hemithorax with lead tips projecting over the right ventricle, right atriu m and coronary sinus. Musculoskeletal: No acute osseous pathology. Other findings: None Lines/Tubes: Endotracheal tube with distal tip 3.2 cm above the juan francisco Nasogastric tube with its distal tip and side-port projecting under the diaphragm. Right IJ approach central venous catheter distal tip at the superior cavoatrial junction. Additional right subclavian approach central venous catheter with distal tip at the superior cavoatrial junction . IMPRESSION: 1. Stable support lines and tubes. 2. Small bilateral pleural effusions with similar right basilar patchy airspace opacities concerning for pneumonia. [facility], , 12/16/2024 7:57 AM
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
[2024-12-16 11:42] LABS: Glucose,Whole Blood 270 mg/dL (70-110)
--- NOTE | 2024-12-16 12:08 | P.PN ---
Subjective Patient is seen for follow-up for acute kidney injury. He remains oliguric Started hemodialysis on 12/12/2024 due to progressive acute kidney injury and intractable hyperkalemia Status post repeat explorative laparotomy, abdominal washout and replacement of wound VAC 12/14/2024 Hemoglobin is 7.7 today Levophed is down to 0.1 mcg/kg Vasopressin at 0.04 mcg/kg Potassium is 4.2 Status post hemodialysis yesterday with no UF Objective - Vital Signs Vital signs: Vital Signs Temp 98.6 F 12/16/24 08:00 Pulse 74 12/16/24 11:25 Resp 21 12/16/24 11:15 BP 152/57 12/15/24 23:30 Pulse Ox 99 12/16/24 11:15 FiO2 35 12/16/24 11:38 Intake & Output 12/15/24 12/16/24 12/16/24 18:59 06:59 18:59 Intake Total 4076.907 1976.258 834.59 Output Total 1820 1990 740 Balance 2256.907 -13.742 94.59 Weight 211.692 kg 209.877 kg Intake: IV 1658 703 512 0.9 @ KVO 260 270 100 Linezolid 600 mg In 300 300 Dextrose/Water 1 300ml. bag @ 150 mls/hr IVPB Q12HR [facility] Rx#:[id number] Mvi, Adult No.4 with Vit 420 K 10 ml Trace (Conc-1Ml/ Dose) 1 ml Sodium Chloride 4Meq/ml Vial 40 meq Magnesium Sulfate gm 1 gm Calcium Gluconate 1 gm In Amino Acids 5 %/ Dextrose 20 % 1,000 ml @ 60 mls/hr IV .[id number] [facility] Rx#:[id number] Piperacillin-Tazobactam 3 100 100 .375 gm In Sodium Chloride 0.9% 100 ml @ 25 mls/hr IVPB Q8HR [facility] Rx# :[id number] Pressure Bags 78 33 12 Sodium Chloride 0.9% 1, 900 000 ml @ 75 mls/hr IV . [id number] [facility] Rx#:[id number] Intake, IV Titration 1839.907 673.258 322.59 Amount Fluconazole in NaCl,Iso- 100 Osm 200 mg In Saline 1 100ml.bag @ 100 mls/hr IVPB DAILY [facility] Rx#: [id number] Mvi, Adult No.4 with Vit 1111 K 10 ml Trace (Conc-1Ml/ Dose) 1 ml Sodium Chloride 4Meq/ml Vial 40 meq Magnesium Sulfate gm 1 gm Calcium Gluconate 1 gm In Amino Acids 5 %/ Dextrose 20 % 1,000 ml @ 60 mls/hr IV .[id number] [facility] Rx#:[id number] Norepinephrine 8 mg In 464.684 497.268 122.59 Sodium Chloride 0.9% 250 ml @ 0.03 MCG/KG/MIN 9. 869 mls/hr IV .Q24H [facility] Rx#:[id number] Vasopressin 60 unit In 44.753 Sodium Chloride 0.9% 150 ml @ 0.03 UNITS/MIN 4.59 mls/hr IV .Q24H [facility] Rx#: [id number] propofoL 1,000 mg In 219.470 175.99 100 Empty Bag 1 bag @ 15 MCG/ KG/MIN 15.3 mls/hr IV . Q6H33M [facility] Rx#:[id number] Blood Product 579 Rc As-1 Unit 310 [id number] Rc Pheresis 2 As3 Unit 269 [id number] Hemodialysis 600 Output: Drainage 1785 1370 740 Abdomen Wound Vac 1000 600 500 Left 425 530 240 Medial 360 240 Urine 35 20 0 Hemodialysis 110 Hemodialysis Net Amount 490 Other: Voiding Method Indwelling Catheter Indwelling Catheter Indwelling Catheter ABP, PAP, CO, CI - Last Documented Arterial Blood Pressure 112/49 - Exam Patient is sedated and on the vent Examination of the heart S1 and S2 Examination of the lungs shows bilateral breath sounds are heard Abdomen is obese with abdominal wound VAC noted Examination lower extremity shows both extremities are wrapped. Chronic skin changes noted in the feet with mottling, edema noted in upper and lower extremities - Labs CBC & Chem 7: 12/16/24 03:39 12/16/24 03:39 Labs: Abnormal Lab Results - Last 24 Hours (Table) 12/13/24 12/15/24 12/15/24 Range/Units 06:20 13:58 16:18 WBC (4.50-10.00) 10*3/uL RBC (4.40-5.60) 10*6/uL Hgb (13.0-17.0) g/dL Hct (39.6-50.0) % Plt Count (140-440) 10*3/uL Immature Plt Fraction (1.1-6.1) % ABG O2 Saturation (94-97) % Hemoglobin (13.0-17.5) gm/dL Sodium (137-145) mmol/L Chloride (98-107) mmol/L Carbon Dioxide (22-30) mmol/L BUN (9-20) mg/dL Creatinine (0.66-1.25) mg/dL Glucose (74-99) mg/dL POC Glucose (mg/dL) 298 H 290 H (70-110) mg/dL Calcium (8.4-10.2) mg/dL Ionized Calcium [place] (4.5-5.3) mg/dL Phosphorus (2.5-4.5) mg/dL Total Bilirubin (0.2-1.3) mg/dL AST (17-59) U/L ALT (4-49) U/L Alkaline Phosphatase (38-126) U/L Total Protein (6.3-8.2) g/dL Albumin (3.5-5.0) g/dL Crossmatch See Detail 12/15/24 12/16/24 12/16/24 Range/Units 21:33 00:01 03:39 WBC 53.63 H* (4.50-10.00) 10*3/uL RBC 2.74 L (4.40-5.60) 10*6/uL Hgb 8.0 L (13.0-17.0) g/dL Hct 22.5 L (39.6-50.0) % Plt Count 22 L (140-440) 10*3/uL Immature Plt Fraction (1.1-6.1) % ABG O2 Saturation (94-97) % Hemoglobin (13.0-17.5) gm/dL Sodium 125 L (137-145) mmol/L Chloride 96 L (98-107) mmol/L Carbon Dioxide 21 L (22-30) mmol/L BUN 55 H (9-20) mg/dL Creatinine 2.55 H (0.66-1.25) mg/dL Glucose 191 H (74-99) mg/dL POC Glucose (mg/dL) 229 H (70-110) mg/dL Calcium 7.0 L (8.4-10.2) mg/dL Ionized Calcium [place] 4.1 L (4.5-5.3) mg/dL Phosphorus 5.2 H (2.5-4.5) mg/dL Total Bilirubin 5.7 H (0.2-1.3) mg/dL AST 97 H (17-59) U/L ALT 240 H (4-49) U/L Alkaline Phosphatase 230 H (38-126) U/L Total Protein 3.3 L (6.3-8.2) g/dL Albumin 1.4 L (3.5-5.0) g/dL Crossmatch 12/16/24 12/16/24 12/16/24 Range/Units 03:39 05:14 05:30 WBC 49.56 H (4.50-10.00) 10*3/uL RBC 2.69 L (4.40-5.60) 10*6/uL Hgb 7.7 L (13.0-17.0) g/dL Hct 22.1 L (39.6-50.0) % Plt Count 22 L (140-440) 10*3/uL Immature Plt Fraction 13.9 H (1.1-6.1) % ABG O2 Saturation 98.3 H (94-97) % Hemoglobin 7.9 L (13.0-17.5) gm/dL Sodium (137-145) mmol/L Chloride (98-107) mmol/L Carbon Dioxide (22-30) mmol/L BUN (9-20) mg/dL Creatinine (0.66-1.25) mg/dL Glucose (74-99) mg/dL POC Glucose (mg/dL) 141 H (70-110) mg/dL Calcium (8.4-10.2) mg/dL Ionized Calcium [place] (4.5-5.3) mg/dL Phosphorus (2.5-4.5) mg/dL Total Bilirubin (0.2-1.3) mg/dL AST (17-59) U/L ALT (4-49) U/L Alkaline Phosphatase (38-126) U/L Total Protein (6.3-8.2) g/dL Albumin (3.5-5.0) g/dL Crossmatch 12/16/24 Range/Units 11:40 WBC (4.50-10.00) 10*3/uL RBC (4.40-5.60) 10*6/uL Hgb (13.0-17.0) g/dL Hct (39.6-50.0) % Plt Count (140-440) 10*3/uL Immature Plt Fraction (1.1-6.1) % ABG O2 Saturation (94-97) % Hemoglobin (13.0-17.5) gm/dL Sodium (137-145) mmol/L Chloride (98-107) mmol/L Carbon Dioxide (22-30) mmol/L BUN (9-20) mg/dL Creatinine (0.66-1.25) mg/dL Glucose (74-99) mg/dL POC Glucose (mg/dL) 270 H (70-110) mg/dL Calcium (8.4-10.2) mg/dL Ionized Calcium [place] (4.5-5.3) mg/dL Phosphorus (2.5-4.5) mg/dL Total Bilirubin (0.2-1.3) mg/dL AST (17-59) U/L ALT (4-49) U/L Alkaline Phosphatase (38-126) U/L Total Protein (6.3-8.2) g/dL Albumin (3.5-5.0) g/dL Crossmatch Microbiology - Last 24 Hours (Table) 12/14/24 09:24 Gram Stain - Final Abdomen Wound Culture - Final Assessment and Plan Assessment: 1. Acute kidney injury, ATN secondary to sepsis and hypotension, oliguric. Started on renal replacement therapy on 12/12/2024 due to intractable hyperkalemia in the setting of oliguria and progressive acute kidney injury. 2. Hyperkalemia associated with acute kidney injury and ischemic bowel 3. Anion gap metabolic acidosis secondary to lactic acidosis shock and acute kidney injury, status post bicarb drip 4. Hypovolemic hyponatremia status post multiple fluid boluses, now hypervolemic 5. Perforated bowel and intra-abdominal abscess status post explorative laparotomy, subtotal colectomy, with abdominal washout and abdominal wound VAC, status post second look explorative laparotomy with ileocolonic anastomosis on 12/11/2024. Patient was taken back to the OR on 12/14/2024 for abdominal washout and replacement of wound VAC 6. Elevated liver enzymes from shock liver 7. Anemia associated with acute blood loss, status post packed RBCs transfusion Plan: There are plans for possible comfort care tomorrow. We will hold off on dialysis now. Overall prognosis is guarded Continue antibiotics as per ID.
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
[2024-12-16 17:44] LABS: Glucose,Whole Blood 255 mg/dL (70-110)
[2024-12-16 23:18] LABS: Glucose,Whole Blood 233 mg/dL (70-110)
[2024-12-17 05:34] LABS: Glucose,Whole Blood 206 mg/dL (70-110)
[2024-12-17 05:42] LABS: HCT 20.3 % (39.6-50.0); HGB 7.4 g/dL (13.0-17.0); Immature Platelet Fraction 15.5 % (1.1-6.1); MCH 29.5 pg (27.0-32.0); MCHC 36.5 g/dL (32.0-37.0); MCV 80.9 fL (80.0-97.0); RBC 2.51 10*6/uL (4.40-5.60); RDW 16.1 % (11.5-14.5)
[2024-12-17 05:47] LABS: Platelet Count 29 10*3/uL (140-440)
[2024-12-17 05:56] LABS: ABG Base Excess -4.1 mmol/L; ABG HCO3 21 mmol/L (21-25); ABG Oxygen Saturation 98.2 % (94-97); ABG PCO2 39 mmHg (35-45); ABG PH 7.35 (7.35-7.45); ABG PO2 99 mmHg (83-108); ABG TCO2 23 mmol/L (19-24)
[2024-12-17 05:57] LABS: Allen Test Performed? no
[2024-12-17 06:29] LABS: Anion Gap 11 mmol/L; Blood Urea Nitrogen 70 mg/dL (9-20); Calcium 7.3 mg/dL (8.4-10.2); Carbon Dioxide 19 mmol/L (22-30); Chloride 95 mmol/L (98-107); Glucose 170 mg/dL (74-99); Phosphorus 5.7 mg/dL (2.5-4.5); Potassium 4.4 mmol/L (3.5-5.1); Sodium 125 mmol/L (137-145)
[2024-12-17 06:35] LABS: African American GFR (CKD) 23 (>60 ml/min/1.73 sqM); Non-African American GFR(CKD) 20 (>60 ml/min/1.73 sqM)
[2024-12-17 06:40] LABS: Neutrophils % (M) 93 %
[2024-12-17 06:41] LABS: Band Neutrophils % 6 %; Monocytes # (M) 0.93 k/uL (0-1.0); Neutrophils # (M) 45.83 k/uL (1.3-7.7); Nucleated Red Blood Cells 0 /100 WBC (0-0); Total Cells Counted 200
--- NOTE | 2024-12-17 08:06 | XR ---
EXAMINATION TYPE: XR chest 1V portable DATE OF EXAM: 12/17/2024 3:58 AM COMPARISON: Chest radiograph from one day prior. CLINICAL INDICATION: Male, 69 years old with history of mechanical ventilation; [facility] TECHNIQUE: XR chest 1V portable Frontal view of the chest. FINDINGS: Lungs/Pleura: There is no evidence of pleural effusion, focal consolidation, or pneumothorax. Pulmonary vascularity: Unremarkable. Heart/mediastinum: Cardiomediastinal silhouette is enlarged. Three lead cardiac conduction device ove rlying the left hemithorax with lead tips projecting over the right ventricle, right atrium and coron ijeoma sinus. Musculoskeletal: No acute osseous pathology. Other findings: None Lines/Tubes: Endotracheal tube with distal tip 4.5cm above the juan francisco. Nasogastric tube with its distal tip and side-port projecting under the diaphragm. Two Right central venous catheter with distal tip at the cavoatrial junction and superior vena cava. IMPRESSION: Similar airspace opacities and small bilateral pleural effusions [facility], , 12/17/2024 8:04 AM
[2024-12-17 11:29] LABS: Glucose,Whole Blood 212 mg/dL (70-110)
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
[2024-12-17 12:28] VITALS: TEMP 99.1
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
[2024-12-17 15:39] VITALS: PULSE 87; RESP 18
[2024-12-17] MEDS ORDERED: HYDROmorphone 0.5 MG/0.5 ML SYRINGE IVP PRN (15:41)
[2024-12-17] MEDS ORDERED: MORPHINE SULFATE 2 MG/ML SYRINGE IVP PRN (15:41)
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
[2024-12-17] MEDS: MORPHINE SULFATE 4 MG/ML SYRINGE IVP PRN (16:34)
[2024-12-17] MEDS: LORazepam 1 MG/0.5 ML VIAL IV PRN (16:34)
[2024-12-17] MEDS: MORPHINE SULFATE 100 MG in SODIUM CHLORIDE 0.9% 90 ML IV SCH (16:35)
[2024-12-17] MEDS: ATROPINE OPHTH SOLN 1% 5ML BTL SUBLINGUAL PRN (16:43)
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
[2024-12-17] MEDS ORDERED: MVI, ADULT NO.4 WITH VIT K 10 ML, TRACE (CONC-1ML/DOSE) 1 ML, SODIUM CHLORIDE 4MEQ/ML V... IV SCH (21:00)
--- NOTE | 2024-12-17 21:03 | P.PN ---
Subjective Patient is seen for follow-up for acute kidney injury. He remains oliguric Started hemodialysis on 12/12/2024 due to progressive acute kidney injury and intractable hyperkalemia Levophed is 0.1 mcg/kg Vasopressin at 0.04 mcg/kg There are plans for comfort care measures later on today. Objective - Vital Signs Vital signs: Vital Signs Temp 99.1 F 12/17/24 12:00 Pulse 87 12/17/24 15:00 Resp 18 12/17/24 15:00 BP 152/57 12/15/24 23:30 Pulse Ox 98 12/17/24 15:00 FiO2 35 12/17/24 15:40 Intake & Output 12/17/24 12/17/24 12/18/24 06:59 18:59 06:59 Intake Total 2703.472 1067.356 Output Total 420 0 Balance 2283.472 1067.356 Weight 216.817 kg Intake: IV 576 230 0.9 @ KVO 240 200 Linezolid 600 mg In 300 Dextrose/Water 1 300ml. bag @ 150 mls/hr IVPB Q12HR JG Rx#:[id number] Pressure Bags 36 30 Intake, IV Titration 2127.472 837.356 Amount Mvi, Adult No.4 with Vit 1036 K 10 ml Trace (Conc-1Ml/ Dose) 1 ml Sodium Chloride 4Meq/ml Vial 52 meq Magnesium Sulfate gm 1 gm Calcium Gluconate 1 gm In Amino Acids 5 %/ Dextrose 20 % 1,000 ml @ 60 mls/hr IV .[id number] JG Rx#:[id number] Norepinephrine 8 mg In 641.612 574.241 Sodium Chloride 0.9% 250 ml @ 0.03 MCG/KG/MIN 9. 869 mls/hr IV .Q24H JG Rx#:[id number] Piperacillin-Tazobactam 3 100 .375 gm In Sodium Chloride 0.9% 100 ml @ 25 mls/hr IVPB Q12HR JG Rx #:[id number] propofoL 1,000 mg In 349.86 263.115 Empty Bag 1 bag @ 15 MCG/ KG/MIN 15.3 mls/hr IV . Q6H33M JG Rx#:[id number] Output: Drainage 420 Left 360 Medial 60 Urine 0 0 Other: Voiding Method Indwelling Catheter Indwelling Catheter ABP, PAP, CO, CI - Last Documented Arterial Blood Pressure 106/52 - Exam Patient is sedated and on the vent Abdomen is obese with abdominal wound VAC noted Examination lower extremity shows both extremities are wrapped. Chronic skin changes noted in the feet with mottling, edema noted in upper and lower extremities - Labs CBC & Chem 7: 12/17/24 05:33 12/17/24 05:33 Labs: Abnormal Lab Results - Last 24 Hours (Table) 12/16/24 12/17/24 12/17/24 Range/Units 23:17 05:33 05:33 WBC 46.30 H (4.50-10.00) 10*3/uL RBC 2.51 L (4.40-5.60) 10*6/uL Hgb 7.4 L (13.0-17.0) g/dL Hct 20.3 L (39.6-50.0) % Plt Count 29 L (140-440) 10*3/uL Immature Gran # 1.92 H (0.00-0.04) 10*3/uL Neutrophils # (Manual) 45.83 H (1.3-7.7) k/uL Immature Plt Fraction 15.5 H (1.1-6.1) % ABG O2 Saturation (94-97) % Hemoglobin (13.0-17.5) gm/dL Sodium 125 L (137-145) mmol/L Chloride 95 L (98-107) mmol/L Carbon Dioxide 19 L (22-30) mmol/L BUN 70 H (9-20) mg/dL Creatinine 3.13 H (0.66-1.25) mg/dL Glucose 170 H (74-99) mg/dL POC Glucose (mg/dL) 233 H (70-110) mg/dL Calcium 7.3 L (8.4-10.2) mg/dL Phosphorus 5.7 H (2.5-4.5) mg/dL 12/17/24 12/17/24 12/17/24 Range/Units 05:33 05:55 11:27 WBC (4.50-10.00) 10*3/uL RBC (4.40-5.60) 10*6/uL Hgb (13.0-17.0) g/dL Hct (39.6-50.0) % Plt Count (140-440) 10*3/uL Immature Gran # (0.00-0.04) 10*3/uL Neutrophils # (Manual) (1.3-7.7) k/uL Immature Plt Fraction (1.1-6.1) % ABG O2 Saturation 98.2 H (94-97) % Hemoglobin 7.5 L (13.0-17.5) gm/dL Sodium (137-145) mmol/L Chloride (98-107) mmol/L Carbon Dioxide (22-30) mmol/L BUN (9-20) mg/dL Creatinine (0.66-1.25) mg/dL Glucose (74-99) mg/dL POC Glucose (mg/dL) 206 H 212 H (70-110) mg/dL Calcium (8.4-10.2) mg/dL Phosphorus (2.5-4.5) mg/dL Assessment and Plan Assessment: 1. Acute kidney injury, ATN secondary to sepsis and hypotension, oliguric. Started on renal replacement therapy on 12/12/2024 due to intractable hyperkalemia in the setting of oliguria and progressive acute kidney injury. 2. Hyperkalemia associated with acute kidney injury and ischemic bowel 3. Anion gap metabolic acidosis secondary to lactic acidosis shock and acute kidney injury, status post bicarb drip 4. Hypovolemic hyponatremia status post multiple fluid boluses, now hypervolemic 5. Perforated bowel and intra-abdominal abscess status post explorative laparotomy, subtotal colectomy, with abdominal washout and abdominal wound VAC, status post second look explorative laparotomy with ileocolonic anastomosis on 12/11/2024. Patient was taken back to the OR on 12/14/2024 for abdominal washout and replacement of wound VAC 6. Elevated liver enzymes from shock liver 7. Anemia associated with acute blood loss, status post packed RBCs transfusion Plan: Hold hemodialysis. There are plans for comfort care measures later on today.
--- NOTE | 2024-12-23 19:04 | CDI ---
Documentation Clarification Form Date: From: Dean Mazariegos Phone: Admit Date: 11/26/2024 04:18:00 PM Patient Name: Servando Winkler Visit Number: [id number] Discharge Date: 12/17/2024 08:00:00 PM ATTENTION: The Clinical Documentation Specialists (CDI) and [facility] Coding Staff appreciate your assistance in clarifying documentation. Please respond to the clarification below the line at the bottom and electronically sign. The CDI & [facility] Coding staff will review the response and follow-up if needed. Please note: Queries are made part of the Legal Health Record. If you have any questions, please contact the author of this message via ITS. Doctor/Provider: Ruba King Sepsis is documented 11/26/24 consult. For each diagnosis, documentation must be clear to determine if the condition was present at the time of the patients inpatient admission or developed during the hospital stay. Additional clarification regarding the Sepsis is requested. History/Risk Factors: Pneumonia cellulitis Clinical Indicators: Temperature 98 F WBC 14.21 H (4.50-10.00) 10*3/uL Pulse Rate 63 60 Respiratory 20 36 H lactic acidosis leukocytosis acute respiratory failure Treatment: broad spectrum antibiotics efepime and vanomycin Definition of Present on Admission (POA): A diagnosis present at the time the order for admission to inpatient status was written. Please clarify if the Sepsis was POA [ x] Y = Yes, the condition was present at the time of the order for inpatient admission. [ ] N = No, the condition was not present at the time of the order for inpatient admission. [ ] W = Clinically undetermined if the condition was present at the time of the order for inpatient admission. MTDD
== END 2024-12-17 20:00 | disposition expired | DRG 853 ==
LOC: EC 14:17 → 3SCARD 16:18 → 4SSUR 11-27 12:40 → 2SICU 12-09 05:43
PROVIDERS: ADMIT Student in an Organized Health Care Education/Training Program; ATTEND Student in an Organized Health Care Education/Training Program
PROC: 30233N1 Transfusion of Nonautologous Red Blood Cells into Peripheral Vein, Percutaneous Approach (ICD-10-PCS; 2024-12-06)
PROC: 0DTE0ZZ Resection of Large Intestine, Open Approach (ICD-10-PCS; 2024-12-09)
PROC: 0DC Gastrointestinal System, Extirpation (ICD-10-PCS; 2024-12-09)
PROC: 3E1M38Z Irrigation of Peritoneal Cavity using Irrigating Substance, Percutaneous Approach (ICD-10-PCS; 2024-12-09)
PROC: 4A133B1 Monitoring of Arterial Pressure, Peripheral, Percutaneous Approach (ICD-10-PCS; 2024-12-09)
PROC: 4A133J1 Monitoring of Arterial Pulse, Peripheral, Percutaneous Approach (ICD-10-PCS; 2024-12-09)
PROC: 03HY32Z Insertion of Monitoring Device into Upper Artery, Percutaneous Approach (ICD-10-PCS; 2024-12-09)
PROC: 3E033XZ Introduction of Vasopressor into Peripheral Vein, Percutaneous Approach (ICD-10-PCS; 2024-12-09)
PROC: 0DT80ZZ Resection of Small Intestine, Open Approach (ICD-10-PCS; principal; 2024-12-09 20:00)
PROC: 5A1D70Z Performance of Urinary Filtration, Intermittent, Less than 6 Hours Per Day (ICD-10-PCS; 2024-12-12)
PROC: 02HV33Z Insertion of Infusion Device into Superior Vena Cava, Percutaneous Approach (ICD-10-PCS; 2024-12-12)
PROC: 3E033XZ Introduction of Vasopressor into Peripheral Vein, Percutaneous Approach (ICD-10-PCS; 2024-12-12)
PROC: 3E0336Z Introduction of Nutritional Substance into Peripheral Vein, Percutaneous Approach (ICD-10-PCS; 2024-12-15)
DX: A41.9 Sepsis, unspecified organism (principal); B37.1 Pulmonary candidiasis; I50.33 Acute on chronic diastolic (congestive) heart failure; J96.21 Acute and chronic respiratory failure with hypoxia; K63.1 Perforation of intestine (nontraumatic); K65.1 Peritoneal abscess; K72.00 Acute and subacute hepatic failure without coma; J96.02 Acute respiratory failure with hypercapnia; J96.22 Acute and chronic respiratory failure with hypercapnia; N17.0 Acute kidney failure with tubular necrosis; R53.2 Functional quadriplegia; R65.21 Severe sepsis with septic shock; K66.1 Hemoperitoneum; K55.019 Acute (reversible) ischemia of small intestine, extent unspecified; K55.9 Vascular disorder of intestine, unspecified; Z99.2 Dependence on renal dialysis; D69.6 Thrombocytopenia, unspecified; J44.1 Chronic obstructive pulmonary disease with (acute) exacerbation; E66.2 Morbid (severe) obesity with alveolar hypoventilation; I11.0 Hypertensive heart disease with heart failure; I27.29 Other secondary pulmonary hypertension; E11.65 Type 2 diabetes mellitus with hyperglycemia; I42.8 Other cardiomyopathies; Z51.5 Encounter for palliative care; Z66 Do not resuscitate; I48.92 Unspecified atrial flutter; L97.918 Non-pressure chronic ulcer of unspecified part of right lower leg with other specified severity; E87.21 Acute metabolic acidosis; D62 Acute posthemorrhagic anemia; L03.115 Cellulitis of right lower limb; L03.116 Cellulitis of left lower limb; N17.9 Acute kidney failure, unspecified; E87.1 Hypo-osmolality and hyponatremia; E87.4 Mixed disorder of acid-base balance; I48.91 Unspecified atrial fibrillation; I49.5 Sick sinus syndrome; Z79.4 Long term (current) use of insulin; R62.7 Adult failure to thrive; R32 Unspecified urinary incontinence; J70.5 Respiratory conditions due to smoke inhalation; T59.811A Toxic effect of smoke, accidental (unintentional), initial encounter; M79.81 Nontraumatic hematoma of soft tissue; E78.5 Hyperlipidemia, unspecified; Z95.810 Presence of automatic (implantable) cardiac defibrillator; E87.5 Hyperkalemia; B95.62 Methicillin resistant Staphylococcus aureus infection as the cause of diseases classified elsewhere; G89.29 Other chronic pain; E83.51 Hypocalcemia; I87.8 Other specified disorders of veins; Z74.01 Bed confinement status; Z79.01 Long term (current) use of anticoagulants; Z79.51 Long term (current) use of inhaled steroids; Z79.84 Long term (current) use of oral hypoglycemic drugs; Z77.090 Contact with and (suspected) exposure to asbestos; Z79.899 Other long term (current) drug therapy; Z91.199 Patient's noncompliance with other medical treatment and regimen due to unspecified reason; Z96.1 Presence of intraocular lens; Z98.42 Cataract extraction status, left eye; Z98.41 Cataract extraction status, right eye
CPT/HCPCS: 36410; 36415; 36430; 36600; 71045; 74174; 74176; 76937; 80048; 80053; 80202; 81001; 82330; 82375; 82600; 82805; 83036; 83605; 83735; 83880; 84100; 84132; 84145; 84478; 85025; 85027; 85610; 85730; 86140; 86706; 86850; 86900; 86901; 86920; 87040; 87070; 87075; 87077; 87086; 87186; 87205; 87340; 88307; 90935; 93005; 93306; 94002; 94003; 94640; 94660; 94667; 94668; 94760; 96361; 96365; 96366; 96367; 96375; 96376; 99291